=== PATIENT | male | born 1950 | race Caucasian/White ===

== ENCOUNTER → 2017-10-27 11:09 | Outpatient (CLI) | payer MEDICARE, OTHER, SELFPAY ==
[2017-10-27 14:49] LABS: Anion Gap 9 (5-15); BUN 22 mg/dL (7-18); BUN/Creat Ratio 17.3 RATIO (10-20); Calcium,Total 8.8 mg/dL (8.5-10.1); Chloride 101 mmol/L (98-107); Cholesterol 142 mg/dL (200); Creatinine, Serum 1.27 mg/dL (0.70-1.30); EST Glomerular Filtration Rate 60 mL/min (>60); Est Glom Filt Rate - Afr Amer 73 mL/min (>60); Glucose 104 mg/dL (74-106); High Density Lipoprotein 32 mg/dL; PSA,Total - Annual Screen 2.49 ng/mL (0.00-4.00); Potassium 3.9 mmol/L (3.5-5.1); Sodium Level 137 mmol/L (136-145); Triglycerides 204 mg/dL; Very Low Density Lipoprotein 41 mg/dL (5-40)
== END ==
PROVIDERS: Family Provider Family Medicine; PCP Family Medicine; Visit Provider Family Medicine
DX: I10 Essential (primary) hypertension (principal); N40.0 Benign prostatic hyperplasia without lower urinary tract symptoms; Z12.5 Encounter for screening for malignant neoplasm of prostate
CPT/HCPCS: 36415; 80048; 80061; 84153; G0103

== ENCOUNTER → 2017-11-12 09:45 | Outpatient (CLI) | payer MEDICARE, OTHER, SELFPAY ==
--- NOTE | 2017-11-14 19:53 | LEAS ---
Arterial Study - Arterial Study Arterial Study: This is a 67-year-old male with a history of hypertension. The patient presents with paresthesias and pain in the lower extremities with ambulation. Suspecting the presence of atherosclerotic peripheral arterial occlusive disease, the patient was brought to the noninvasive vascular laboratory at this time for the purpose of bilateral noninvasive lower extremity arterial assessment. Doppler signal assessment was used to evaluate the pulses at ankle level bilaterally. The posterior tibial and dorsalis pedis pulses were triphasic bilaterally. Segmental limb pressures were obtained at ankle level bilaterally. The right ankle pressure, as determined by posterior tibial pulse, was measured at 173 mmHg. The right ankle pressure, as determined by dorsalis pedis pulse, was measured at 157 mmHg. The left ankle pressure, as determined by posterior tibial pulse, was measured at 177 mmHg. The left ankle pressure, as determined by dorsalis pedis pulse, was measured at 164 mmHg. Pulse-volume recordings were obtained bilaterally and segmentally. Waveform amplitudes appeared to be satisfactory at all levels bilaterally, but for the right digital level, which was mildly diminished. Resting ankle-brachial indices were calculated bilaterally. The resting right ankle-brachial index was calculated to be 1.17. The resting left ankle-brachial index was calculated to be 1.20. The patient was exercised on a treadmill at 2 mph and a 5% grade for 5 minutes. The patient expressed no complaints. One minute following cessation of exercise, ankle pressures were obtained bilaterally, and found to be 209 mmHg on the right, and 201 mmHg on the left. Impression: Based upon the findings of this resting and exercise noninvasive lower extremity study, there is no evidence of peripheral arterial occlusive disease in the lower extremities bilaterally. Triphasic waveforms were noted at ankle level bilaterally. Resting ankle-brachial indices were bilaterally normal. Ankle pressures were noted to augment bilaterally following a period of exercise, which is a normal physiological response.
--- NOTE | 2017-11-14 19:57 | LEAS_ITS ---
Arterial Study - Arterial Study Arterial Study: This is a 67-year-old male with a history of hypertension. The patient presents with paresthesias and pain in the lower extremities with ambulation. Suspecting the presence of atherosclerotic peripheral arterial occlusive disease , the patient was brought to the noninvasive vascular laboratory at this time for the purpose of bilateral noninvasive lower extremity arterial assessment. Doppler signal assessment was used to evaluate the pulses at ankle level bilaterally. The posterior tibial and dorsalis pedis pulses were triphasic bilaterally. Segmental limb pressures were obtained at ankle level bilaterally. The right ankle pressure, as determined by posterior tibial pulse, was measured at 173 mmHg. The right ankle pressure, as determined by dorsalis pedis pulse, was measured at 157 mmHg. The left ankle pressure, as determined by posterior tibial pulse, was measured at 177 mmHg. The left ankle pressure, as determined by dorsalis pedis pulse, was measured at 164 mmHg. Pulse-volume recordings were obtained bilaterally and segmentally. Waveform amplitudes appeared to be satisfactory at all levels bilaterally, but for the right digital level, which was mildly diminished. Resting ankle-brachial indices were calculated bilaterally. The resting right ankle-brachial index was calculated to be 1.17. The resting left ankle- brachial index was calculated to be 1.20. The patient was exercised on a treadmill at 2 mph and a 5% grade for 5 minutes. The patient expressed no complaints. One minute following cessation of exercise, ankle pressures were obtained bilaterally, and found to be 209 mmHg on the right, and 201 mmHg on the left. Impression: Based upon the findings of this resting and exercise noninvasive lower extremity study, there is no evidence of peripheral arterial occlusive disease in the lower extremities bilaterally. Triphasic waveforms were noted at ankle level bilaterally. Resting ankle-brachial indices were bilaterally normal. Ankle pressures were noted to augment bilaterally following a period of exercise, which is a normal physiological response.
== END ==
PROVIDERS: Family Provider Family Medicine; PCP Family Medicine; Visit Provider Family Medicine
DX: R09.89 Other specified symptoms and signs involving the circulatory and respiratory systems (principal); R20.0 Anesthesia of skin
CPT/HCPCS: 93924

== ENCOUNTER → 2017-11-19 08:27 | Outpatient (CLI) | payer MEDICARE, OTHER, SELFPAY ==
--- NOTE | 2017-11-19 08:33 | BI_ITS ---
MAMMOGRAPHY - BILATERAL DIAGNOSTIC REASON FOR EXAM: Male, 67 years old. Bilateral breast tenderness and swelling. PERTINENT HISTORY: Non-contributory. TECHNIQUE: Digital bilateral breast mabel (3D mammographic acquisition) in the CC and MLO projections. 2-D mediolateral oblique (MLO) and craniocaudad (CC) views of both breasts were obtained. CAD: Full Field Digital Mammography with Computer Added Detection was performed. COMPARISON: None. Baseline examination. FINDINGS: Breast Composition: The breasts are heterogeneously dense, which may obscure small masses. There are no dominant masses or suspicious calcifications. No other significant abnormalities are identified. BI/DIAG MAMM W/CAD, BILAT IMPRESSION: Negative diagnostic mammogram. Correlation with ultrasound of both breasts is recommended to assess for possible gynecomastia. ASSESSMENT CATEGORY: BIRADS Category 0: Incomplete. Need additional imaging evaluation. A letter regarding these results will be sent to the patient by the facility within 30 days. Approximately 10% of breast cancers are not detected by mammography. A normal mammogram should not delay biopsy of a clinically suspicious abnormality. Electronically Signed: Ephraim Constantino MD at 10:41 EDT Tel [phone], Service support ,
--- NOTE | 2017-11-19 09:25 | US_ITS ---
STUDY: ULTRASOUND BREAST - RIGHT REASON FOR EXAM: Male, 67 years old. History of bilateral breast pain. TECHNIQUE: Axial and longitudinal images of the RIGHT breast were performed with a high resolution ultrasound transducer. COMPARISON: Comparison is made with prior mammogram done earlier today. FINDINGS: RIGHT Breast: The entire breast was examined by ultrasound. There is homogeneous fibroglandular tissue. No solid or cystic mass lesion is seen. Findings suggestive of gynecomastia. IMPRESSION: Fibroglandular tissues suggestive of gynecomastia. ASSESSMENT CATEGORY: BIRADS Category 2: Benign. A letter regarding these results will be sent to the patient by the facility within 30 days. Electronically Signed: Ephraim Constantino MD at 10:41 EDT Tel [phone], Service support , STUDY: ULTRASOUND BREAST - LEFT REASON FOR EXAM: Male, 67 years old. Breast tenderness. TECHNIQUE: Axial and longitudinal images of the LEFT breast were performed with a high resolution ultrasound transducer. COMPARISON: Comparison is made with prior mammogram done earlier in the day. FINDINGS: LEFT Breast: The entire breast was examined by ultrasound. There is evidence of homogeneous fibroglandular tissue. No solid or cystic mass lesion is seen. US/Breast Limited Unilateral IMPRESSION: Findings suggestive of gynecomastia. ASSESSMENT CATEGORY: BIRADS Category 2: Benign. A letter regarding these results will be sent to the patient by the facility within 30 days. Electronically Signed: Ephraim Constantino MD at 10:42 EDT Tel [phone], Service support ,
== END ==
PROVIDERS: Family Provider Family Medicine; PCP Family Medicine; Visit Provider Family Medicine
DX: N62 Hypertrophy of breast (principal)
CPT/HCPCS: 76642; 77062; 77066; G0279

== ENCOUNTER 2017-12-07 05:54 | Day surgery (SDC) | payer MEDICARE, OTHER, SELFPAY ==
[2017-12-07] VITALS (7 sets, daily range): BP systolic 100–144; BP diastolic 51–78; PULSE 57–64; RESP 16–18; TEMP 36.4–36.7; O2SAT 94–98; BMI 44.1
--- NOTE | 2017-12-07 07:15 | PCM.OPRPT ---
Problem List (1) Rectal bleeding Status: Acute Report of Operation Date of Procedure: 12/07/17 Pre-Operative Diagnosis: Rectal bleeding Post-Operative Diagnosis: Scattered sigmoid diverticulosis. Grade 3 internal hemorrhoids, friable Surgery/Procedure Performed:: Colonoscopy Description of Surgical Findings:: Out and informed consent was obtained. 67-year-old gentleman was taken to the endoscopy suite. He was placed in a left lateral decubitus position. Throughout the procedure he received a total of 80 mg of Demerol and 3 mg of Versed as intravenous sedation. Digital rectal exam performed. Slightly lax anal tone. 2+ smooth prostate. 3+ internal hemorrhoids. Flexible colonoscope inserted the rectum advanced through the sigmoid descending transverse and ascending colon this was done rather expeditiously. The cecum ileocecal valve area was nicely achieved. Bowel prep was good. The scope was carefully withdrawn from the ascending transverse descending and sigmoid colon. Scattered diverticulosis of the sigmoid noted. No mass lesions. No active bleeding. The scope was retroflexed and the internal hemorrhoidal disease noted with friability. Excess fluid and air was aspirated free the scope was carefully withdrawn demonstrating irritated internal hemorrhoids. The procedure was completed with the patient tolerating it well. Impression Scattered sigmoid diverticulosis. Grade 3 internal hemorrhoids likely source of rectal bleeding. Patient will consider surgical treatment options for internal hemorrhoids and based upon his body habitus and presentation I am recommending a surgical hemorrhoidectomy. Previous colonoscopy was April 29, 2008. Next colonoscopy recommended for screening in 10 years. Cc: Dr. Foreign Herrmann Medications were given at 0700. Scope inserted 0703. Cecum was reached at 0707. The procedure was completed at 0713. Iban Penaloza M.D., F.A.C.S. Type of Anesthesia:: IV Sedation
== END 2017-12-07 08:00 | disposition home or self-care (01) ==
LOC: EN 05:55 → AC 05:57
PROVIDERS: Family Provider Family Medicine; PCP Family Medicine; Visit Provider Surgery
PROC: 0DJD8ZZ Inspection of Lower Intestinal Tract, Via Natural or Artificial Opening Endoscopic (ICD-10-PCS; CPT 45378; principal; 2017-12-07 06:55)
DX: K57.30 Diverticulosis of large intestine without perforation or abscess without bleeding (principal); K64.2 Third degree hemorrhoids; I10 Essential (primary) hypertension; E66.01 Morbid (severe) obesity due to excess calories; N62 Hypertrophy of breast; I87.2 Venous insufficiency (chronic) (peripheral); K62.5 Hemorrhage of anus and rectum; R20.0 Anesthesia of skin; R20.2 Paresthesia of skin; Z68.41 Body mass index [BMI] 40.0-44.9, adult
CPT/HCPCS: 45378; 99152; 99153; J7120

== ENCOUNTER → 2017-12-17 08:55 | Outpatient (CLI) | payer MEDICARE, OTHER, SELFPAY ==
[2017-12-17 10:36] LABS: Anion Gap 7 (5-15); BUN 21 mg/dL (7-18); BUN/Creat Ratio 15.8 RATIO (10-20); Calcium,Total 8.7 mg/dL (8.5-10.1); Chloride 105 mmol/L (98-107); Creatinine, Serum 1.33 mg/dL (0.70-1.30); EST Glomerular Filtration Rate 57 mL/min (>60); Est Glom Filt Rate - Afr Amer 69 mL/min (>60); Glucose 104 mg/dL (74-106); Potassium 3.6 mmol/L (3.5-5.1); Sodium Level 140 mmol/L (136-145)
== END ==
PROVIDERS: Family Provider Family Medicine; PCP Family Medicine; Visit Provider Family Medicine
DX: R60.9 Edema, unspecified (principal)
CPT/HCPCS: 36415; 80048

== ENCOUNTER 2018-01-19 05:29 | Day surgery (SDC) | payer MEDICARE, OTHER, SELFPAY ==
--- NOTE | 2018-01-13 07:55 | EKG12_ITS ---
Test Reason : PRE OP Blood Pressure : / mmHG Vent. Rate : 060 BPM Atrial Rate : 060 BPM P-R Int : 158 ms QRS Dur : 098 ms QT Int : 452 ms P-R-T Axes : 058 -01 061 degrees QTc Int : 452 ms Normal sinus rhythm Normal ECG Confirmed by SULEMAN SAL, RYLIE ([id number]), editor index MAGEN CHAVEZ ([id number]) on 01/19/2018 6:25:52 PM Referred By: Iban Penaloza Confirmed By:RYLIE SHELL MD
[2018-01-16 11:23] LABS: Hematocrit 41.6 % (40-54); Mean Corp Hgb Conc 36.1 g/gl (32-36); Mean Corpuscular Hgb 31.5 pg (27.0-32.0); Mean Corpuscular Volume 87.4 fL (80-94); Mean Platelet Vol. 9.5 fl (6.2-12.0); Platelet Count 225 K/mm3 (150-450); RBC Distribution Width CV 12.9 % (11.6-14.6); RBC Distribution Width SD 41.6 fl (35.1-43.9); Red Blood Count 4.76 M/mm3 (4.6-6.2); Scan Indicated on CBC? Y/N NO; White Blood Count 7.1 K/mm3 (4.4-11.0)
[2018-01-18 01:07] LABS: BUN 22 mg/dL (7-18); BUN/Creat Ratio 15.7 RATIO (10-20); EST Glomerular Filtration Rate 54 mL/min (>60); Est Glom Filt Rate - Afr Amer 65 mL/min (>60); Glucose 111 mg/dL (74-106)
[2018-01-18 01:08] LABS: Anion Gap 7 (5-15); Calcium,Total 8.6 mg/dL (8.5-10.1); Chloride 102 mmol/L (98-107); Potassium 3.3 mmol/L (3.5-5.1); Sodium Level 139 mmol/L (136-145)
[2018-01-19] VITALS (7 sets, daily range): BP systolic 99–135; BP diastolic 56–79; PULSE 54–84; RESP 18–20; TEMP 36.1–36.6; O2SAT 96–99; BMI 43.2
--- NOTE | 2018-01-19 | HEM_PTH ---
PATIENT: SLIME SHAW LOC: [facility] [place] U#:[id number] AGE/SX: 67/M ROOM: RE01/19/[address]: Dr. Iban Penaloza MD : [id number] BED: DIS: 01/19/2018 SPEC #: [id number] RECD: 01/19/18 10:50 STATUS: ARTIE JARED #: [id number] MICHEAL: 01/19/18 00:[address]: Iban Penaloza DEPT: SURGICAL PATHOLOGY RECD BY: Geoffrey Ramsay ENTERED: 01/19/18 10:51 SP TYPE: HEMORRHOID OTHR DR: Dr. Foreign Herrmann MD Tissues: A - HEMORRHOIDS B - Skin appendage, NOS Procedures: Surgery Specimen Level III Surgery Specimen Level IV HEADER OPERATION: Hemorrhoidectomy PRE-OP DIAGNOSIS: Grade 3 internal hemorrhoids, rectal bleeding TISSUE SUBMITTED: A ? Hemorrhoids, B ? Skin tag sacral area MICROSCOPIC DIAGNOSIS A. Hemorrhoid: Pieces of squamous mucosa with dilated and congested blood vessels, consistent with hemorrhoid. B. Skin tag sacral area: Intradermal nevus. LYLA:mariana 01/20/18 MICROSCOPIC DESCRIPTION Slides are reviewed. GROSS DESCRIPTION A - Received in fixative is one container labeled with the patient's name and designated hemorrhoids. The specimen consists of two pieces of pink mucosal tissue measuring 4 x 2 x 2 cm and 3 x 2 x 1.2 cm. Sections reveal congested and hemorrhagic cut surfaces. Pipe Insulator sections are submitted in one cassette. B - Received in fixative is one container labeled with the patient's name and designated skin tag sacral area. The specimen consists of a piece of andersen-white skin measuring 1.1 x 0.5 cm and up to 1 cm in thickness. The specimen is inked, bisected and submitted entirely in one cassette. It will be sectioned at the time of embedding. / LYLA:mariana 01/19/18 TC:1 CPT: 58644, 17965
--- NOTE | 2018-01-19 07:18 | PCM.DC.REC ---
Discharge Diet: No Restrictions Discharge Activity: Return to Normal Activity, May Not Drive - while you are taking narcotic pain medications. Do not drive, work with heavy equipment or sign legal documents for 24 hours after your surgery. Additional Dressing/Incision Instructions:: You may remove the Vaseline gauze dressing tomorrow morning or with any bowel movement prior. Sitz baths in warm soapy water may be utilized for comfort 3 times a day and for post defecation hygiene. You may utilize the provided dibucaine ointment every 2 hours as needed for comfort. I recommend utilization of a daily psyllium seed fiber supplementation 1 tablespoon in water daily. In addition I recommend mineral oil 30 cc (1 ounce) daily in juice or food. You may apply a topical antibiotic ointment like Polysporin or Neosporin to the skin tag site twice daily Allergies/Adverse Reactions: Allergies YOSSI Inhibitors Adverse Reaction (Verified 11/22/17 14:11) Other hydrochlorothiazide [From Dyazide] Adverse Reaction (Verified 11/22/17 14:11) Other spironolactone [From Aldactone] Adverse Reaction (Verified 01/19/18 06:34) Other GYNACOMASTIA triamterene [From Dyazide] Adverse Reaction (Verified 11/22/17 14:11) Other Medications to take at Discharge Desoximetasone 0.25% [Topicort Crm 0.25%] 1 applic TOPICAL BID 06/13/13 Doxazosin Mesylate [Cardura] 4 mg PO DAILY 06/13/13 Hydrocortisone [Anusol Hc] 25 mg RECTAL BID PRN PRN 06/13/13 Latanoprost 0.005% [Xalatan Opthalmic] 1 drp EACH EYE QHS 06/13/13 Multivitamins,Therapeutic [Multivitamin] 1 tab PO DAILY 06/13/13 [place] 3/Dha/Epa/Vitamin D3 [[place]-3 + Vitamin D3 Softgel] 1 ea PO DAILY 06/13/13 Oxiconazole Nitrate [Oxistat] 30 ml TP PRN PRN 06/13/13 Verapamil [Calan Sr] 180 mg PO Q12 06/13/13 Vit A,C & E/Lutein/Minerals 1 tab PO DAILY 06/13/13 cephalexin 500 mg capsule 500 mg PO .prn cap 11/22/17 chlorthalidone 25 mg tablet 25 mg PO QDAY 11/22/17 fluticasone 50 mcg/actuation nasal spray,suspension 1 spray INTRANASAL QDAY 11/22/17 furosemide 40 mg tablet 40 mg PO ONCE 11/22/17 latanoprost 0.005 % eye drops 1 drp OPHTHALMIC QPM 11/22/17 levothyroxine 50 mcg capsule 50 mcg PO QDAY 11/22/17 polyethylene glycol 3350 17 gram/dose oral powder 1 pack PO DAILY 11/22/17 potassium chloride ER 20 mEq tablet,extended release(part/cryst) 20 meq PO BID tab 11/22/17 spironolactone 25 mg tablet 25 mg PO QDAY 11/22/17 Hydrocodone Bitart/Apap 5-325 [[place] 5MG-325MG] 1 tablet PO Q6H PRN PRN 4 Days #20 tablet 01/19/18 Metronidazole 250 mg PO TID #15 tab 01/19/18 The following prescriptions were given: Hydrocodone Bitart/Apap 5-325 [[place] 5MG-325MG] 1 tablet PO Q6H PRN PRN 4 Days #20 tablet PRN Reason: Pain Metronidazole 250 mg PO TID #15 tab Primary Care Physician: Foreign Herrmann MD [Primary Care Provider] - Please Follow Up With: Iban Penaloza MD - [phone] When: Plan to have a follow up approximately 3 weeks after surgery.
--- NOTE | 2018-01-19 07:23 | DCINST_ITS ---
Discharge Diet: No Restrictions Discharge Activity: Return to Normal Activity, May Not Drive - while you are taking narcotic pain medications. Do not drive, work with heavy equipment or sign legal documents for 24 hours after your surgery. Additional Dressing/Incision Instructions:: You may remove the Vaseline gauze dressing tomorrow morning or with any bowel movement prior. Sitz baths in warm soapy water may be utilized for comfort 3 times a day and for post defecation hygiene. You may utilize the provided dibucaine ointment every 2 hours as needed for comfort. I recommend utilization of a daily psyllium seed fiber supplementation 1 tablespoon in water daily. In addition I recommend mineral oil 30 cc (1 ounce) daily in juice or food. You may apply a topical antibiotic ointment like Polysporin or Neosporin to the skin tag site twice daily Allergies/Adverse Reactions: Allergies YOSSI Inhibitors Adverse Reaction (Verified 11/22/17 14:11) Other hydrochlorothiazide [From Dyazide] Adverse Reaction (Verified 11/22/17 14:11) Other spironolactone [From Aldactone] Adverse Reaction (Verified 01/19/18 06:34) Other GYNACOMASTIA triamterene [From Dyazide] Adverse Reaction (Verified 11/22/17 14:11) Other Medications to take at Discharge Desoximetasone 0.25% [Topicort Crm 0.25%] 1 applic TOPICAL BID 06/13/13 Doxazosin Mesylate [Cardura] 4 mg PO DAILY 06/13/13 Hydrocortisone [Anusol Hc] 25 mg RECTAL BID PRN PRN 06/13/13 Latanoprost 0.005% [Xalatan Opthalmic] 1 drp EACH EYE QHS 06/13/13 Multivitamins,Therapeutic [Multivitamin] 1 tab PO DAILY 06/13/13 [place] 3/Dha/Epa/Vitamin D3 [[place]-3 + Vitamin D3 Softgel] 1 ea PO DAILY Oxiconazole Nitrate [Oxistat] 30 ml TP PRN PRN 06/13/13 Verapamil [Calan Sr] 180 mg PO Q12 06/13/13 Vit A,C & E/Lutein/Minerals 1 tab PO DAILY 06/13/13 cephalexin 500 mg capsule 500 mg PO .prn cap 11/22/17 chlorthalidone 25 mg tablet 25 mg PO QDAY 11/22/17 fluticasone 50 mcg/actuation nasal spray,suspension 1 spray INTRANASAL QDAY furosemide 40 mg tablet 40 mg PO ONCE 11/22/17 latanoprost 0.005 % eye drops 1 drp OPHTHALMIC QPM 11/22/17 levothyroxine 50 mcg capsule 50 mcg PO QDAY 11/22/17 polyethylene glycol 3350 17 gram/dose oral powder 1 pack PO DAILY 11/22/17 potassium chloride ER 20 mEq tablet,extended release(part/cryst) 20 meq PO BID tab 11/22/17 spironolactone 25 mg tablet 25 mg PO QDAY 11/22/17 Hydrocodone Bitart/Apap 5-325 [Wallace 5MG-325MG] 1 tablet PO Q6H PRN PRN 4 Days # 20 tablet 01/19/18 Metronidazole 250 mg PO TID #15 tab 01/19/18 The following prescriptions were given: Hydrocodone Bitart/Apap 5-325 [[place]ace 5MG-325MG] 1 tablet PO Q6H PRN PRN 4 Days # 20 tablet PRN Reason: Pain Metronidazole 250 mg PO TID #15 tab Primary Care Physician: Foreign Herrmann MD [Primary Care Provider] - Please Follow Up With: Iban Penaloza MD - [phone] When: Plan to have a follow up approximately 3 weeks after surgery.
[2018-01-19] MEDS: Bupivacaine Mpf 0.5% 30 ML VIAL (08:24)
[2018-01-19] MEDS: BUPIVACAINE LIPOSOME/PF 20 ML VIAL OPERA.SITE (08:27)
[2018-01-19] MEDS: Dibucaine 30 GM Tube 1 APPLIC (08:28)
--- NOTE | 2018-01-19 08:31 | PCM.OPRPT ---
Problem List (1) Grade III internal hemorrhoids Status: Acute (2) Skin tag Status: Acute Report of Operation Date of Procedure: 01/19/18 Pre-Operative Diagnosis: Grade 3 bleeding internal hemorrhoids. Irritated sacral skin tag Post-Operative Diagnosis: Same Surgery/Procedure Performed:: Excision 4 mm sacral skin tag. Extensive surgical hemorrhoidectomy Description of Surgical Findings:: Timeout and informed consent was obtained. 37-year-old gent was taken to the operating room. He underwent general endotracheal intubation anesthesia. He was placed prone jackknife on the table with careful shoulder and pelvic roll. Cefotetan 2 g given intravenous preoperatively. The sacral and perianal area were sterilely prepped draped with Betadine. The sacral skin tag was cleaned lesions addressed first. 4 mm in diameter. A vertical 1.2 x 0.6 cm ellipse was used to completely excise the lesion. Subdermal tissues proximate interrupted 4 Monocryl. Skin edges approximated with simple sutures of 4-0 nylon. Telfa OpSite dressing applied. Attention was now drawn to the exuberant internal hemorrhoidal tissue. Anal speculum was placed. Right lateral and left lateral large amounts of internal hemorrhoidal bulk were secured with apical sutures of 2-0 chromic. Harmonic Scalpel was used to excise. The mucosa was approximated with a running 2-0 chromic. An additional apical [id number] suture was placed bilaterally of 0 chromic. There was some additional hemorrhoidal tissue left posteriorly and right anteriorly which was excised with harmonic scalpel. Hemostasis was nicely intact. The perianal area was anesthetized with 15 cc of 0.5% Marcaine and 30 cc of Exparel. Dibucaine ointment on Vaseline gauze was inserted into the anus. Sterile cover dressings. Sponge and instrument and needle counts were reported the surgeon be correct. Blood loss was minimal. He tolerated the procedure well was taken to the recovery area in satisfactory condition without apparent complication. Specimens include the skin tag and the hemorrhoids. Blood loss minimal. Drains none. Iban Penaloza M.D., F.A.C.S. Type of Anesthesia:: General Anesthesiologist: Melecio Wayne
[2018-01-19] MEDS: HYDROcodone Bitartrate/Apap 5/325 Tablet PO (10:29)
--- NOTE | 2018-01-19 14:44 | SUR.PHASEII ---
fc 18 inserted without difficulty- [address] elkins urine- given instructions to d/c tomorrow- early am- call office if pt unable to void
== END 2018-01-19 14:48 | disposition home or self-care (01) ==
LOC: SDC 05:30 → AC 05:30
PROVIDERS: Family Provider Family Medicine; PCP Family Medicine; Visit Provider Surgery
PROC: (CPT 46230; principal; 2018-01-19 07:00)
PROC: (CPT 46230; 2018-01-19 07:00)
DX: K64.8 Other hemorrhoids (principal); I10 Essential (primary) hypertension; N40.0 Benign prostatic hyperplasia without lower urinary tract symptoms; K62.5 Hemorrhage of anus and rectum; D22.5 Melanocytic nevi of trunk
CPT/HCPCS: 46230; 46255; 36415; 80048; 85027; 88304; 88305; 93005; J7120; A4216; J3490

== ENCOUNTER 2018-01-22 23:16 | Emergency (ER) | payer MEDICARE, OTHER, SELFPAY ==
--- NOTE | 2018-01-22 01:00 | RAD_ITS ---
STUDY: X-RAY CHEST REASON FOR EXAM: Male, 67 years old. Fever TECHNIQUE: Frontal and lateral views of the chest. COMPARISON: 10/10/2013 FINDINGS: The lungs are clear and expanded. There is no demonstrated pleural abnormality. Normal size heart. Normal mediastinum and lety. Normal visualized pulmonary arteries. Normal visualized aortic arch and descending thoracic aorta. There are diffuse degenerative changes of the visualized thoracic spine. Normal visualized ribs, clavicles, and shoulders. There is no demonstrated abnormality of the visualized soft tissue structures of the upper abdomen. RAD/Chest PA and Lateral IMPRESSION: No acute pulmonary findings. Electronically Signed: Gabe Lopez MD at 2:11 EDT Tel , Service support ,
[2018-01-22 23:17] VITALS: BP 148/73; PULSE 92; RESP 16; TEMP 38.2; O2SAT 94; BMI 42.5
[2018-01-22] MEDS: Acetaminophen 500 MG Tablet 1000 MG PO (23:43)
[2018-01-22 23:45] VITALS: TEMP 39.4
[2018-01-23 00:47] LABS: Absolute Lymphocyte Count 0.53 X10^3/ul (0.83-4.51); Absolute Neutrophil Count 9.3 X10^3/uL (2.0-7.7); Basophil# 0.02 X10^3/uL; Basophil% 0.2 % (0-1); Eosinophil# 0.09 X10^3/uL; Eosinophils% 0.9 % (0-5); Hematocrit 42.6 % (40-54); Hemoglobin 15.3 g/dl (13.0-16.5); Lymphocyte # 0.53 X10^3/ul (4.0); Lymphocyte % 5.1 % (19-41); Mean Corp Hgb Conc 35.9 g/gl (32-36); Mean Corpuscular Hgb 31.3 pg (27.0-32.0); Mean Corpuscular Volume 87.1 fL (80-94); Mean Platelet Vol. 9.5 fl (6.2-12.0); Monocyte# 0.52 X10^3/uL; Neutrophil % 88.6 % (47-70); Platelet Count 215 K/mm3 (150-450); RBC Distribution Width CV 12.8 % (11.6-14.6); RBC Distribution Width SD 39.7 fl (35.1-43.9); Red Blood Count 4.89 M/mm3 (4.6-6.2); White Blood Count 10.5 K/mm3 (4.4-11.0)
[2018-01-23 00:48] LABS: Differential Indicated SCAN CRITERIA MET; POSITIVE COUNT NO; POSITIVE DIFFERENTIAL YES; POSITIVE MORPHOLOGY NO
[2018-01-23 00:50] LABS: Mucous, Urine 0 SEEN /hpf (<or=2+)
[2018-01-23 01:01] LABS: Lactic Acid 1.6 mmol/L (0.4-2.0)
[2018-01-23 01:04] LABS: Color, Urine Yellow (Yellow); Glucose, Dipstick Normal (Normal); Ketone-Dipstick Negative (Negative); Leukocyte Esterase-Dipstick 100 /ul (Negative); Nitrite-Dipstick Negative (Negative); Occult Blood-Urine 25 /ul (Negative); Protein-Dipstick 15 mg/dl (Negative); Specific Gravity, Urine 1.005 (1.002-1.030); Urine Bilirubin Dipstick Negative (Negative); Urine Clarity Sl. Cloudy (Clear); Urine Urobilinogen Normal (Normal)
[2018-01-23 01:09] LABS: Anion Gap 5 (5-15); BUN 19 mg/dL (7-18); BUN/Creat Ratio 12.8 RATIO (10-20); Calcium,Total 8.9 mg/dL (8.5-10.1); Chloride 101 mmol/L (98-107); Creatinine, Serum 1.49 mg/dL (0.70-1.30); EST Glomerular Filtration Rate 50 mL/min (>60); Est Glom Filt Rate - Afr Amer 60 mL/min (>60); Estimated Creatinine Clearance 47.45 ml/min; Glucose 143 mg/dL (74-106); Potassium 3.6 mmol/L (3.5-5.1); Sodium Level 136 mmol/L (136-145)
[2018-01-23 01:19] VITALS: BP 147/66; PULSE 88; RESP 24; O2SAT 96
[2018-01-23 01:19] LABS: Bacteria 2+ /hpf (None Seen); Red Blood Cells-Urine 5-10 SEEN /hpf (0-5); Squamous Epithelial Cells - UA 0-5 SEEN /hpf (0-5); White Blood Cells 10-25 SEEN /hpf (0-5)
--- NOTE | 2018-01-23 02:07 | ED.VISSUMM ---
- ER Visit Summary Date of Service: 01/23/18 Chief Complaint: Fever and chills History of Present Illness: The patient is a 67 M is post recent hemorrhoidectomy by Dr. Iban Penaloza. Post surgery he had urinary retention where he needed a Ivllanueva catheter which is since been removed. Today he developed fever and chills the fever started around 1030 tonight and was 102 orally at home. 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 He denies any vomiting. He denies any diarrhea. He denies any shortness of breath, cough or abdominal pain. Physical Examination: Well-appearing older male. Vital signs are currently stable he does have a temperature of 100.8. He does not look septic or toxic. He is in no distress. Pulse ox 94% room air no hypoxia. H EENT exam unremarkable neck nontender no lymphadenopathy. Lungs clear to auscultation bilaterally. Heart rate and rhythm no murmur rate about 90. Abdomen soft and nontender. He is moving all 4 extremities. Calves are nontender without edema or cords. Back exam is nontender no CVA tenderness. He has had hemorrhoidectomy surgery the site looks good. There are no signs of wound infection. No pus. No cellulitis. I did not do a rectal exam due to his recent surgery. Neurologically is awake and alert with no focal motor deficits. Test Results: White count is 10. H&H of 15 and 42. No bands. Electrolytes unremarkable. Creatinine 1.49. Urinalysis shows infection with 10-25 white cells 2+ bacteria negative nitrates. A urine culture was sent. Lactic acid is normal 1.6. Blood cultures ?2 were sent. Chest x-ray 2 views shows no acute abnormality read by myself. Emergency Department Course and Treatment: Exam the patient is doing very well at 0207. A long discussion about all his test results of both he and his . Both are comfortable with him being discharged home. He will be started on Keflex 500 mg 4 times daily for 10 days. Again a urine culture was sent. I did speak to Dr. Iban Penaloza who had called in prior to the patient's arrival and we discussed his test both he and are comfortable with him being discharged home. The patient will move up his postop visit with Dr. Penaloza and see his primary care physician for the urinary tract infection. Treatment Plan: Keflex 500 mg 4 times daily for 10 days. Disposition: Discharge Impression: Acute urinary tract infection Acute fever That is post hemorrhoidectomy surgery This note was generated with [employer] dictation software. It may contain incorrect words, spelling, and punctuation that were not noted in review of the chart prior to signing ED Disposition - Plan for ED Patient: Chief Complaint: Fever Referrals: Foreign Herrmann MD [Primary Care Provider] -
[2018-01-23 02:11] VITALS: BP 145/70; PULSE 76; RESP 24; TEMP 39.4; O2SAT 93
[2018-01-23] MEDS: Cephalexin 250 MG Capsule 500 MG PO (02:11)
--- NOTE | 2018-01-23 02:11 | ED.DEP ---
ED Disposition - Plan for ED Patient: Disposition: Home or Assisted Living Chief Complaint: Fever Instructions: ED UTI Cystitis Male Prescriptions: Cephalexin [Keflex] 500 mg PO Q6 #40 cap Referrals: Foreign Herrmann MD [Primary Care Provider] - As soon as possible Additional Instructions: Fluids and rest. Tylenol for fever. Keflex 500 mg 4 times a day for 10 days. To treat the urinary tract infection. A urine culture was sent. Call and follow-up with his primary care physician as soon as possible. Return to ER feeling worse.
--- NOTE | 2018-01-23 02:12 | ED.DCSUM_ITS ---
- ER Visit Summary Date of Service: 01/23/18 Chief Complaint: Fever and chills History of Present Illness: The patient is a 67 M is post recent hemorrhoidectomy by Dr. Iban Penaloza. Post surgery he had urinary retention where he needed a Villanueva catheter which is since been removed. Today he developed fever and chills the fever started around 1030 tonight and was 102 orally at home. 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 He denies any vomiting. He denies any diarrhea. He denies any shortness of breath , cough or abdominal pain. Physical Examination: Well-appearing older male. Vital signs are currently stable he does have a temperature of 100.8. He does not look septic or toxic. He is in no distress. Pulse ox 94% room air no hypoxia. H EENT exam unremarkable neck nontender no lymphadenopathy. Lungs clear to auscultation bilaterally. Heart rate and rhythm no murmur rate about 90. Abdomen soft and nontender. He is moving all 4 extremities. Calves are nontender without edema or cords. Back exam is nontender no CVA tenderness. He has had hemorrhoidectomy surgery the site looks good. There are no signs of wound infection. No pus. No cellulitis. I did not do a rectal exam due to his recent surgery. Neurologically is awake and alert with no focal motor deficits. Test Results: White count is 10. H&H of 15 and 42. No bands. Electrolytes unremarkable. Creatinine 1.49. Urinalysis shows infection with 10-25 white cells 2+ bacteria negative nitrates. A urine culture was sent. Lactic acid is normal 1.6. Blood cultures ?2 were sent. Chest x-ray 2 views shows no acute abnormality read by myself. Emergency Department Course and Treatment: Exam the patient is doing very well at 0207. A long discussion about all his test results of both he and his . Both are comfortable with him being discharged home. He will be started on Keflex 500 mg 4 times daily for 10 days. Again a urine culture was sent. I did speak to Dr. Iban Penaloza who had called in prior to the patient's arrival and we discussed his test both he and are comfortable with him being discharged home. The patient will move up his postop visit with Dr. Penaloza and see his primary care physician for the urinary tract infection. Treatment Plan: Keflex 500 mg 4 times daily for 10 days. Disposition: Discharge Impression: Acute urinary tract infection Acute fever That is post hemorrhoidectomy surgery This note was generated with [employer] dictation software. It may contain incorrect words, spelling, and punctuation that were not noted in review of the chart prior to signing ED Disposition - Plan for ED Patient: Chief Complaint: Fever Referrals: Foreign Herrmann MD [Primary Care Provider] -
== END 2018-01-23 02:17 | disposition home or self-care (01) ==
PROVIDERS: Emergency Provider Emergency Medicine; Family Provider Family Medicine; PCP Family Medicine
DX: N39.0 Urinary tract infection, site not specified (principal); R50.9 Fever, unspecified; I10 Essential (primary) hypertension; Z98.890 Other specified postprocedural states; G47.30 Sleep apnea, unspecified
CPT/HCPCS: 36415; 71046; 80048; 81001; 83605; 85025; 87040; 87077; 87086; 87088; 87186; 99285; A4216

== ENCOUNTER → 2018-02-14 12:06 | Outpatient (CLI) | payer MEDICARE, OTHER, SELFPAY ==
--- NOTE | 2018-02-14 12:11 | RAD_ITS ---
STUDY: X-RAY - RIGHT KNEE REASON FOR EXAM: Male, 67 years old. Knee pain and swelling. TECHNIQUE: 3 view(s) of the knee. COMPARISON: None. FINDINGS: There is generalized osteopenia. Normal visualized distal femur. Normal visualized proximal tibia and fibula. Normal proximal tibiofibular articulation. There is moderate medial compartmental arthrosis. Normal lateral femorotibial compartment. There is moderate arthrosis of the patellofemoral compartment. There are superior patellar spurs. There is ossification of the distal quadriceps tendon with thickening of the quadriceps and patellar tendons. RAD/Knee 3 Views IMPRESSION: Osteopenia with osteoarthritic changes as described. Ossification of the distal quadriceps tendon with thickening of the quadriceps and patellar tendons. Electronically Signed: Everett Roland MD at 17:44 EDT , Service support ,
== END ==
PROVIDERS: Family Provider Family Medicine; PCP Family Medicine; Visit Provider Family Medicine
DX: M25.561 Pain in right knee (principal)
CPT/HCPCS: 73562

== ENCOUNTER → 2018-05-06 09:35 | Outpatient (CLI) | payer MEDICARE, OTHER, SELFPAY ==
[2018-05-06 12:35] LABS: Anion Gap 8 (5-15); BUN 18 mg/dL (7-18); BUN/Creat Ratio 13.7 RATIO (10-20); Calcium,Total 8.9 mg/dL (8.5-10.1); Chloride 104 mmol/L (98-107); Cholesterol 163 mg/dL (200); Creatinine, Serum 1.31 mg/dL (0.70-1.30); EST Glomerular Filtration Rate 58 mL/min (>60); Est Glom Filt Rate - Afr Amer 70 mL/min (>60); Glucose 100 mg/dL (74-106); High Density Lipoprotein 33 mg/dL; Potassium 3.6 mmol/L (3.5-5.1); Sodium Level 139 mmol/L (136-145); Thyroid Stim Hormone (TSH) 2.39 uIU/mL (0.358-3.74); Triglycerides 147 mg/dL; Very Low Density Lipoprotein 29 mg/dL (5-40)
== END ==
PROVIDERS: Family Provider Family Medicine; PCP Family Medicine; Visit Provider Family Medicine
DX: I10 Essential (primary) hypertension (principal); E03.9 Hypothyroidism, unspecified
CPT/HCPCS: 36415; 80048; 80061; 84443

== ENCOUNTER → 2018-05-13 16:00 | Outpatient (CLI) | payer MEDICARE, OTHER, SELFPAY ==
--- NOTE | 2018-05-13 16:00 | LES_PTH ---
PATIENT: SLIME SHAW [facility]: [facility] U#:[id number] AGE/SX: 74/M ROOM: RE05/13/[address]: Dr. Foreign Herrmann MD : 1950 BED: DIS: SPEC #: [id number] RECD: 05/13/18 21:14 STATUS: ARTIE JARED #: [id number] MICHEAL: 05/13/18 16:[address]: Foreign Herrmann DEPT: SURGICAL PATHOLOGY RECD BY: Tyrone Kenny Tissues: Skin of forearm, NOS Procedures: Surgery Specimen Level IV HEADER OPERATION: Elliptical excision of right forearm PRE-OP DIAGNOSIS: Neoplasm TISSUE SUBMITTED: Right forearm MICROSCOPIC DIAGNOSIS Lesion of right forearm, biopsy: Verrucoid keratosis with actinic change, mildly inflamed. Solar elastosis. AM:mariana 05/17/18 COMMENT Case has been reviewed in consultation with Dr. Loera who concurs with the above diagnosis. IDC:SJ MICROSCOPIC DESCRIPTION Slides are reviewed. GROSS DESCRIPTION Received is one container labeled with the patient's name and not further designated. The specimen consists of a piece of andersen-white skin measuring 1.1 x 0.6 cm and up to 0.2 cm in thickness. The specimen is inked and submitted entirely in one cassette. It will be sectioned at the time of embedding. / LYLA:mariana 05/16/18 TC:5 [facility]: [id number]
== END ==
PROVIDERS: Family Provider Family Medicine; PCP Family Medicine; Referring Provider Family Medicine; Visit Provider Family Medicine
DX: L57.0 Actinic keratosis (principal)
CPT/HCPCS: 88305

== ENCOUNTER → 2018-11-02 10:08 | Outpatient (CLI) | payer MEDICARE, OTHER, SELFPAY ==
[2018-11-02 13:17] LABS: Anion Gap 8 (5-15); BUN 18 mg/dL (7-18); BUN/Creat Ratio 14.2 RATIO (10-20); Calcium,Total 8.6 mg/dL (8.5-10.1); Chloride 101 mmol/L (98-107); Cholesterol 155 mg/dL (200); Creatinine, Serum 1.27 mg/dL (0.70-1.30); EST Glomerular Filtration Rate 60 mL/min (>60); Est Glom Filt Rate - Afr Amer 72 mL/min (>60); Free T3 2.7 pg/mL (2.18-3.98); Glucose 89 mg/dL (74-106); High Density Lipoprotein 35 mg/dL; Potassium 3.4 mmol/L (3.5-5.1); Sodium Level 139 mmol/L (136-145); T4 Total, Thyroxin 10.2 ug/dL (4.5-12.1); Thyroid Stim Hormone (TSH) 2.53 uIU/mL (0.358-3.74); Triglycerides 148 mg/dL; Very Low Density Lipoprotein 30 mg/dL (5-40)
== END ==
PROVIDERS: Family Provider Family Medicine; PCP Family Medicine; Referring Provider Family Medicine; Visit Provider Family Medicine
DX: I10 Essential (primary) hypertension (principal); E03.9 Hypothyroidism, unspecified; N40.0 Benign prostatic hyperplasia without lower urinary tract symptoms; Z12.5 Encounter for screening for malignant neoplasm of prostate
CPT/HCPCS: 36415; 80048; 80061; 84153; 84436; 84443; 84481; G0103

== ENCOUNTER → 2019-02-27 09:05 | Outpatient (CLI) | payer MEDICARE, OTHER, SELFPAY ==
[2019-02-27 09:44] LABS: Absolute Lymphocyte Count 2.64 X10^3/uL (0.83-4.51); Absolute Neutrophil Count 4.3 X10^3/uL (2.0-7.7); Basophil# 0.05 X10^3/uL; Basophil% 0.6 % (0-1); Eosinophil# 0.32 X10^3/uL; Hematocrit 40.1 % (40-54); Hemoglobin 14.5 g/dL (13.0-16.5); Lymphocyte # 2.64 X10^3/ul (4.0); Lymphocyte % 32.8 % (19-41); Mean Corp Hgb Conc 36.2 g/dL (32-36); Mean Corpuscular Hgb 31.7 pg (27.0-32.0); Mean Corpuscular Volume 87.6 fL (80-94); Mean Platelet Vol. 9.1 fl (6.2-12.0); Monocyte# 0.69 X10^3/uL; Monocyte% 8.6 % (0-10); NRBC Flagged by Analyzer 0 % (0-5); Neutrophil # 4.32 X10^3/uL (2.7-7.7); Neutrophil % 53.5 % (47-70); Platelet Count 241 K/mm3 (150-450); RBC Distribution Width CV 12.8 % (11.6-14.6); RBC Distribution Width SD 40.8 fl (35.1-43.9); Red Blood Count 4.58 M/mm3 (4.6-6.2); White Blood Count 8.1 K/mm3 (4.4-11.0)
[2019-02-27 10:10] LABS: ALB/GLOB Ratio 0.8 RATIO (0.9-2.4); AST(SGOT) 21 U/L (15-37); Alanine Aminotransfer ALT/SGPT 38 U/L (16-61); Albumin, Serum 3.5 g/dL (3.2-5.0); Alkaline Phosphatase 62 U/L (45-117); Anion Gap 7 (5-15); BUN 18 mg/dL (7-18); BUN/Creat Ratio 15.8 RATIO (10-20); Calcium,Total 8.6 mg/dL (8.5-10.1); Chloride 104 mmol/L (98-107); Creatinine, Serum 1.14 mg/dL (0.70-1.30); EST Glomerular Filtration Rate 68 mL/min (>60); Est Glom Filt Rate - Afr Amer 82 mL/min (>60); Globulin 4.3 g/dL (2.2-4.2); Glucose 111 mg/dL (74-106); Potassium 3.6 mmol/L (3.5-5.1); Protein, Total 7.8 g/dL (6.4-8.2); Sodium Level 141 mmol/L (136-145)
== END ==
PROVIDERS: Family Provider Family Medicine; PCP Family Medicine; Visit Provider Family Medicine
DX: R10.9 Unspecified abdominal pain (principal)
CPT/HCPCS: 36415; 80053; 85025

== ENCOUNTER → 2019-03-02 17:44 | Outpatient (CLI) | payer MEDICARE, OTHER, SELFPAY ==
--- NOTE | 2019-03-02 17:53 | CT_ITS ---
STUDY: CT ABDOMEN AND PELVIS WITH CONTRAST REASON FOR EXAM: Male, 68 years old. Abdominal pain in the right upper quadrant RADIATION DOSAGE (If Supplied By Facility): CTDIvol = ( 18.74 ) mGy, DLP = ( 1281.21 ) mGycm TECHNIQUE: Transaxial images were obtained from the dome of the diaphragm to the symphysis pubis with oral contrast. 100ml IV Isovue 250 was administered. Sagittal and coronal images were reconstructed. Individualized dose optimization techniques were used for this CT. COMPARISON: None. FINDINGS: The visualized lung bases are unremarkable. The visualized portions of the heart are within normal limits. There is decreased attenuation of the liver consistent with steatosis. There appears to be gallbladder wall thickening without evidence of pericholecystic fluid. 2 large gallstones are noted, one of them near the gallbladder neck measuring 1.7 cm and the second measuring 2.2 cm. Normal spleen. Normal pancreas. Normal bilateral adrenal glands. Normal right kidney. Normal left kidney. Normal visualized stomach. Normal small intestine. There are multiple colonic diverticula consistent with diverticulosis. The appendix is visualized and appears normal. Normal abdominal aorta. Normal inferior vena cava. Normal retroperitoneum. Normal urinary bladder. There is enlargement of the prostate gland. Normal abdominal wall. Normal osseous structures. CT/Abdomen/Pelvis WITH Contrast IMPRESSION: 1. Gallbladder wall thickening with 2 large gallstones. No definite pericholecystic fluid. Cholecystitis cannot be fully excluded 2. Fatty steatosis of the liver 3. Colonic diverticulosis without acute diverticulitis 4. Significant enlargement of the prostate Electronically Signed: Hal Garcia DO at 21:06 EDT Tel , Service support ,
== END ==
PROVIDERS: Family Provider Family Medicine; PCP Family Medicine; Referring Provider Family Medicine; Visit Provider Family Medicine
DX: R10.9 Unspecified abdominal pain (principal)
CPT/HCPCS: 74177; Q9967

== ENCOUNTER 2019-04-20 10:55 | Day surgery (SDC) | payer MEDICARE, OTHER, SELFPAY ==
[2019-03-09 06:36] VITALS: BMI 42.7
--- NOTE | 2019-03-26 05:25 | HP_ITS ---
Intake Vital Signs 03/09/19 Height 5 ft 9 in 03/09/19 Weight: 289 lb 6 oz 03/09/19 Body Mass Index (BMI) 42.7 03/09/19 Blood Pressure 127/83 H 03/09/19 Blood Pressure Location Rt brachial 03/09/19 Respiratory Rate 20 H 03/09/19 Pulse Rate 71 03/09/19 Pulse Ox 94 Intake Visit Reasons: Gallbladder problems Chief Complaint: gallstones Service Specialist Required: No Is patient in pain?: No Allergies YOSSI Inhibitors Adverse Reaction (Verified 03/09/19 10:13) Other hydrochlorothiazide [From Dyazide] Adverse Reaction (Verified 03/09/19 10:13) Other spironolactone [From Aldactone] Adverse Reaction (Verified 03/09/19 10:13) Other triamterene [From Dyazide] Adverse Reaction (Verified 03/09/19 10:13) Other Medications Desoximetasone 0.25% [Topicort Crm 0.25%] 1 applic TOPICAL BID 06/13/13 [History Confirmed 03/09/19] Doxazosin Mesylate [Cardura] 4 mg PO DAILY 06/13/13 [History Confirmed 03/09/19] Latanoprost 0.005% [Xalatan Opthalmic] 1 drp EACH EYE QHS 06/13/13 [History Confirmed 03/09/19] Multivitamins,Therapeutic [Multivitamin] 1 tab PO DAILY 06/13/13 [History Confirmed 03/09/19] [place] 3/Dha/Epa/Vitamin D3 [[place]-3 + Vitamin D3 Softgel] 1 ea PO DAILY 06/13/13 [History Confirmed 03/09/19] Verapamil [Calan Sr] 180 mg PO Q12 06/13/13 [History Confirmed 03/09/19] Vit A,C & E/Lutein/Minerals 1 tab PO DAILY 06/13/13 [History Confirmed 03/09/19] chlorthalidone 25 mg tablet 25 mg PO QDAY 11/22/17 [History Confirmed 03/09/19] fluticasone propionate 50 mcg/actuation nasal spray,suspension 1 spray INTRANASAL BID 11/22/17 [History Confirmed 03/09/19] furosemide 40 mg tablet 40 mg PO DAILY 11/22/17 [History Confirmed 03/09/19] levothyroxine 50 mcg capsule 50 mcg PO QDAY 11/22/17 [History Confirmed 03/09/19] potassium chloride ER 20 mEq tablet,extended release(part/cryst) 20 meq PO TID tab 11/22/17 [History Confirmed 03/09/19] Dibucaine 1 applic TOPICAL Q2H PRN 01/22/18 [History Confirmed 03/09/19] Metamucil Powder 01/22/18 [History Confirmed 03/09/19] Mineral Oil 30 ml ORAL DAILY 01/22/18 [History Confirmed 03/09/19] PFSH Medical History (Updated 03/09/19 @ 17:24 by Iban Penaloza MD) BPH (benign prostatic hyperplasia) (Acute) Cholelithiasis with chronic cholecystitis (Chronic) Rectal bleeding (Acute) Venous insufficiency (Acute) Morbid obesity due to excess calories (Acute) Gynecomastia, male (Acute) Heart disease (Acute) Numbness and tingling (Acute) Thyroid disease (Acute) Hemorrhoids (Acute) BPH (benign prostatic hyperplasia) (Chronic) Hypertension (Chronic) Gallstones (Acute) Sleep apnea (Acute) Surgical History (Updated 02/10/18 @ 13:26 by Michelle Hagan) H/O colonoscopy (Acute) h/o thoracentesis (Acute) S/P tonsillectomy (Acute) S/P hemorrhoidectomy (Acute ~01/2018) Family History (Updated 11/22/17 @ 14:09 by Elizabeth oBnds) Mother Diabetes Hypertension Father Heart disease Diabetes Thyroid disorder Social History (Updated 03/09/19 @ 17:25 by Iban Penaloza MD) Smoking Status: Never smoker alcohol intake: current alcohol intake frequency: holidays/special occasions only HPI HPI HPI: SLIME SHAW, is a 68 M who presents to the office today for HPI HPI Surgical H&P: Yes HPI: SLIME SHAW, is a 68 M who presents to the office today for surgical consultation regarding episodes of severe epigastric right upper quadrant pain. His most recent episode was a couple weeks ago after eating barbecue chicken hot peppers and beer. He had a gallbladder ultrasound demonstrated significant gallbladder wall thickening and 2 large gallstones. As of February 27 liver function tests were normal. White count normal. Hemoglobin hematocrit normal. I have assisted him previously with aggressive surgical hemorrhoidectomy. He did well with that procedure however developed postoperative urinary retention urinary tract infection. On his recent CT scan he is noted to have significant prostate enlargement. He is on Cardura. He has never seen a urologist. BMI is 42.7 Patient is referred by his primary care physician Dr. Foreign Herrmann and a written copy of my surgical consult and recommendations will be returned to him [facility] [address] [place] [address] Abdomen/Pelvis WITH Contrast MR#: [id number]:[id number] Name: SLIME SHAW #:[id number] : 1950M 68 From: Hal Garcia DO PCP:Foreign Herrmann MD Status:REG CLI Study:Abdomen/Pelvis WITH Contrast Date of Exam:03/02/19 Exam#[id number] Ordering Dr: Foreign Herrmann MD STUDY: CT ABDOMEN AND PELVIS WITH CONTRAST REASON FOR EXAM: Male, 68 years old. Abdominal pain in the right upper quadrant RADIATION DOSAGE (If Supplied By Facility): CTDIvol = ( 18.74 ) mGy, DLP = ( 1281.21 ) mGycm TECHNIQUE: Transaxial images were obtained from the dome of the diaphragm to the symphysis pubis with oral contrast. 100ml IV Isovue 250 was administered. Sagittal and coronal images were reconstructed. Individualized dose optimization techniques were used for this CT. COMPARISON: None. FINDINGS: The visualized lung bases are unremarkable. The visualized portions of the heart are within normal limits. There is decreased attenuation of the liver consistent with steatosis. There appears to be gallbladder wall thickening without evidence of pericholecystic fluid. 2 large gallstones are noted, one of them near the gallbladder neck measuring 1.7 cm and the second measuring 2.2 cm. Normal spleen. Normal pancreas. Normal bilateral adrenal glands. Normal right kidney. Normal left kidney. Normal visualized stomach. Normal small intestine. There are multiple colonic diverticula consistent with diverticulosis. The appendix is visualized and appears normal. Normal abdominal aorta. Normal inferior vena cava. Normal retroperitoneum. Normal urinary bladder. There is enlargement of the prostate gland. Normal abdominal wall. Normal osseous structures. CT/Abdomen/Pelvis WITH Contrast IMPRESSION: 1. Gallbladder wall thickening with 2 large gallstones. No definite pericholecystic fluid. Cholecystitis cannot be fully excluded 2. Fatty steatosis of the liver 3. Colonic diverticulosis without acute diverticulitis 4. Significant enlargement of the prostate Electronically Signed: Hal Garcia DO at 21:06 EDT Tel , Service support , Current symptoms: Denies constipation Associated symptoms: Denies constipation or diarrhea ROS General General: No weight change, appetite, fatigue, colon cancer, breast cancer or weakness HEENT HEENT: No difficulty swallowing, eye injury, eye surgery, swollen glands or hoarseness Endo Endocrine: Yes thyroid disease; no diabetes mellitus, thyroid cancer, Hair loss, heat intolerance or cold intolerance Cardio Cardiovascular: Yes high blood pressure; no murmur, pacemaker, heart disease, atrial fibrillation, heart attack, heart stent, palpitations, shortness of breat with exertion or chest pain Resp Respiratory: Yes shortness of breath, Yes sleep apnea, No cough, No COPD, No asthma, No emphysema, No wheezing Gastro Gastrointestinal: No abdominal pain, No nausea or vomiting, No diarrhea, No constipation, No blood in stool, No acid reflux, No hemorrhoids, No ulcers, Yes gallbladder problem, No black,tarry stools [place]asper Hematologic: No blood thinners, No blood disorders, No bleeding, No anemia, No blood clots Neuro Neurologic: No weakness Exam Const General: cooperative, healthy appearing, comfortable, no acute distress Nutritional Appearance: obese Orientation: alert, awake, oriented x3 HENMT Head: normal to inspection Chest Chest palpation & inspection: normal inspection of the chest Resp Effort & Inspection: normal respiratory effort Auscultation: clear to auscultation bilaterally Cardio Palpation: normal PMI Rate: regular rate Rhythm: regular rhythm Heart Sounds: no murmurs GI Inspection: obesity Palpation: soft, no hepatosplenomegaly Auscultation: normal bowel sounds Musc Cervical Spine: normal cervical lordosis Skin General: no rashes or lesions noted Neuro Cognition: normal cognition Extrem General: no calf tenderness bilaterally Psych Affect: normal affect Assessment & Plan Problems 1. Gallbladder Problem K82.9 2. Calculus of gallbladder with chronic cholecystitis without obstruction K80.10 3. Benign prostatic hyperplasia with urinary retention N40.1; R33.8 Plan I recommend to the patient a laparoscopic cholecystectomy with selective cholangiography and in detail I have discussed the technique, benefit, risks, alternatives. The patient's body habitus does place him at increased operative risk. I recommend preoperative urologist consultation because of the patient's previous history of post hemorrhoidectomy urinary retention complicated by urinary tract infection. He has had an opportunity to ask and have questions answered. We will schedule and proceed at his discretion as OR timing permits. He will abide by a lower fat diet. I very much appreciate the kind opportunity of assisting with his surgical care. CC: Dr. Foreign Penaloza M.D., F.A.C.S. Coding Level of Care Code 67984 Diagnoses Gallbladder Problem K82.9 Calculus of gallbladder with chronic cholecystitis without obstruction K80.10 ??Cholelithiasis location: gallbladder ??Biliary obstruction: without biliary obstruction Benign prostatic hyperplasia with urinary retention N40.1; R33.8 ??Lower urinary tract symptom presence: symptoms present ??Lower urinary tract symptom detail: urinary retention 03/09/19 1726 <Electronically signed by Iabn dejesus MD> Date _ Iban Penaloza MD I have re-examined the patient. There are no clinical changes since date of exam.
--- NOTE | 2019-04-17 14:35 | EKG12_ITS ---
Test Reason : PRE OP Blood Pressure : / mmHG Vent. Rate : 073 BPM Atrial Rate : 073 BPM P-R Int : 136 ms QRS Dur : 090 ms QT Int : 406 ms P-R-T Axes : 029 -12 054 degrees QTc Int : 447 ms Normal sinus rhythm Normal ECG Confirmed by SULEMAN SAL, RYLIE ([id number]), film or videotape editor BLUE ALVAREZ ([id number]) on 04/18/2019 9:26:25 AM Referred By: Iban Penaloza Confirmed By:RYLIE SHELL MD
[2019-04-17 14:55] LABS: Hemoglobin 15.2 g/dL (13.0-16.5); Mean Corp Hgb Conc 35.3 g/dL (32-36); Mean Corpuscular Volume 87.6 fL (80-94); Mean Platelet Vol. 9.4 fl (6.2-12.0); Platelet Count 208 K/mm3 (150-450); RBC Distribution Width CV 13.1 % (11.6-14.6); RBC Distribution Width SD 41.2 fl (35.1-43.9); Red Blood Count 4.91 M/mm3 (4.6-6.2); White Blood Count 7.7 K/mm3 (4.4-11.0)
[2019-04-17 15:28] LABS: Anion Gap 7 (5-15); BUN 21 mg/dL (7-18); Calcium,Total 9.4 mg/dL (8.5-10.1); Chloride 106 mmol/L (98-107); Creatinine, Serum 1.31 mg/dL (0.70-1.30); EST Glomerular Filtration Rate 58 mL/min (>60); Est Glom Filt Rate - Afr Amer 70 mL/min (>60); Glucose 93 mg/dL (74-106); Potassium 3.8 mmol/L (3.5-5.1); Sodium Level 143 mmol/L (136-145); Thyroid Stim Hormone (TSH) 2.87 uIU/mL (0.358-3.74)
[2019-04-18 10:45] VITALS: BMI 42.7
[2019-04-20 11:22] VITALS: BP 131/67; PULSE 59; RESP 16; TEMP 36.2; O2SAT 98; BMI 43.6
--- NOTE | 2019-04-20 11:41 | DCINST_ITS ---
Discharge Diet: Light diet - advance as tolerated - if you have questions about your diet instructions, please talk to you doctor. Discharge Activity: May Not Drive - for 3-5 days or while taking narcotic pain medicine. May shower in (days): 1 Lifting Restrictions: 10 pounds Call your doctor if your incision/area has: Continuous Slow Oozing, Sudden Increased Bleeding, Increased Pain/ Swelling, Increased Redness, Foul Smelling Discharge Call your doctor if you observe: Fever of 101 or Higher Suture Line Care: Avoid Pulling/Pushing, Avoid Pinching/Bending Additional Dressing/Incision Instructions:: Change or remove dressing in 4 days. Leave steri-strips in place for 1 week. Allergies/Adverse Reactions: Allergies YOSSI Inhibitors Adverse Reaction (Verified 04/17/19 13:53) Other hydrochlorothiazide [From Dyazide] Adverse Reaction (Verified 04/17/19 13:53) Other spironolactone [From Aldactone] Adverse Reaction (Verified 04/17/19 13:53) Other GYNACOMASTIA triamterene [From Dyazide] Adverse Reaction (Verified 04/17/19 13:53) Other Medications to take at Discharge RX: Desoximetasone 0.25% [Topicort Crm 0.25%] 1 applic TOPICAL BID PRN 06/13/13 RX: Doxazosin Mesylate [Cardura] 4 mg PO DAILY 06/13/13 RX: Latanoprost 0.005% [Xalatan Opthalmic] 1 drp EACH EYE QHS 06/13/13 RX: Multivitamins,Therapeutic [Multivitamin] 1 tab PO DAILY 06/13/13 RX: [place] 3/Dha/Epa/Vitamin D3 [[place]-3 + Vitamin D3 Softgel] 1 ea PO DAILY 06/13/13 RX: Verapamil [Calan Sr] 180 mg PO BID 06/13/13 Vit A,C & E/Lutein/Minerals 1 tab PO DAILY 06/13/13 chlorthalidone 25 mg tablet 25 mg PO QDAY PRN 11/22/17 fluticasone propionate 50 mcg/actuation nasal spray,suspension 1 spray INTRANASAL BID 11/22/17 furosemide 40 mg tablet 40 mg PO DAILY 11/22/17 levothyroxine 50 mcg capsule 50 mcg PO QDAY 11/22/17 potassium chloride ER 20 mEq tablet,extended release(part/cryst) 20 meq PO TID tab 11/22/17 Chlorpheniramine Maleate [Allergy Relief] 4 mg PO 04/13/19 Dutasteride [Avodart] 0.5 mg PO QHS 04/13/19 Guaifenesin [Mucinex] 600 mg PO BID PRN 04/13/19 Psyllium Husk [Metamucil] 0.52 gm PO DAILY 04/13/19 Primary Care Physician: Foreign Herrmann MD [Primary Care Provider] - Test Results: Test results from this visit will be discussed in further detail at your follow- up appointment, if applicable. Please Follow Up With: Iban Penaloza MD - [phone] When: Call to make an appointment to be seen in about 10 days.
--- NOTE | 2019-04-20 13:05 | HERN_PTH ---
PATIENT: SLIME SHAW LOC: [facility] U#:[id number] AGE/SX: 68/M ROOM: RE04/20/[address]: Dr. Iban Penaloza MD : 1950 BED: DIS: 04/20/2019 SPEC #: [id number] RECD: 04/20/19 16:13 STATUS: ARTIE JARED #: [id number] MICHEAL: 04/20/19 13:[address]: Iban Penaloza DEPT: SURGICAL PATHOLOGY RECD BY: Shreyas Love ENTERED: 04/21/19 08:23 SP TYPE: Hernia OTHR DR: Dr. Foreign Herrmann MD Tissues: A - HERNIA B - Gallbladder, NOS Procedures: Surgery Specimen Level II Surgery Specimen Level III HEADER OPERATION: Laparoscopic cholecystectomy with IOC PRE-OP DIAGNOSIS: Calculus of gallbladder, chronic cholecystitis, K82.9, K80.10 TISSUE SUBMITTED: A - Umbilical hernia, B - Gallbladder MICROSCOPIC DIAGNOSIS A. Umbilical hernia, herniorrhaphy: Fragments of fibrofatty tissue consistent with hernia sac. B. Gallbladder, cholecystectomy: Chronic cholecystitis with denudation of mucosa and cholelithiasis. AM:mariana 04/24/19 MICROSCOPIC DESCRIPTION Slides are reviewed. GROSS DESCRIPTION A - Received in fixative is one container labeled with the patient's name and designated umbilical hernia. The specimen consists of three irregular fragments of andersen-yellow fibrofatty tissue that in aggregate measure 3.3 x 2 x 1.2 cm. Spinner Frame sections are submitted in one cassette. B - Received is one container labeled with the patient's name and designated gallbladder. The specimen consists of a gallbladder measuring 9 x 3.5 x 3.5 cm. The external surface is smooth and glistening. Focally, it is granular, hemorrhagic and contains cautery artifact. The lumen of the gallbladder contains minimal yellow mucoid bile and two dark anderesn-black calculi ranging in size from 2.5 to 3 cm. The mucosa is bile-stained and without any mass lesions. The gallbladder wall averages 0.2 cm in thickness and is free of mass lesions. Spinner Frame sections of the gallbladder and the cystic duct are submitted in one cassette. / AM:mariana 04/21/19 TC:3 CPT: 09660, 34705
--- NOTE | 2019-04-20 13:05 | RAD_ITS ---
STUDY: INTRAOPERATIVE CHOLANGIOGRAM. REASON FOR EXAM: Male, 68 years old. Laparoscopic cholecystectomy. FLUOROSCOPY TIME (if supplied): (0:19) minutes/seconds TECHNIQUE: An intraoperative cholangiogram was performed by the surgeon. Imaging was submitted. COMPARISON: None. FINDINGS: The intrahepatic biliary ducts are unremarkable. The common bile duct is unremarkable as well. No intraluminal filling defect is seen. There is free flow of contrast into duodenum. RAD/Cholangiogram/ O R,Initial IMPRESSION: Unremarkable intraoperative cholangiogram. Electronically Signed: Ephraim Constantino, at 8:32 EDT , Service support ,
[2019-04-20] MEDS: Bupivacaine Mpf 0.5% 30 ML VIAL (13:16)
[2019-04-20] MEDS: Cefazolin 2 GM in 0.9% Normal Saline 100 ML IV (13:29)
--- NOTE | 2019-04-20 15:17 | OP.PCM_ITS ---
Problem List (1) Cholelithiasis with chronic cholecystitis Status: Chronic Qualifiers: Cholelithiasis location: gallbladder Biliary obstruction: without biliary obstruction Qualified Code(s): K80.10 - Calculus of gallbladder with chronic cholecystitis without obstruction (2) Umbilical hernia without obstruction or gangrene Status: Acute Report of Operation Date of Procedure: 04/20/19 Pre-Operative Diagnosis: Severe chronic cholecystitis cholelithiasis Post-Operative Diagnosis: Severe chronic cholecystitis cholelithiasis and umbilical hernia Surgery/Procedure Performed:: Laparoscopic cholecystectomy with cholangiography. Umbilical herniorrhaphy Description of Surgical Findings:: Timeout and informed consent was obtained. 68-year-old gentleman was taken the operating placement table underwent general endotracheal intubation anesthesia. The abdomen was sterilely prepped and draped. 0.5% Marcaine was used as local anesthetic. After procedure total 30 cc was used. Skin sites were pre- anesthetized. Sharp incision was made superior aspect of the umbilicus down to the fascia. Umbilical hernia was encountered sharp and blunt dissection electrocautery dissection was used to resect the preperitoneal fat within the hernia. Holding sutures of 0 Vicryl placed. Varies needle was inserted. Saline drop test performed. The abdomen was insufflated with CO2 to a pressure of 12 mmHg pressure. 12 mm trocar inserted. 10 lap scope inserted. No yusra dence of any trocar injuries. Under visualization 5-minute trochars in place in the epigastric mid abdomen right upper quadrant. The gallbladder had dense adhesions of omentum to it these had to be sharply and bluntly dissected free. Were required electrocautery dissection was performed. The gallbladder was then completely released from the sweep of the duodenum. Tedious blunt dissection was instituted due to to very large stones occupying the infundibular area of the gallbladder. Carefully and tediously blunt dissection hemo-lock clip placement aqua dissection was performed until finally the cystic duct and cystic artery were neatly identified. A hemo-lock clip was placed on the cystic duct stump prior to incising at that a cholangiogram catheter was inserted through a 14-gauge Angiocath. Fluoroscopically control cholangiograms were obtained demonstrating normal ductal anatomy. The cholangiogram catheter was removed and additional hemo-lock clip was placed on the cystic duct stump prior to transecting it. The cystic artery was secured with 2 hemo-lock clips approximately 12 prior to transecting it. The gallbladder was then tediously dissected free from the liver bed. It was densely adherent and very difficult dissection was performed. There is small amount of bile spillage occurred but [place]ley no stone spillage. The gallbladder was eventually completely released f rom the liver bed and was immediately placed in a retrieval bag. The liver bed was treated with electrocautery for hemostasis and the piece of fibular was placed. The right upper quadrant had been irrigated and aspirated free of excess fluid. The hepatic space and portal area inspected noted to be hemostatic with clips in good position. The gallbladder was exited at the umbilicus but noted you that the supraumbilical incision had to be lengthened and the fascial incision lengthened due to the size of the stones. The gallbladder was removed. Then the fascia was closed with multiple simple and gsoiqx-zk-jdoyg sutures of 0 Nurolon. Fascia was eventually closed. Skin edges were approximated with interrupted 4 Monocryl subdermal stitches. Steri-Strips Telfa and OpSite dressings applied. Sponge and instrument and needle counts were reported the surgeon to be correct. Blood loss was minimal. He tolerated the procedure well was taken to the recovery area in satisfactory condition w ithout apparent complication. Specimens gallbladder. Drains none. Blood loss minimal. Iban Penaloza M.D., F.A.C.S. Type of Anesthesia:: General Anesthesiologist: Isidra Gardiner
[2019-04-20 15:53] VITALS: BP 131/67; BP 140/80; PULSE 73; RESP 18; TEMP 36.1; O2SAT 96
[2019-04-20 16:00] VITALS: BP 120/69; BP 131/67; PULSE 72; RESP 18; O2SAT 93
[2019-04-20] MEDS: Lactated Ringers 1,000 ML 15 ML IV (16:07)
[2019-04-20 16:15] VITALS: BP 115/85; BP 131/67; PULSE 70; RESP 18; O2SAT 94
[2019-04-20] MEDS: Lactated Ringers 1,000 ML 100 ML IV (16:19)
[2019-04-20 16:25] VITALS: BP 131/67; BP 136/66; PULSE 70; RESP 18; TEMP 36.1; O2SAT 94
[2019-04-20] MEDS: HYDROcodone Bitartrate/Apap 5/325 Tablet PO (16:42)
[2019-04-20 19:19] VITALS: BP 131/67; BP 156/88; PULSE 75; RESP 16; TEMP 36.1; O2SAT 98
--- NOTE | 2019-04-20 19:28 | SUR.PHASEII ---
Bactrim DS po BID x5days 10 tabs - start tonight per Dr nAjum Penaloza phoned to [facility] per pt's preference. pt and aware.
--- NOTE | 2019-04-20 19:35 | SUR.PHASEII ---
spoke with Karli pharmacist at [facility] and verified that prescription for Bactrim was received.
== END 2019-04-20 19:30 | disposition home or self-care (01) ==
LOC: SDC 10:55 → AC 10:56
PROVIDERS: Family Provider Family Medicine; PCP Family Medicine; Referring Provider Surgery; Visit Provider Surgery
PROC: (CPT 47610; principal; 2019-04-20 12:45)
DX: K80.11 Calculus of gallbladder with chronic cholecystitis with obstruction (principal); K42.9 Umbilical hernia without obstruction or gangrene; N40.1 Benign prostatic hyperplasia with lower urinary tract symptoms; I10 Essential (primary) hypertension; K57.30 Diverticulosis of large intestine without perforation or abscess without bleeding; R33.8 Other retention of urine; Z87.440 Personal history of urinary (tract) infections
CPT/HCPCS: 47563; 49585; 36415; 74300; 76000; 80048; 84443; 85027; 88302; 88304; 93005; J7120; J2405

== ENCOUNTER → 2019-08-21 11:05 | Outpatient (CLI) | payer MEDICARE, OTHER, SELFPAY ==
--- NOTE | 2019-08-21 11:10 | RAD_ITS ---
STUDY: X-RAY - LEFT KNEE REASON FOR EXAM: Male, 68 years old. bilateral knee pain TECHNIQUE: 4 view(s) of the knee. COMPARISON: X-ray right knee. FINDINGS: Normal visualized distal femur. Normal visualized proximal tibia and fibula. Normal proximal tibiofibular articulation. There is nnugzffu-cm-didwlt degenerative arthrosis of the medial femorotibial compartment with moderate joint space narrowing. There is mild degenerative arthrosis of the lateral femorotibial compartment. There is moderate degenerative arthrosis of the patellofemoral articulation. There is a soft tissue prominence in the suprapatellar region suggesting a small volume joint effusion. The soft tissue structures are unremarkable. RAD/Knee 4 or More Views IMPRESSION: Degenerative arthrosis. Small joint effusion. No demonstrated fracture, dislocation, or destructive osseous lesion. Electronically Signed: Macario Strong MD at 3:40 EST , Service support ,
--- NOTE | 2019-08-21 11:10 | RAD_ITS ---
STUDY: X-RAY - RIGHT KNEE REASON FOR EXAM: Male, 68 years old. bilateral knee pain TECHNIQUE: 4 view(s) of the knee. COMPARISON: Left knee done today. X-ray right knee 02/14/2018. FINDINGS: Normal visualized distal femur. Normal visualized proximal tibia and fibula. Normal proximal tibiofibular articulation. There is moderate degenerative arthrosis of the medial femorotibial compartment with moderate joint space narrowing. There is mild degenerative arthrosis of the lateral femorotibial compartment. There is upkivmzm-bd-ayfvvr degenerative arthrosis of the patellofemoral articulation. There is a soft tissue prominence in the suprapatellar region suggesting a small volume joint effusion. The soft tissue structures are unremarkable. RAD/Knee 4 or More Views IMPRESSION: Degenerative arthrosis, with worsening from the previous exam. Small joint effusion. No demonstrated fracture, dislocation, or destructive osseous lesion. Electronically Signed: Macario Strong MD at 3:38 EST , Service support ,
[2019-08-21 13:45] LABS: Anion Gap 8 (5-15); BUN 21 mg/dL (7-18); BUN/Creat Ratio 15.9 RATIO (10-20); Calcium,Total 8.9 mg/dL (8.5-10.1); Chloride 104 mmol/L (98-107); Creatinine, Serum 1.32 mg/dL (0.70-1.30); EST Glomerular Filtration Rate 57 mL/min (>60); Est Glom Filt Rate - Afr Amer 69 mL/min (>60); Glucose 107 mg/dL (74-106); Potassium 3.3 mmol/L (3.5-5.1); Sodium Level 141 mmol/L (136-145); Uric Acid 9.9 mg/dL (3.5-7.2)
== END ==
PROVIDERS: Family Provider Family Medicine; PCP Family Medicine; Referring Provider Family Medicine; Visit Provider Family Medicine
DX: M25.50 Pain in unspecified joint (principal); M25.561 Pain in right knee
CPT/HCPCS: 36415; 73564; 80048; 84550

== ENCOUNTER → 2019-10-27 11:36 | Outpatient (CLI) | payer MEDICARE, OTHER, SELFPAY ==
[2019-10-27 16:06] LABS: Anion Gap 7 (5-15); BUN 19 mg/dL (7-18); BUN/Creat Ratio 16.1 RATIO (10-20); Calcium,Total 8.7 mg/dL (8.5-10.1); Chloride 101 mmol/L (98-107); Cholesterol 147 mg/dL (200); Creatinine, Serum 1.18 mg/dL (0.70-1.30); EST Glomerular Filtration Rate 65 mL/min (>60); Est Glom Filt Rate - Afr Amer 79 mL/min (>60); Glucose 96 mg/dL (74-106); High Density Lipoprotein 34 mg/dL; Potassium 3.3 mmol/L (3.5-5.1); Sodium Level 137 mmol/L (136-145); Triglycerides 181 mg/dL; Very Low Density Lipoprotein 36 mg/dL (5-40)
== END ==
PROVIDERS: PCP Family Medicine; Referring Provider Family Medicine; Visit Provider Family Medicine
DX: I10 Essential (primary) hypertension (principal); R60.9 Edema, unspecified
CPT/HCPCS: 36415; 80048; 80061

== ENCOUNTER → 2019-11-27 09:01 | Outpatient (CLI) | payer MEDICARE, OTHER, SELFPAY ==
[2019-11-27 10:10] LABS: Anion Gap 4 (5-15); BUN 22 mg/dL (7-18); BUN/Creat Ratio 17.7 RATIO (10-20); Calcium,Total 8.8 mg/dL (8.5-10.1); Chloride 102 mmol/L (98-107); Creatinine, Serum 1.24 mg/dL (0.70-1.30); EST Glomerular Filtration Rate 61 mL/min (>60); Est Glom Filt Rate - Afr Amer 74 mL/min (>60); Glucose 122 mg/dL (74-106); PSA,Total- Diagnostic 1.32 ng/mL (0.0-4.0); Potassium 3.3 mmol/L (3.5-5.1); Sodium Level 137 mmol/L (136-145)
== END ==
PROVIDERS: PCP Family Medicine; Referring Provider Family Medicine; Visit Provider Family Medicine
DX: E87.6 Hypokalemia (principal); R97.20 Elevated prostate specific antigen [PSA]
CPT/HCPCS: 36415; 80048; 84153

== ENCOUNTER → 2020-01-18 09:22 | Outpatient (CLI) | payer MEDICARE, OTHER, SELFPAY ==
[2020-01-18 10:33] LABS: Anion Gap 8 (5-15); BUN 20 mg/dL (7-18); BUN/Creat Ratio 17.2 RATIO (10-20); Calcium,Total 8.7 mg/dL (8.5-10.1); Chloride 105 mmol/L (98-107); Creatinine, Serum 1.16 mg/dL (0.70-1.30); EST Glomerular Filtration Rate 66 mL/min (>60); Est Glom Filt Rate - Afr Amer 80 mL/min (>60); Glucose 116 mg/dL (74-106); Potassium 3.4 mmol/L (3.5-5.1); Sodium Level 140 mmol/L (136-145)
== END ==
PROVIDERS: PCP Family Medicine; Referring Provider Family Medicine; Visit Provider Family Medicine
DX: E87.6 Hypokalemia (principal)
CPT/HCPCS: 36415; 80048

== ENCOUNTER → 2020-02-07 11:13 | Outpatient (CLI) | payer MEDICARE, OTHER, SELFPAY ==
--- NOTE | 2020-02-07 11:35 | RAD_ITS ---
STUDY: X-RAY - RIGHT WRIST REASON FOR EXAM: Right wrist/thumb pain, no specific injury. TECHNIQUE: 3 view(s) of the wrist were obtained. COMPARISON: None. FINDINGS: Normal visualized distal radius and ulna. Normal radiocarpal articulation. Normal distal radioulnar articulation. Normal carpal bones. There is widening of the scapholunate interval measuring 0.4 cm. There are marginal osteophytes and severe joint space narrowing of the carpometacarpal articulation of the thumb. Normal second through fifth carpometacarpal articulations. Normal visualized metacarpal bones. There is a small ossicle adjacent to the ulnar styloid process. RAD/Wrist min 3 Views IMPRESSION: Arthrosis of the first carpometacarpal articulation. Widening of the scapholunate interval suggestive of scapholunate ligament injury. Electronically Signed: Rodrick Streeter MD at 14:07 EDT Tel , Service support ,
== END ==
PROVIDERS: PCP Family Medicine; Referring Provider Family Medicine; Visit Provider Family Medicine
DX: M25.531 Pain in right wrist (principal)
CPT/HCPCS: 73110

== ENCOUNTER → 2020-05-01 11:19 | Outpatient (CLI) | payer MEDICARE, OTHER, SELFPAY ==
[2020-05-01 16:38] LABS: Anion Gap 4 (5-15); BUN 19 mg/dL (7-18); BUN/Creat Ratio 15.6 RATIO (10-20); Calcium,Total 8.9 mg/dL (8.5-10.1); Chloride 104 mmol/L (98-107); Cholesterol 155 mg/dL (200); Creatinine, Serum 1.22 mg/dL (0.70-1.30); EST Glomerular Filtration Rate 62 mL/min (>60); Est Glom Filt Rate - Afr Amer 75 mL/min (>60); Free T3 2.7 pg/mL (2.18-3.98); Glucose 73 mg/dL (74-106); High Density Lipoprotein 34 mg/dL; Potassium 3.3 mmol/L (3.5-5.1); Sodium Level 140 mmol/L (136-145); T4 Free Direct 1.03 ng/dL (0.76-1.46); Triglycerides 173 mg/dL; Very Low Density Lipoprotein 35 mg/dL (5-40)
== END ==
PROVIDERS: PCP Family Medicine; Referring Provider Family Medicine; Visit Provider Family Medicine
DX: I10 Essential (primary) hypertension (principal); E03.9 Hypothyroidism, unspecified
CPT/HCPCS: 36415; 80048; 80061; 84439; 84443; 84481

== ENCOUNTER → 2020-05-20 11:53 | Outpatient (CLI) | payer MEDICARE, OTHER, SELFPAY ==
[2020-05-20 14:21] LABS: PSA,Total- Diagnostic 1.19 ng/mL (0.0-4.0)
== END ==
PROVIDERS: PCP Family Medicine; Referring Provider Urology; Visit Provider Urology
DX: R97.20 Elevated prostate specific antigen [PSA] (principal)
CPT/HCPCS: 36415; 84153

== ENCOUNTER → 2020-07-19 09:08 | Outpatient (CLI) | payer MEDICARE, OTHER, SELFPAY ==
--- NOTE | 2020-07-19 09:19 | EKG12_ITS ---
Test Reason : PRE OP Blood Pressure : / mmHG Vent. Rate : 064 BPM Atrial Rate : 064 BPM P-R Int : 132 ms QRS Dur : 094 ms QT Int : 412 ms P-R-T Axes : 063 -01 061 degrees QTc Int : 425 ms Normal sinus rhythm Otherwise normal ECG When compared with ECG of 17-APR-2019 14:43, Current undetermined rhythm precludes rhythm comparison, needs review Confirmed by GAY SAL, KATHY ([id number]), associate editor MAGEN CHAVEZ ([id number]) on 07/22/2020 11:20:54 AM Referred By: Luis Benito Confirmed By:JERMAINE RASHID MD
[2020-07-19 10:12] LABS: Hematocrit 42.3 % (40-54); Mean Corp Hgb Conc 35.5 g/dL (32-36); Mean Corpuscular Hgb 31.3 pg (27.0-32.0); Mean Corpuscular Volume 88.3 fL (80-94); Mean Platelet Vol. 9.6 fl (6.2-12.0); Platelet Count 207 K/mm3 (150-450); RBC Distribution Width CV 13.6 % (11.6-14.6); RBC Distribution Width SD 43.8 fl (35.1-43.9); Red Blood Count 4.79 M/mm3 (4.6-6.2); White Blood Count 6.7 K/mm3 (4.4-11.0)
[2020-07-19 11:06] LABS: Anion Gap 4 (5-15); BUN 23 mg/dL (7-18); BUN/Creat Ratio 18.4 RATIO (10-20); Calcium,Total 8.8 mg/dL (8.5-10.1); Chloride 106 mmol/L (98-107); Creatinine, Serum 1.25 mg/dL (0.70-1.30); EST Glomerular Filtration Rate 61 mL/min (>60); Est Glom Filt Rate - Afr Amer 73 mL/min (>60); Glucose 107 mg/dL (74-106); Potassium 3.4 mmol/L (3.5-5.1); Sodium Level 140 mmol/L (136-145)
[2020-07-25 13:55] LABS: Magnesium 2.1 mg/dL (1.6-2.6); Thyroid Stim Hormone (TSH) 2.71 uIU/mL (0.358-3.74)
== END ==
PROVIDERS: Anesthesiology; PCP Family Medicine; Referring Provider Urology; Visit Provider Urology
DX: Z01.812 Encounter for preprocedural laboratory examination (principal); I10 Essential (primary) hypertension
CPT/HCPCS: 36415; 80048; 83735; 84443; 85027; 87635; 93005; C9803; U0003

== ENCOUNTER → 2020-07-23 15:48 | Outpatient (CLI) | payer MEDICARE, OTHER, SELFPAY ==
--- NOTE | 2020-07-23 15:49 | CT_ITS ---
CT of the right lower extremity without contrast INDICATION: Right knee arthritis, december protocol. COMPARISON: X-ray 08/21/2019 TECHNIQUE: Multiple thin section axial CT images the right lower extremity were obtained through the right hip joint, right knee joint, and right ankle joint without the administration of intravenous contrast and filmed in bone windows. Furthermore, multiple sagittal and coronal reconstructions were performed. Dose limiting techniques were utilized. FINDINGS: No abnormal soft tissue mass, lymphadenopathy, fluid collection. Normal appearance to the surrounding musculature. No acute fracture or dislocation. No lytic or blastic lesions. Examination the right hip joint demonstrates mild joint space narrowing with subchondral cyst formation of the roof of acetabulum consistent with mild arthrosis. Examination of the right knee joint demonstrates moderate joint space narrowing of the medial compartment with subchondral sclerosis and subchondral cyst formation. There is mild joint space narrowing of the lateral compartment. There is severe joint space narrowing of the patellofemoral compartment. A calcified body seen posteriorly. Examination the ankle joint demonstrates no significant arthrosis. IMPRESSION: Severe right knee arthrosis. Mild right hip arthrosis Electronically Signed: Jerry Beckwith MD at 17:08 EST Tel , Service support , CT/Extremity Lower without Contra
== END ==
PROVIDERS: PCP Family Medicine; Referring Provider Orthopaedic Surgery; Visit Provider Orthopaedic Surgery
DX: M17.11 Unilateral primary osteoarthritis, right knee (principal)
CPT/HCPCS: 73700

== ENCOUNTER 2020-08-05 14:00 | Observation (INO) | payer MEDICARE, OTHER, SELFPAY ==
--- NOTE | 2020-07-26 16:26 | HP.PCM_ITS ---
History and Physical History and Physical Patient Name: Steve Pina : 1950 From: MAGGIE HOSKINS NP DATE OF SURGERY: 08/05/2020 SCHEDULED PROCEDURE: Right total knee arthroplasty HISTORY OF PRESENT ILLNESS: Preoperative history and physical exam was performed on July 23, 2020. This is a 69-year-old male who has been having ongoing right knee pain for years. The patient describes his pain is dull and sharp. The pain is 4 on a scale of 10 on average. The pain is made worse with stairs, walking and sitting for prolonged periods of time. The patient reports inability to perform activities of daily living including carrying objects up stairs. He has fallen secondary to the right knee pain. Previous conservative measures attempted consist of rest, ice, elevation, compression and home exercises with minimal relief. Additional treatment options attempted consist of cortisone injections with no relief. The patient has a medical history pertinent for hypertension, psoriasis, sleep apnea, hypothyroidism, peripheral vascular disease with history of phlebitis, glaucoma and history of gout. Surgical clearance will be obtained from his primary care provider Dr. Herrmann. He denies chest pain, fevers, chills, shortness of breath, difficulty breathing or recent infections. After failing conservative measures and discussing treatment options with Dr. Jefferson Alarcon the patient does wish to proceed with a right total knee arthroplasty. REVIEW OF SYSTEMS: ROS: Const: Denies change in appetite, fever and weight change. CV: Denies chest pain, heart murmur and irregular heartbeat. Resp: Reports pneumonia, but denies cough, shortness of breath, tuberculosis and wheezing. GI: Reports heartburn, but denies constipation, diarrhea, nausea, rectal itching, bloody stools and vomiting. : Reports incontinence. Musculo: Reports leg swelling, but denies pain, trouble walking and weakness. Skin: Denies Raynaud's, history of shingles and tattoo. Neuro: Denies ambulatory dysfunction, dizziness, numbness/tingling and tremor. Psych: Denies anxiety, insomnia and stress. Jasper/Lymph: Denies anemia, bleeding/bruising tendency and past transfusion. Reviewed, no changes. PAST MEDICAL HISTORY: Advance Care Plan: Other Directive, LIVING WILL Effective Date: 07/17/2020 Other Directive, POA Effective Date: 07/17/2020 PMH: Medical Problems: Arthritis, Gout, High Blood Pressure, History Of Phlebitis, Psoriasis, Sleep Apnea, Thyroid Disease, Vascular Disease/ Peripheral, Glaucoma Accidents: None Surgical Hx: Gallbladder - (04/2019) @[facility] Tonsillectomy - (1958) Hernia Repair - (04/2019) @[facility] Thoracentesis - (06/2013) [facility] Hemorrhoidectomy - (2018) DR. [email or web address] Anesthesia Complications: None Assistive Devices: Glasses - READING, Bipap Reviewed and updated. 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 Personal Habits: Cigarette Use: Never Smoked Cigarettes.Smokeless Tobacco: Never Used Smokeless Tobacco.E-Cigarette Use: Never used.Alcohol: Occasionally.Drug Use: Denies Use.Enjoy Exercising: Exercises 1-3 X/Week. Reviewed, no changes. VITALS: Ht: 68 Wt: 301lb Wt k.534 BMI: 45.8 BP: 122/80 Pulse: 78 Resp: 24 T: 95.5 T: 35.3C Pain Level: 0 ALLERGIES: Lisinopril Hydrochlorothiazide Spironolactone MEDICATIONS: Chlorpheniramine Maleate 4 mg 2 by mouth every day prn allergies, Chlorthalidone 25 mg 1 by mouth every day, Cardura 4 mg 1po daily, Avodart 0.5 mg 1 by mouth every day, Flonase Allergy Relief 50 mcg/Act 1 spray each nostril as needed, Lasix 40 mg 1 by mouth every day, Mucinex prn chest congestion, Xalatan 0.005 % 1drop each eye prn, Levothyroxine Sodium 50 mcg 1 by mouth every day, [place] 3-6-9 1200mg 1po daily, Potassium Chloride 40 Meq/100ML 2 daily, Metamucil Fiber 1 tablespoon daily, Trandolapril-Verapamil HCL ER 2-180 mg 2po daily, Allopurinol 100 mg 1 by mouth every day, Glucosamine Chondroitin 500 Complex 1po daily, Indocin 50 mg prn gout, Keflex 500 mg prn phlebitis, Tart Jensen Advanced 1po daily, Turmeric 1po daily, Ibuprofen 200 mg 2 tablets by mouth for pain as needed PRE-OP EXAM: General appearance:NORMAL Other: Eyes: Conjunctivae and lids: NORMAL Pupils: ERR Ears, Nose, Mouth, and Throat: NORMAL Other: Inspection of lips, teeth and gums: NORMAL Other: Respiratory: Assessment of respiratory effort: NORMAL Other: Auscultation of lungs: clear to auscultation no wheezes, rhonchi or rales. Cardiovascular: Auscultation of heart: regular rate and rhythm, no murmurs, gallops or rubs. Gastrointestinal: Exam of abdomen: soft, nontender, nondistended bowel sounds present. Neurological: see below Psychiatric: Orientation to time, place and person: NORMAL Other: Mood and affect: NORMAL Other: PHYSICAL EXAMINATION: Right knee skin is warm, dry and intact. 1+ effusion. Varus deformity. Medial joint line pain with palpation. Range of motion 0 extension to 120 flexion. Strength 5/5. Neurovascular intact. Right pedal pulse normal. IMAGING STUDIES: 3 views of right knee obtained on July 17, 2020 including AP, lateral and skyline views reviewed reveals severe osteoarthritis of the medial and patellofemoral compartments. Moderate patella baja. No acute fractures or dislocations. IMPRESSION: 1. Right knee osteoarthritis 2. Hypertension 3. Psoriasis 4. Sleep apnea 5. Hypothyroidism 6. Peripheral vascular disease with history of phlebitis 7. Glaucoma 8. History of gout PLAN: Dr. Jefferson Alarcon did discuss and review with the patient all treatment options including surgical versus nonsurgical. The patient does wish to proceed with the above-stated procedure. Potential risk, benefits and complications of the procedure were discussed in detail including but not limited to , infection, nerve and blood vessel damage, persistent pain, numbness, tingling, paresthesia, blood clot, pulmonary embolism and requirement for possible further surgery. The patient expressed full understanding and has no further questions for the doctor. The patient does agree to proceed with the above-stated procedure and has signed the surgery consent form. The patient was instructed to bring a walker to the hospital the day of his surgery. Discussed with the patient the risks associated with the COVID-19 virus including the risk of exposure while at the hospital. The patient was reassured local hospitals have low infection rates and taken all necessary precautions to limit patient exposure to COVID-19. Limiting the patient's time in the hospital may decrease their exposure to COVID-19. The patient was notified that we will need to comply with any screening or testing the hospital wishes to perform and that surgery may be delayed for any positive test results. This dictation was created using voice recognition software. Phonetic and/or grammatical errors may exist. ___ I have re-examined the patient. There are no clinical changes since date of exam. ___ See progress notes for changes. ___ Dictated on admission Date: Time: Signature:
[2020-08-05] VITALS (13 sets, daily range): BP systolic 117–179; BP diastolic 66–92; PULSE 65–86; RESP 16–18; TEMP 35.9–37; O2SAT 90–99; BMI 45.1
[2020-08-05] MEDS: Lactated Ringers 1,000 ML 999 ML IV (10:00)
[2020-08-05] MEDS: Gabapentin 600 MG Tablet PO (10:16)
[2020-08-05] MEDS: Acetaminophen 500 MG Tablet 1000 MG PO ×2 (10:16→21:14)
[2020-08-05] MEDS: dexAMETHasone 10 MG/ML Vial IV (10:26)
[2020-08-05 10:51] LABS: Bedside Glucose 130 mg/dL (70-110)
[2020-08-05] MEDS: Lactated Ringers 1,000 ML 75 ML IV (11:00)
--- NOTE | 2020-08-05 11:30 | KNEE_PTH ---
PATIENT: SLIME SHAW LOC: MS3 U#:[id number] AGE/SX: 69/M ROOM: MS319 RE08/05/[address]: Dr. Jefferson Alarcon DO : 1950 BED: 1 DIS: 08/06/2020 SPEC #: [id number] RECD: 08/05/20 14:51 STATUS: ARTIE REQ #: [id number] MICHEAL: 08/05/20 11:[address]: Jefferson Alarcon DEPT: SURGICAL PATHOLOGY RECD BY: Tyrone Kenny ENTERED: 08/06/20 07:16 SP TYPE: TOTAL KNEE OTHR DR: Dr. Foreign Herrmann MD Tissues: Knee, NOS Procedures: Decalcification bone/plaque Surgery Specimen Level IV HEADER OPERATION: ERAS, total knee replacement robotic arm assist PRE-OP DIAGNOSIS: Right knee osteoarthritis TISSUE SUBMITTED: Bone and tissue, right knee MICROSCOPIC DIAGNOSIS Bone and soft tissue of right knee, total knee resection: Consistent with severe degenerative joint disease. Mild synovial hyperplasia. AM:mariana 08/08/20 MICROSCOPIC DESCRIPTION Slides are reviewed. GROSS DESCRIPTION Received is one container designated bone and soft tissue right knee. The specimen consists of multiple fragments of andersen-yellow bone measuring in aggregate 13 x 10 x 2 cm. Also in the specimen container are multiple fragments of yellow-white soft tissue measuring in aggregate 10.5 x 8 x 2 cm. A number of bony fragments contain articular surfaces consistent with tibial plateau and femoral condyle and displaying prominent osteophyte formation, eburnation, and bone erosion. Packager Hand sections are submitted in two cassettes as follows: 1 - soft tissue, 2 - bone after decalcification. / AM:mariana 08/06/20 TC:3 [facility]: [id number], [id number]
--- NOTE | 2020-08-05 13:41 | PCM.OPRPT ---
Report of Operation Date of Procedure: 08/05/20 Pre-Operative Diagnosis: OA right knee Post-Operative Diagnosis: same Surgery/Procedure Performed:: Right TKR Type of Anesthesia:: General Anesthesiologist: Wei Mccrary Specimen's removed: bone Estimated Blood Loss (mL): 50 cc Fluids Replaced: 1000 ml crystalloid - Admit VTE Documentation VTE Present on Admission: No VTE Mechan Device Prophylaxis: SCD's, Thigh High ELENO Hose VTE Pharm Prophylaxis ordered?: Yes
--- NOTE | 2020-08-05 14:30 | RAD_ITS ---
STUDY: X-RAY - RIGHT KNEE REASON FOR EXAM: Male, 69 years old. post op right knee TECHNIQUE: 2 view(s) of the knee. COMPARISON: None. FINDINGS: Normal visualized distal femur. Normal visualized proximal tibia and fibula. Normal proximal tibiofibular articulation. There is a knee arthroplasty in good alignment. Air bubbles are seen in the soft tissues. Surgical pedro are noted at the anterior aspect in the knee from recent surgery. RAD/Knee 1 or 2 Views IMPRESSION: Right knee arthroplasty in good alignment. Electronically Signed: Raul Terry, at 15:10 EST Tel , Service support ,
[2020-08-05 14:46] LABS: Hematocrit 41.9 % (40-54); Hemoglobin 14.7 g/dL (13.0-16.5); Mean Corp Hgb Conc 35.1 g/dL (32-36); Mean Corpuscular Hgb 31.1 pg (27.0-32.0); Mean Corpuscular Volume 88.8 fL (80-94); Mean Platelet Vol. 9.3 fl (6.2-12.0); Platelet Count 218 K/mm3 (150-450); RBC Distribution Width CV 13.2 % (11.6-14.6); RBC Distribution Width SD 42.5 fl (35.1-43.9); Red Blood Count 4.72 M/mm3 (4.6-6.2); White Blood Count 11.1 K/mm3 (4.4-11.0)
[2020-08-05] MEDS: Lactated Ringers 1,000 ML 100 ML IV (14:57)
[2020-08-05 14:58] LABS: Anion Gap 5 (5-15); BUN 22 mg/dL (7-18); BUN/Creat Ratio 15.7 RATIO (10-20); Chloride 103 mmol/L (98-107); EST Glomerular Filtration Rate 53 mL/min (>60); Est Glom Filt Rate - Afr Amer 64 mL/min (>60); Glucose 208 mg/dL (74-106); Potassium 3.5 mmol/L (3.5-5.1); Sodium Level 138 mmol/L (136-145)
[2020-08-05] MEDS: Aspirin 81 MG TAB.CHEW PO (18:37)
[2020-08-05] MEDS: Fluticasone 0.05% 1 SPRAY NASAL.SRY NASAL (21:12)
[2020-08-05] MEDS: Latanoprost 0.005% 1 Bottle 1 DRP EACH EYE (21:12)
[2020-08-05] MEDS: Finasteride 5 MG Tablet PO (21:14)
[2020-08-05] MEDS: Cefazolin 1 GM/50 ML BAG IV (21:14)
[2020-08-05] MEDS: Verapamil SR 180 MG CAPSULE PO (21:15)
[2020-08-05] MEDS: Senna/Docusate Sodium 1 Tablet 2 TABLET PO (21:15)
[2020-08-06 02:30] VITALS: BP 133/83; PULSE 74; RESP 16; TEMP 35.9; O2SAT 94
[2020-08-06] MEDS: Cefazolin 1 GM/50 ML BAG IV (03:42)
[2020-08-06] MEDS: Levothyroxine 50 MCG Tablet PO (05:29)
[2020-08-06] MEDS: 0.9% Saline Lock 10 ML Syringe IV (05:29)
[2020-08-06] MEDS: Acetaminophen 500 MG Tablet 1000 MG PO ×2 (05:29→13:46)
--- NOTE | 2020-08-06 07:55 | PCM.PN.ORT ---
Subjective: Patient sitting up in bed eating breakfast. Patient states pain is been very well managed. Patient has no complaints. Denies chest pain, shortness of breath, calf pain, nausea vomiting. Patient states she is ready for discharge home Objective: Dressing is clean dry intact. Negative signs of symptom DVT. Vital signs labs reviewed noted in medical record. Patient is no respiratory distress, speaking in full sentences. Patient is afebrile. Operative leg is otherwise neurovascular intact. - Physical Exam Vitals/I&O's: Vital Signs Temp Pulse Resp BP Pulse Ox 96.7 F L 74 16 133/83 H 94 08/06/20 02:30 08/06/20 02:30 08/06/20 02:30 08/06/20 02:30 08/06/20 02:30 Oxygen Flow Rate (L/min) 6 Oxygen Delivery Method Bi-pap Weight: 138.8 kg Body Mass Index (BMI) 45.1 Intake and Output for Last 24 Hours 08/04/20 08/05/20 08/06/20 23:59 23:59 23:59 Intake Total 2835 / 2835 1050 / 1050 Output Total 425 / 425 550 / 550 Balance 2410 / 2410 500 / 500 General: Alert, Oriented x3, Cooperative HEENT: PERRLA Oral: Moist Mucosa Cardiovascular: Regular rate Neurological: Cranial nerves II-XII grossly intact Psych/Mental Status: Normal Affect, Alert and oriented to time, place, person, mood and affect Laboratory Results 08/05/20 10:22: POC Glucose 130 H 08/05/20 14:40: WBC 11.1 H, RBC 4.72, Hgb 14.7, Hct 41.9, MCV 88.8, MCH 31.1, MCHC 35.1, RDW Std Deviation 42.5, RDW Coeff of Karolyn 13.2, Plt Count 218, MPV 9.3 08/05/20 14:40: Sodium 138, Potassium 3.5, Chloride 103, Carbon Dioxide 30.0, Anion Gap 5, BUN 22 H, Creatinine 1.40 H, Estim Creat Clear Calc 49.10, Est GFR (MDRD) Af Amer 64, Est GFR (MDRD) Non-Af 53 L, BUN/Creatinine Ratio 15.7, Glucose 208 H, Calcium 8.0 L Current Medications Acetaminophen (Acetaminophen 500 Mg Tablet) 1,000 mg PO Q8 [facility] Last Admin: 08/06/20 05:29 Dose: 1,000 mg Documented by: Aspirin (Aspirin 81 Mg Tab.Chew) 81 mg PO BIDCM [facility] Last Admin: 08/05/20 18:37 Dose: 81 mg Documented by: Chlorthalidone (Chlorthalidone 50 Mg Tablet) 25 mg PO DAILY [facility] Clobetasol Propionate (Clobetasol Propionate 0.05% Cream) 1 applic TOPICAL BID PRN PRN PRN Reason: PSORIASIS Diphenhydramine HCl (Diphenhydramine 25 Mg Capsule) 25 mg PO DAILY [facility] Doxazosin Mesylate (Doxazosin 4 Mg Tablet) 4 mg PO DAILY [facility] Finasteride (Finasteride 5 Mg Tablet) 5 mg PO HS [facility] Last Admin: 08/05/20 21:14 Dose: 5 mg Documented by: Fluticasone Propionate (Fluticasone 0.05% 1 [place] Nasal.Sry) 1 spray NASAL BID [facility] Last Admin: 08/05/20 21:12 Dose: 1 spray Documented by: Furosemide (Furosemide 40 Mg Tablet) 40 mg PO DAILY [facility] Guaifenesin (Guaifenesin 600 Mg Tablet) 600 mg PO BID PRN PRN Reason: CHEST CONGESTION/SECRETIONS Insulin Human Lispro (Insulin Lispro 100 Unit/Ml Insuln.Pen) 1 - 6 unit SC Q4H PRN PRN; Protocol PRN Reason: BG>/= 180, SEE PROTOCOL Latanoprost (Latanoprost 0.005% 1 Bottle) 1 drop EACH EYE QHS [facility] Last Admin: 08/05/20 21:12 Dose: 1 drop Documented by: Levothyroxine Sodium (Levothyroxine 50 Mcg Tablet) 50 mcg PO DAILY@0600 [facility] Last Admin: 08/06/20 05:29 Dose: 50 mcg Documented by: Multivitamins ([facility]it[facility],Therapeutic Tablet) [facility] Multivitamins/Minerals (Multivitamin (Healthy Eyes) Capsule) [facility] Ondansetron HCl (Ondansetron 4 Mg/2 Ml Vial) 4 mg IV Q8H PRN PRN PRN Reason: NAUSEA Oxycodone HCl (Oxycodone 5 Mg Tablet) 5 - 10 mg PO Q4H PRN PRN PRN Reason: Pain Score 4-10 Potassium Chloride (Potassium Chloride 20 Meq Tablet) 40 meq PO BID [facility] Last Admin: 08/05/20 21:14 Dose: 40 meq Documented by: Promethazine HCl (Promethazine 25 Mg/Ml Syringe) 12.5 mg IM Q6H PRN PRN; Protocol PRN Reason: NAUSEA/VOMITING Psyllium Hydrophilic Mucilloid (Psyllium 1 Packet) 1 packet PO DAILY [facility] Senna/Docusate Sodium (Senna/Docusate Sodium 1 Tablet) 2 tablet PO BID [facility] Last Admin: 08/05/20 21:15 Dose: 2 tablet Documented by: Sodium Chloride (0.9% Saline Lock 10 Ml Syringe) 10 - 40 ml IV UD PRN PRN Reason: SALINE FLUSH Last Admin: 08/06/20 05:29 Dose: 10 ml Documented by: Verapamil HCl (Verapamil Sr 180 Mg Capsule) 180 mg PO BID [facility] Last Admin: 08/05/20 21:15 Dose: 180 mg Documented by: Medical Necessity - Tobacco Use Smoking Status: Never smoker Tobacco Use: Non-smoker Assessment/Plan All Active Problems (Last Reviewed 05/01/19 @ 13:54 by Elizabeth Bonds) Umbilical hernia without obstruction or gangrene (Acute) BPH (benign prostatic hyperplasia) (Acute) Grade III internal hemorrhoids (Acute) Skin tag (Acute) Rectal bleeding (Acute) Venous insufficiency (Acute) Morbid obesity due to excess calories (Acute) Gynecomastia, male (Acute) H/O colonoscopy (Acute) h/o thoracentesis (Acute) S/P tonsillectomy (Acute) Heart disease (Acute) Numbness and tingling (Acute) Thyroid disease (Acute) Hemorrhoids (Acute) Status post right total knee arthroplasty Plan 1. Continue all pain medications as prescribed 2. Continue physical therapy, weight-bear as tolerated with walker 3. 81 mg 1 p.o. every 12 hours x30 days for postop DVT prophylaxis 4. Encourage incentive spirometry 5. Discharge home today after p.m. therapy 6. Follow-up as scheduled with Dr. Alarcon, see pink sheet 7. Continue physical therapy outpatient at [facility]
--- NOTE | 2020-08-06 08:05 | DCINST_ITS ---
Discharge Diet: No Restrictions Discharge Activity: May Not Drive, May Shower, Use Walker May shower in (days): 3 Ice area for (Minutes): 20 - each hour while awake. Weight Bearing Status: Weight bearing as tolerated Elevate: Operative Extremity Additional Activity Instructions:: Wear elastic stockings for 2 weeks after your surgery. Call your doctor if your incision/area has: Continuous Slow Oozing, Sudden Increased Bleeding, Increased Pain/ Swelling, Increased Redness, Foul Smelling Discharge Call your doctor if you observe: Fever of 101 or Higher, Coldness, Increased Pain - in extremity, Numbness or Tingling, Change in Color, Calf discomfort, Uncontrolled pain Change Dressing in (Days):: 0 - and daily as needed. Remove Dressing in (days):: 8 Cleanse incision/area with: Soap & Water Allergies/Adverse Reactions: Allergies YOSSI Inhibitors Adverse Reaction (Verified 07/25/20 12:10) Other hydrochlorothiazide [From Dyazide] Adverse Reaction (Verified 07/25/20 12:10) Other spironolactone [From Aldactone] Adverse Reaction (Verified 07/25/20 12:10) Other GYNACOMASTIA triamterene [From Dyazide] Adverse Reaction (Verified 07/25/20 12:10) Other Medications to take at Discharge Desoximetasone 0.25% [Topicort Crm 0.25%] 1 applic TOPICAL BID PRN 06/13/13 Doxazosin Mesylate [Cardura] 4 mg PO DAILY 06/13/13 Latanoprost 0.005% [Xalatan Opthalmic] 1 drp EACH EYE QHS 06/13/13 Multivitamins,Therapeutic [Multivitamin] 1 tab PO DAILY 06/13/13 Van 3/Dha/Epa/Vitamin D3 [Van-3 + Vitamin D3 Softgel] 1 ea PO DAILY 06/13/13 Verapamil [Calan Sr] 180 mg PO BID 06/13/13 Vit A,C & E/Lutein/Minerals 1 tab PO DAILY 06/13/13 chlorthalidone 25 mg tablet 25 mg PO DAILY 11/22/17 fluticasone propionate 50 mcg/actuation nasal spray,suspension 1 spray INTRANASAL BID 11/22/17 furosemide 40 mg tablet 40 mg PO DAILY 11/22/17 levothyroxine 50 mcg capsule 50 mcg PO QDAY 04/16/18 potassium chloride 20 mEq tablet,extended release(part/cryst) 40 meq PO BID tab 11/22/17 Chlorpheniramine Maleate [Allergy Relief] 4 mg PO DAILY PRN 04/13/19 Dutasteride [Avodart] 0.5 mg PO QHS 04/13/19 Guaifenesin [Mucinex] 600 mg PO BID PRN 04/13/19 Psyllium Husk [Metamucil] 0.52 gm PO DAILY 04/13/19 Acetaminophen [Tylenol] 1,000 mg PO Q8 #90 tab 08/06/20 Aspirin [Aspirin, Baby] 81 mg PO BIDCM #60 tab.chew 08/06/20 Oxycodone [Oxyir] 5 - 10 mg PO Q4H PRN PRN 7 Days #84 tab 08/06/20 Senna/Docusate Sodium [Senokot-S] 2 tab PO BID tab 08/06/20 The following prescriptions were given: Aspirin [Aspirin, Baby] 81 mg PO BIDCM #60 tab.chew Transmission Status: Pending to [id number] Oxycodone [Oxyir] 5 - 10 mg PO Q4H PRN PRN 7 Days #84 tab PRN Reason: Pain Score 4-10 Transmission Status: Received by [id number] Acetaminophen [Tylenol] 1,000 mg PO Q8 #90 tab Transmission Status: Pending to [id number] Primary Care Physician: Foreign Herrmann MD [Primary Care Provider] - Test Results: Test results from this visit will be discussed in further detail at your follow- up appointment, if applicable. Please Follow Up With: Jefferson Alarcon DO
[2020-08-06] MEDS: Verapamil SR 180 MG CAPSULE PO (08:09)
[2020-08-06] MEDS: Multivitamin (Healthy Eyes) Capsule 1 CAP PO (08:09)
[2020-08-06] MEDS: DiphenhydrAMINE 25 MG Capsule PO (08:09)
[2020-08-06 08:10] VITALS: BP 129/62; PULSE 80; RESP 18; TEMP 36.8; O2SAT 96
[2020-08-06] MEDS: Doxazosin 4 MG Tablet PO (08:10)
[2020-08-06] MEDS: Aspirin 81 MG TAB.CHEW PO (08:10)
[2020-08-06] MEDS: Furosemide 40 MG Tablet PO (08:10)
[2020-08-06] MEDS: Multivitamins,Therapeutic Tablet 1 TABLET PO (08:10)
[2020-08-06] MEDS: Chlorthalidone 50 MG Tablet 25 MG PO (08:11)
--- NOTE | 2020-08-06 10:40 | CASEMGMT ---
RN CM STOCK CHECKERER CM to room to meet with patient for initial transition planning/care coordination assessment. EDER RYAN introduced self and role at [facility]. Pt voices understanding and consents to assessment at this time. Pt sitting up in recliner chair in room in no distress at this time. Pt is A/O at this time and answers all questions appropriately. Care providers, pharmacy, and demographics verified/updated at this time. PCP: Dr Foreign Herrmann Specialists: Dr Alarcon--ortho, Dr Benito--urology Preferred Pharmacy: [facility] Retail Insurance: [id number], [employer]. Prescription Benefit: Yes Living Will/HPOA: Has both LW and Healthcare POA: /Kelly LNOK: : Kelly. Daughter, Carlotta Living Arrangements: Lives with in one-story home w/2 steps to enter. Was independent prior to surgery. and daughter, who lives close by, supportive and able to help as needed Transportation: Pt, DME: States has the following DME: shower chair, raised toilet seat w/rails, hand held shower, walker, BIPAP, long shoe horn, boathouse keeper. Therapy recommended grab bar in shower and provided pt w/info sheet Pt states no need for further DME at this time. HHC/SNF: No history of either. Pt wishes to return home w/OP therapy and states has no concerns with going home at time of discharge. Has appt set up for OP therapy @ [facility] 08/08 @ 0900. Pt aware. CM to follow for any further discharge planning/needs. Pt voices no further concerns/needs at this time. Advised pt to ask for CM if any further questions/concerns/needs arise. Voices understanding. PLAN: Home w/OP therapy Ericka POOL RN, CM
[2020-08-06] MEDS: oxyCODONE 5 MG Tablet PO (11:23)
[2020-08-06 13:45] VITALS: BP 111/50; PULSE 67; RESP 18; TEMP 36.7; O2SAT 97
== END 2020-08-06 14:05 | disposition home or self-care (01) ==
LOC: SDC 14:11 → MS3 14:11
PROVIDERS: Admitting Provider Orthopaedic Surgery; PCP Family Medicine; Referring Provider Orthopaedic Surgery; Visit Provider Orthopaedic Surgery
PROC: 0SRC0JZ Replacement of Right Knee Joint with Synthetic Substitute, Open Approach (ICD-10-PCS; CPT 27447; principal; 2020-08-05 11:00)
DX: M17.11 Unilateral primary osteoarthritis, right knee (principal); Z20.828 Contact with and (suspected) exposure to other viral communicable diseases; I73.9 Peripheral vascular disease, unspecified; H40.9 Unspecified glaucoma; G47.30 Sleep apnea, unspecified; E03.9 Hypothyroidism, unspecified; L40.9 Psoriasis, unspecified; I10 Essential (primary) hypertension; Z79.899 Other long term (current) drug therapy; N40.0 Benign prostatic hyperplasia without lower urinary tract symptoms; E66.01 Morbid (severe) obesity due to excess calories; Z68.42 Body mass index [BMI] 45.0-49.9, adult; I87.2 Venous insufficiency (chronic) (peripheral)
CPT/HCPCS: 01400; 27447; 64447; S2900; 36415; 73560; 80048; 82962; 85027; 87081; 87426; 88305; 88311; 96361; 96365; 96366; 97110; 97116; 97162; 97166; 97535; 99218; 99251; C1776; C9803; J7120; A4216; G0378; G0379; G0463

== ENCOUNTER → 2020-10-30 11:07 | Outpatient (CLI) | payer MEDICARE, OTHER, SELFPAY ==
[2020-08-05 16:34] VITALS: BMI 45.1
[2020-10-30 12:59] LABS: Anion Gap 9 (5-15); BUN 21 mg/dL (7-18); BUN/Creat Ratio 18.8 RATIO (10-20); Calcium,Total 8.7 mg/dL (8.5-10.1); Chloride 103 mmol/L (98-107); Cholesterol 167 mg/dL (200); Creatinine, Serum 1.12 mg/dL (0.70-1.30); EST Glomerular Filtration Rate 69 mL/min (>60); Est Glom Filt Rate - Afr Amer 83 mL/min (>60); Free T3 2.7 pg/mL (2.18-3.98); Glucose 111 mg/dL (74-106); High Density Lipoprotein 38 mg/dL; Potassium 3.1 mmol/L (3.5-5.1); Sodium Level 141 mmol/L (136-145); T4 Free Direct 1.06 ng/dL (0.76-1.46); Thyroid Stim Hormone (TSH) 2.94 uIU/mL (0.358-3.74); Triglycerides 183 mg/dL; Very Low Density Lipoprotein 37 mg/dL (5-40)
== END ==
PROVIDERS: PCP Family Medicine; Referring Provider Family Medicine; Visit Provider Family Medicine
DX: E03.9 Hypothyroidism, unspecified (principal); I10 Essential (primary) hypertension
CPT/HCPCS: 36415; 80048; 80061; 84439; 84443; 84481

== ENCOUNTER → 2021-04-02 17:49 | Outpatient (CLI) | payer MEDICARE, OTHER, SELFPAY | PROVIDERS: PCP Family Medicine; Referring Provider Family Medicine; Visit Provider Family Medicine | DX: U07.1 COVID-19 (principal) | CPT/HCPCS: 87635; U0005; U0003 ==

== ENCOUNTER 2021-04-08 10:03 | Inpatient (IN) | payer MEDICARE, OTHER, SELFPAY ==
[2021-04-08] VITALS (12 sets, daily range): BP systolic 111–135; BP diastolic 48–77; PULSE 72–89; RESP 16–22; TEMP 36.2–37.8; O2SAT 88–96; BMI 42.3; BMI 40.8
--- NOTE | 2021-04-08 10:26 | RAD_ITS ---
STUDY: X-RAY CHEST REASON FOR EXAM: Male, 70 years old. Cough. TECHNIQUE: Single AP portable view of the chest. COMPARISON: 01/23/2018. FINDINGS: Cardiomegaly with mild congestion. Aorta unremarkable. Multifocal bilateral patchy airspace opacities. No pleural effusions. Upper abdomen unremarkable. Osseous structures intact. No pneumothorax. RAD/Chest 1 View (Portable) IMPRESSION: Multifocal bilateral patchy airspace opacities (typical/atypical infection) Electronically Signed: Willam Correia DO at 11:32 EDT Tel , Service support ,
--- NOTE | 2021-04-08 10:26 | EKG12_ITS ---
Test Reason : COUGH Blood Pressure : / mmHG Vent. Rate : 082 BPM Atrial Rate : 082 BPM P-R Int : 142 ms QRS Dur : 094 ms QT Int : 380 ms P-R-T Axes : 041 -19 061 degrees QTc Int : 443 ms Normal sinus rhythm with sinus arrhythmia Normal ECG Confirmed by JAVED SAL, BREEZY ([id number]), supervising editor news reel BLUE ALVAREZ ([id number]) on 04/09/2021 9:57:48 AM Referred By: Confirmed By:BREEZY BURT MD
--- NOTE | 2021-04-08 10:27 | ED.VIS.DYS ---
HPI History of Present Illness Chief Complaint: Cough Detail of Chief Complaint: Cough and shortness of breath Informant: patient and spouse/S.O. Narrative Narrative: Patient presents to the emergency department with cough and shortness of breath. Patient states he started with symptoms of cough on March 31. Patient diagnosed with Covid on April 02. Patient is fully vaccinated. states that his O2 saturations have been as low as 85% at home. Patient complains of exertional dyspnea. He denies any chest pain. Cough is nonproductive. Patient also has been having fevers. He has had intermittent vomiting and diarrhea as well. [facility] Medical History (Updated 04/08/21 @ 12:[address] Arabella Castillo, DO) BPH (benign prostatic hyperplasia) BPH (benign prostatic hyperplasia) Cholelithiasis with chronic cholecystitis Gallstones Gynecomastia, male Heart disease Hemorrhoids Hypertension Morbid obesity due to excess calories Numbness and tingling Rectal bleeding Sleep apnea Thyroid disease Venous insufficiency Home Medications desoximetasone 1 applic TOPICAL BID PRN 06/13/13 [History Last Taken Unknown] doxazosin 4 mg PO QHS 06/13/13 [History Last Taken 04/20/19 07:00 4 mg] latanoprost 1 drp EACH EYE QHS 06/13/13 [History Last Taken 06/22/13 22:00 1 drop each eye] multivitamin with folic acid 1 tab PO DAILY 06/13/13 [History Last Taken 06/23/13 08:00 1] az-0-pnt-epa-fish oil-vit D3 1 ea PO DAILY 06/13/13 [History Last Taken 06/23/13 08:00 1] verapamil 180 mg PO BID 06/13/13 [History Last Taken 08/05/20 08:00] chlorthalidone 25 mg tablet 25 mg PO DAILY 11/22/17 [History Last Taken Unknown] fluticasone propionate 50 mcg/actuation nasal spray,suspension 1 spray INTRANASAL BID 11/22/17 [History Last Taken Unknown] furosemide 40 mg tablet 40 mg PO DAILY 11/22/17 [History Last Taken Unknown] levothyroxine 50 mcg capsule 50 mcg PO QDAY 11/22/17 [History Last Taken 08/05/20 08:00] potassium chloride 20 mEq tablet,extended release(part/cryst) 40 meq PO BID tab 11/22/17 [History Last Taken Unknown] chlorpheniramine maleate 4 mg PO DAILY PRN 04/13/19 [History Last Taken Unknown] dutasteride 0.5 mg PO QHS 04/13/19 [History Last Taken Unknown] guaifenesin 600 mg PO BID PRN 04/13/19 [History Last Taken Unknown] psyllium husk 0.52 gm PO DAILY 04/13/19 [History Last Taken Unknown] acetaminophen 1,000 mg PO Q8 #90 tab 08/06/20 [Rx Last Taken Unknown] allopurinol 100 mg PO DAILY 04/08/21 [History Last Taken Unknown] indomethacin 50 mg PO DAILY PRN PRN 04/08/21 [History Last Taken Unknown] Allergy/AdvReac Type Severity Reaction Status Date / Time YOSSI Inhibitors AdvReac Other Verified 04/08/21 10:09 hydrochlorothiazide AdvReac Other Verified 04/08/21 10:09 [From Dyazide] spironolactone AdvReac Other Verified 04/08/21 10:09 [From Aldactone] triamterene [From Dyazide] AdvReac Other Verified 04/08/21 10:09 Family History Mother Diabetes Hypertension Father Heart disease Diabetes Thyroid disorder Surgical History H/O colonoscopy h/o thoracentesis History of umbilical hernia repair S/P hemorrhoidectomy (~01/2018) S/P laparoscopic cholecystectomy S/P tonsillectomy Social History (Updated 05/02/19 @ 10:28 by Cralotta VARELA, PA-C) Smoking Status: Never smoker alcohol intake: current alcohol intake frequency: holidays/special occasions only ROS ROS ED Constitutional Constitutional ED: Reports systems reviewed and no addt'l complaints, except as documented and fever(s); Denies body ache(s), change in weight or chills Eyes Eyes: Denies acute decrease in peripheral vision, change in vision, double vision or loss of vision ENT ENT ED: Reports none; Denies ear pain, lip swelling, loss taste/smell, neck pain, otalgia or sore throat Cardiovascular Cardiovascular: Reports none; Denies abdominal pain, chest pain with activity, leg edema, lightheadedness, palpitations, rapid heart rate or syncope Respiratory/Chest Respiratory/Chest: Reports none, cough and dyspnea; Denies change in mental status, dry cough, hemoptysis, shortness of breath at rest or shortness of breath with exertion Gastrointestinal Gastrointestinal: Reports none, diarrhea, nausea and vomiting; Denies abdominal pain, change in stool character, hematemesis, hematochezia, melena or rectal bleeding Genitourinary Genitourinary ED: Reports none; Denies abdominal discomfort, anuria, dysuria, genital pain or polyuria Musculoskeletal Musculoskeletal: Reports none; Denies arthralgias, back pain, difficulty walking, extremity pain, muscle weakness or myalgias Integumentary Reports none; Denies abscess or rash Neurologic Neurologic: Reports none; Denies abnormal gait, confusion, focal weakness, frequent falls, headache(s), loss of vision, numbness, paresthesias, radicular pain, vertigo or weakness Psychiatric Psychiatric: Reports systems reviewed and no addt'l complaints, except as documented and none; Denies behavioral changes, confusion, difficulty concentrating, hallucinations, suicidal ideation, tactile hallucinations or visual hallucinations Endocrine Endocrinology: Denies none, cold intolerance, excessive sweating, fatigue or heat intolerance Hematologic/Lymphatic Hematologic/Lymphatic: Reports none; Denies anemia, easy bleeding or easy bruising Allergic/Immunologic Allergic/Immunologic ED: Denies as per HPI, none, lip swelling, mouth swelling, throat swelling, tongue swelling or hives EXAM Physical Exam Const Vital Signs: 04/08/21 10:05 04/08/21 10:34 04/08/21 11:24 Temperature 98.8 F 98.8 F 98.2 F Temperature Source Temporal Temporal Oral Pulse Rate 89 89 77 Respiratory Rate 18 18 22 H Respiratory Effort Short of Breath Respiratory Depth Deep Respiratory Pattern Hyperpnea Blood Pressure 116/48 L 116/48 L 131/73 H Blood Pressure Mean 70 70 92 Pulse Ox 88 88 91 Oxygen Delivery Method Room Air Room Air Nasal Cannula Oxygen Flow Rate (L/min) 2 Fraction of Inspired Oxygen (FIO2) 2 04/08/21 12:07 04/08/21 12:13 Temperature Temperature Source Pulse Rate 78 Respiratory Rate 22 H 16 Respiratory Effort Respiratory Depth Respiratory Pattern Blood Pressure 135/77 H Blood Pressure Mean 96 Pulse Ox 88 93 Oxygen Delivery Method Nasal Cannula Nasal Cannula Oxygen Flow Rate (L/min) 2 6 Fraction of Inspired Oxygen (FIO2) Positive well nourished and well developed General Appearance ED: well developed and NAD HEENT Reports TM's clear and moist mucous membranes normocephalic and atraumatic; Negative for trauma or tenderness Tympanic Membrane ED: Yes TM's clear Eyes PERRL and EOMs intact bilaterally General Eye ED: Negative for pale conjunctiva or scleral icterus Neck no lymphadenopathy, supple and no JVD General: Negative for tenderness Chest Wall inspection of chest normal and palpation of chest normal Chest: Negative for tenderness Resp normal respiratory effort and clear to auscultation bilaterally Effort and Inspection: Negative for respiratory distress or pain with movement Auscultation: Negative for rhonchi, wheezes or diminished lung sounds Cardio regular rate, regular rhythm, S1 normal heart sound, S2 normal heart sound and no murmurs Peripheral Pulses: pulses 2+ throughout GI normal to inspection, nondistended, normoactive bowel sounds, soft to palpation, non-tender, non-distended and no masses Back/Spine no CVA tenderness and no thoracic nor lumbar tenderness Extremity normal to inspection General Extremety ED: Negative for edema General Extremity: Negative for edema Neuro oriented x3, CN's II-XII intact bilaterally, no sensory deficits noted and gait normal Sensorium / Orientation: awake, alert, oriented to person, oriented to place and oriented to time Motor Exam: strength 5/5 throughout and strength abnormal Psych mental status grossly normal Skin no rashes or lesions noted and no wounds MDM MDM MDM Narrative Medical decision making narrative: Patient hypoxic at rest with O2 sats from 85% to 88% on room air. On 2 L patient saturating into the low to mid 90s. Case discussed with hospitalist will evaluate patient for admission Lab Data Attestation: I reviewed the patient's lab results. Labs: Laboratory Results - last 24 hr 04/08/21 04/08/21 04/08/21 10:28 10:28 10:28 WBC 10.1 RBC 4.50 L Hgb 13.9 Hct 39.1 L MCV 86.9 MCH 30.9 MCHC 35.5 RDW Std Deviation 39.8 RDW Coeff of Karolyn 12.5 Plt Count 180 MPV 9.1 Immature Gran % (Auto) 0.600 Neut % (Auto) 83.7 H Lymph % (Auto) 11.7 L Grand % (Auto) 3.9 Eos % (Auto) 0.0 Baso % (Auto) 0.1 Absolute Neuts (auto) 8.5 H Absolute Lymphs (auto) 1.18 Nucleated RBC % 0 D-Dimer Quant (PE/DVT) Sodium 133 L Potassium 3.0 L Chloride 97 L Carbon Dioxide 31.0 Anion Gap 5 BUN 22 H Creatinine 1.24 Estim Creat Clear Calc 54.64 Est GFR (MDRD) Af Amer 74 Est GFR (MDRD) Non-Af 61 BUN/Creatinine Ratio 17.7 Glucose 122 H Lactic Acid 1.8 Calcium 8.2 L Troponin I High Sens 47 04/08/21 11:01 WBC RBC Hgb Hct MCV MCH MCHC RDW Std Deviation RDW Coeff of Karolyn Plt Count MPV Immature Gran % (Auto) Neut % (Auto) Lymph % (Auto) Grand % (Auto) Eos % (Auto) Baso % (Auto) Absolute Neuts (auto) Absolute Lymphs (auto) Nucleated RBC % D-Dimer Quant (PE/DVT) 0.87 H* Sodium Potassium Chloride Carbon Dioxide Anion Gap BUN Creatinine Estim Creat Clear Calc Est GFR (MDRD) Af Amer Est GFR (MDRD) Non-Af BUN/Creatinine Ratio Glucose Lactic Acid Calcium Troponin I High Sens Radiography Chest X-Ray - ED: 1 View Diagnostic Testing: Radiology Impression Chest X-Ray 04/08/21 10:26 IMPRESSION: Multifocal bilateral patchy airspace opacities (typical/atypical infection) Electronically Signed: Willam Correia DO at 11:32 EDT Tel , Service support , Chest CTA 04/08/21 11:28 IMPRESSION: 1. No central or segmental pulmonary embolism. 2. Multilobar groundglass and interstitial opacities compatible with history provided of COVID pneumonia. 3. Trace right pleural fluid. 4. Probable reactive hilar or mediastinal adenopathy. No dominant norm mass. Electronically Signed: Manuel Mcfarlane MD ([place]) at 12:16 EDT , Service support , 1 view chest x-ray obtained interpreted by myself as bilateral infiltrates. Radiology in agreement. EKG Initial EKG: Attestation: I personally reviewed and interpreted this EKG as follows: Comments: Sinus rhythm with a ventricular rate of 82 bpm with no acute ST segment changes and occasional PACs. Discharge Plan Triage Chief Complaint: Cough ED Provider: Arabella Castillo Dx/Rx/DC Orders Clinical Impression: 2019 novel coronavirus-infected pneumonia (NCIP), Acute respiratory failure with hypoxemia Prescriptions: No Action furosemide [Lasix] 40 mg tablet 40 mg PO DAILY RF: 0 fluticasone propionate 50 mcg/actuation spray,suspension 1 spray INTRANASAL BID RF: 0 levothyroxine 50 mcg capsule 50 mcg capsule 50 mcg PO QDAY RF: 0 potassium chloride 20 mEq tablet,ER particles/crystals 40 meq PO BID RF: 0 chlorthalidone 25 mg tablet 25 mg PO DAILY RF: 0 latanoprost 1 DROP bottle 1 drp EACH EYE QHS RF: 0 desoximetasone 1 APPLIC cream 1 applic TOPICAL BID PRN (Reason: PSORIASIS) RF: 0 verapamil 180 MG capsule 180 mg PO BID RF: 0 doxazosin 4 MG tablet 4 mg PO QHS RF: 0 multivitamin with folic acid 1 TABLET tablet 1 tab PO DAILY RF: 0 qy-7-ybd-epa-fish oil-vit D3 1 EACH capsule 1 ea PO DAILY RF: 0 dutasteride 0.5 MG capsule 0.5 mg PO QHS RF: 0 psyllium husk 0.52 GM capsule 0.52 gm PO DAILY RF: 0 guaifenesin 600 MG tablet 600 mg PO BID PRN (Reason: Chest Congestion/Secretions) RF: 0 chlorpheniramine maleate 4 MG tablet 4 mg PO DAILY PRN (Reason: Allergies) RF: 0 acetaminophen 500 MG tablet 1,000 mg PO Q8 Qty: 90 RF: 0 allopurinol 100 mg tablet 100 mg PO DAILY RF: 0 indomethacin 50 mg capsule 50 mg PO DAILY PRN PRN (Reason: Pain) RF: 0 Primary Care Provider: Foreign Herrmann Referrals: Foreign Herrmann MD [Primary Care Provider] - Disposition Disposition: Acute Care [facility]
[2021-04-08 10:40] LABS: Absolute Lymphocyte Count 1.18 X10^3/uL (0.83-4.51); Absolute Neutrophil Count 8.5 X10^3/uL (2.0-7.7); Basophil# 0.01 X10^3/uL; Basophil% 0.1 % (0-1); Hematocrit 39.1 % (40-54); Hemoglobin 13.9 g/dL (13.0-16.5); Lymphocyte # 1.18 X10^3/ul (0.83-4.51); Lymphocyte % 11.7 % (19-41); Mean Corp Hgb Conc 35.5 g/dL (32-36); Mean Corpuscular Hgb 30.9 pg (27.0-32.0); Mean Corpuscular Volume 86.9 fL (80-94); Mean Platelet Vol. 9.1 fl (6.2-12.0); Monocyte# 0.39 X10^3/uL; Monocyte% 3.9 % (0-10); NRBC Flagged by Analyzer 0 % (0-5); Neutrophil # 8.46 X10^3/uL (2.7-7.7); Neutrophil % 83.7 % (47-70); Platelet Count 180 K/mm3 (150-450); RBC Distribution Width CV 12.5 % (11.6-14.6); RBC Distribution Width SD 39.8 fl (35.1-43.9); White Blood Count 10.1 K/mm3 (4.4-11.0)
[2021-04-08 10:56] LABS: Anion Gap 5 (5-15); BUN 22 mg/dL (7-18); BUN/Creat Ratio 17.7 RATIO (10-20); Calcium,Total 8.2 mg/dL (8.5-10.1); Chloride 97 mmol/L (98-107); Creatinine, Serum 1.24 mg/dL (0.70-1.30); EST Glomerular Filtration Rate 61 mL/min (>60); Est Glom Filt Rate - Afr Amer 74 mL/min (>60); Estimated Creatinine Clearance 54.64 ml/min; Glucose 122 mg/dL (74-106); Sodium Level 133 mmol/L (136-145); Troponin-I HS 47 pg/mL (3.0-78.0)
[2021-04-08 11:03] LABS: Lactic Acid 1.8 mmol/L (0.4-1.9)
[2021-04-08 11:22] LABS: D-Dimer Quantitative (DVT/PE) 0.87 FEU/ug/m (0.27-0.49)
[2021-04-08] MEDS: dexAMETHasone 4 MG Tablet 6 MG PO (11:23)
--- NOTE | 2021-04-08 11:28 | CT_ITS ---
STUDY: CTA CHEST REASON FOR EXAM: Male, 70 years old. dyspnea, elevated d-dimer RADIATION DOSAGE (If Supplied By Facility): CTDIvol = ( 17.41 ) mGy, DLP = ( 571.91 ) mGycm TECHNIQUE: The examination was performed with the intravenous administration of IV 100mL Isovue-370. Post-processing of the angiographic images was performed, with multiplanar reformation and 3D reconstruction. Individualized dose optimization techniques were used for this CT. COMPARISON: None. FINDINGS: Normal enhancement of the main pulmonary artery and right and left pulmonary arteries. Normal enhancement of the bilateral peripheral pulmonary arteries. There is no demonstrated pulmonary embolism. Normal thoracic aorta and visualized great vessels. There is no demonstrated aortic dissection. Normal heart and pericardium. Mitral valve calcifications. No dominant norm mass. Mild bilateral hilar and mediastinal adenopathy. Normal visualized trachea and bronchi. The lungs are well expanded. Patchy groundglass opacities and multiple pulmonary lobes with mild degree of interstitial thickening. The opacities extend to the pleural surfaces. No sizable effusion or pneumothorax. Normal chest wall structures. Normal osseous structures. Normal visualized upper abdomen. CT/CTA Chest W/WO Contrast IMPRESSION: 1. No central or segmental pulmonary embolism. 2. Multilobar groundglass and interstitial opacities compatible with history provided of COVID pneumonia. 3. Trace right pleural fluid. 4. Probable reactive hilar or mediastinal adenopathy. No dominant norm mass. Electronically Signed: Manuel Mcfarlane MD ([facility]) at 12:16 EDT , Service support ,
--- NOTE | 2021-04-08 13:20 | PCM.HP.STD ---
HPI - General General Date of Admission: 04/08/21 HPI Narrative SLIME SHAW, is a 70 M who presents progressive shortness of breath that started on the . Patient got diagnosed with Covid the same day. Results called back on the . Patient stated that he had been vaccinated. His came down with Covid first; she is better. He has been having progressive fevers and chills. He denied any worsening shortness of breath. His brought him to the ED because the fevers were persistent. At time of being seen, he felt improved. [facility] Medical History BPH (benign prostatic hyperplasia) BPH (benign prostatic hyperplasia) Cholelithiasis with chronic cholecystitis DVT (deep venous thrombosis) Gallstones Gynecomastia, male Heart disease Hemorrhoids Hypertension Morbid obesity due to excess calories Numbness and tingling Rectal bleeding Sleep apnea Thyroid disease Venous insufficiency Home Medications desoximetasone 1 applic TOPICAL PRN PRN 06/13/13 [History Last Taken Unknown] doxazosin 4 mg PO QHS 06/13/13 [History Last Taken 04/07/21] latanoprost 1 drp EACH EYE QHS 06/13/13 [History Last Taken 04/07/21] multivitamin with folic acid 1 tab PO DAILY 06/13/13 [History Last Taken 04/07/21] po-1-ldy-epa-fish oil-vit D3 1 ea PO DAILY 06/13/13 [History Last Taken 04/07/21] verapamil 180 mg PO BID 06/13/13 [History Last Taken 04/07/21] chlorthalidone 25 mg tablet 25 mg PO DAILY 11/22/17 [History Last Taken 04/07/21] fluticasone propionate 50 mcg/actuation nasal spray,suspension 1 spray INTRANASAL BID 11/22/17 [History Last Taken Unknown] furosemide 40 mg tablet 40 mg PO DAILY 11/22/17 [History Last Taken 04/07/21] levothyroxine 50 mcg capsule 50 mcg PO QDAY 11/22/17 [History Last Taken 04/07/21] potassium chloride 20 mEq tablet,extended release(part/cryst) 40 meq PO BID tab 11/22/17 [History Last Taken 04/07/21] chlorpheniramine maleate 4 mg PO DAILY PRN 04/13/19 [History Last Taken Unknown] dutasteride 0.5 mg PO QHS 04/13/19 [History Last Taken 04/07/21] guaifenesin 400 mg PO BID PRN 04/13/19 [History Last Taken 04/07/21] psyllium husk 0.52 gm PO QHS 04/13/19 [History Last Taken 04/07/21] allopurinol 100 mg PO DAILY 04/08/21 [History Last Taken 04/07/21] diphenhydramine HCl [Benadryl] 25 mg PO QHS PRN 04/08/21 [History Last Taken Unknown] indomethacin 50 mg PO TID PRN PRN 04/08/21 [History Last Taken Unknown] Allergy/AdvReac Type Severity Reaction Status Date / Time YOSSI Inhibitors AdvReac Other Verified 04/08/21 10:09 hydrochlorothiazide AdvReac Other Verified 04/08/21 10:09 [From Dyazide] spironolactone AdvReac Other Verified 04/08/21 10:09 [From Aldactone] triamterene [From Dyazide] AdvReac Other Verified 04/08/21 10:09 Family History Mother Diabetes Hypertension Father Heart disease Diabetes Thyroid disorder Surgical History H/O colonoscopy h/o thoracentesis History of umbilical hernia repair S/P hemorrhoidectomy (~01/2018) S/P laparoscopic cholecystectomy S/P tonsillectomy Social History Smoking Status: Never smoker alcohol intake: current alcohol intake frequency: holidays/special occasions only ROS ROS Narrative Constitutional: Reports: Malaise, Weakness, Fatigue, Anorexia, Chills, Fever, . Denies: Night Sweats, Weight Change Eyes: Denies: Blurred vision, Cataracts, Conjunctivae Inflammation, Pain, Redness, Vision Change HEENT: Denies: Difficulty Hearing, Difficulty Swallowing, Head Aches, Hearing Changes, Sinus Congestion, Sinus Drainage Cardiovascular: Denies: Chest Pain, Orthopnea, Palpitations Respiratory: See HPI Gastrointestinal: Denies: Abdominal Pain, Nausea, Vomiting Genitourinary: Denies: Dysuria Musculoskeletal: Denies: Joint Pain, Joint stiffness, Joint swelling, Joint Tenderness Skin: Denies: Rash, Wounds Neurological: Denies: Numbness, Tingling, Focal weakness Vital Signs Vital Signs Vital Signs: 04/08/21 10:05 04/08/21 10:34 04/08/21 11:24 Temperature 98.8 F 98.8 F 98.2 F Temperature Source Temporal Temporal Oral Pulse Rate 89 89 77 Respiratory Rate 18 18 22 H Respiratory Effort Short of Breath Respiratory Depth Deep Respiratory Pattern Hyperpnea Blood Pressure 116/48 L 116/48 L 131/73 H Blood Pressure Mean 70 70 92 Pulse Ox 88 88 91 Oxygen Delivery Method Room Air Room Air Nasal Cannula Oxygen Flow Rate (L/min) 2 Fraction of Inspired Oxygen (FIO2) 2 04/08/21 12:07 04/08/21 12:13 Temperature Temperature Source Pulse Rate 78 Respiratory Rate 22 H 16 Respiratory Effort Respiratory Depth Respiratory Pattern Blood Pressure 135/77 H Blood Pressure Mean 96 Pulse Ox 88 93 Oxygen Delivery Method Nasal Cannula Nasal Cannula Oxygen Flow Rate (L/min) 2 6 Fraction of Inspired Oxygen (FIO2) Weight Weight: 130.181 kg Body Mass Index (BMI) 42.3 Physical Exam Narrative Physical exam: General: Alert, Oriented x3, Cooperative, No apparent distress, Well developed, on 6 L of oxygen HEENT: Atraumatic Oral: Moist Mucosa Neck: Supple Lungs: Clear to auscultation Cardiovascular: HS I+II, regular, no murmurs Abdomen: Bowel Sounds Present, Soft, Non Tender Extremities: No edema Results Lab / Micro Data Result Diagrams: 04/08/21 10:28 04/08/21 10:28 Labs: Laboratory Results - last 24 hr 04/08/21 10:28: WBC 10.1, RBC 4.50 L, Hgb 13.9, Hct 39.1 L, MCV 86.9, MCH 30.9, MCHC 35.5, RDW Std Deviation 39.8, RDW Coeff of Karolyn 12.5, Plt Count 180, MPV 9.1, Immature Gran % (Auto) 0.600, Neut % (Auto) 83.7 H, Lymph % (Auto) 11.7 L, Mckinley % (Auto) 3.9, Eos % (Auto) 0.0, Baso % (Auto) 0.1, Absolute Neuts (auto) 8.5 H, Absolute Lymphs (auto) 1.18, Nucleated RBC % 0 04/08/21 10:28: Sodium 133 L, Potassium 3.0 L, Chloride 97 L, Carbon Dioxide 31.0, Anion Gap 5, BUN 22 H, Creatinine 1.24, Estim Creat Clear Calc 54.64, Est GFR (MDRD) Af Amer 74, Est GFR (MDRD) Non-Af 61, BUN/Creatinine Ratio 17.7, Glucose 122 H, Calcium 8.2 L, Troponin I High Sens 47 04/08/21 10:28: Lactic Acid 1.8 04/08/21 11:01: D-Dimer Quant (PE/DVT) 0.87 H* Radiology Impression Chest X-Ray 04/08/21 10:26 IMPRESSION: Multifocal bilateral patchy airspace opacities (typical/atypical infection) Electronically Signed: Willam Correia DO at 11:32 EDT Tel , Service support , Chest CTA 04/08/21 11:28 IMPRESSION: 1. No central or segmental pulmonary embolism. 2. Multilobar groundglass and interstitial opacities compatible with history provided of COVID pneumonia. 3. Trace right pleural fluid. 4. Probable reactive hilar or mediastinal adenopathy. No dominant norm mass. Electronically Signed: Manuel Mcfarlane MD ([facility]) at 12:16 EDT , Service support , Assessment & Plan Assessment/Plan (1) Acute respiratory failure with hypoxemia: (2) 2019 novel coronavirus-infected pneumonia (NCIP): (3) Hypertension: QUALIFIERS: Hypertension type: primary hypertension Qualified Code(s): I10 - Essential (primary) hypertension (4) Morbid obesity due to excess calories: PLAN: 1. 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 Hypokalemia, replaced, recheck in a.m. 3. Rest of his chronic medical conditions including morbid obesity/hypertension/hypothyroidism/psoriasis/venous insufficiency all remained stable Home meds reviewed I discussed and explained in details the various types of CODE STATUS-full code, DNR CCA, DNR CC. Patient chose DNR CCA Time spent discussing CODE STATUS 17 minutes Charges/Coding Visit Charges Inpatient E&M: 34456 Init Hosp L3
--- NOTE | 2021-04-08 13:59 | PCS.PANDOC ---
PANDEMIC DOCUMENTATION INITIATED: Date: 03/24/2021 Time: 190
[2021-04-08] MEDS: Acetaminophen 325 MG Tablet 650 MG PO (14:32)
[2021-04-08] MEDS: Potassium Chloride Oral Tablet 20 MEQ 60 MEQ PO (16:49)
[2021-04-08] MEDS: 0.9% Saline Lock 10 ML Syringe IV (16:49)
[2021-04-08] MEDS: Furosemide 40 MG/4 ML Vial IV (16:49)
[2021-04-08 19:12] LABS: BNP,B-Type NATRIURETIC PEPTIDE 76.3 pg/mL (0-100)
[2021-04-08 19:54] LABS: AST(SGOT) 103 U/L (15-37); Alanine Aminotransfer ALT/SGPT 80 U/L (16-61); Albumin, Serum 3.1 g/dL (3.2-5.0); Alkaline Phosphatase 44 U/L (45-117); Bilirubin, Direct 0.39 mg/dL (0.00-0.30); Globulin 4.8 g/dL (2.2-4.2); Protein, Total 7.9 g/dL (6.4-8.2)
[2021-04-08] MEDS: Latanoprost 0.005% 1 Bottle 1 DRP EACH EYE (21:19)
[2021-04-08] MEDS: Enoxaparin 40 MG/0.4 ML Syringe SC (21:22)
[2021-04-08] MEDS: Verapamil SR 180 MG CAPSULE PO (21:25)
[2021-04-08] MEDS: Fluticasone 0.05% 1 SPRAY NASAL.SRY NASAL (21:48)
[2021-04-08] MEDS: Doxazosin 4 MG Tablet PO (21:50)
[2021-04-08] MEDS: Potassium Chloride Oral Tablet 20 MEQ 40 MEQ PO (21:50)
[2021-04-08] MEDS: Finasteride 5 MG Tablet PO (21:51)
[2021-04-09] VITALS (10 sets, daily range): BP systolic 123–151; BP diastolic 72–88; PULSE 59–92; RESP 12–18; TEMP 36.1–36.7; O2SAT 86–97
[2021-04-09 06:21] LABS: Hematocrit 40.8 % (40-54); Hemoglobin 14.2 g/dL (13.0-16.5); Mean Corp Hgb Conc 34.8 g/dL (32-36); Mean Corpuscular Hgb 30.9 pg (27.0-32.0); Mean Corpuscular Volume 88.9 fL (80-94); Mean Platelet Vol. 9.3 fl (6.2-12.0); Platelet Count 227 K/mm3 (150-450); RBC Distribution Width CV 12.7 % (11.6-14.6); RBC Distribution Width SD 41.2 fl (35.1-43.9); Red Blood Count 4.59 M/mm3 (4.6-6.2); White Blood Count 8.6 K/mm3 (4.4-11.0)
[2021-04-09 06:44] LABS: ALB/GLOB Ratio 0.7 RATIO (0.9-2.4); AST(SGOT) 118 U/L (15-37); Alanine Aminotransfer ALT/SGPT 104 U/L (16-61); Albumin, Serum 3.1 g/dL (3.2-5.0); Alkaline Phosphatase 47 U/L (45-117); Anion Gap 5 (5-15); BUN 30 mg/dL (7-18); BUN/Creat Ratio 24.4 RATIO (10-20); Calcium,Total 8.4 mg/dL (8.5-10.1); Chloride 102 mmol/L (98-107); Creatinine, Serum 1.23 mg/dL (0.70-1.30); EST Glomerular Filtration Rate 62 mL/min (>60); Est Glom Filt Rate - Afr Amer 75 mL/min (>60); Estimated Creatinine Clearance 56.88 ml/min; Globulin 4.7 g/dL (2.2-4.2); Glucose 139 mg/dL (74-106); Potassium 3.6 mmol/L (3.5-5.1); Protein, Total 7.8 g/dL (6.4-8.2); Sodium Level 138 mmol/L (136-145)
--- NOTE | 2021-04-09 10:09 | CASEMGMT ---
RN SHELBY assessment: Initial transition planning/care coordination assessment. RN CM introduced self and role at [facility], pt voices understanding and consents to assessment. Pt is on 2Lnc in no distress and able to speak in full sentences. Pt is A/Ox4 and answers all questions appropriately. Pt states no concerns with getting groceries/supplies once home. Pt asks this RN CM to call regarding DME determination if qualifies for home oxygen and call to for same. Care providers, pharmacy, and demographics verified. Presentation: SOB, cough, fever, COVID + on 04/02 Admitting dx: Hypoxia, COVID PCP: [facility] Specialists: duncan Merritt Preferred Pharmacy: [facility] , they were getting meds at [facility] but they are no longer in-network for pt, so they would like to stay with [facility]. Insurance: [facility] A/B, AeR Prescription Benefit: MCR A/B, AeMCR Living Will/HPOA: Pt has LW/HPOA on file at [facility] and is aware. Pt states his , Kelly Pina, is HPOA. LNOK: Kelly Pina, Living Arrangements: Pt states lives with in 1 story home and states no concerns at home. Pt states is independent with ADL's. Transportation: Pt states drives self and states no transportation concerns. DME/HHC: Pt states has the following DME: cane, walker, shower chair, grab bars, and bipap thru [facility] and is aware that they do not provide oxygen if needed at discharge. states would like [facility] if pt qualifies for home oxygen at discharge. Pt states no hx of HHC or SNF. Pt states no concerns with going home at time of discharge. Pt is retired. Pt states does not smoke cigarettes or drink ETOH. Pt states no further concerns/needs. CM to follow for home oxygen testing and any further discharge planning/needs. Advised pt to ask for CM if any further questions/concerns/needs arise, voices understanding. Pt Goal: Home Plan: Home, pending home oxygen testing. SStaten EDER RYAN
[2021-04-09] MEDS: Allopurinol 100 MG Tablet PO (10:35)
[2021-04-09] MEDS: Multivitamins,Therapeutic Tablet 1 TABLET PO (10:35)
[2021-04-09] MEDS: Potassium Chloride Oral Tablet 20 MEQ 40 MEQ PO ×2 (10:35→22:23)
[2021-04-09] MEDS: Psyllium 1 PACKET PO (10:35)
[2021-04-09] MEDS: Omega-3 Acid Ethyl Esters 1 GM Capsule PO (10:35)
[2021-04-09] MEDS: Enoxaparin 40 MG/0.4 ML Syringe SC ×2 (10:35→22:25)
[2021-04-09] MEDS: Verapamil SR 180 MG CAPSULE PO ×2 (10:35→22:24)
[2021-04-09] MEDS: Fluticasone 0.05% 1 SPRAY NASAL.SRY NASAL ×2 (10:36→22:24)
--- NOTE | 2021-04-09 12:34 | EX.PCM.CONCC ---
Assessment & Plan Assessment/Plan (1) Hypoxia: (2) 2019 novel coronavirus-infected pneumonia (NCIP): (3) Morbid obesity due to excess calories: PLAN: RECOMMENDATIONS: 1. Agree with remdesivir and Decadron therapy 2. Monitor blood sugars closely 3. Lasix as labs indicate 4. Wean oxygen as tolerated. 5. Encourage incentive spirometer and walking as tolerated IMPRESSIONS: 1. Acute hypoxic respiratory insufficiency secondary to COVID-19 pneumonia Patient is within the therapeutic window for Decadron and Remdesivir. Patient is still on low flow nasal cannula oxygen and was vaccinated. Agree with intermittent diuretics as tolerated. Will need to follow for possible hypoglycemia given morbid obesity. Encourage incentive spirometer and activity as tolerated. If stable for 48 hours, potential discharge on supplemental oxygen. 2. Hypokalemia Repleted. May be secondary to GI losses. Continue with symptomatic therapy. 3. Morbid obesity/hypertension/hypothyroidism/psoriasis/venous insufficiency/advanced age/BPH Complicates care, management, recovery and prognosis. Okay to continue with baseline medications for now. Would not recommend any IV fluids as this could exacerbate hypoxia. HPI Consult Data Date of Consult: 04/09/21 HPI Narrative HPI Narrative: SLIME SHAW is a 70 M, with past medical history listed below, who presents to [facility] on 04/08/2021 secondary to cough and shortness of breath. Patient stated he believes the symptoms started on approximately March 31 and was diagnosed with COVID-19 on April 02. Patient is fully vaccinated, but was noted to have saturations of 85% at home. Patient has had exertional dyspnea, but denied any chest pain. Patient had had a dry cough and reported subjective fevers. Patient does report intermittent nausea, vomiting and diarrhea as well. No hematemesis, hematochezia or melena has been reported. On arrival to the ER, patient was afebrile and normotensive. Patient was noted to be 88% on room air and required 6 L nasal cannula to maintain appropriate saturations. Laboratory work-up was relatively unremarkable with a white blood cell count of 10.1 with 11.7% lymphocytes. Chemistries showed low potassium at 3 and sodium of 133. Lactate was within normal limits and D-dimer was only slightly elevated. A chest x-ray had shown bilateral patchy infiltrates and this was followed with a CTA showing no PE with multilobular groundglass and interstitial opacities. There was some mild mediastinal lymphadenopathy. EKG showed sinus rhythm with no acute ST changes. Patient reports he has been fully vaccinated against COVID-19. Patient does not report any history of respiratory issues, but has never had a pulmonary function test. Patient has never been a smoker and denies any excessive alcohol or drug use. 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 Patient does have a cardiac history and does take Lasix at baseline. 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 Review of systems otherwise negative from a constitutional, HEENT, respiratory, cardiovascular, GI, genitourinary, musculoskeletal, skin, neurologic, psychiatric and hematologic system unless stated above. [facility] Medical History BPH (benign prostatic hyperplasia) BPH (benign prostatic hyperplasia) Cholelithiasis with chronic cholecystitis DVT (deep venous thrombosis) Gallstones Gynecomastia, male Heart disease Hemorrhoids Hypertension Morbid obesity due to excess calories Numbness and tingling Rectal bleeding Sleep apnea Thyroid disease Venous insufficiency Home Medications desoximetasone 1 applic TOPICAL PRN PRN 06/13/13 [History Last Taken Unknown] doxazosin 4 mg PO QHS 06/13/13 [History Last Taken 04/07/21] latanoprost 1 drp EACH EYE QHS 06/13/13 [History Last Taken 04/07/21] multivitamin with folic acid 1 tab PO DAILY 06/13/13 [History Last Taken 04/07/21] sc-2-qyw-epa-fish oil-vit D3 1 ea PO DAILY 06/13/13 [History Last Taken 04/07/21] verapamil 180 mg PO BID 06/13/13 [History Last Taken 04/07/21] chlorthalidone 25 mg tablet 25 mg PO DAILY 11/22/17 [History Last Taken 04/07/21] fluticasone propionate 50 mcg/actuation nasal spray,suspension 1 spray INTRANASAL BID 11/22/17 [History Last Taken Unknown] furosemide 40 mg tablet 40 mg PO DAILY 11/22/17 [History Last Taken 04/07/21] levothyroxine 50 mcg capsule 50 mcg PO QDAY 11/22/17 [History Last Taken 04/07/21] potassium chloride 20 mEq tablet,extended release(part/cryst) 40 meq PO BID tab 11/22/17 [History Last Taken 04/07/21] chlorpheniramine maleate 4 mg PO DAILY PRN 04/13/19 [History Last Taken Unknown] dutasteride 0.5 mg PO QHS 04/13/19 [History Last Taken 04/07/21] guaifenesin 400 mg PO BID PRN 04/13/19 [History Last Taken 04/07/21] psyllium husk 0.52 gm PO QHS 04/13/19 [History Last Taken 04/07/21] allopurinol 100 mg PO DAILY 04/08/21 [History Last Taken 04/07/21] diphenhydramine HCl [Benadryl] 25 mg PO QHS PRN 04/08/21 [History Last Taken Unknown] indomethacin 50 mg PO TID PRN PRN 04/08/21 [History Last Taken Unknown] Allergy/AdvReac Type Severity Reaction Status Date / Time YOSSI Inhibitors AdvReac Other Verified 04/08/21 10:09 hydrochlorothiazide AdvReac Other Verified 04/08/21 10:09 [From Dyazide] spironolactone AdvReac Other Verified 04/08/21 10:09 [From Aldactone] triamterene [From Dyazide] AdvReac Other Verified 04/08/21 10:09 Family History Mother Diabetes Hypertension Father Heart disease Diabetes Thyroid disorder Surgical History H/O colonoscopy h/o thoracentesis History of umbilical hernia repair S/P hemorrhoidectomy (~01/2018) S/P laparoscopic cholecystectomy S/P tonsillectomy Social History Smoking Status: Never smoker alcohol intake: current alcohol intake frequency: holidays/special occasions only ROS ROS Narrative See HPI Physical Exam Const alert and oriented x3 Constitutional Narrative: Mild conversational dyspnea General Appearance: cooperative and well developed Nutritional Appearance: morbidly obese HEENT normocephalic, head/scalp atraumatic and moist oral mucous membranes Eyes PERRL and EOMs intact bilaterally Neck full ROM and no lymphadenopathy Chest inspection of chest normal Chest: symmetrical chest wall rise; Negative for crepitus Resp normal respiratory effort and no use of accessory muscles Effort and Inspection: symmetric chest movement Auscultation: diminished lung sounds; Negative for rales, rhonchi or wheezes Percussion: Negative for dullness Cardio regular rate, regular rhythm, S1 normal heart sound, S2 normal heart sound, no murmurs, no rub and no gallops GI normal to inspection, nondistended, normoactive bowel sounds no CVA tenderness Extremity General Extremity: edema bilateral (1+) lower extremity; Negative for clubbing or cyanosis Skin Skin Narrative: Some venous stasis changes of lower extremities noted Neuro oriented x3, CN's II-XII intact bilaterally, moves all extremities and no focal motor deficits Psych cooperative and affect normal Lab / Micro Data Result Diagrams: 04/09/21 06:06 04/09/21 06:06 Labs: Laboratory Results - last 24 hr 04/08/21 10:28: Total Bilirubin 1.20 H, Direct Bilirubin 0.39 H, AST 103 H, ALT 80 H, Alkaline Phosphatase 44 L, Total Protein 7.9, Albumin 3.1 L, Globulin 4.8 H 04/08/21 10:28: B-Natriuretic Peptide 76.3 04/09/21 06:06: Sodium 138, Potassium 3.6, Chloride 102, Carbon Dioxide 31.0, Anion Gap 5, BUN 30 H, Creatinine 1.23, Estim Creat Clear Calc 56.88, Est GFR (MDRD) Af Amer 75, Est GFR (MDRD) Non-Af 62, BUN/Creatinine Ratio 24.4 H, Glucose 139 H, Calcium 8.4 L, Total Bilirubin 0.80, AST 118 H, ALT 104 H, Alkaline Phosphatase 47, Total Protein 7.8, Albumin 3.1 L, Globulin 4.7 H, Albumin/Globulin Ratio 0.7 L 04/09/21 06:06: WBC 8.6, RBC 4.59 L, Hgb 14.2, Hct 40.8, MCV 88.9, MCH 30.9, MCHC 34.8, RDW Std Deviation 41.2, RDW Coeff of Karolyn 12.7, Plt Count 227, MPV 9.3 Micro: Microbiology 04/08/21 17:58 Mucosa - Nose Respiratory Panel (PCR) - Final 04/08/21 18:15 Urine, Clean Catch Legionella Antigen - Final 04/08/21 18:15 Urine, Clean Catch Streptococcus pneumoniae Antigen (M - Final Charges/Coding Visit Charges Inpatient E&M: 88532 Init Hosp L3
--- NOTE | 2021-04-09 14:40 | PN.HOSP_ITS ---
Subjective Subjective Patient was seen and examined. He is on 3 L of oxygen. He denied any new complaints. No acute event. Objective Data Objective Data Vital Signs: Vital Signs Temp Pulse Resp BP Pulse Ox 97.9 F 65 12 134/78 H 86 04/09/21 10:32 04/09/21 10:32 04/09/21 10:32 04/09/21 10:32 04/09/21 12:11 Oxygen Flow Rate (L/min) 3 Oxygen Delivery Method Nasal Cannula Weight: 130.3 kg Body Mass Index (BMI) 40.8 Intake & Output: Intake and Output for Last 24 Hours 04/07/21 04/08/21 04/09/21 23:59 23:59 23:59 Intake Total 240 / 480 1450 / 1450 Balance 240 / 480 1450 / 1450 Lab / Micro Data Result Diagrams: 04/09/21 06:06 04/09/21 06:06 Labs: Laboratory Results - last 24 hr 04/08/21 10:28: Total Bilirubin 1.20 H, Direct Bilirubin 0.39 H, AST 103 H, ALT 80 H, Alkaline Phosphatase 44 L, Total Protein 7.9, Albumin 3.1 L, Globulin 4.8 H 04/08/21 10:28: B-Natriuretic Peptide 76.3 04/09/21 06:06: Sodium 138, Potassium 3.6, Chloride 102, Carbon Dioxide 31.0, Anion Gap 5, BUN 30 H, Creatinine 1.23, Estim Creat Clear Calc 56.88, Est GFR (MDRD) Af Amer 75, Est GFR (MDRD) Non-Af 62, BUN/Creatinine Ratio 24.4 H, Glucose 139 H, Calcium 8.4 L, Total Bilirubin 0.80, AST 118 H, ALT 104 H, Alkaline Phosphatase 47, Total Protein 7.8, Albumin 3.1 L, Globulin 4.7 H, Albumin/Globulin Ratio 0.7 L 04/09/21 06:06: WBC 8.6, RBC 4.59 L, Hgb 14.2, Hct 40.8, MCV 88.9, MCH 30.9, MCHC 34.8, RDW Std Deviation 41.2, RDW Coeff of Karolyn 12.7, Plt Count 227, MPV 9.3 Micro: Microbiology 04/08/21 17:58 Mucosa - Nose Respiratory Panel (PCR) - Final 04/08/21 18:15 Urine, Clean Catch Legionella Antigen - Final 04/08/21 18:15 Urine, Clean Catch Streptococcus pneumoniae Antigen (M - Final Physical Exam Narrative Physical exam: General: Alert, Oriented x3, Cooperative, No apparent distress, Well developed, on 3 L of oxygen HEENT: Atraumatic Oral: Moist Mucosa Neck: Supple Lungs: Clear to auscultation Cardiovascular: HS I+II, regular, no murmurs Abdomen: Bowel Sounds Present, Soft, Non Tender Extremities: No edema Assessment & Plan Assessment/Plan (1) Acute respiratory failure with hypoxemia: (2) 2019 novel coronavirus-infected pneumonia (NCIP): (3) Morbid obesity due to excess calories: (4) Hypertension: QUALIFIERS: Hypertension type: primary hypertension Qualified Code(s): I10 - Essential (primary) hypertension PLAN: 1. 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 Hypokalemia, replaced, recheck in a.m. 3. Rest of his chronic medical conditions including morbid obesity/hypertension/hypothyroidism/psoriasis/venous insufficiency all remained stable Home meds reviewed Charges/Coding Visit Charges Inpatient E&M: 05573 Subs Hosp L2
[2021-04-09] MEDS: 0.9% Saline Lock 10 ML Syringe IV (22:20)
[2021-04-09] MEDS: Doxazosin 4 MG Tablet PO (22:22)
[2021-04-09] MEDS: Finasteride 5 MG Tablet PO (22:25)
[2021-04-09] MEDS: Latanoprost 0.005% 1 Bottle 1 DRP EACH EYE (22:26)
[2021-04-09] MEDS: Levothyroxine 50 MCG Tablet PO (22:26)
[2021-04-10] VITALS (9 sets, daily range): BP systolic 117–129; BP diastolic 71–98; PULSE 63–75; RESP 16; TEMP 36.2–36.9; O2SAT 85–95
[2021-04-10 10:13] LABS: Absolute Lymphocyte Count 1.53 X10^3/uL (0.83-4.51); Absolute Neutrophil Count 6.4 X10^3/uL (2.0-7.7); Basophil# 0.02 X10^3/uL; Basophil% 0.2 % (0-1); Eosinophil# 0.03 X10^3/uL; Eosinophils% 0.4 % (0-5); Hematocrit 42.4 % (40-54); Hemoglobin 14.6 g/dL (13.0-16.5); Lymphocyte # 1.53 X10^3/ul (0.83-4.51); Lymphocyte % 17.9 % (19-41); Mean Corp Hgb Conc 34.4 g/dL (32-36); Mean Corpuscular Hgb 30.8 pg (27.0-32.0); Mean Corpuscular Volume 89.5 fL (80-94); Mean Platelet Vol. 8.9 fl (6.2-12.0); Monocyte# 0.58 X10^3/uL; Monocyte% 6.8 % (0-10); NRBC Flagged by Analyzer 0 % (0-5); Neutrophil # 6.36 X10^3/uL (2.7-7.7); Neutrophil % 74.1 % (47-70); Platelet Count 278 K/mm3 (150-450); RBC Distribution Width CV 12.8 % (11.6-14.6); RBC Distribution Width SD 42.5 fl (35.1-43.9); Red Blood Count 4.74 M/mm3 (4.6-6.2); White Blood Count 8.6 K/mm3 (4.4-11.0)
[2021-04-10] MEDS: Potassium Chloride Oral Tablet 20 MEQ 40 MEQ PO (10:16)
[2021-04-10] MEDS: Omega-3 Acid Ethyl Esters 1 GM Capsule PO (10:16)
[2021-04-10] MEDS: Allopurinol 100 MG Tablet PO (10:16)
[2021-04-10] MEDS: dexAMETHasone 4 MG Tablet 6 MG PO (10:16)
[2021-04-10] MEDS: Furosemide 40 MG/4 ML Vial IV (10:16)
[2021-04-10] MEDS: Multivitamins,Therapeutic Tablet 1 TABLET PO (10:16)
[2021-04-10] MEDS: Fluticasone 0.05% 1 SPRAY NASAL.SRY NASAL (10:17)
[2021-04-10] MEDS: Enoxaparin 40 MG/0.4 ML Syringe SC (10:17)
[2021-04-10] MEDS: Psyllium 1 PACKET PO (10:17)
[2021-04-10] MEDS: Verapamil SR 180 MG CAPSULE PO (10:17)
[2021-04-10 10:40] LABS: ALB/GLOB Ratio 0.7 RATIO (0.9-2.4); AST(SGOT) 97 U/L (15-37); Alanine Aminotransfer ALT/SGPT 122 U/L (16-61); Albumin, Serum 3.1 g/dL (3.2-5.0); Alkaline Phosphatase 51 U/L (45-117); Anion Gap 4 (5-15); BUN 33 mg/dL (7-18); BUN/Creat Ratio 28.2 RATIO (10-20); Calcium,Total 8.4 mg/dL (8.5-10.1); Chloride 103 mmol/L (98-107); Creatinine, Serum 1.17 mg/dL (0.70-1.30); EST Glomerular Filtration Rate 65 mL/min (>60); Est Glom Filt Rate - Afr Amer 79 mL/min (>60); Estimated Creatinine Clearance 59.79 ml/min; Globulin 4.7 g/dL (2.2-4.2); Glucose 110 mg/dL (74-106); Potassium 3.8 mmol/L (3.5-5.1); Protein, Total 7.8 g/dL (6.4-8.2); Sodium Level 139 mmol/L (136-145)
--- NOTE | 2021-04-10 11:04 | CASEMGMT ---
Per Marissa RN, pt does qualify for 3L at rest and 4L w/ exertion and per , [facility] is preferred provider. Referral faxed to [facility] and call to Courtney to update on referral, voices understanding. Pt voices no further questions/concerns/needs. Isidra GAINES CM
--- NOTE | 2021-04-10 11:20 | PCM.DC ---
Discharge Instructions Diet Discharge Diet: Low fat / Low cholesterol and 2000 mg Sodium Diet Activity Discharge Activity: Return to Normal Activity Follow Up Care Test Results: Test results from this visit will be discussed in further detail at your follow-up appointment, if applicable. 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 Continue to use your oxygen all the time. Continue to use your incentive spirometer. Continue to remain active and eat healthy. Let your doctor know if you develop fever >101.3F or have progressive worsening shortness of breath. Follow-up with your primary care doctor and also with pulmonology to have your continued oxygen use reevaluated. Be careful of going near open flames whilst on oxygen. Complete your Decadron as prescribed. Continue to use your inhaler as needed for shortness of breath. Continue to quarantine for 20 days total from the start of your symptoms. Discharge Orders/Prescriptions Prescriptions: New dexamethasone 4 mg Tablet 6 mg PO DAILY 8 Days Qty: 12 RF: 0 Continued furosemide [Lasix] 40 mg tablet 40 mg PO DAILY RF: 0 fluticasone propionate 50 mcg/actuation spray,suspension 1 spray INTRANASAL BID RF: 0 levothyroxine 50 mcg capsule 50 mcg capsule 50 mcg PO QDAY RF: 0 potassium chloride 20 mEq tablet,ER particles/crystals 40 meq PO BID RF: 0 chlorthalidone 25 mg tablet 25 mg PO DAILY RF: 0 latanoprost 1 DROP bottle 1 drp EACH EYE QHS RF: 0 desoximetasone 1 APPLIC cream 1 applic TOPICAL PRN PRN (Reason: PSORIASIS) RF: 0 verapamil 180 MG capsule 180 mg PO BID RF: 0 doxazosin 4 MG tablet 4 mg PO QHS RF: 0 multivitamin with folic acid 1 TABLET tablet 1 tab PO DAILY RF: 0 [id number]-[id number]-epa-fish oil-vit D3 1 EACH capsule 1 ea PO DAILY RF: 0 dutasteride 0.5 MG capsule 0.5 mg PO QHS RF: 0 psyllium husk 0.52 GM capsule 0.52 gm PO QHS RF: 0 guaifenesin 600 MG tablet 400 mg PO BID PRN (Reason: Chest Congestion/Secretions) RF: 0 chlorpheniramine maleate 4 MG tablet 4 mg PO DAILY PRN (Reason: Allergies) RF: 0 allopurinol 100 mg tablet 100 mg PO DAILY RF: 0 indomethacin 50 mg capsule 50 mg PO TID PRN PRN (Reason: gout) RF: 0 diphenhydramine HCl [Benadryl] 25 mg Capsule 25 mg PO QHS PRN (Reason: allergies) RF: 0 Referrals / Follow Up: Foreign Herrmann MD [Primary Care Provider] - Within 2 Weeks Disposition Disposition (needs filled in before D/C Order can be placed): Home, Self Care
--- NOTE | 2021-04-10 11:25 | PCM.DC.SUM ---
Providers Date of Admission: 04/08/21 Date of Discharge: 04/10/21 Primary Care Physician: Dr. 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 Consulting Provider: [facility] Reason for Consult: Covid-19 EMERGENT Consult: No MD Notified: Yes Date Notified: 04/08/21 Time Notified: 17:20 Method of Notification: Text Reason For Visit: HYPOXIA/ACUTE COVID 19 Diagnosis Discharge Diagnosis (1) Acute respiratory failure with hypoxemia: Status: Acute Code(s): J96.01 - Acute respiratory failure with hypoxia (2) 2019 novel coronavirus-infected pneumonia (NCIP): Status: Acute Code(s): U07.1 - COVID-19; J12.82 - Pneumonia due to coronavirus disease 2019 (3) Morbid obesity due to excess calories: Status: Chronic Code(s): E66.01 - Morbid (severe) obesity due to excess calories (4) Hypertension: Status: Chronic Code(s): I10 - Essential (primary) hypertension Qualifiers: Hypertension type: primary hypertension Qualified Code(s): I10 - Essential (primary) hypertension Medications at Discharge Home Medications desoximetasone 1 applic TOPICAL PRN PRN 06/13/13 doxazosin 4 mg PO QHS 06/13/13 latanoprost 1 drp EACH EYE QHS 06/13/13 multivitamin with folic acid 1 tab PO DAILY 06/13/13 bx-6-[id number]-epa-fish oil-vit D3 1 ea PO DAILY 06/13/13 verapamil 180 mg PO BID 06/13/13 chlorthalidone 25 mg tablet 25 mg PO DAILY 11/22/17 fluticasone propionate 50 mcg/actuation nasal spray,suspension 1 spray INTRANASAL BID 11/22/17 furosemide 40 mg tablet 40 mg PO DAILY 11/22/17 levothyroxine 50 mcg capsule 50 mcg PO DAILY 11/22/17 potassium chloride 20 mEq tablet,extended release(part/cryst) 40 meq PO BID tab 11/22/17 chlorpheniramine maleate 4 mg PO DAILY PRN 04/13/19 dutasteride 0.5 mg PO QHS 04/13/19 psyllium husk 0.52 gm PO QHS 04/13/19 allopurinol 100 mg PO DAILY 04/08/21 diphenhydramine HCl [Benadryl] 25 mg PO QHS PRN 04/08/21 indomethacin 50 mg PO TID PRN PRN 04/08/21 albuterol sulfate 2 puff INHALATION Q4H PRN #8.5 g 04/10/21 dexamethasone 6 mg PO DAILY 8 Days #12 tab 04/10/21 guaifenesin 400 mg PO BID PRN 20 Days #10 tab 04/10/21 guaifenesin [Mucus Relief ER] 600 mg PO BID PRN PRN 10 Days #0 tab 04/10/21 Hospital Course Operations None Procedures None Summary of Care Provided Minutes Spent on Discharge: 50 Physical Exam Narrative Physical exam: General: Alert, Oriented x3, Cooperative, No apparent distress, Well developed, on 3 L of oxygen HEENT: Atraumatic Oral: Moist Mucosa Neck: Supple Lungs: Clear to auscultation Cardiovascular: HS I+II, regular, no murmurs Abdomen: Bowel Sounds Present, Soft, Non Tender Extremities: No edema Weight / BMI Weight Weight: 132.3 kg Body Mass Index (BMI) 40.8 ABG / Lab / Microbiology Data Result Diagrams: 04/10/21 10:05 04/10/21 10:05 Laboratory: Laboratory Results - last 24 hr 04/10/21 10:05: WBC 8.6, RBC 4.74, Hgb 14.6, Hct 42.4, MCV 89.5, MCH 30.8, MCHC 34.4, RDW Std Deviation 42.5, RDW Coeff of Karolyn 12.8, Plt Count 278, MPV 8.9, Immature Gran % (Auto) 0.600, Neut % (Auto) 74.1 H, Lymph % (Auto) 17.9 L, [place] % (Auto) 6.8, Eos % (Auto) 0.4, Baso % (Auto) 0.2, Absolute Neuts (auto) 6.4, Absolute Lymphs (auto) 1.53, Nucleated RBC % 0 04/10/21 10:05: Sodium 139, Potassium 3.8, Chloride 103, Carbon Dioxide 32.0, Anion Gap 4 L, BUN 33 H, Creatinine 1.17, Estim Creat Clear Calc 59.79, Est GFR (MDRD) Af Amer 79, Est GFR (MDRD) Non-Af 65, BUN/Creatinine Ratio 28.2 H, Glucose 110 H, Calcium 8.4 L, Total Bilirubin 0.80, AST 97 H, ALT 122 H, Alkaline Phosphatase 51, Total Protein 7.8, Albumin 3.1 L, Globulin 4.7 H, Albumin/Globulin Ratio 0.7 L Microbiology: Microbiology 04/08/21 10:28 Blood Culture (Wb) - Anticubital Left Blood Culture - Preliminary No growth in 48 hours. 04/08/21 17:58 Mucosa - Nose Respiratory Panel (PCR) - Final 04/08/21 18:15 Urine, Clean Catch Legionella Antigen - Final 04/08/21 18:15 Urine, Clean Catch Streptococcus pneumoniae Antigen (M - Final D/C Instructions Discharge Diet: Low fat / Low cholesterol and 2000 mg Sodium Diet Meaningful Use Info Meaningful Use Diagnoses (Choose all that apply): None applicable Discharge Plan Admission Admit Date/Time: 04/08/21 13:19 Primary Reason for Your Visit: Acute hypoxic respiratory failure secondary to COVID-19 pneumonia Attending Provider: Amanda Casanova Primary Care Provider: Foreign Herrmann Consulting Providers: Aly Jimenez ; Reinaldo Turk ; Ivania Flores 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 Continue to use your oxygen all the time. Continue to use your incentive spirometer. Continue to remain active and eat healthy. Let your doctor know if you develop fever >101.3F or have progressive worsening shortness of breath. Follow-up with your primary care doctor and also with pulmonology to have your continued oxygen use reevaluated. Be careful of going near open flames whilst on oxygen. Complete your Decadron as prescribed. Continue to use your inhaler as needed for shortness of breath. Continue to quarantine for 20 days total from the start of your symptoms. Discharge Orders/Prescriptions Prescriptions: New dexamethasone 4 mg Tablet 6 mg PO DAILY 8 Days Qty: 12 RF: 0 albuterol sulfate 90 mcg/actuation HFA aerosol inhaler 2 puff inhalation Q4H PRN (Reason: shortness of breath or wheezing) Qty: 8.5 RF: 1 guaifenesin [Mucus Relief ER] 600 mg Tablet Extended Release 12hr 600 mg PO BID PRN PRN (Reason: Chest Congestion/Secretions) 10 Days Qty: 0 RF: 0 Continued furosemide [Lasix] 40 mg tablet 40 mg PO DAILY RF: 0 fluticasone propionate 50 mcg/actuation spray,suspension 1 spray INTRANASAL BID RF: 0 levothyroxine 50 mcg capsule 50 mcg capsule 50 mcg PO DAILY RF: 0 potassium chloride 20 mEq tablet,ER particles/crystals 40 meq PO BID RF: 0 chlorthalidone 25 mg tablet 25 mg PO DAILY RF: 0 latanoprost 1 DROP bottle 1 drp EACH EYE QHS RF: 0 desoximetasone 1 APPLIC cream 1 applic TOPICAL PRN PRN (Reason: PSORIASIS) RF: 0 verapamil 180 MG capsule 180 mg PO BID RF: 0 doxazosin 4 MG tablet 4 mg PO QHS RF: 0 multivitamin with folic acid 1 TABLET tablet 1 tab PO DAILY RF: 0 ya-7-xjx-epa-fish oil-vit D3 1 EACH capsule 1 ea PO DAILY RF: 0 dutasteride 0.5 MG capsule 0.5 mg PO QHS RF: 0 psyllium husk 0.52 GM capsule 0.52 gm PO QHS RF: 0 chlorpheniramine maleate 4 MG tablet 4 mg PO DAILY PRN (Reason: Allergies) RF: 0 allopurinol 100 mg tablet 100 mg PO DAILY RF: 0 indomethacin 50 mg capsule 50 mg PO TID PRN PRN (Reason: gout) RF: 0 diphenhydramine HCl [Benadryl] 25 mg Capsule 25 mg PO QHS PRN (Reason: allergies) RF: 0 guaifenesin 600 MG tablet 400 mg PO BID PRN (Reason: Chest Congestion/Secretions) 20 Days Qty: 10 RF: 0 Referrals / Follow Up: Foreign Herrmann MD [Primary Care Provider] - Within 2 Weeks Disposition Disposition (needs filled in before D/C Order can be placed): Home, Self Care Charges/Coding Visit Charges Inpatient E&M: 83511 Disch Hosp
--- NOTE | 2021-04-10 12:05 | PHA.DC.MR ---
Pharmacy Service has performed discharge medication reconciliation for this patient. Home Medications desoximetasone 1 applic TOPICAL PRN PRN 06/13/13 doxazosin 4 mg PO QHS 06/13/13 latanoprost 1 drp EACH EYE QHS 06/13/13 multivitamin with folic acid 1 tab PO DAILY 06/13/13 vk-3-pxr-epa-fish oil-vit D3 1 ea PO DAILY 06/13/13 verapamil 180 mg PO BID 06/13/13 chlorthalidone 25 mg tablet 25 mg PO DAILY 11/22/17 fluticasone propionate 50 mcg/actuation nasal spray,suspension 1 spray INTRANASAL BID 11/22/17 furosemide 40 mg tablet 40 mg PO DAILY 11/22/17 levothyroxine 50 mcg capsule 50 mcg PO DAILY 11/22/17 potassium chloride 20 mEq tablet,extended release(part/cryst) 40 meq PO BID tab 11/22/17 chlorpheniramine maleate 4 mg PO DAILY PRN 04/13/19 dutasteride 0.5 mg PO QHS 04/13/19 guaifenesin 400 mg PO BID PRN 04/13/19 psyllium husk 0.52 gm PO QHS 04/13/19 allopurinol 100 mg PO DAILY 04/08/21 diphenhydramine HCl [Benadryl] 25 mg PO QHS PRN 04/08/21 indomethacin 50 mg PO TID PRN PRN 04/08/21 dexamethasone 6 mg PO DAILY 8 Days #12 tab 04/10/21 The patient's discharge medication list was reviewed for discrepancies and discrepancies were resolved.
--- NOTE | 2021-04-10 14:06 | PN.CC_ITS ---
Assessment & Plan Assessment/Plan (1) Hypoxia: (2) 2019 novel coronavirus-infected pneumonia (NCIP): (3) Morbid obesity due to excess calories: PLAN: RECOMMENDATIONS: 1. Agree with remdesivir and Decadron therapy 2. Monitor blood sugars closely 3. Lasix as labs indicate 4. Wean oxygen as tolerated. Walking oximetry prior to discharge 5. Encourage incentive spirometer and walking as tolerated IMPRESSIONS: 1. Acute hypoxic respiratory insufficiency secondary to COVID-19 pneumonia Patient is within the therapeutic window for Decadron and Remdesivir. Patient is still on low flow nasal cannula oxygen and was vaccinated. Agree with intermittent diuretics as tolerated. Will need to follow for possible hypoglycemia given morbid obesity. Encourage incentive spirometer and activity as tolerated. If stable for 48 hours, potential discharge on supplemental oxygen. Patient will need a walking oximetry prior to discharge. Patient will need to maintain saturations above 90% on 6 L or less. Did stressed to the pat ient that he should be using CPAP with any sleep as he runs the risk of the recruitment in addition to apnea 2. Hypokalemia Repleted. May be secondary to GI losses. Continue with symptomatic therapy. 3. Morbid obesity/hypertension/hypothyroidism/psoriasis/venous insufficiency/advanced age/BPH Complicates care, management, recovery and prognosis. Okay to continue with baseline medications for now. Would not recommend any IV fluids as this could exacerbate hypoxia. Subjective Subjective Patient did okay overnight. No acute issues were reported. Patient was able to be weaned to 4 L while at rest. Patient does report dyspnea on exertion. Patient was found taking a nap without his CPAP on. Objective Data Objective Data Vital Signs: Vital Signs Temp Pulse Resp BP Pulse Ox 36.9 C 75 16 117/71 87 04/10/21 10:12 04/10/21 10:12 04/10/21 10:12 04/10/21 10:12 04/10/21 10:43 Oxygen Flow Rate (L/min) [ 4 AMBULATING with Oxygen #3] Oxygen Flow Rate (L/min) [ 3 AMBULATING with Oxygen #2] Oxygen Flow Rate (L/min) [ 2 AMBULATING with Oxygen #1] Oxygen Flow Rate (L/min) [At 0 REST on Room Air] Oxygen Flow Rate (L/min) 4 Oxygen Delivery Method Nasal Cannula Weight: 132.3 kg Body Mass Index (BMI) 40.8 Intake & Output: Intake and Output for Last 24 Hours 04/08/21 04/09/21 04/10/21 23:59 23:59 23:59 Intake Total 240 / 480 1950 / 2190 1390 / 1390 Balance 240 / 480 1950 / 2190 1390 / 1390 Lab / Micro Data Result Diagrams: 04/10/21 10:05 04/10/21 10:05 Labs: Laboratory Results - last 24 hr 04/10/21 10:05: WBC 8.6, RBC 4.74, Hgb 14.6, Hct 42.4, MCV 89.5, MCH 30.8, MCHC 34.4, RDW Std Deviation 42.5, RDW Coeff of Karolyn 12.8, Plt Count 278, MPV 8.9, Immature Gran % (Auto) 0.600, Neut % (Auto) 74.1 H, Lymph % (Auto) 17.9 L, [place] % (Auto) 6.8, Eos % (Auto) 0.4, Baso % (Auto) 0.2, Absolute Neuts (auto) 6.4, Absolute Lymphs (auto) 1.53, Nucleated RBC % 0 04/10/21 10:05: Sodium 139, Potassium 3.8, Chloride 103, Carbon Dioxide 32.0, Anion Gap 4 L, BUN 33 H, Creatinine 1.17, Estim Creat Clear Calc 59.79, Est GFR (MDRD) Af Amer 79, Est GFR (MDRD) Non-Af 65, BUN/Creatinine Ratio 28.2 H, Glucose 110 H, Calcium 8.4 L, Total Bilirubin 0.80, AST 97 H, ALT 122 H, Alkaline Phosphatase 51, Total Protein 7.8, Albumin 3.1 L, Globulin 4.7 H, Albumin/Globulin Ratio 0.7 L Micro: Microbiology 04/08/21 10:28 Blood Culture (Wb) - Anticubital Left Blood Culture - Preliminary No growth in 48 hours. 04/08/21 17:58 Mucosa - Nose Respiratory Panel (PCR) - Final 04/08/21 18:15 Urine, Clean Catch Legionella Antigen - Final 04/08/21 18:15 Urine, Clean Catch Streptococcus pneumoniae Antigen (M - Final Physical Exam Const alert and oriented x3 Constitutional Narrative: Mild conversational dyspnea General Appearance: cooperative and well developed Nutritional Appearance: morbidly obese HEENT normocephalic, head/scalp atraumatic and moist oral mucous membranes Eyes PERRL and EOMs intact bilaterally Neck full ROM and no lymphadenopathy Chest inspection of chest normal Chest: symmetrical chest wall rise; Negative for crepitus Resp normal respiratory effort and no use of accessory muscles Effort and Inspection: symmetric chest movement Auscultation: diminished lung sounds; Negative for rales, rhonchi or wheezes Percussion: Negative for dullness Cardio regular rate, regular rhythm, S1 normal heart sound, S2 normal heart sound, no murmurs, no rub and no gallops GI normal to inspection, nondistended, normoactive bowel sounds no CVA tenderness Extremity General Extremity: edema bilateral (1+) lower extremity; Negative for clubbing or cyanosis Skin Skin Narrative: Some venous stasis changes of lower extremities noted Neuro oriented x3, CN's II-XII intact bilaterally, moves all extremities and no focal motor deficits Psych cooperative and affect normal Charges/Coding Visit Charges Inpatient E&M: 93718 Subs Hosp L2
--- NOTE | 2021-04-11 15:06 | CASEMGMT ---
EDER RYAN Discharge Follow-up Phone Call: MAICOL: 6 Strata: 2 Call Date: 04/11/21 Discharge Date: 04/10/21 Time of Call: 1505 Duration: 1 min Admitting Diagnosis: Covid EDER RYAN attmepted to complete follow-up phone call after recent hospitalization. No answer, unable to leave message as voicemail is full. Will attempt again at later time.
== END 2021-04-10 14:47 | disposition home or self-care (01) | DRG 177 ==
LOC: ED 13:30 → PCU 13:41
PROVIDERS: Internal Medicine Critical Care Medicine; Admitting Provider Internal Medicine; Emergency Provider Emergency Medicine; PCP Family Medicine; Visit Provider Internal Medicine
DX: U07.1 COVID-19 (principal); J96.01 Acute respiratory failure with hypoxia; J12.82 Pneumonia due to coronavirus disease 2019; Z68.41 Body mass index [BMI] 40.0-44.9, adult; E66.01 Morbid (severe) obesity due to excess calories; E87.6 Hypokalemia; E03.9 Hypothyroidism, unspecified; I10 Essential (primary) hypertension; I87.2 Venous insufficiency (chronic) (peripheral); L40.9 Psoriasis, unspecified; Z66 Do not resuscitate; N40.0 Benign prostatic hyperplasia without lower urinary tract symptoms; Z82.49 Family history of ischemic heart disease and other diseases of the circulatory system; Z83.3 Family history of diabetes mellitus; Z90.49 Acquired absence of other specified parts of digestive tract
CPT/HCPCS: 36415; 71045; 71275; 80048; 80053; 80076; 83605; 83880; 84484; 85025; 85027; 85379; 87040; 87449; 87633; 93005; 99251; 99283; J7050; Q9967; A4216; G0463; J1940

== ENCOUNTER 2021-04-14 13:32 | Inpatient (IN) | payer MEDICARE, OTHER, SELFPAY ==
[2021-04-14] VITALS (10 sets, daily range): BP systolic 124–142; BP diastolic 68–86; PULSE 63–82; RESP 15–28; TEMP 36.4–37.3; O2SAT 85–93; BMI 42.3; BMI 41.4
--- NOTE | 2021-04-14 14:30 | RAD_ITS ---
HISTORY: HYPOXIA EXAMINATION/TECHNIQUE: XR Chest 1 View: Portable upright AP chest x-ray COMPARISON: 04/08/21 FINDINGS: LINES/DEVICES: None. LUNGS: Progression of bilateral airspace opacities with increasing upper lobe consolidation. MEDIASTINUM AND CARDIOVASCULAR STRUCTURES: Cardiac silhouette not enlarged. Central airways and mediastinal contour are unremarkable. BONES AND SOFT TISSUES: No acute bony abnormalities. RAD/Chest 1 View (Portable) IMPRESSION: Progression of bilateral airspace disease consistent with atypical or viral pneumonia. at 1606 Reported and signed by: Jayme Monzon MD Electronically Signed: Jayme Monzon MD at 16:05 EDT Tel , Service support ,
--- NOTE | 2021-04-14 14:30 | EKG12_ITS ---
Test Reason : SOB Blood Pressure : / mmHG Vent. Rate : 071 BPM Atrial Rate : 071 BPM P-R Int : 128 ms QRS Dur : 096 ms QT Int : 402 ms P-R-T Axes : 015 -07 083 degrees QTc Int : 436 ms Normal sinus rhythm Normal ECG Confirmed by JAVED SAL, BREEZY ([id number]), storage specialist BLUE ALVAREZ ([id number]) on 04/16/2021 9:12:18 AM Referred By: Confirmed By:BREEZY BURT MD
--- NOTE | 2021-04-14 14:45 | EDS_ITS ---
HPI History of Present Illness Chief Complaint: Shortness of Breath Informant: patient and spouse/S.O. Narrative Narrative: Here with spouse for worsening dyspnea and hypoxia at home on oxygen. Patient diagnosed with Covid April 03 as an outpatient. Symptoms started . Fever headache cough diarrhea and chills. History of sleep apnea no home oxygen. Patient came in April 08 to the hospital was admitted for 3 days due to hypoxia. He was given 3-day course of remdesivir currently on dexamethasone with dosing taken today. Reported today increasing dyspnea with hypoxia worse with exertion. States with ambulation pulse ox down in the 70s. Spouse turned off the oxygen. Reported he did have a CTA chest on his admission that was negative. Prior similar symptoms: Yes [facility] Medical History BPH (benign prostatic hyperplasia) BPH (benign prostatic hyperplasia) Cholelithiasis with chronic cholecystitis DVT (deep venous thrombosis) Gallstones Gynecomastia, male Heart disease Hemorrhoids Hypertension Morbid obesity due to excess calories Numbness and tingling Rectal bleeding Sleep apnea Thyroid disease Venous insufficiency Home Medications desoximetasone 1 applic TOPICAL PRN PRN 06/13/13 [History Last Taken Unknown] doxazosin 4 mg PO QHS 06/13/13 [History Last Taken 04/07/21] latanoprost 1 drp EACH EYE QHS 06/13/13 [History Last Taken 04/07/21] multivitamin with folic acid 1 tab PO DAILY 06/13/13 [History Last Taken 04/07/21] [id number]-epa-fish oil-vit D3 1 ea PO DAILY 06/13/13 [History Last Taken 04/07/21] verapamil 180 mg PO BID 06/13/13 [History Last Taken 04/07/21] chlorthalidone 25 mg tablet 25 mg PO DAILY 11/22/17 [History Last Taken 04/07/21] fluticasone propionate 50 mcg/actuation nasal spray,suspension 1 spray INTRANASAL BID 11/22/17 [History Last Taken Unknown] furosemide 40 mg tablet 40 mg PO DAILY 11/22/17 [History Last Taken 04/07/21] levothyroxine 50 mcg capsule 50 mcg PO DAILY 11/22/17 [History Last Taken 04/07/21] potassium chloride 20 mEq tablet,extended release(part/cryst) 40 meq PO BID tab 11/22/17 [History Last Taken 04/07/21] chlorpheniramine maleate 4 mg PO DAILY PRN 04/13/19 [History Last Taken Unknown] dutasteride 0.5 mg PO QHS 04/13/19 [History Last Taken 04/07/21] psyllium husk 0.52 gm PO QHS 04/13/19 [History Last Taken 04/07/21] allopurinol 100 mg PO DAILY 04/08/21 [History Last Taken 04/07/21] diphenhydramine HCl [Benadryl] 25 mg PO QHS PRN 04/08/21 [History Last Taken Unknown] indomethacin 50 mg PO TID PRN PRN 04/08/21 [History Last Taken Unknown] albuterol sulfate 2 puff INHALATION Q4H PRN #8.5 g 04/10/21 [Rx Last Taken Unknown] dexamethasone 6 mg PO DAILY 8 Days #12 tab 04/10/21 [Rx Last Taken Unknown] guaifenesin 400 mg PO BID PRN 20 Days #10 tab 04/10/21 [Rx Last Taken Unknown] guaifenesin [Mucus Relief ER] 600 mg PO BID PRN PRN 10 Days #0 tab 04/10/21 [Rx Last Taken Unknown] Allergy/AdvReac Type Severity Reaction Status Date / Time YOSSI Inhibitors AdvReac Other Verified 04/08/21 10:09 hydrochlorothiazide AdvReac Other Verified 04/08/21 10:09 [From Dyazide] spironolactone AdvReac Other Verified 04/08/21 10:09 [From Aldactone] triamterene [From Dyazide] AdvReac Other Verified 04/08/21 10:09 Family History Mother Diabetes Hypertension Father Heart disease Diabetes Thyroid disorder Surgical History H/O colonoscopy h/o thoracentesis History of umbilical hernia repair S/P hemorrhoidectomy (~01/2018) S/P laparoscopic cholecystectomy S/P tonsillectomy Social History Smoking Status: Never smoker alcohol intake: current alcohol intake frequency: holidays/special occasions only ROS ROS ED Constitutional Constitutional ED: Denies chills, fever(s) or sweats Eyes Eyes: Denies change in vision ENT ENT ED: Denies dysphagia or sore throat Cardiovascular Cardiovascular: Denies chest pain, leg edema, palpitations or racing heartbeat Respiratory/Chest Respiratory/Chest: Reports cough and dyspnea; Denies dyspnea on exertion Gastrointestinal Gastrointestinal: Denies abdominal pain, diarrhea, nausea or vomiting Genitourinary Genitourinary ED: Denies dysuria, hematuria or urinary frequency Musculoskeletal Musculoskeletal: Denies back pain, extremity pain or neck pain Integumentary Denies rash or wounds Neurologic Neurologic: Denies headache(s), paresthesias or weakness EXAM Physical Exam Const Vital Signs: 04/14/21 13:34 04/14/21 13:58 04/14/21 15:00 Temperature 98.2 F 97.6 F L 97.8 F Temperature Source Temporal Temporal Oral Pulse Rate 78 69 69 Respiratory Rate 26 H 20 H 18 Respiratory Effort Short of Breath Labored Accessory Muscle Use Respiratory Depth Normal Respiratory Pattern Tachypnea Blood Pressure 140/86 H 140/86 H 128/77 H Blood Pressure Mean 104 104 94 Pulse Ox 85 92 93 Oxygen Delivery Method Nasal Cannula Nasal Cannula Nasal Cannula Oxygen Flow Rate (L/min) 4 6 6 Positive well nourished and well developed Constitutional Narrative: Currently on 6 L nasal cannula no respiratory distress pulse ox 89 to 92%. General Appearance ED: well developed and NAD HEENT Reports moist mucous membranes normocephalic and atraumatic Eyes PERRL, EOMs intact bilaterally and conjunctivae normal General Eye ED: Yes normal appearance of both eyes Neck no lymphadenopathy and supple General: Negative for tenderness Chest Wall Chest: Negative for tenderness Resp normal respiratory effort and normal air movement Effort and Inspection: symmetric chest movement; Negative for respiratory distress Cardio regular rate, regular rhythm and no murmurs Peripheral Pulses: pulses 2+ throughout GI normal to inspection, nondistended, normoactive bowel sounds and non-tender Palpation: Negative for guarding or rebound tenderness present Back/Spine no CVA tenderness and no thoracic nor lumbar tenderness Extremity normal to inspection General Extremety ED: Negative for edema or tenderness General Extremity: Negative for edema Neuro oriented x3 and no sensory deficits noted Sensorium / Orientation: awake and alert Skin no rashes or lesions noted and no wounds MDM MDM MDM Narrative Medical decision making narrative: Patient currently on 6 L of oxygen nasal cannula no respiratory distress. Chest x-ray progression of airspace disease. Labs white count 14.8 however he is on Decadron. Electrolytes stable. Creatinine 1.12. ABG was obtained noted PaO2 of 60 on 6 L. Reevaluation remaining stable on oxygen. I discussed with hospitalist Dr. Castellanos, will admit to PCU. With a negative CTA chest a week ago we will hold on repeating at this time. She will plan on diuresing with close monitoring on the floor and image if needed. Lab Data Attestation: I reviewed the patient's lab results. Labs: Laboratory Results - last 24 hr 04/14/21 04/14/21 13:55 13:55 WBC 14.8 H RBC 5.02 Hgb 15.6 Hct 45.3 MCV 90.2 MCH 31.1 MCHC 34.4 RDW Std Deviation 42.4 RDW Coeff of Karolyn 12.9 Plt Count 368 MPV 8.9 Neut % (Auto) Not Reportable Absolute Neuts (auto) 12.4 H Absolute Lymphs (auto) 1.63 Total Counted 100 Neutrophils % (Manual) 83 H Band Neutrophils % 1 Lymphocytes % (Manual) 11 L Monocytes % (Manual) 5 Diff Path Review May foll RBC Morphology N CHROM Anisocytosis 1+ Sodium 140 Potassium 3.8 Chloride 105 Carbon Dioxide 29.0 Anion Gap 6 BUN 25 H Creatinine 1.12 Estim Creat Clear Calc 60.49 Est GFR (MDRD) Af Amer 83 Est GFR (MDRD) Non-Af 69 BUN/Creatinine Ratio 22.3 H Glucose 140 H Calcium 9.2 ABG Data ABG results: ABG 04/14/21 15:23 Specimen Type ART Sample Site R Radial pH 7.52 H Bicarbonate Actual 29.5 H Total CO2 31 Base Excess 7 H O2 Saturation 94 L ABG pCO2 36.2 ABG pO2 61 L Dean Test Positive O2 Delivery Device Cannula Liter Flow 6.0 Radiography Chest X-Ray - ED: 1 View, Read by ED Physician and Read by Radiologist Diagnostic Testing: Radiology Impression Chest X-Ray 04/14/21 14:30 IMPRESSION: Progression of bilateral airspace disease consistent with atypical or viral pneumonia. at 1606 Reported and signed by: Jayme Monzon MD Electronically Signed: Jayme Monzon MD at 16:05 EDT Tel , Service support , Covid pneumonia EKG Initial EKG: Attestation: I personally reviewed and interpreted this EKG as follows: Comments: Sinus rate of 71, no ST or T wave changes. Discharge Plan Dx/Rx/DC Orders Clinical Impression: 2019 novel coronavirus-infected pneumonia (NCIP), Hypoxia Disposition Disposition: Acute Care Hospital [facility]
[2021-04-14 15:03] LABS: Hematocrit 45.3 % (40-54); Hemoglobin 15.6 g/dL (13.0-16.5); Mean Corp Hgb Conc 34.4 g/dL (32-36); Mean Corpuscular Hgb 31.1 pg (27.0-32.0); Mean Corpuscular Volume 90.2 fL (80-94); Mean Platelet Vol. 8.9 fl (6.2-12.0); POSITIVE COUNT YES; POSITIVE MORPHOLOGY YES; Platelet Count 368 K/mm3 (150-450); RBC Distribution Width CV 12.9 % (11.6-14.6); RBC Distribution Width SD 42.4 fl (35.1-43.9); Red Blood Count 5.02 M/mm3 (4.6-6.2); White Blood Count 14.8 K/mm3 (4.4-11.0)
[2021-04-14 15:05] LABS: Differential Indicated MANUAL DIFF
[2021-04-14 15:12] LABS: Anion Gap 6 (5-15); BUN 25 mg/dL (7-18); BUN/Creat Ratio 22.3 RATIO (10-20); Calcium,Total 9.2 mg/dL (8.5-10.1); Chloride 105 mmol/L (98-107); Creatinine, Serum 1.12 mg/dL (0.70-1.30); EST Glomerular Filtration Rate 69 mL/min (>60); Est Glom Filt Rate - Afr Amer 83 mL/min (>60); Estimated Creatinine Clearance 60.49 ml/min; Glucose 140 mg/dL (74-106); Potassium 3.8 mmol/L (3.5-5.1); Sodium Level 140 mmol/L (136-145)
[2021-04-14 15:31] LABS: Allen Test Positive; Base Excess 7 mmol/L (-2 to +2); Bicarbonate 29.5 mmol/L (22-26); Blood Gas Specimen Type ART; O2 Delivery Device Cannula; PO2 61 mmHG (75-100); SITE R Radial; SO2 94 % (95-99); Total Carbon Dioxide 31 mmol/L; pCO2 36.2 mmHg (35-45); pH 7.52 (7.35-7.45)
[2021-04-14 15:31] LABS: Lymphocyte 11 % (19-41); Monocyte 5 % (0-10); Neutrophil-Band 1 % (0-5); Neutrophil-Segmented 83 % (47-70); Total Cells Counted 100 (MANUAL DIFF)
[2021-04-14 15:32] LABS: Anisocytosis 1+; Red Cell Morphology N CHROM NORMAL (NORM C&C)
[2021-04-14 15:33] LABS: Absolute Neutrophil Count 12.4 X10^3/uL (2.0-7.7)
[2021-04-14 15:34] LABS: Absolute Lymphocyte Count 1.63 X10^3/uL (0.83-4.51)
--- NOTE | 2021-04-14 16:22 | HP.PCM.HOS_ITS ---
HPI - General General Date of Admission: 04/14/21 Date of Service: 04/14/21 Chief Complaint: Dyspnea, recent COVID admission, discharged 04/10/21 HPI Narrative The patient is a 70 y/o M w/ PMHx: Morbid Obesity, BPH, MARIA DOLORES, Hypothyroidism, PVD, HTN, HLD, Hx DVT, recently discharged on 04/10/21 following admission for COVID-19 with acute hypoxic respiratory failure at that time with positive results 03/31, treated with IV Decadron and 3-day course of remdesivir with intermittent pulse dose Lasix given severity during his presentation who now represents to the [facility] ED on 04/14/21 with progressively worsening dyspnea especially with any exertion with pulse ox level down to 70% at home despite recent transient clinical improvement prompting re-evaluation. He does report that when he went home he felt better the first several days however over the last 24 hours he is worsened with reported also sore throat. Patient was vaccinated with the Moderna series x2. Work-up in the ED included T 98.2, heart 78, BP 140/86, respiratory rate 26, initially 85% on 4 L nasal cannula with improvement to 93% on 6 L, CBC with WC 14.8, hemoglobin 15.6, platelet 368 with left shift and lymphopenia, ABG with pH 7.52, bicarb 29.5, O2 saturation 94%, PCO2 36.2, PO2 61 on 6 L nasal cannula, BMP with BUN/Cr 25/1.12, glucose 140, chest x-ray progressive bilateral airspace disease consistent with viral pneumonia. [facility] Medical History BPH (benign prostatic hyperplasia) BPH (benign prostatic hyperplasia) Cholelithiasis with chronic cholecystitis DVT (deep venous thrombosis) Gallstones Gynecomastia, male Heart disease Hemorrhoids Hypertension Morbid obesity due to excess calories Numbness and tingling Rectal bleeding Sleep apnea Thyroid disease Venous insufficiency Home Medications desoximetasone 1 applic TOPICAL PRN PRN 06/13/13 [History Last Taken Unknown] doxazosin 4 mg PO QHS 06/13/13 [History Last Taken 04/07/21] latanoprost 1 drp EACH EYE QHS 06/13/13 [History Last Taken 04/07/21] multivitamin with folic acid 1 tab PO DAILY 06/13/13 [History Last Taken 04/07/21] [id number]-fish oil-vit D3 1 ea PO DAILY 06/13/13 [History Last Taken 04/07/21] verapamil 180 mg PO BID 06/13/13 [History Last Taken 04/07/21] chlorthalidone 25 mg tablet 25 mg PO DAILY 11/22/17 [History Last Taken 04/07/21 ] fluticasone propionate 50 mcg/actuation nasal spray,suspension 1 spray INTRANASAL BID 11/22/17 [History Last Taken Unknown] furosemide 40 mg tablet 40 mg PO DAILY 11/22/17 [History Last Taken 04/07/21] levothyroxine 50 mcg capsule 50 mcg PO DAILY 11/22/17 [History Last Taken 04/07/21] potassium chloride 20 mEq tablet,extended release(part/cryst) 40 meq PO BID tab 11/22/17 [History Last Taken 04/07/21] chlorpheniramine maleate 4 mg PO DAILY PRN 04/13/19 [History Last Taken Unknown] dutasteride 0.5 mg PO QHS 04/13/19 [History Last Taken 04/07/21] psyllium husk 0.52 gm PO QHS 04/13/19 [History Last Taken 04/07/21] allopurinol 100 mg PO DAILY 04/08/21 [History Last Taken 04/07/21] diphenhydramine HCl [Benadryl] 25 mg PO QHS PRN 04/08/21 [History Last Taken Unknown] indomethacin 50 mg PO TID PRN PRN 04/08/21 [History Last Taken Unknown] albuterol sulfate 2 puff INHALATION Q4H PRN #8.5 g 04/10/21 [Rx Last Taken Unknown] dexamethasone 6 mg PO DAILY 8 Days #12 tab 04/10/21 [Rx Last Taken Unknown] guaifenesin 400 mg PO BID PRN 20 Days #10 tab 04/10/21 [Rx Last Taken Unknown] guaifenesin [Mucus Relief ER] 600 mg PO BID PRN PRN 10 Days #0 tab 04/10/21 [Rx Last Taken Unknown] Allergy/AdvReac Type Severity Reaction Status Date / Time YOSSI Inhibitors AdvReac Other Verified 04/08/21 10:09 hydrochlorothiazide AdvReac Other Verified 04/08/21 10:09 [From Dyazide] spironolactone AdvReac Other Verified 04/08/21 10:09 [From Aldactone] triamterene [From Dyazide] AdvReac Other Verified 04/08/21 10:09 Family History Mother Diabetes Hypertension Father Heart disease Diabetes Thyroid disorder Surgical History H/O colonoscopy h/o thoracentesis History of umbilical hernia repair S/P hemorrhoidectomy (~01/2018) S/P laparoscopic cholecystectomy S/P tonsillectomy Social History (Updated 04/14/21 @ 17:[address] Nisha Castellanos MD) household members: spouse Smoking Status: Never smoker alcohol intake: current alcohol intake frequency: holidays/special occasions only substance use type: does not use ROS ROS Narrative Admission Review of Systems: CONSTITUTIONAL: No weight loss, fever, chills, + weakness or fatigue. HEENT: + Sore throat. Eyes: No visual loss, blurred vision, double vision or yellow sclerae. Ears, Nose, Throat: No hearing loss, sneezing, congestion, runny nose or sore throat. SKIN: No rash or itching, lesions, wounds. CARDIOVASCULAR: No chest pain, chest pressure or chest discomfort, palpitations, edema, orthopnea, syncopal events. RESPIRATORY: + shortness of breath with cough, No marked sputum, wheezing, hemoptysis. GASTROINTESTINAL: + anorexia, No nausea, vomiting or diarrhea, abdominal pain, melena, BRBPR. GENITOURINARY: No dysuria, frequency, urgency or retention. NEUROLOGICAL: No headache, dizziness, syncope, paralysis, ataxia, numbness or tingling in the extremities, focal weakness, change in bowel or bladder control, seizure. MUSCULOSKELETAL: + muscle, back pain, joint pain or stiffness. HEMATOLOGIC: No anemia, bleeding or bruising. LYMPHATICS: No enlarged nodes. No history of splenectomy. PSYCHIATRIC: No history of depression or anxiety. ENDOCRINOLOGIC: No reports of sweating, cold or heat intolerance. No polyuria or polydipsia. ALLERGIES: No history of asthma, hives, eczema or rhinitis. Vital Signs Vital Signs Vital Signs: 04/14/21 13:34 04/14/21 13:58 04/14/21 15:00 Temperature 98.2 F 97.6 F L 97.8 F Temperature Source Temporal Temporal Oral Pulse Rate 78 69 69 Respiratory Rate 26 H 20 H 18 Respiratory Effort Short of Breath Labored Accessory Muscle Use Respiratory Depth Normal Respiratory Pattern Tachypnea Blood Pressure 140/86 H 140/86 H 128/77 H Blood Pressure Mean 104 104 94 Pulse Ox 85 92 93 Oxygen Delivery Method Nasal Cannula Nasal Cannula Nasal Cannula Oxygen Flow Rate (L/min) 4 6 6 Weight Weight: 287 lb Body Mass Index (BMI) 42.3 Physical Exam Narrative Physical Examination: General: Awake, alert, oriented x 3 and cooperative, seated upright in the ED bed, fatigued and ill-appearing, increased work of breathing and accessory muscle usage present, evidence of respiratory distress, although improved since initial ED presentation. Skin: Normal color, normal turgor, no icterus, no cyanosis except noted mild bilateral lower extremity venous stasis skin changes. HEENT: AT/NC, EOMI, PERRLA, moderately dry MM, no carotid bruits or JVD noted; however, thickened neck makes examination difficult. Lungs: Diminished diffusely, greater bases, increased respiratory rate and accessory muscle usage noted, improved since initial presentation but still ev idence of respiratory distress, no rales, ronchi or wheezing. Heart: Tachycardic with regular rhythm; no gallop, rub audible. Abdomen: Soft, morbidly obese, NTTP, ND, distant mildly hyperactive BS, no HSM. Extremities: No cyanosis, clubbing, or edema. See skin. Neurological: Patient awake, alert, oriented as noted, cognitive function intact; pupils equally reactive to light and accommodation, cranial nerves II- XII grossly normal, moving all 4 extremities, no focal deficits, strength severely global decrease secondary to acute presentation. Psychiatric: Affect appears fatigued, ill-appearing, evidence of respiratory distress is noted, no acute evidence of depressive or anxiety feelings. Results Lab / Micro Data Result Diagrams: 04/14/21 13:55 04/14/21 13:55 Labs: Laboratory Results - last 24 hr 04/14/21 13:55: WBC 14.8 H, RBC 5.02, Hgb 15.6, Hct 45.3, MCV 90.2, MCH 31.1, MCHC 34.4, RDW Std Deviation 42.4, RDW Coeff of Karolyn 12.9, Plt Count 368, MPV 8.9, Neut % (Auto) Not Reportable, Absolute Neuts (auto) 12.4 H, Absolute Lymphs (auto) 1.63, Total Counted 100, Neutrophils % (Manual) 83 H, Band Neutrophils % 1, Lymphocytes % (Manual) 11 L, Monocytes % (Manual) 5, Diff Path Review December, RBC Morphology N CHROM, Anisocytosis 1+ 04/14/21 13:55: Sodium 140, Potassium 3.8, Chloride 105, Carbon Dioxide 29.0, Anion Gap 6, BUN 25 H, Creatinine 1.12, Estim Creat Clear Calc 60.49, Est GFR (MDRD) Af Amer 83, Est GFR (MDRD) Non-Af 69, BUN/Creatinine Ratio 22.3 H, Glucose 140 H, Calcium 9.2 ABG Data ABG results: ABG 04/14/21 15:23 Specimen Type ART Sample Site R Radial pH 7.52 H Bicarbonate Actual 29.5 H Total CO2 31 Base Excess 7 H O2 Saturation 94 L ABG pCO2 36.2 ABG pO2 61 L Dean Test Positive O2 Delivery Device Cannula Liter Flow 6.0 Radiology Impression Chest X-Ray 04/14/21 14:30 IMPRESSION: Progression of bilateral airspace disease consistent with atypical or viral pneumonia. at 1606 Reported and signed by: Jayme Monzon MD Electronically Signed: Jayme Monzon MD at 16:05 EDT Tel , Service support , Assessment & Plan Assessment/Plan (1) Acute respiratory failure with hypoxemia: (2) Pneumonia due to COVID-19 virus: PLAN: The patient is a 70 y/o M w/ PMHx: Morbid Obesity, BPH, MARIA DLOORES, Hypothyroidism, PVD, HTN, HLD, Hx DVT, recently discharged on 04/10/21 following admission for COVID-19 with acute hypoxic respiratory failure at that time with positive results 03/31, treated with IV Decadron and 3-day course of remdesivir who now represents to the [facility] ED on 04/14/21 with progressively worsening dyspnea especially with any exertion with pulse ox level down to 70% at home. 1. Acutely Worsening Hypoxic Respiratory Failure secondary to Bilateral Pneumonia secondary to Acute Viral Syndrome, COVID-19: Patient with recent discharge, worsening clinical status, given presentation and severity will admit to the PCU, request Pulmonary/pump installation and servicer re-consult, at this point transition to air Vo if necessary with BiPAP nightly or BiPAP continuously pending response, PRN albuterol, HOB, IS parameters w/ pending sputum cultures, respiratory viral panel and urine antigens, will obtain D-dimer, procalcitonin, CRP, CPK, Ferritin, LDH, trop and BNP, continue supportive care including q 2 hour turning including prone given no prone bed availability and judicious hydration, closely monitor for worsening status for ARDS and multiorgan failure, will re-initiate and continue IV decadron x 10 doses. Will dose with IV Lasix x1 upon admission. 2. Hypertension: Continue home regimen including verapamil, chlorthalidone, Lasix with pulse IV dose Lasix as noted above, PRN hydralazine. 3. Morbid Obesity: Encouraged lifestyle and diet changes. 4. Hypothyroidism: Continue home synthroid regimen. 5. BPH: We will continue patient home dutasteride regimen 6. MARIA DOLORES: Will place BIPAP q HS. 7. DVT prophylaxis: SCDs, Lovenox. 8. CODE status: Patient MERNA is his who is present and living will is currently in place. Discussed CODE status at length including difference between FULL code, DNR-CCA and DNR-CC status. Following discussions about the differences in these status, requested Full Code status. Amenable to air Vo and BiPAP usage prior to intubation needs. This was confirmed as during prior presentation he had elected to be DNR CCA, no intubation. Advanced Care Planning Face to Face Time: 16 minutes. Charges/Coding Visit Charges Inpatient E&M: 93301 Init Hosp L3 Procedures Hospitalists Procedures: 67509 Advncd Care Plan 30 Min
[2021-04-14 17:36] LABS: Ferritin 652 ng/mL (26-388); LDH 432 U/L (87-241); Magnesium 2.1 mg/dL (1.6-2.6)
[2021-04-14 17:38] LABS: BNP,B-Type NATRIURETIC PEPTIDE 23.6 pg/mL (0-100)
[2021-04-14 17:49] LABS: D-Dimer Quantitative (DVT/PE) > 20.00 FEU/ug/m (0.27-0.49)
--- NOTE | 2021-04-14 17:52 | PCS.PANDOC ---
PANDEMIC DOCUMENTATION INITIATED: Date: 03/24/2021 Time: 190
[2021-04-14 17:55] LABS: Procalcitonin 0.08 ng/mL (0.00-0.09)
[2021-04-14] MEDS: dexAMETHasone 4 MG/ML Vial 6 MG IV (18:47)
[2021-04-14] MEDS: Furosemide 40 MG/4 ML Vial IV (18:47)
--- NOTE | 2021-04-14 19:04 | CT_ITS ---
We are attempting to reach an attending provider to discuss findings. An addendum with communication details will be sent when the communication is complete. STUDY: CTA CHEST REASON FOR EXAM: Male, 70 years old. suspected PE RADIATION DOSAGE (If Supplied By Facility): CTDIvol = ( 31.58 ) mGy, DLP = ( 553.11 ) mGycm TECHNIQUE: The examination was performed with the intravenous administration of IV 100mL [id number]-370. Post-processing of the angiographic images was performed, with multiplanar reformation and 3D reconstruction. Individualized dose optimization techniques were used for this CT. COMPARISON: CT pulmonary angiogram dated 04/08/2021 FINDINGS: Pulmonary emboli are seen in proximal segmental branches of the bilateral upper and lower lobes; moderate embolic load with increased right to left ventricular ratio, greater than 1 suggesting right heart strain. Normal thoracic aorta and visualized great vessels. There is no demonstrated aortic dissection. Normal heart and pericardium. Normal mediastinum. Scattered right and left mild hilar lymphadenopathy is not appreciably changed compared to prior exam. Normal visualized trachea and bronchi. Scattered patchy alveolar opacities with some confluence and areas of rachid consolidation shows slight improved aeration, especially in the upper lobes. No pleural effusion. Normal pleura. There is bilateral gynecomastia Normal osseous structures. Normal visualized upper abdomen. CT/CTA Chest W/WO Contrast IMPRESSION: Pulmonary emboli seen in segmental branches to bilateral upper and lower lobes with evidence of right heart strain due to high embolic load. Stable to slightly improved pulmonary opacities suggesting Covid pneumonia. Unchanged mild bilateral hilar lymphadenopathy. Gynecomastia. Electronically Signed: Jefferson Peralta DO at 21:45 EDT Tel , Service support ,
[2021-04-14] MEDS: Famotidine 20 MG Tablet PO (20:41)
[2021-04-14] MEDS: Verapamil SR 180 MG CAPSULE PO (20:41)
[2021-04-14] MEDS: Potassium Chloride Oral Tablet 20 MEQ 40 MEQ PO (20:42)
[2021-04-14] MEDS: Enoxaparin 40 MG/0.4 ML Syringe SC (20:42)
[2021-04-14] MEDS: Latanoprost 0.005% 1 Bottle 1 DRP EACH EYE (20:43)
[2021-04-14] MEDS: Fluticasone 0.05% 1 SPRAY NASAL.SRY NASAL (20:43)
[2021-04-14] MEDS: Psyllium 1 PACKET PO (20:43)
[2021-04-14] MEDS: Doxazosin 4 MG Tablet PO (20:43)
[2021-04-14] MEDS: BENZOCAINE/MENTHOL 1 LOZENGE MUCOUS MEM (20:59)
[2021-04-14] MEDS: Heparin Injection (Vial) 5,000 UNIT/ML VIAL 4000 UNIT IV (22:47)
[2021-04-14] MEDS: HEPARIN/D5w 25,000 UNITS 25,000 UNITS/250 ML IV.SOLN. 10 UNITS IV (22:47)
[2021-04-15] VITALS (13 sets, daily range): BP systolic 122–151; BP diastolic 73–91; PULSE 53–75; RESP 18–24; TEMP 36.3–37.5; O2SAT 90–95
[2021-04-15 00:32] LABS: International Normalized Ratio 1.3; Prothrombin Time (Protime)PT. 15.5 SECONDS (11.7-14.9)
[2021-04-15 02:45] LABS: Platelet Estimate ADEQUATE (ADEQ)
[2021-04-15 07:25] LABS: Hematocrit 48.3 % (40-54); Hemoglobin 16.5 g/dL (13.0-16.5); Mean Corp Hgb Conc 34.2 g/dL (32-36); Mean Corpuscular Hgb 30.8 pg (27.0-32.0); Mean Corpuscular Volume 90.1 fL (80-94); Mean Platelet Vol. 8.8 fl (6.2-12.0); POSITIVE COUNT YES; POSITIVE MORPHOLOGY YES; Platelet Count 387 K/mm3 (150-450); RBC Distribution Width CV 13.2 % (11.6-14.6); RBC Distribution Width SD 42.9 fl (35.1-43.9); Red Blood Count 5.36 M/mm3 (4.6-6.2); White Blood Count 14.7 K/mm3 (4.4-11.0)
[2021-04-15 07:29] LABS: Differential Indicated MANUAL DIFF
--- NOTE | 2021-04-15 07:30 | PN.HOSP_ITS ---
Subjective Subjective Patient admitted with worsening dyspnea, hypoxia on O2 at home including pulse ox dropping to 70% on oxygen on ambulation, therefore admitted. Patient has Covid symptoms started on March 31 and tested positive on diagnosed Covid on April 03. Patient was admitted between April 08-04/10: Acute hypoxic respirator y failure due to COVID-19 pneumonia Currently on 10 L of oxygen alternating with BiPAP. Patient has cough with productive sputum Objective Data Objective Data Vital Signs: Vital Signs Temp Pulse Resp BP Pulse Ox 98.0 F 60 24 H 148/82 H 93 04/15/21 06:00 04/15/21 07:00 04/15/21 06:00 04/15/21 06:00 04/15/21 06:00 Oxygen Flow Rate (L/min) 14 Oxygen Delivery Method Bi-pap Weight: 280 lb 10.375 oz Body Mass Index (BMI) 41.4 Intake & Output: Intake and Output for Last 24 Hours 04/13/21 04/14/21 04/15/21 23:59 23:59 23:59 Intake Total 819.83 / 819.83 Balance 819.83 / 819.83 Lab / Micro Data Result Diagrams: 04/15/21 06:44 04/15/21 06:44 Labs: Laboratory Results - last 24 hr 04/14/21 13:55: WBC 14.8 H, RBC 5.02, Hgb 15.6, Hct 45.3, MCV 90.2, MCH 31.1, MCHC 34.4, RDW Std Deviation 42.4, RDW Coeff of Karolyn 12.9, Plt Count 368, MPV 8.9, Neut % (Auto) Not Reportable, Absolute Neuts (auto) 12.4 H, Absolute Lymphs (auto) 1.63, Total Counted 100, Neutrophils % (Manual) 83 H, Band Neutrophils % 1, Lymphocytes % (Manual) 11 L, Monocytes % (Manual) 5, Diff Path Review December, Platelet Estimate ADEQUATE, RBC Morphology N CHROM, Anisocytosis 1+ 04/14/21 13:55: Sodium 140, Potassium 3.8, Chloride 105, Carbon Dioxide 29.0, Anion Gap 6, BUN 25 H, Creatinine 1.12, Estim Creat Clear Calc 60.49, Est GFR (MDRD) Af Amer 83, Est GFR (MDRD) Non-Af 69, BUN/Creatinine Ratio 22.3 H, Glucose 140 H, Calcium 9.2 04/14/21 13:55: D-Dimer Quant (PE/DVT) > 20.00 H* 04/14/21 13:55: Magnesium 2.1, Ferritin 652 H, Lactate Dehydrogenase 432 H, C- React Prot Ext Range 34.90 H 04/14/21 13:55: B-Natriuretic Peptide 23.6 04/14/21 13:55: Procalcitonin 0.08 04/14/21 16:25: Blood Type B POSITIVE, Antibody Screen NEGATIVE 04/15/21 00:15: PT 15.5 H, INR 1.3, APTT 70.0 H 04/15/21 06:44: WBC 14.7 H, RBC 5.36, Hgb 16.5, Hct 48.3, MCV 90.1, MCH 30.8, MCHC 34.2, RDW Std Deviation 42.9, RDW Coeff of Karolyn 13.2, Plt Count 387, MPV 8.8, Neut % (Auto) Not Reportable Micro: Microbiology 04/14/21 19:10 Mucosa - Nose Respiratory Panel (PCR) - Final 04/14/21 21:00 Urine, Clean Catch Legionella Antigen - Final 04/14/21 21:00 Urine, Clean Catch Streptococcus pneumoniae Antigen (M - Final ABG Data ABG results: ABG 04/14/21 15:23 Specimen Type ART Sample Site R Radial pH 7.52 H Bicarbonate Actual 29.5 H Total CO2 31 Base Excess 7 H O2 Saturation 94 L ABG pCO2 36.2 ABG pO2 61 L Dean Test Positive O2 Delivery Device Cannula Liter Flow 6.0 Radiography Diagnostic Testing: Radiology Impression Chest X-Ray 04/14/21 14:30 IMPRESSION: Progression of bilateral airspace disease consistent with atypical or viral pneumonia. at 1606 Reported and signed by: Jayme Monzon MD Electronically Signed: Jayme Monzon MD at 16:05 EDT Tel , Service support , Chest CTA 04/14/21 19:04 IMPRESSION: Pulmonary emboli seen in segmental branches to bilateral upper and lower lobes with evidence of right heart strain due to high embolic load. Stable to slightly improved pulmonary opacities suggesting Covid pneumonia. Unchanged mild bilateral hilar lymphadenopathy. Gynecomastia. Electronically Signed: Jefferson Peralta DO at 21:45 EDT Tel , Service support , ADDENDUM: 04/14/21 2218 IMPRESSION: Pulmonary emboli seen in segmental branches to bilateral upper and lower lobes with evidence of right heart strain due to high embolic load. Stable to slightly improved pulmonary opacities suggesting Covid pneumonia. Unchanged mild bilateral hilar lymphadenopathy. Gynecomastia. N.B. : The above Results were Read Back by Jefferson Peralta DO to Lynette Kyle RN, and understanding confirmed on 04/14/2021 22:11:33 (ET). Electronically Signed: Jefferson Peralta DO at 21:45 EDT Tel , Service support , Physical Exam Narrative General: Alert, Oriented x3, Cooperative HEENT: Atraumatic, PERRLA, EOMI, Normocephalic Oral: No Gingival or Mucosal Lesions/ Ulcerations Neck: Supple, No JVD, Negative Carotid Bruits Lungs: Air entry diminished in bilateral lung bases. Bilateral coarse crepitations Cardiovascular: Regular rate, Regular Rhythm, Normal S1, Normal S2, No murmurs Abdomen: Bowel Sounds Present, Soft, Non Tender, Non-Distended : No renal angle tenderness. No suprapubic tenderness. Extremities: No edema, Capillary Refill Less than 3 Seconds Skin: No rashes, No breakdown Musculoskeletal: No Tenderness to Palpation of Joints or Extremities Neurological: Cranial nerves II-XII grossly intact, DTR 2+/4 and Symmetrical, Neuro grossly intact Psych/Mental Status: Normal Affect, Appropriate. Assessment & Plan Assessment/Plan (1) Pneumonia due to COVID-19 virus: PLAN: The patient is a 70 y/o, recently discharged on 04/10/21 following admission for COVID-19 with acute hypoxic respiratory failure at that time with positive results 03/31, treated with IV Decadron and 3-day course of remdesivir who now represents to the [facility] ED on 04/14/21 with progressively worsening dyspnea especially with any exertion with pulse ox level down to 70% at home. 1. Acutely Hypoxic Respiratory Failure secondary to bilateral PE and bilateral COVID-19 pneumonia: Patient is admitted in PCU on BiPAP and high flow oxygen. 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 2D echo ordered. CTA reviewed and shows bilateral PE with massive clot burden and right heart strain and bilateral airspace consolidation. Inflammatory markers of Covid are elevated including D-dimer. Elevated transaminases. Procalcitonin normal. On Decadron. Consult ID. Leukocytosis with left shift 2. Hypertension: Continue verapamil, chlorthalidone, Lasix with pulse IV dose Lasix as noted above, PRN hydralazine. 3. Morbid Obesity: Encouraged lifestyle and diet changes. 4. Hypothyroidism: Continue home synthroid regimen. 5. BPH: continue patient home dutasteride regimen 6. MARIA DOLORES: On BiPAP. 7. DVT prophylaxis. On Lovenox. Charges/Coding Visit Charges Inpatient E&M: 82121 Subs Hosp L2
[2021-04-15 07:45] LABS: ALB/GLOB Ratio 0.6 RATIO (0.9-2.4); AST(SGOT) 44 U/L (15-37); Alanine Aminotransfer ALT/SGPT 155 U/L (16-61); Albumin, Serum 3.1 g/dL (3.2-5.0); Alkaline Phosphatase 59 U/L (45-117); Anion Gap 9 (5-15); BUN 36 mg/dL (7-18); BUN/Creat Ratio 29.3 RATIO (10-20); Calcium,Total 9.4 mg/dL (8.5-10.1); Chloride 101 mmol/L (98-107); Creatinine, Serum 1.23 mg/dL (0.70-1.30); EST Glomerular Filtration Rate 62 mL/min (>60); Est Glom Filt Rate - Afr Amer 75 mL/min (>60); Estimated Creatinine Clearance 55.08 ml/min; Globulin 5.5 g/dL (2.2-4.2); Glucose 136 mg/dL (74-106); Potassium 4.2 mmol/L (3.5-5.1); Protein, Total 8.6 g/dL (6.4-8.2); Sodium Level 138 mmol/L (136-145)
[2021-04-15 08:08] LABS: Lymphocyte 22 % (19-41); Metamyelocyte 4 % (0-1); Monocyte 1 % (0-10); Neutrophil-Band 1 % (0-5); Neutrophil-Segmented 72 % (47-70); Platelet Estimate ADEQUATE (ADEQ); Red Cell Morphology NORM C+C NORMAL (NORM C&C); Total Cells Counted 100 (MANUAL DIFF)
[2021-04-15 08:10] LABS: Lymphocyte # 3.24 X10^3/ul (0.83-4.51); Neutrophil # 10.75 X10^3/uL (2.7-7.7)
[2021-04-15] MEDS: Heparin Injection (Vial) 5,000 UNIT/ML VIAL IV (09:06)
[2021-04-15] MEDS: dexAMETHasone 4 MG/ML Vial 6 MG IV (09:08)
[2021-04-15] MEDS: Verapamil SR 180 MG CAPSULE PO ×2 (09:09→21:06)
[2021-04-15] MEDS: Allopurinol 100 MG Tablet PO (09:09)
[2021-04-15] MEDS: Chlorthalidone 50 MG Tablet 25 MG PO (09:09)
[2021-04-15] MEDS: Furosemide 40 MG Tablet PO (09:09)
[2021-04-15] MEDS: Levothyroxine 50 MCG Tablet PO (09:10)
[2021-04-15] MEDS: Potassium Chloride Oral Tablet 20 MEQ 40 MEQ PO ×2 (09:10→21:05)
[2021-04-15] MEDS: Famotidine 20 MG Tablet PO ×2 (09:10→21:04)
[2021-04-15] MEDS: Multivitamins,Therapeutic Tablet 1 TABLET PO (09:10)
[2021-04-15] MEDS: Enoxaparin 40 MG/0.4 ML Syringe SC (09:30)
[2021-04-15] MEDS: Enoxaparin 80 MG/0.8 ML Syringe SC (11:56)
--- NOTE | 2021-04-15 14:15 | CON.PCM.CC_ITS ---
Assessment & Plan Assessment/Plan (1) Acute respiratory failure with hypoxemia: PLAN: RECOMMENDATIONS: 1. Continue therapeutic anticoagulation. 2. Obtain echocardiogram. 3. Wean supplemental oxygen to maintain saturations at or above 90%. 4. Encourage incentive spirometer use and mobilize patient as tolerated. IMPRESSIONS: 1. Acute hypoxemic respiratory failure The patient was recently admitted to the hospital several days with COVID-19 pneumonia and was treated with remdesivir and Decadron. At the time of his discharge, he was requiring 3 L/min of supplemental oxygen. Initial CTA chest at the time of his last hospitalization revealed no evidence for PE. However, following his discharge, the patient has developed worsening dyspnea and hypoxemia. Follow-up CTA chest revealed evidence of bilateral PE with radiographic signs of RV strain. The patient was subsequently placed on therapeutic anticoagulation, which I would recommend be continued. At this time, would plan to wean supplemental oxygen to maintain saturations at or above 90%. It is reasonable to continue gentle diuresis as tolerated by hemodynamics and renal function. Will obtain echocardiogram as well. This note was generated with [employer] dictation software. It may contain incorrect words, spelling, and punctuation that were not noted in checking the note before signing. HPI Consult Data Date of Consult: 04/16/21 HPI Narrative Reason for Consultation: Hypoxemic respiratory failure HPI Narrative: The patient is a 70-year-old male, with a history as outlined below, who presented to the emergency department on April 14 with complaints of worsening dyspnea and hypoxemia. The patient was just admitted to the hospital April 08 through April 10, during which time, he was treated for COVID-19 pneumonia with Decadron and remdesivir. The patient required 3 L/min of supplemental oxygen at the time of his discharge from the hospital. CTA chest at the time of his prior hospitalization revealed no evidence for PE. On presentation to the emergency department, the patient was noted to be afebrile and hemodynamically stable. He was initially documented to be requi ring 6 L/min of supplemental oxygen to maintain appropriate saturations. Laboratory evaluation revealed an elevated white blood cell count to 15,000. Coagulation profile revealed an elevated D-dimer to greater than 20. Chemistry profile was largely unrevealing. CTA chest was obtained which revealed lateral pulmonary emboli with evidence of RV strain. Scattered bilateral airspace opacities were again noted. The patient was started on a continuous heparin infusion and admitted to the progressive care unit for further management. [facility] Medical History BPH (benign prostatic hyperplasia) BPH (benign prostatic hyperplasia) Cholelithiasis with chronic cholecystitis DVT (deep venous thrombosis) Gallstones Gynecomastia, male Heart disease Hemorrhoids Hypertension Morbid obesity due to excess calories Numbness and tingling Rectal bleeding Sleep apnea Thyroid disease Venous insufficiency Home Medications desoximetasone 1 applic TOPICAL PRN PRN 06/13/13 [History Last Taken Unknown] doxazosin 4 mg PO QHS 06/13/13 [History Last Taken 04/13/21] latanoprost 1 drp EACH EYE QHS 06/13/13 [History Last Taken 04/13/21] multivitamin with folic acid 1 tab PO DAILY 06/13/13 [History Last Taken 04/14/21] kp-4-pbp-epa-fish oil-vit D3 1 ea PO DAILY 06/13/13 [History Last Taken 04/14/21] verapamil 180 mg PO BID 06/13/13 [History Last Taken 04/14/21] chlorthalidone 25 mg tablet 25 mg PO DAILY 11/22/17 [History Last Taken 04/14/21] fluticasone propionate 50 mcg/actuation nasal spray,suspension 1 spray INTRANASAL BID 11/22/17 [History Last Taken 04/14/21] furosemide 40 mg tablet 40 mg PO DAILY 11/22/17 [History Last Taken 04/14/21] levothyroxine 50 mcg capsule 50 mcg PO DAILY 11/22/17 [History Last Taken 04/14/21] potassium chloride 20 mEq tablet,extended release(part/cryst) 40 meq PO BID tab 11/22/17 [History Last Taken 04/14/21] chlorpheniramine maleate 4 mg PO DAILY PRN 04/13/19 [History Last Taken Unknown] dutasteride 0.5 mg PO QHS 04/13/19 [History Last Taken 04/13/21] psyllium husk 0.52 gm PO QHS 04/13/19 [History Last Taken 04/13/21] allopurinol 100 mg PO DAILY 04/08/21 [History Last Taken 04/14/21] diphenhydramine HCl [Benadryl] 25 mg PO QHS PRN 04/08/21 [History Last Taken Unknown] indomethacin 50 mg PO TID PRN PRN 04/08/21 [History Last Taken Unknown] albuterol sulfate 2 puff INHALATION Q4H PRN #8.5 g 04/10/21 [Rx Last Taken 04/14/21] dexamethasone 6 mg PO DAILY 8 Days #12 tab 04/10/21 [Rx Last Taken 04/14/21] guaifenesin [Mucus Relief ER] 600 mg PO BID PRN PRN 10 Days #0 tab 04/10/21 [Rx Last Taken 04/14/21] Allergy/AdvReac Type Severity Reaction Status Date / Time YOSSI Inhibitors AdvReac Other Verified 04/08/21 10:09 hydrochlorothiazide AdvReac Other Verified 04/08/21 10:09 [From Dyazide] spironolactone AdvReac Other Verified 04/08/21 10:09 [From Aldactone] triamterene [From Dyazide] AdvReac Other Verified 04/08/21 10:09 Family History Mother Diabetes Hypertension Father Heart disease Diabetes Thyroid disorder Surgical History H/O colonoscopy h/o thoracentesis History of umbilical hernia repair S/P hemorrhoidectomy (~01/2018) S/P laparoscopic cholecystectomy S/P tonsillectomy Social History household members: spouse Smoking Status: Never smoker alcohol intake: current alcohol intake frequency: holidays/special occasions only substance use type: does not use ROS Constitutional Constitutional: Denies chills, fatigue or fever(s) Eyes Eyes: Denies blurry vision or change in vision ENT HEENT: Denies dizziness, dysphagia or epistaxis Cardiovascular Cardiovascular: Reports dyspnea; Denies chest pain Respiratory/Chest Respiratory/Chest: Reports dyspnea Gastrointestinal Gastrointestinal: Denies abdominal pain, diarrhea, nausea or vomiting Genitourinary Genitourinary: Denies difficulty urinating Musculoskeletal Musculoskeletal: Denies arthralgias, back pain or joint pain Integumentary Integumentary: Denies lesions, rash or skin ulcer Neurologic Neurologic: Denies abnormal gait or abnormal speech Psychiatric Psychiatric: Denies anxiety Endocrine Endocrinology: Denies fatigue Hematologic/Lymphatic Hematologic/Lymphatic: Denies easy bleeding or easy bruising Physical Exam Const alert and no apparent distress General Appearance: cooperative Nutritional Appearance: morbidly obese HEENT normocephalic and head/scalp atraumatic Eyes conjunctivae normal and no scleral icterus Neck supple General: trachea midline Chest inspection of chest normal Resp Auscultation: diminished lung sounds Cardio regular rate and regular rhythm GI normal to inspection, nondistended, normoactive bowel sounds Extremity no clubbing, cyanosis or edema Skin no rashes or lesions noted Neuro moves all extremities and no focal motor deficits Psych cooperative and affect normal Lab / Micro Data Result Diagrams: 04/16/21 06:32 04/16/21 06:32 Labs: Laboratory Results - last 24 hr 04/14/21 13:55: WBC 14.8 H, RBC 5.02, Hgb 15.6, Hct 45.3, MCV 90.2, MCH 31.1, MCHC 34.4, RDW Std Deviation 42.4, RDW Coeff of Karolyn 12.9, Plt Count 368, MPV 8.9, Neut % (Auto) Not Reportable, Absolute Neuts (auto) 12.4 H, Absolute Lymphs (auto) 1.63, Total Counted 100, Neutrophils % (Manual) 83 H, Band Neutrophils % 1, Lymphocytes % (Manual) 11 L, Monocytes % (Manual) 5, Diff Path Review December, Platelet Estimate ADEQUATE, RBC Morphology N CHROM, Anisocytosis 1+ 04/14/21 13:55: Sodium 140, Potassium 3.8, Chloride 105, Carbon Dioxide 29.0, Anion Gap 6, BUN 25 H, Creatinine 1.12, Estim Creat Clear Calc 60.49, Est GFR (MDRD) Af Amer 83, Est GFR (MDRD) Non-Af 69, BUN/Creatinine Ratio 22.3 H, Glucose 140 H, Calcium 9.2 04/14/21 13:55: D-Dimer Quant (PE/DVT) > 20.00 H* 04/14/21 13:55: Magnesium 2.1, Ferritin 652 H, Lactate Dehydrogenase 432 H, C- React Prot Ext Range 34.90 H 04/14/21 13:55: B-Natriuretic Peptide 23.6 04/14/21 13:55: Procalcitonin 0.08 04/14/21 16:25: Blood Type B POSITIVE, Antibody Screen NEGATIVE 04/15/21 00:15: PT 15.5 H, INR 1.3, APTT 70.0 H 04/15/21 06:44: WBC 14.7 H, RBC 5.36, Hgb 16.5, Hct 48.3, MCV 90.1, MCH 30.8, MCHC 34.2, RDW Std Deviation 42.9, RDW Coeff of Karolyn 13.2, Plt Count 387, MPV 8.8, Neut % (Auto) Not Reportable, Absolute Neuts (auto) 3.2, Total Counted 100, Neutrophils % (Manual) 72 H, Band Neutrophils % 1, Lymphocytes % (Manual) 22, Monocytes % (Manual) 1, Metamyelocytes % 4 H, Diff Path Review December, Platelet Estimate ADEQUATE, RBC Morphology NORM C+C 04/15/21 06:44: Sodium 138, Potassium 4.2, Chloride 101, Carbon Dioxide 28.0, Anion Gap 9, BUN 36 H, Creatinine 1.23, Estim Creat Clear Calc 55.08, Est GFR (MDRD) Af Amer 75, Est GFR (MDRD) Non-Af 62, BUN/Creatinine Ratio 29.3 H, Glucose 136 H, Calcium 9.4, Total Bilirubin 1.00, AST 44 H, ALT 155 H, Alkaline Phosphatase 59, Total Protein 8.6 H, Albumin 3.1 L, Globulin 5.5 H, Albumin/Globulin Ratio 0.6 L 04/15/21 06:44: APTT 34.0 Micro: Microbiology 04/15/21 07:53 Sputum, Expectorated/Coughed Gram Stain - Final 04/14/21 19:10 Mucosa - Nose Respiratory Panel (PCR) - Final 04/14/21 21:00 Urine, Clean Catch Legionella Antigen - Final 04/14/21 21:00 Urine, Clean Catch Streptococcus pneumoniae Antigen (M - Final ABG Data ABG results: ABG 04/14/21 15:23 Specimen Type ART Sample Site R Radial pH 7.52 H Bicarbonate Actual 29.5 H Total CO2 31 Base Excess 7 H O2 Saturation 94 L ABG pCO2 36.2 ABG pO2 61 L Dean Test Positive O2 Delivery Device Cannula Liter Flow 6.0 Radiology Impression Chest X-Ray 04/14/21 14:30 IMPRESSION: Progression of bilateral airspace disease consistent with atypical or viral pneumonia. at 1606 Reported and signed by: Jayme Monzon MD Electronically Signed: Jayme Monzon MD at 16:05 EDT Tel , Service support , Chest CTA 04/14/21 19:04 IMPRESSION: Pulmonary emboli seen in segmental branches to bilateral upper and lower lobes with evidence of right heart strain due to high embolic load. Stable to slightly improved pulmonary opacities suggesting Covid pneumonia. Unchanged mild bilateral hilar lymphadenopathy. Gynecomastia. Electronically Signed: Jefferson Peralta DO at 21:45 EDT Tel , Service support , ADDENDUM: 04/14/21 2218 IMPRESSION: Pulmonary emboli seen in segmental branches to bilateral upper and lower lobes with evidence of right heart strain due to high embolic load. Stable to slightly improved pulmonary opacities suggesting Covid pneumonia. Unchanged mild bilateral hilar lymphadenopathy. Gynecomastia. N.B. : The above Results were Read Back by Jefferson Peralta DO to Lynette Kyle RN, and understanding confirmed on 04/14/2021 22:11:33 (ET). Electronically Signed: Jefferson Peralta DO at 21:45 EDT Tel , Service support , Charges/Coding Visit Charges Inpatient E&M: 01820 Init Hosp L3
[2021-04-15 14:18] LABS: Absolute Lymphocyte Count 3.24 X10^3/uL (0.83-4.51); Absolute Neutrophil Count 10.8 X10^3/uL (2.0-7.7)
--- NOTE | 2021-04-15 14:39 | ECHOD_ITS ---
Reason For Study: Submassive PE, Eval for RV Dysfunction Procedure This was a 2D Doppler, Color Flow transthoracic echocardiogram. The study was technically difficult. Exam performed portable in patient room. The exam was abbreviated due to the COVID 19 protocol. Left Ventricle Moderate to severe concentric left ventricular hypertrophy. Based upon the 2D echocardiographic images obtained there appears to be grossly normal left ventricular size, wall motion, and systolic function. The estimated ejection fraction is 55 %. Unable to assess diastolic dysfunction. Right Ventricle Normal RV size. Normal systolic function. Atria Normal left atrium. Normal right atrium. No doppler evidence for ASD. Mitral Valve There is moderate to severe mitral annular calcification. Extension of the mitral annular calcification on the base of the posterior mitral valve leaflet. Mild focal mitral valve calcification of the anterior leaflet. Trivial mitral valve insufficiency. Tricuspid Valve Normal tricuspid valve. Mild tricuspid valve insufficiency. Right ventricular systolic pressure estimated to be 31 mmHg. Aortic Valve Trisinus/trileaflet aortic valve. Mild focal aortic valve calcification. Pulmonic Valve The pulmonic valve is not well visualized. Trivial pulmonic valve insufficiency. Great Vessels The aortic root is not well visualized. Pericardium/Pleural No pericardial effusion. MMode/2D Measurements & Calculations LVIDd: 4.3 cm IVSd: 1.7 cm LA dimension: 5.0 cm LVIDs: 2.7 cm LVPWd: 1.7 cm RVDd: 4.1 cm FS: 37.8 % LAV(MOD-sp4): 44.0 ml LA A4 area: 17.0 cm2 RA A4 area: 15.2 cm2 Doppler Measurements & Calculations Lat Peak E' Trav: 4.7 cm/sec Med Peak E' Trav: 4.2 cm/sec PA V2 max: 93.4 cm/sec TR max trav: 264.8 cm/sec TR max P.2 mmHg ECHO/Echo Complete Interpretation Summary The study was technically difficult. Based upon the 2D echocardiographic images obtained there appears to be grossly normal left ventricular size, wall motion, and systolic function. The estimated ejection fraction is 55 %. Moderate to severe concentric left ventricular hypertrophy. There is moderate to severe mitral annular calcification. Extension of the mitral annular calcification on the base of the posterior mitr al valve leaflet. Mild focal mitral valve calcification of the anterior leaflet. Trivial mitral valve insufficiency. Mild tricuspid valve insufficiency. Mild focal aortic valve calcification. Trivial pulmonic valve insufficiency. Right ventricular systolic pressure estimated to be 31 mmHg. Unable to assess diastolic dysfunction. Ordering Physician: Reinaldo Turk Referring Physician: Foreign Herrmann Performed By: Anton Tyler RCS
--- NOTE | 2021-04-15 15:46 | CASEMGMT ---
Readmission chart review: 04/08-04/10/21 Hypoxia/Acute COVID 19 04/14/21-current Acute resp failure, COVID pna Pt initially admitted for COVID and was independent in room and anxious to get home. Pt did qualify for 3L at rest and 4L w/ exertion home oxygen. Pt's was also at home with COVID. Pt returned to [facility] ED for hypoxia even though on home oxygen and was readmitted for Acute resp failure, COVID pna. Pt is still independent in room and declines therapy. Pt does have PE's on chest CT at this time and is currently on 10L nc. CM to follow for increased home oxygen need, anti-coag coverage/co-pay, and any further discharge planning/needs. Isidra GAINES CM
[2021-04-15 16:05] LABS: BNP,B-Type NATRIURETIC PEPTIDE 14.7 pg/mL (0-100)
[2021-04-15 16:13] LABS: Troponin-I HS 11 pg/mL (3.0-78.0)
[2021-04-15] MEDS: Enoxaparin 120 MG/0.8 ML Syringe SC (21:03)
[2021-04-15] MEDS: Doxazosin 4 MG Tablet PO (21:06)
[2021-04-15] MEDS: Latanoprost 0.005% 1 Bottle 1 DRP EACH EYE (21:08)
[2021-04-15] MEDS: Fluticasone 0.05% 1 SPRAY NASAL.SRY NASAL (21:09)
[2021-04-16] VITALS (11 sets, daily range): BP systolic 114–146; BP diastolic 75–84; PULSE 53–77; RESP 18–20; TEMP 36.1–37.4; O2SAT 92–94
[2021-04-16 06:57] LABS: Hematocrit 47.8 % (40-54); Mean Corp Hgb Conc 33.5 g/dL (32-36); Mean Corpuscular Hgb 30.4 pg (27.0-32.0); Mean Corpuscular Volume 90.9 fL (80-94); Mean Platelet Vol. 8.9 fl (6.2-12.0); POSITIVE COUNT YES; POSITIVE MORPHOLOGY YES; Platelet Count 352 K/mm3 (150-450); RBC Distribution Width CV 12.9 % (11.6-14.6); RBC Distribution Width SD 42.6 fl (35.1-43.9); Red Blood Count 5.26 M/mm3 (4.6-6.2)
[2021-04-16 07:14] LABS: Differential Indicated MANUAL DIFF
[2021-04-16 07:29] LABS: ALB/GLOB Ratio 0.5 RATIO (0.9-2.4); AST(SGOT) 30 U/L (15-37); Alanine Aminotransfer ALT/SGPT 121 U/L (16-61); Albumin, Serum 2.7 g/dL (3.2-5.0); Alkaline Phosphatase 55 U/L (45-117); Anion Gap 7 (5-15); BUN 48 mg/dL (7-18); BUN/Creat Ratio 37.5 RATIO (10-20); Chloride 102 mmol/L (98-107); Creatinine, Serum 1.28 mg/dL (0.70-1.30); EST Glomerular Filtration Rate 59 mL/min (>60); Est Glom Filt Rate - Afr Amer 71 mL/min (>60); Estimated Creatinine Clearance 52.93 ml/min; Globulin 5.4 g/dL (2.2-4.2); Glucose 122 mg/dL (74-106); Lymphocyte 19 % (19-41); Metamyelocyte 3 % (0-1); Monocyte 4 % (0-10); Myelocyte 1 % (0-0); Neutrophil-Band 2 % (0-5); Neutrophil-Segmented 71 % (47-70); Potassium 4.1 mmol/L (3.5-5.1); Protein, Total 8.1 g/dL (6.4-8.2); Sodium Level 138 mmol/L (136-145); Total Cells Counted 100 (MANUAL DIFF)
[2021-04-16 07:30] LABS: Absolute Lymphocyte Count 2.65 X10^3/uL (0.83-4.51); Absolute Neutrophil Count 10.7 X10^3/uL (2.0-7.7); Lymphocyte # 2.65 X10^3/ul (0.83-4.51)
[2021-04-16 07:31] LABS: Differential Comment MANUAL DIFF; Platelet Estimate ADEQUATE (ADEQ); Red Cell Morphology NORM C+C NORMAL (NORM C&C)
[2021-04-16] MEDS: 0.9% Saline Lock 10 ML Syringe IV ×2 (09:13→23:12)
[2021-04-16] MEDS: dexAMETHasone 4 MG/ML Vial 6 MG IV (09:13)
[2021-04-16] MEDS: Chlorthalidone 50 MG Tablet 25 MG PO (09:13)
[2021-04-16] MEDS: Verapamil SR 180 MG CAPSULE PO ×2 (09:13→23:11)
[2021-04-16] MEDS: Furosemide 40 MG Tablet PO (09:14)
[2021-04-16] MEDS: Enoxaparin 120 MG/0.8 ML Syringe SC ×2 (09:14→23:11)
[2021-04-16] MEDS: Allopurinol 100 MG Tablet PO (09:14)
[2021-04-16] MEDS: Levothyroxine 50 MCG Tablet PO (09:14)
[2021-04-16] MEDS: Multivitamins,Therapeutic Tablet 1 TABLET PO (09:14)
[2021-04-16] MEDS: Famotidine 20 MG Tablet PO ×2 (09:14→23:11)
[2021-04-16] MEDS: Potassium Chloride Oral Tablet 20 MEQ 40 MEQ PO ×2 (09:14→23:11)
[2021-04-16] MEDS: Fluticasone 0.05% 1 SPRAY NASAL.SRY NASAL ×2 (09:15→23:12)
[2021-04-16 09:35] LABS: Pathologist Review Reviewed
[2021-04-16 09:38] LABS: Pathologist Review Reviewed
--- NOTE | 2021-04-16 14:18 | PN.CC_ITS ---
Assessment & Plan Assessment/Plan (1) Acute respiratory failure with hypoxemia: PLAN: RECOMMENDATIONS: 1. Continue therapeutic anticoagulation. 2. Wean supplemental oxygen to maintain saturations at or above 90%. 3. Encourage incentive spirometer use and mobilize patient as tolerated. 4. Perform walking oximetry study prior to consideration for discharge home. 5. Outpatient pulmonary follow-up within 2 weeks of discharge is recommended. IMPRESSIONS: 1. Acute hypoxemic respiratory failure The patient was recently admitted to the hospital several days with COVID-19 pneumonia and was treated with remdesivir and Decadron. At the time of his discharge, he was requiring 3 L/min of supplemental oxygen. Initial CTA chest at the time of his last hospitalization revealed no evidence for PE. However, following his discharge, the patient developed worsening dyspnea and hypoxemia. Follow-up CTA chest revealed evidence of bilateral PE with radiographic signs of RV strain. The patient was subsequently placed on therapeutic anticoagulation, which I would recommend be continued. At this time, would plan to wean supplemental oxygen to maintain saturations at or above 90%. It is reasonable to continue gentle diuresis as tolerated by hemodynamics and renal function. Echocardiogram revealed no evidence of RV strain. Recommend performing a walking oximetry study prior to consideration for discharge home. The patient should ideally follow-up in the pulmonary medicine clinic within 2 weeks of discharge. This note was generated with [employer] dictation software. It may contain incorrect words, spelling, and punctuation that were not noted in checking the note before signing. Subjective Subjective The patient was seen and examined at the bedside this morning. Events from the last 24 hours have been reviewed. The patient is currently afebrile, hemodynamically stable and maintaining appropriate oxygen saturations on 5 L/min via nasal cannula. The patient remains systemically anticoagulated on Lovenox. He denies any bleeding related complications. Dyspnea is slowly improving. Objective Data Objective Data The patient's most recent lab work, culture data and imaging studies have all been personally reviewed. Surface echocardiogram revealed normal LV function with an ejection fraction of 55%. Right ventricular systolic pressure was estimated to be 31 mmHg. Vital Signs: Vital Signs Temp Pulse Resp BP Pulse Ox 99.3 F H 67 19 H 146/76 H 93 04/16/21 09:07 04/16/21 10:50 04/16/21 09:07 04/16/21 09:07 09/08/21 11:28 Oxygen Flow Rate (L/min) 5 Oxygen Delivery Method Nasal Cannula Weight: 126.1 kg Body Mass Index (BMI) 41.4 Intake & Output: Intake and Output for Last 24 Hours 04/14/21 04/15/21 04/16/21 23:59 23:59 23:59 Intake Total 1405.71 / 1705.71 940 / 940 Output Total 2 / 2 Balance 1403.71 / 1703.71 940 / 940 Lab / Micro Data Attestation: I reviewed the patient's lab results. Result Diagrams: 04/16/21 06:32 04/16/21 06:32 Labs: Laboratory Results - last 24 hr 04/14/21 13:55: Diff Path Review Reviewed 04/15/21 06:44: Absolute Neuts (auto) 10.8 H, Absolute Lymphs (auto) 3.24, Diff Path Review Reviewed 04/15/21 15:27: Troponin I High Sens 11 04/15/21 15:27: B-Natriuretic Peptide 14.7 04/16/21 06:32: WBC 14.0 H, RBC 5.26, Hgb 16.0, Hct 47.8, MCV 90.9, MCH 30.4, MCHC 33.5, RDW Std Deviation 42.6, RDW Coeff of Karolyn 12.9, Plt Count 352, MPV 8.9, Neut % (Auto) Not Reportable, Absolute Neuts (auto) 10.7 H, Absolute Lymphs (auto) 2.65, Total Counted 100, Neutrophils % (Manual) 71 H, Band Neutrophils % 2, Lymphocytes % (Manual) 19, Monocytes % (Manual) 4, Metamyelocytes % 3 H, Myelocytes % 1 H, Differential Comment MANUAL DIFF, Diff Path Review May foll, Platelet Estimate ADEQUATE, RBC Morphology NORM C+C 04/16/21 06:32: Sodium 138, Potassium 4.1, Chloride 102, Carbon Dioxide 29.0, Anion Gap 7, BUN 48 H, Creatinine 1.28, Estim Creat Clear Calc 52.93, Est GFR (MDRD) Af Amer 71, Est GFR (MDRD) Non-Af 59 L, BUN/Creatinine Ratio 37.5 H, Glucose 122 H, Calcium 9.0, Total Bilirubin 0.80, AST 30, ALT 121 H, Alkaline Phosphatase 55, Total Protein 8.1, Albumin 2.7 L, Globulin 5.4 H, Albumin/Globulin Ratio 0.5 L Micro: Microbiology 04/15/21 07:53 Sputum, Expectorated/Coughed Gram Stain - Final 04/15/21 07:53 Sputum, Expectorated/Coughed Respiratory Culture - Preliminary Appears to be normal respiratory mariya. Further studies to follow. 04/14/21 19:10 Mucosa - Nose Respiratory Panel (PCR) - Final 04/14/21 21:00 Urine, Clean Catch Legionella Antigen - Final 04/14/21 21:00 Urine, Clean Catch Streptococcus pneumoniae Antigen (M - Final Radiography Diagnostic Testing: Radiology Impression Echocardiogram 04/15/21 14:39 Interpretation Summary The study was technically difficult. Based upon the 2D echocardiographic images obtained there appears to be grossly normal left ventricular size, wall motion, and systolic function. The estimated ejection fraction is 55 %. Moderate to severe concentric left ventricular hypertrophy. There is moderate to severe mitral annular calcification. Extension of the mitral annular calcification on the base of the posterior mi tral valve leaflet. Mild focal mitral valve calcification of the anterior leaflet. Trivial mitral valve insufficiency. Mild tricuspid valve insufficiency. Mild focal aortic valve calcification. Trivial pulmonic valve insufficiency. Right ventricular systolic pressure estimated to be 31 mmHg. Unable to assess diastolic dysfunction. Ordering Physician: Reinaldo Turk Referring Physician: Foreign Herrmann Performed By: Anton Tyler RCS Physical Exam Const alert and no apparent distress General Appearance: cooperative Nutritional Appearance: morbidly obese HEENT normocephalic and head/scalp atraumatic Eyes conjunctivae normal and no scleral icterus Neck supple General: trachea midline Chest inspection of chest normal Resp Auscultation: diminished lung sounds Cardio regular rate and regular rhythm GI normal to inspection, nondistended, normoactive bowel sounds Extremity no clubbing, cyanosis or edema Skin no rashes or lesions noted Neuro moves all extremities and no focal motor deficits Psych cooperative and affect normal Charges/Coding Visit Charges Inpatient E&M: 89835 Subs Hosp L2
--- NOTE | 2021-04-16 15:31 | PCM.CONS.GEN ---
Assessment & Plan Assessment/Plan (1) Pneumonia due to COVID-19 virus: PLAN: Covid sx started 03/31, given remdesivir/dex, discharged on dex, now back with PE and worsened hypoxia. On dex and therapeutic lovenox. Tomorrow will be last dose of dex. Quarantine until 04/19/21. Will follow as needed, thank you (2) Pulmonary emboli: HPI Consult Data Date of Consult: 04/16/21 HPI Narrative HPI Narrative: SLIME SHAW, is a 70 M who presented with worsening hypoxia at home. Sx started 03/31, covid (+) 04/02, c/o fever, chills, diarrhea, progressive dyspnea. Has been vaccinated. Admitted 04/08, given dex and remdesivir. with covid, has recovered. Discharged with dex and home O2. Came back to ED, CT showed multiple PE. Admitted on lovenox, feeling about the same. Full ROS performed and neg except as noted above. [facility] Medical History BPH (benign prostatic hyperplasia) BPH (benign prostatic hyperplasia) Cholelithiasis with chronic cholecystitis DVT (deep venous thrombosis) Gallstones Gynecomastia, male Heart disease Hemorrhoids Hypertension Morbid obesity due to excess calories Numbness and tingling Rectal bleeding Sleep apnea Thyroid disease Venous insufficiency Home Medications desoximetasone 1 applic TOPICAL PRN PRN 06/13/13 [History Last Taken Unknown] doxazosin 4 mg PO QHS 06/13/13 [History Last Taken 04/13/21] latanoprost 1 drp EACH EYE QHS 06/13/13 [History Last Taken 04/13/21] multivitamin with folic acid 1 tab PO DAILY 06/13/13 [History Last Taken 04/14/21] [id number]-[id number]-fish oil-vit D3 1 ea PO DAILY 06/13/13 [History Last Taken 04/14/21] verapamil 180 mg PO BID 06/13/13 [History Last Taken 04/14/21] chlorthalidone 25 mg tablet 25 mg PO DAILY 11/22/17 [History Last Taken 04/14/21] fluticasone propionate 50 mcg/actuation nasal spray,suspension 1 spray INTRANASAL BID 11/22/17 [History Last Taken 04/14/21] furosemide 40 mg tablet 40 mg PO DAILY 11/22/17 [History Last Taken 04/14/21] levothyroxine 50 mcg capsule 50 mcg PO DAILY 11/22/17 [History Last Taken 04/14/21] potassium chloride 20 mEq tablet,extended release(part/cryst) 40 meq PO BID tab 11/22/17 [History Last Taken 04/14/21] chlorpheniramine maleate 4 mg PO DAILY PRN 04/13/19 [History Last Taken Unknown] dutasteride 0.5 mg PO QHS 04/13/19 [History Last Taken 04/13/21] psyllium husk 0.52 gm PO QHS 04/13/19 [History Last Taken 04/13/21] allopurinol 100 mg PO DAILY 04/08/21 [History Last Taken 04/14/21] diphenhydramine HCl [Benadryl] 25 mg PO QHS PRN 04/08/21 [History Last Taken Unknown] indomethacin 50 mg PO TID PRN PRN 04/08/21 [History Last Taken Unknown] albuterol sulfate 2 puff INHALATION Q4H PRN #8.5 g 04/10/21 [Rx Last Taken 04/14/21] dexamethasone 6 mg PO DAILY 8 Days #12 tab 04/10/21 [Rx Last Taken 04/14/21] guaifenesin [Mucus Relief ER] 600 mg PO BID PRN PRN 10 Days #0 tab 04/10/21 [Rx Last Taken 04/14/21] Allergy/AdvReac Type Severity Reaction Status Date / Time YOSSI Inhibitors AdvReac Other Verified 04/08/21 10:09 hydrochlorothiazide AdvReac Other Verified 04/08/21 10:09 [From Dyazide] spironolactone AdvReac Other Verified 04/08/21 10:09 [From Aldactone] triamterene [From Dyazide] AdvReac Other Verified 04/08/21 10:09 Family History Mother Diabetes Hypertension Father Heart disease Diabetes Thyroid disorder Surgical History H/O colonoscopy h/o thoracentesis History of umbilical hernia repair S/P hemorrhoidectomy (~01/2018) S/P laparoscopic cholecystectomy S/P tonsillectomy Social History household members: spouse Smoking Status: Never smoker alcohol intake: current alcohol intake frequency: holidays/special occasions only substance use type: does not use Physical Exam Const alert, oriented x3 and no apparent distress General Appearance: cooperative HEENT head/scalp atraumatic Eyes PERRL and EOMs intact bilaterally Neck supple and No nodes Resp clear to auscultation bilaterally Auscultation: diminished lung sounds Cardio regular rate and regular rhythm GI normal to inspection, nondistended, normoactive bowel sounds Extremity no clubbing, cyanosis or edema Skin no rashes or lesions noted Neuro CN's II-XII intact bilaterally Lab / Micro Data Result Diagrams: 04/16/21 06:32 04/16/21 06:32 Labs: Laboratory Results - last 24 hr 04/14/21 13:55: Diff Path Review Reviewed 04/15/21 06:44: Diff Path Review Reviewed 04/15/21 15:27: Troponin I High Sens 11 04/15/21 15:27: B-Natriuretic Peptide 14.7 04/16/21 06:32: WBC 14.0 H, RBC 5.26, Hgb 16.0, Hct 47.8, MCV 90.9, MCH 30.4, MCHC 33.5, RDW Std Deviation 42.6, RDW Coeff of Karolyn 12.9, Plt Count 352, MPV 8.9, Neut % (Auto) Not Reportable, Absolute Neuts (auto) 10.7 H, Absolute Lymphs (auto) 2.65, Total Counted 100, Neutrophils % (Manual) 71 H, Band Neutrophils % 2, Lymphocytes % (Manual) 19, Monocytes % (Manual) 4, Metamyelocytes % 3 H, Myelocytes % 1 H, Differential Comment MANUAL DIFF, Diff Path Review May foll, Platelet Estimate ADEQUATE, RBC Morphology NORM C+C 04/16/21 06:32: Sodium 138, Potassium 4.1, Chloride 102, Carbon Dioxide 29.0, Anion Gap 7, BUN 48 H, Creatinine 1.28, Estim Creat Clear Calc 52.93, Est GFR (MDRD) Af Amer 71, Est GFR (MDRD) Non-Af 59 L, BUN/Creatinine Ratio 37.5 H, Glucose 122 H, Calcium 9.0, Total Bilirubin 0.80, AST 30, ALT 121 H, Alkaline Phosphatase 55, Total Protein 8.1, Albumin 2.7 L, Globulin 5.4 H, Albumin/Globulin Ratio 0.5 L Micro: Microbiology 04/15/21 07:53 Sputum, Expectorated/Coughed Gram Stain - Final 04/15/21 07:53 Sputum, Expectorated/Coughed Respiratory Culture - Preliminary Appears to be normal respiratory mariya. Further studies to follow. Radiology Impression Echocardiogram 04/15/21 14:39 Interpretation Summary The study was technically difficult. Based upon the 2D echocardiographic images obtained there appears to be grossly normal left ventricular size, wall motion, and systolic function. The estimated ejection fraction is 55 %. Moderate to severe concentric left ventricular hypertrophy. There is moderate to severe mitral annular calcification. Extension of the mitral annular calcification on the base of the posterior mitral valve leaflet. Mild focal mitral valve calcification of the anterior leaflet. Trivial mitral valve insufficiency. Mild tricuspid valve insufficiency. Mild focal aortic valve calcification. Trivial pulmonic valve insufficiency. Right ventricular systolic pressure estimated to be 31 mmHg. Unable to assess diastolic dysfunction. Ordering Physician: Reinaldo Turk Referring Physician: Foreign Herrmann Performed By: Anton Tyler RCS
--- NOTE | 2021-04-16 16:03 | PCM.PN.HOSP ---
Subjective Subjective Shortness of breath gradually improving. WBC count stable at 14,000 probably elevated from steroid. Heart rate in 50s. Objective Data Objective Data Vital Signs: Vital Signs Temp Pulse Resp BP Pulse Ox 97.7 F L 56 L 18 125/80 H 94 04/16/21 14:18 04/16/21 14:53 04/16/21 14:18 04/16/21 14:18 04/16/21 14:18 Oxygen Flow Rate (L/min) 4 Oxygen Delivery Method Nasal Cannula Weight: 278 lb 0.046 oz Body Mass Index (BMI) 41.4 Intake & Output: Intake and Output for Last 24 Hours 04/14/21 04/15/21 04/16/21 23:59 23:59 23:59 Intake Total 1405.71 / 1705.71 940 / 940 Output Total 2 / 2 Balance 1403.71 / 1703.71 940 / 940 Lab / Micro Data Result Diagrams: 04/16/21 06:32 04/16/21 06:32 Labs: Laboratory Results - last 24 hr 04/14/21 13:55: Diff Path Review Reviewed 04/15/21 06:44: Diff Path Review Reviewed 04/15/21 15:27: Troponin I High Sens 11 04/15/21 15:27: B-Natriuretic Peptide 14.7 04/16/21 06:32: WBC 14.0 H, RBC 5.26, Hgb 16.0, Hct 47.8, MCV 90.9, MCH 30.4, MCHC 33.5, RDW Std Deviation 42.6, RDW Coeff of Karolyn 12.9, Plt Count 352, MPV 8.9, Neut % (Auto) Not Reportable, Absolute Neuts (auto) 10.7 H, Absolute Lymphs (auto) 2.65, Total Counted 100, Neutrophils % (Manual) 71 H, Band Neutrophils % 2, Lymphocytes % (Manual) 19, Monocytes % (Manual) 4, Metamyelocytes % 3 H, Myelocytes % 1 H, Differential Comment MANUAL DIFF, Diff Path Review May foll, Platelet Estimate ADEQUATE, RBC Morphology NORM C+C 04/16/21 06:32: Sodium 138, Potassium 4.1, Chloride 102, Carbon Dioxide 29.0, Anion Gap 7, BUN 48 H, Creatinine 1.28, Estim Creat Clear Calc 52.93, Est GFR (MDRD) Af Amer 71, Est GFR (MDRD) Non-Af 59 L, BUN/Creatinine Ratio 37.5 H, Glucose 122 H, Calcium 9.0, Total Bilirubin 0.80, AST 30, ALT 121 H, Alkaline Phosphatase 55, Total Protein 8.1, Albumin 2.7 L, Globulin 5.4 H, Albumin/Globulin Ratio 0.5 L Micro: Microbiology 04/15/21 07:53 Sputum, Expectorated/Coughed Gram Stain - Final 04/15/21 07:53 Sputum, Expectorated/Coughed Respiratory Culture - Preliminary Appears to be normal respiratory maryia. Further studies to follow. 04/14/21 19:10 Mucosa - Nose Respiratory Panel (PCR) - Final 04/14/21 21:00 Urine, Clean Catch Legionella Antigen - Final 04/14/21 21:00 Urine, Clean Catch Streptococcus pneumoniae Antigen (M - Final Radiography Diagnostic Testing: Radiology Impression Echocardiogram 04/15/21 14:39 Interpretation Summary The study was technically difficult. Based upon the 2D echocardiographic images obtained there appears to be grossly normal left ventricular size, wall motion, and systolic function. The estimated ejection fraction is 55 %. Moderate to severe concentric left ventricular hypertrophy. There is moderate to severe mitral annular calcification. Extension of the mitral annular calcification on the base of the posterior mitral valve leaflet. Mild focal mitral valve calcification of the anterior leaflet. Trivial mitral valve insufficiency. Mild tricuspid valve insufficiency. Mild focal aortic valve calcification. Trivial pulmonic valve insufficiency. Right ventricular systolic pressure estimated to be 31 mmHg. Unable to assess diastolic dysfunction. Ordering Physician: Reinaldo Turk Referring Physician: Foreign Herrmann Performed By: Anton Tyler RCS Physical Exam Narrative General: Alert, Oriented x3, Cooperative HEENT: Atraumatic, PERRLA, EOMI, Normocephalic Oral: No Gingival or Mucosal Lesions/ Ulcerations Neck: Supple, No JVD, Negative Carotid Bruits Lungs: Air entry diminished in bilateral lung bases. Bilateral lungs fine rhonchi. Cardiovascular: Regular rate, Regular Rhythm, Normal S1, Normal S2, No murmurs Abdomen: Bowel Sounds Present, Soft, Non Tender, Non-Distended : No renal angle tenderness. No suprapubic tenderness. Extremities: No edema, Capillary Refill Less than 3 Seconds Skin: No rashes, No breakdown Musculoskeletal: No Tenderness to Palpation of Joints or Extremities Neurological: Cranial nerves II-XII grossly intact, DTR 2+/4 and Symmetrical, Neuro grossly intact Psych/Mental Status: Normal Affect, Appropriate. Assessment & Plan Assessment/Plan (1) Pneumonia due to COVID-19 virus: PLAN: The patient is a 70 y/o, recently discharged on 04/10/21 following admission for COVID-19 with acute hypoxic respiratory failure at that time with positive results 03/31, treated with IV Decadron and 3-day course of remdesivir who now represents to the [facility] ED on 04/14/21 with progressively worsening dyspnea especially with any exertion with pulse ox level down to 70% at home. 1. Acutely Hypoxic Respiratory Failure secondary to bilateral PE and bilateral COVID-19 pneumonia: Patient is admitted in PCU on BiPAP and high flow oxygen. Seen by individual pension consultant. CTA reviewed and shows bilateral PE with massive clot burden and right heart strain and bilateral airspace consolidation. Inflammatory markers of Covid are elevated including D-dimer. Elevated transaminases. Procalcitonin normal. On Decadron. Consult ID. Leukocytosis with left shift 04/16: 2D echo done and shows normal RV systolic function. EF 55% with moderate to severe concentric LVH. Mild TR, RVSP 31 mmHg. Continue Lovenox. H&H stable. 2. Hypertension: Continue verapamil, chlorthalidone, Lasix with pulse IV dose Lasix as noted above, PRN hydralazine. 3. Morbid Obesity: Encouraged lifestyle and diet changes. 4. Hypothyroidism: Continue home synthroid regimen. 5. BPH: continue patient home dutasteride regimen 6. MARIA DOLORES: On BiPAP. 7. DVT prophylaxis. On Lovenox. Charges/Coding Visit Charges Inpatient E&M: 36415 Subs Hosp L2
--- NOTE | 2021-04-16 22:56 | NURSING ---
spoke with and gave brief update, thankful for care
[2021-04-16] MEDS: Doxazosin 4 MG Tablet PO (23:11)
[2021-04-16] MEDS: Psyllium 1 PACKET PO (23:11)
[2021-04-16] MEDS: Finasteride 5 MG Tablet PO (23:11)
[2021-04-16] MEDS: Latanoprost 0.005% 1 Bottle 1 DRP EACH EYE (23:12)
[2021-04-17] VITALS (13 sets, daily range): BP systolic 105–130; BP diastolic 68–84; PULSE 52–72; RESP 15–20; TEMP 36.7–37.2; O2SAT 86–97
[2021-04-17 07:45] LABS: Hematocrit 46.8 % (40-54); Hemoglobin 15.8 g/dL (13.0-16.5); Mean Corp Hgb Conc 33.8 g/dL (32-36); Mean Corpuscular Hgb 30.9 pg (27.0-32.0); Mean Corpuscular Volume 91.6 fL (80-94); Mean Platelet Vol. 8.7 fl (6.2-12.0); POSITIVE COUNT YES; POSITIVE MORPHOLOGY YES; Platelet Count 321 K/mm3 (150-450); RBC Distribution Width CV 12.9 % (11.6-14.6); RBC Distribution Width SD 42.8 fl (35.1-43.9); Red Blood Count 5.11 M/mm3 (4.6-6.2); White Blood Count 12.1 K/mm3 (4.4-11.0)
[2021-04-17 07:58] LABS: ALB/GLOB Ratio 0.5 RATIO (0.9-2.4); AST(SGOT) 27 U/L (15-37); Alanine Aminotransfer ALT/SGPT 94 U/L (16-61); Albumin, Serum 2.8 g/dL (3.2-5.0); Alkaline Phosphatase 53 U/L (45-117); Anion Gap 3 (5-15); BUN 49 mg/dL (7-18); BUN/Creat Ratio 41.5 RATIO (10-20); Calcium,Total 9.1 mg/dL (8.5-10.1); Chloride 104 mmol/L (98-107); Creatinine, Serum 1.18 mg/dL (0.70-1.30); Differential Indicated MANUAL DIFF; EST Glomerular Filtration Rate 65 mL/min (>60); Est Glom Filt Rate - Afr Amer 78 mL/min (>60); Estimated Creatinine Clearance 57.42 ml/min; Globulin 5.4 g/dL (2.2-4.2); Glucose 105 mg/dL (74-106); Potassium 3.8 mmol/L (3.5-5.1); Protein, Total 8.2 g/dL (6.4-8.2); Sodium Level 138 mmol/L (136-145)
[2021-04-17 08:51] LABS: Basophil 1 % (0-1); Eosinophil 1 % (0-5); Lymphocyte 17 % (19-41); Metamyelocyte 2 % (0-1); Monocyte 8 % (0-10); Neutrophil-Segmented 70 % (47-70); Platelet Estimate ADEQUATE (ADEQ); Promyelocyte 1 % (0-0); Red Cell Morphology NORM C+C NORMAL (NORM C&C); Total Cells Counted 100 (MANUAL DIFF)
[2021-04-17 08:52] LABS: Absolute Neutrophil Count 8.5 X10^3/uL (2.0-7.7)
[2021-04-17] MEDS: Fluticasone 0.05% 1 SPRAY NASAL.SRY NASAL ×2 (08:53→21:41)
[2021-04-17] MEDS: Enoxaparin 120 MG/0.8 ML Syringe SC ×2 (08:54→21:40)
[2021-04-17] MEDS: dexAMETHasone 4 MG/ML Vial 6 MG IV (08:54)
[2021-04-17] MEDS: Famotidine 20 MG Tablet PO ×2 (08:55→21:40)
[2021-04-17] MEDS: Furosemide 40 MG Tablet PO (08:55)
[2021-04-17] MEDS: Verapamil SR 180 MG CAPSULE PO ×2 (08:55→21:40)
[2021-04-17] MEDS: Levothyroxine 50 MCG Tablet PO (08:55)
[2021-04-17] MEDS: Potassium Chloride Oral Tablet 20 MEQ 40 MEQ PO ×2 (08:55→21:40)
[2021-04-17] MEDS: Chlorthalidone 50 MG Tablet 25 MG PO (08:55)
[2021-04-17] MEDS: Allopurinol 100 MG Tablet PO (08:55)
[2021-04-17] MEDS: Multivitamins,Therapeutic Tablet 1 TABLET PO (08:55)
[2021-04-17] MEDS: 0.9% Saline Lock 10 ML Syringe IV (08:56)
--- NOTE | 2021-04-17 11:33 | PN.CC_ITS ---
Assessment & Plan Assessment/Plan (1) Acute respiratory failure with hypoxemia: PLAN: RECOMMENDATIONS: 1. Continue therapeutic anticoagulation. 2. Wean supplemental oxygen to maintain saturations at or above 90%. 3. Encourage incentive spirometer use and mobilize patient as tolerated. 4. Perform walking oximetry study prior to consideration for discharge home. 5. Outpatient pulmonary follow-up within 2 weeks of discharge is recommended. 6. Will sign off. Please call with any additional questions. IMPRESSIONS: 1. Acute hypoxemic respiratory failure The patient was recently admitted to the hospital several days with COVID-19 pneumonia and was treated with remdesivir and Decadron. At the time of his discharge, he was requiring 3 L/min of supplemental oxygen. Initial CTA chest at the time of his last hospitalization revealed no evidence for PE. However, following his discharge, the patient developed worsening dyspnea and hypoxemia. Follow-up CTA chest revealed evidence of bilateral PE with radiographic signs of RV strain. The patient was subsequently placed on therapeutic anticoagulation, which I would recommend be continued. At this time, would plan to wean supplemental oxygen to maintain saturations at or above 90%. It is reasonable to continue gentle diuresis as tolerated by hemodynamics and renal function. Echocardiogram revealed no evidence of RV strain. Recommend performing a walking oximetry study prior to consideration for discharge home. The patient should ideally follow-up in the pulmonary medicine clinic within 2 weeks of discharge. Anticipate home-going oxygen requirement. This note was generated with [employer] dictation software. It may contain incorrect words, spelling, and punctuation that were not noted in checking the note before signing. Subjective Subjective The patient was seen and examined at the bedside this morning. Events from the last 24 hours have been reviewed. The patient is currently afebrile, hemodynamically stable and maintaining appropriate oxygen saturations on 3 L/min via nasal cannula. The patient continues to tolerate Lovenox without issue. Objective Data Objective Data The patient's most recent lab work, culture data and imaging studies have all been personally reviewed. Surface echocardiogram revealed normal LV function with an ejection fraction of 55%. Right ventricular systolic pressure was estimated to be 31 mmHg. Vital Signs: Vital Signs Temp Pulse Resp BP Pulse Ox 98.9 F 71 15 130/76 H 86 04/17/21 08:53 04/17/21 10:41 04/17/21 08:53 04/17/21 08:53 04/17/21 10:41 Oxygen Flow Rate (L/min) [ 4 AMBULATING with Oxygen #2] Oxygen Flow Rate (L/min) [ 3 AMBULATING with Oxygen #1] Oxygen Flow Rate (L/min) [At 3 REST with Oxygen] Oxygen Flow Rate (L/min) 3 Oxygen Delivery Method Room Air Weight: 122.8 kg Body Mass Index (BMI) 41.4 Intake & Output: Intake and Output for Last 24 Hours 04/15/21 04/16/21 04/17/21 23:59 23:59 23:59 Intake Total 1405.71 / 1705.71 1340 / 1580 360 / 360 Output Total 2 / 2 Balance 1403.71 / 1703.71 1340 / 1580 360 / 360 Lab / Micro Data Attestation: I reviewed the patient's lab results. Result Diagrams: 04/17/21 07:14 04/17/21 07:14 Labs: Laboratory Results - last 24 hr 04/17/21 07:14: WBC 12.1 H, RBC 5.11, Hgb 15.8, Hct 46.8, MCV 91.6, MCH 30.9, MCHC 33.8, RDW Std Deviation 42.8, RDW Coeff of Karolyn 12.9, Plt Count 321, MPV 8.7, Neut % (Auto) Not Reportable, Absolute Neuts (auto) 8.5 H, Absolute Lymphs (auto) 2.10, Total Counted 100, Neutrophils % (Manual) 70, Lymphocytes % (Manual) 17 L, Monocytes % (Manual) 8, Eosinophils % (Manual) 1, Basophils % (Manual) 1, Metamyelocytes % 2 H, Promyelocytes % 1 H, Diff Path Review May , Platelet Estimate ADEQUATE, RBC Morphology NORM C+C 04/17/21 07:14: Sodium 138, Potassium 3.8, Chloride 104, Carbon Dioxide 31.0, Anion Gap 3 L, BUN 49 H, Creatinine 1.18, Estim Creat Clear Calc 57.42, Est GFR (MDRD) Af Amer 78, Est GFR (MDRD) Non-Af 65, BUN/Creatinine Ratio 41.5 H, Glucose 105, Calcium 9.1, Total Bilirubin 0.80, AST 27, ALT 94 H, Alkaline Phosphatase 53, Total Protein 8.2, Albumin 2.8 L, Globulin 5.4 H, Albumin/Globulin Ratio 0.5 L Micro: Microbiology 04/15/21 07:53 Sputum, Expectorated/Coughed Gram Stain - Final 04/15/21 07:53 Sputum, Expectorated/Coughed Respiratory Culture - Final 04/14/21 19:10 Mucosa - Nose Respiratory Panel (PCR) - Final 04/14/21 21:00 Urine, Clean Catch Legionella Antigen - Final 04/14/21 21:00 Urine, Clean Catch Streptococcus pneumoniae Antigen (M - Final Physical Exam Const alert and no apparent distress General Appearance: cooperative Nutritional Appearance: morbidly obese HEENT normocephalic and head/scalp atraumatic Eyes conjunctivae normal and no scleral icterus Neck supple General: trachea midline Chest inspection of chest normal Resp Auscultation: diminished lung sounds Cardio regular rate and regular rhythm GI normal to inspection, nondistended, normoactive bowel sounds Extremity no clubbing, cyanosis or edema Skin no rashes or lesions noted Neuro moves all extremities and no focal motor deficits Psych cooperative and affect normal Charges/Coding Visit Charges Inpatient E&M: 21492 Subs Hosp L2
--- NOTE | 2021-04-17 12:22 | PCM.DC.SUM ---
Providers Date of Admission: 04/14/21 Primary Care Physician: Dr. Foreign Herrmann MD Consultations 04/14/21 17:47 Consult: Time Buyer / Pulmonary Medicine Routine Consulting Provider: Reinaldo Turk Reason for Consult: Resp failure, worsening, recent COVID admit d/c 04/10/21 EMERGENT Consult: No Notified: Yes Date Notified: 04/14/21 Time Notified: 16:30 Method of Notification: snow 04/15/21 15:07 Consult: Infectious Disease Routine Consulting Provider: Iban Rosenberg Reason for Consult: covid 19 infection, readmitted with severe pneumonia EMERGENT Consult: No Notified: Yes Date Notified: 04/15/21 Time Notified: 15:22 Method of Notification: Answering Service Reason For Visit: ACUTE RESP FAILURE, COVID PNA Diagnosis Discharge Diagnosis (1) Acute respiratory failure with hypoxemia: Status: Acute Code(s): J96.01 - Acute respiratory failure with hypoxia Medications at Discharge Home Medications desoximetasone 1 applic TOPICAL PRN PRN 06/13/13 doxazosin 4 mg PO QHS 06/13/13 latanoprost 1 drp EACH EYE QHS 06/13/13 multivitamin with folic acid 1 tab PO DAILY 06/13/13 oi-7-fzg-epa-fish oil-vit D3 1 ea PO DAILY 06/13/13 verapamil 180 mg PO BID 06/13/13 chlorthalidone 25 mg tablet 25 mg PO DAILY 11/22/17 fluticasone propionate 50 mcg/actuation nasal spray,suspension 1 spray INTRANASAL BID 11/22/17 furosemide 40 mg tablet 40 mg PO DAILY 11/22/17 levothyroxine 50 mcg capsule 50 mcg PO DAILY 11/22/17 potassium chloride 20 mEq tablet,extended release(part/cryst) 40 meq PO BID tab 11/22/17 chlorpheniramine maleate 4 mg PO DAILY PRN 04/13/19 dutasteride 0.5 mg PO QHS 04/13/19 psyllium husk 0.52 gm PO QHS 04/13/19 allopurinol 100 mg PO DAILY 04/08/21 diphenhydramine HCl [Benadryl] 25 mg PO QHS PRN 04/08/21 indomethacin 50 mg PO TID PRN PRN 04/08/21 albuterol sulfate 2 puff INHALATION Q4H PRN #8.5 g 04/10/21 dexamethasone 6 mg PO DAILY 8 Days #12 tab 04/10/21 guaifenesin [Mucus Relief ER] 600 mg PO BID PRN PRN 10 Days #0 tab 04/10/21 Weight / BMI Weight Weight: 270 lb 11.642 oz Body Mass Index (BMI) 41.4 ABG / Lab / Microbiology Data Result Diagrams: 04/17/21 07:14 04/17/21 07:14 Laboratory: Laboratory Results - last 24 hr 04/17/21 07:14: WBC 12.1 H, RBC 5.11, Hgb 15.8, Hct 46.8, MCV 91.6, MCH 30.9, MCHC 33.8, RDW Std Deviation 42.8, RDW Coeff of Karolyn 12.9, Plt Count 321, MPV 8.7, Neut % (Auto) Not Reportable, Absolute Neuts (auto) 8.5 H, Absolute Lymphs (auto) 2.10, Total Counted 100, Neutrophils % (Manual) 70, Lymphocytes % (Manual) 17 L, Monocytes % (Manual) 8, Eosinophils % (Manual) 1, Basophils % (Manual) 1, Metamyelocytes % 2 H, Promyelocytes % 1 H, Diff Path Review December, Platelet Estimate ADEQUATE, RBC Morphology NORM C+C 04/17/21 07:14: Sodium 138, Potassium 3.8, Chloride 104, Carbon Dioxide 31.0, Anion Gap 3 L, BUN 49 H, Creatinine 1.18, Estim Creat Clear Calc 57.42, Est GFR (MDRD) Af Amer 78, Est GFR (MDRD) Non-Af 65, BUN/Creatinine Ratio 41.5 H, Glucose 105, Calcium 9.1, Total Bilirubin 0.80, AST 27, ALT 94 H, Alkaline Phosphatase 53, Total Protein 8.2, Albumin 2.8 L, Globulin 5.4 H, Albumin/Globulin Ratio 0.5 L Microbiology: Microbiology 04/15/21 07:53 Sputum, Expectorated/Coughed Gram Stain - Final 04/15/21 07:53 Sputum, Expectorated/Coughed Respiratory Culture - Final 04/14/21 19:10 Mucosa - Nose Respiratory Panel (PCR) - Final 04/14/21 21:00 Urine, Clean Catch Legionella Antigen - Final 04/14/21 21:00 Urine, Clean Catch Streptococcus pneumoniae Antigen (M - Final Discharge Plan Admission Admit Date/Time: 04/14/21 16:30 Attending Provider: Jameel Andrea Primary Care Provider: Foreign Herrmann Consulting Providers: Reinaldo Turk ; Iban Rosenberg Discharge Orders/Prescriptions Prescriptions: No Action furosemide [Lasix] 40 mg tablet 40 mg PO DAILY RF: 0 fluticasone propionate 50 mcg/actuation spray,suspension 1 spray INTRANASAL BID RF: 0 levothyroxine 50 mcg capsule 50 mcg capsule 50 mcg PO DAILY RF: 0 potassium chloride 20 mEq tablet,ER particles/crystals 40 meq PO BID RF: 0 chlorthalidone 25 mg tablet 25 mg PO DAILY RF: 0 latanoprost 1 DROP bottle 1 drp EACH EYE QHS RF: 0 desoximetasone 1 APPLIC cream 1 applic TOPICAL PRN PRN (Reason: PSORIASIS) RF: 0 verapamil 180 MG capsule 180 mg PO BID RF: 0 doxazosin 4 MG tablet 4 mg PO QHS RF: 0 multivitamin with folic acid 1 TABLET tablet 1 tab PO DAILY RF: 0 fn-5-zmi-epa-fish oil-vit D3 1 EACH capsule 1 ea PO DAILY RF: 0 dutasteride 0.5 MG capsule 0.5 mg PO QHS RF: 0 psyllium husk 0.52 GM capsule 0.52 gm PO QHS RF: 0 chlorpheniramine maleate 4 MG tablet 4 mg PO DAILY PRN (Reason: Allergies) RF: 0 allopurinol 100 mg tablet 100 mg PO DAILY RF: 0 indomethacin 50 mg capsule 50 mg PO TID PRN PRN (Reason: gout) RF: 0 diphenhydramine HCl [Benadryl] 25 mg Capsule 25 mg PO QHS PRN (Reason: allergies) RF: 0 dexamethasone 4 mg Tablet 6 mg PO DAILY 8 Days Qty: 12 RF: 0 albuterol sulfate 90 mcg/actuation HFA aerosol inhaler 2 puff inhalation Q4H PRN (Reason: shortness of breath or wheezing) Qty: 8.5 RF: 1 guaifenesin [Mucus Relief ER] 600 mg Tablet Extended Release 12hr 600 mg PO BID PRN PRN (Reason: Chest Congestion/Secretions) 10 Days Qty: 0 RF: 0 Referrals / Follow Up: Foreign Herrmann MD [Primary Care Provider] -
--- NOTE | 2021-04-17 12:24 | PCM.PN.HOSP ---
Subjective Subjective No fever or chills. Patient on 3 L of oxygen. Patient is tolerating Lovenox well with hemoglobin stable and no bleeding or bruise. Objective Data Objective Data Vital Signs: Vital Signs Temp Pulse Resp BP Pulse Ox 98.9 F 60 18 120/76 91 04/17/21 12:03 04/17/21 12:03 04/17/21 12:03 04/17/21 12:03 04/17/21 12:03 Oxygen Flow Rate (L/min) [ 4 AMBULATING with Oxygen #2] Oxygen Flow Rate (L/min) [ 3 AMBULATING with Oxygen #1] Oxygen Flow Rate (L/min) [At 3 REST with Oxygen] Oxygen Flow Rate (L/min) 3 Oxygen Delivery Method Nasal Cannula Weight: 270 lb 11.642 oz Body Mass Index (BMI) 41.4 Intake & Output: Intake and Output for Last 24 Hours 04/15/21 04/16/21 04/17/21 23:59 23:59 23:59 Intake Total 1405.71 / 1705.71 1340 / 1580 360 / 360 Output Total 2 / 2 Balance 1403.71 / 1703.71 1340 / 1580 360 / 360 Lab / Micro Data Result Diagrams: 04/17/21 07:14 04/17/21 07:14 Labs: Laboratory Results - last 24 hr 04/17/21 07:14: WBC 12.1 H, RBC 5.11, Hgb 15.8, Hct 46.8, MCV 91.6, MCH 30.9, MCHC 33.8, RDW Std Deviation 42.8, RDW Coeff of Karolyn 12.9, Plt Count 321, MPV 8.7, Neut % (Auto) Not Reportable, Absolute Neuts (auto) 8.5 H, Absolute Lymphs (auto) 2.10, Total Counted 100, Neutrophils % (Manual) 70, Lymphocytes % (Manual) 17 L, Monocytes % (Manual) 8, Eosinophils % (Manual) 1, Basophils % (Manual) 1, Metamyelocytes % 2 H, Promyelocytes % 1 H, Diff Path Review December, Platelet Estimate ADEQUATE, RBC Morphology NORM C+C 04/17/21 07:14: Sodium 138, Potassium 3.8, Chloride 104, Carbon Dioxide 31.0, Anion Gap 3 L, BUN 49 H, Creatinine 1.18, Estim Creat Clear Calc 57.42, Est GFR (MDRD) Af Amer 78, Est GFR (MDRD) Non-Af 65, BUN/Creatinine Ratio 41.5 H, Glucose 105, Calcium 9.1, Total Bilirubin 0.80, AST 27, ALT 94 H, Alkaline Phosphatase 53, Total Protein 8.2, Albumin 2.8 L, Globulin 5.4 H, Albumin/Globulin Ratio 0.5 L Micro: Microbiology 04/15/21 07:53 Sputum, Expectorated/Coughed Gram Stain - Final 04/15/21 07:53 Sputum, Expectorated/Coughed Respiratory Culture - Final 04/14/21 19:10 Mucosa - Nose Respiratory Panel (PCR) - Final 04/14/21 21:00 Urine, Clean Catch Legionella Antigen - Final 04/14/21 21:00 Urine, Clean Catch Streptococcus pneumoniae Antigen (M - Final Physical Exam Narrative Physical exam: General: Alert, Oriented x3, Cooperative HEENT: Atraumatic, PERRLA, EOMI, Normocephalic Oral: No Gingival or Mucosal Lesions/ Ulcerations Neck: Supple, No JVD, Negative Carotid Bruits Lungs: Air entry diminished in bilateral lung bases. Bilateral lungs clear Cardiovascular: Regular rate, Regular Rhythm, Normal S1, Normal S2, No murmurs Abdomen: Bowel Sounds Present, Soft, Non Tender, Non-Distended : No renal angle tenderness. No suprapubic tenderness. Extremities: No edema, Capillary Refill Less than 3 Seconds Skin: No rashes, No breakdown Musculoskeletal: No Tenderness to Palpation of Joints or Extremities Neurological: Cranial nerves II-XII grossly intact, DTR 2+/4 and Symmetrical, Neuro grossly intact Psych/Mental Status: Normal Affect, Appropriate. Assessment & Plan Assessment/Plan (1) Acute respiratory failure with hypoxemia: PLAN: The patient is a 70 y/o, recently discharged on 04/10/21 following admission for COVID-19 with acute hypoxic respiratory failure at that time with positive results 03/31, treated with IV Decadron and 3-day course of remdesivir who now represents to the [facility] ED on 04/14/21 with progressively worsening dyspnea especially with any exertion with pulse ox level down to 70% at home. 1. Acutely Hypoxic Respiratory Failure secondary to bilateral PE and bilateral COVID-19 pneumonia: Patient is admitted in PCU on BiPAP and high flow oxygen. Seen by supervisor dental laboratory. CTA reviewed and shows bilateral PE with massive clot burden and right heart strain and bilateral airspace consolidation. Inflammatory markers of Covid are elevated including D-dimer. Elevated transaminases. Procalcitonin normal. On Decadron. Consult ID. Leukocytosis with left shift 04/16: 2D echo done and shows normal RV systolic function. EF 55% with moderate to severe concentric LVH. Mild TR, RVSP 31 mmHg. Continue Lovenox. H&H stable. 04/17: Encouraged aggressive incentive spirometry and Pep. Discussed with the patient's and she is unable to take him home today with herself right hip pain going on. When I talked to her she was on orthopedic office. I gave clinical update. She is okay with discharging on Lovenox, Eliquis or Xarelto. 2. Hypertension: Continue verapamil, chlorthalidone, Lasix with pulse IV dose Lasix as noted above, PRN hydralazine. 3. Morbid Obesity: Encouraged lifestyle and diet changes. 4. Hypothyroidism: Continue home synthroid regimen. 5. BPH: continue patient home dutasteride regimen 6. MARIA DOLORES: On BiPAP. 7. DVT prophylaxis. On Lovenox. Charges/Coding Visit Charges Inpatient E&M: 51359 Subs Hosp L2
[2021-04-17 16:47] LABS: Pathologist Review Reviewed
[2021-04-17] MEDS: Doxazosin 4 MG Tablet PO (21:40)
[2021-04-17] MEDS: Finasteride 5 MG Tablet PO (21:40)
[2021-04-17] MEDS: Latanoprost 0.005% 1 Bottle 1 DRP EACH EYE (21:41)
[2021-04-17] MEDS: Psyllium 1 PACKET PO (21:41)
[2021-04-18 03:00] VITALS: PULSE 46
[2021-04-18 04:44] VITALS: BP 160/86; PULSE 70; RESP 18; TEMP 36.9; O2SAT 98
[2021-04-18 07:00] VITALS: PULSE 56
[2021-04-18 07:21] VITALS: O2SAT 97
[2021-04-18 09:15] VITALS: BP 132/97; PULSE 63; RESP 19; TEMP 36.6; O2SAT 93
[2021-04-18] MEDS: Multivitamins,Therapeutic Tablet 1 TABLET PO (09:17)
[2021-04-18] MEDS: Levothyroxine 50 MCG Tablet PO (09:17)
[2021-04-18] MEDS: Furosemide 40 MG Tablet PO (09:17)
[2021-04-18] MEDS: Chlorthalidone 50 MG Tablet 25 MG PO (09:17)
[2021-04-18] MEDS: Enoxaparin 120 MG/0.8 ML Syringe SC (09:17)
[2021-04-18] MEDS: Famotidine 20 MG Tablet PO (09:17)
[2021-04-18] MEDS: Potassium Chloride Oral Tablet 20 MEQ 40 MEQ PO (09:17)
[2021-04-18] MEDS: Verapamil SR 180 MG CAPSULE PO (09:17)
[2021-04-18] MEDS: Allopurinol 100 MG Tablet PO (09:17)
[2021-04-18] MEDS: dexAMETHasone 4 MG/ML Vial 6 MG IV (09:18)
[2021-04-18] MEDS: 0.9% Saline Lock 10 ML Syringe IV (09:21)
[2021-04-18] MEDS: Fluticasone 0.05% 1 SPRAY NASAL.SRY NASAL (09:24)
--- NOTE | 2021-04-18 09:56 | PCM.DC ---
Discharge Instructions Diet Discharge Diet: Low fat / Low cholesterol and 2000 mg Sodium Diet Activity Discharge Activity: - (Self quarantine for 3 weeks from the start of the symptoms) Weight Bearing Status: Weight bearing as tolerated Dressing / Incision Call your doctor if you observe: Fever of 101 or Higher, Coldness, Increased Pain, Numbness or Tingling, Change in Color, Inability to urinate, Inability to have a bowel movement, Shortness of breath, Dizziness, Fainting spells, Swelling in the ankles, Chest pain, Prolonged hiccupping, Increased palpitations (irregular heartbeat), Calf discomfort and Uncontrolled pain Follow Up Care Test Results: Test results from this visit will be discussed in further detail at your follow-up appointment, if applicable. Discharge Plan Admission Admit Date/Time: 04/14/21 16:30 Primary Reason for Your Visit: Current COVID-19 pneumonia and pulmonary embolism Attending Provider: Jameel Andrea Primary Care Provider: Foreign Herrmann Consulting Providers: Reinaldo Turk ; Iban Rosenberg Discharge Orders/Prescriptions Prescriptions: New famotidine 20 mg Tablet 20 mg PO BID Qty: 60 RF: 0 Eliquis 5 mg tablet 5 mg PO BID Qty: 74 RF: 0 Continued furosemide [Lasix] 40 mg tablet 40 mg PO DAILY RF: 0 fluticasone propionate 50 mcg/actuation spray,suspension 1 spray INTRANASAL BID RF: 0 levothyroxine 50 mcg capsule 50 mcg capsule 50 mcg PO DAILY RF: 0 potassium chloride 20 mEq tablet,ER particles/crystals 40 meq PO BID RF: 0 chlorthalidone 25 mg tablet 25 mg PO DAILY RF: 0 latanoprost 1 DROP bottle 1 drp EACH EYE QHS RF: 0 desoximetasone 1 APPLIC cream 1 applic TOPICAL PRN PRN (Reason: PSORIASIS) RF: 0 verapamil 180 MG capsule 180 mg PO BID RF: 0 doxazosin 4 MG tablet 4 mg PO QHS RF: 0 multivitamin with folic acid 1 TABLET tablet 1 tab PO DAILY RF: 0 nr-1-[id number]-epa-fish oil-vit D3 1 EACH capsule 1 ea PO DAILY RF: 0 dutasteride 0.5 MG capsule 0.5 mg PO QHS RF: 0 psyllium husk 0.52 GM capsule 0.52 gm PO QHS RF: 0 allopurinol 100 mg tablet 100 mg PO DAILY RF: 0 indomethacin 50 mg capsule 50 mg PO TID PRN PRN (Reason: gout) RF: 0 diphenhydramine HCl [Benadryl] 25 mg Capsule 25 mg PO QHS PRN (Reason: allergies) RF: 0 albuterol sulfate 90 mcg/actuation HFA aerosol inhaler 2 puff inhalation Q4H PRN (Reason: shortness of breath or wheezing) Qty: 8.5 RF: 1 guaifenesin [Mucus Relief ER] 600 mg Tablet Extended Release 12hr 600 mg PO BID PRN PRN (Reason: Chest Congestion/Secretions) 10 Days Qty: 0 RF: 0 dexamethasone 4 mg Tablet 6 mg PO DAILY 5 Days Qty: 8 RF: 0 Discontinued chlorpheniramine maleate 4 MG tablet 4 mg PO DAILY PRN (Reason: Allergies) RF: 0 Referrals / Follow Up: Reinaldo Turk DO [STAFF PHYSICIAN] - Within 1 Month (Follow-up for COVID-19 pneumonia and pulmonary embolism) Foreign Herrmann MD [Primary Care Provider] - Within 2 Weeks Iban Rosenberg MD [STAFF PHYSICIAN] - See Referral Note (As needed for Covid symptoms.)
--- NOTE | 2021-04-18 10:07 | PCM.DC.SUM ---
Providers Date of Admission: 04/14/21 Date of Discharge: 04/18/21 Primary Care Physician: Dr. Foreign Herrmann MD Consultations 04/14/21 17:47 Consult: Dairy Manager / Pulmonary Medicine Routine Consulting Provider: Reinaldo Turk Reason for Consult: Resp failure, worsening, recent COVID admit d/c 04/10/21 EMERGENT Consult: No Notified: Yes Date Notified: 04/14/21 Time Notified: 16:30 Method of Notification: snow 04/15/21 15:07 Consult: Infectious Disease Routine Consulting Provider: Iban Rosenberg Reason for Consult: covid 19 infection, readmitted with severe pneumonia EMERGENT Consult: No Notified: Yes Date Notified: 04/15/21 Time Notified: 15:22 Method of Notification: Answering Service Reason For Visit: ACUTE RESP FAILURE, COVID PNA Diagnosis Discharge Diagnosis (1) Acute respiratory failure with hypoxemia: Status: Acute Code(s): J96.01 - Acute respiratory failure with hypoxia Medications at Discharge Home Medications desoximetasone 1 applic TOPICAL PRN PRN 06/13/13 doxazosin 4 mg PO QHS 06/13/13 latanoprost 1 drp EACH EYE QHS 06/13/13 multivitamin with folic acid 1 tab PO DAILY 06/13/13 me-7-xio-epa-fish oil-vit D3 1 ea PO DAILY 06/13/13 verapamil 180 mg PO BID 06/13/13 chlorthalidone 25 mg tablet 25 mg PO DAILY 11/22/17 fluticasone propionate 50 mcg/actuation nasal spray,suspension 1 spray INTRANASAL BID 11/22/17 furosemide 40 mg tablet 40 mg PO DAILY 11/22/17 levothyroxine 50 mcg capsule 50 mcg PO DAILY 11/22/17 potassium chloride 20 mEq tablet,extended release(part/cryst) 40 meq PO BID tab 11/22/17 dutasteride 0.5 mg PO QHS 04/13/19 psyllium husk 0.52 gm PO QHS 04/13/19 allopurinol 100 mg PO DAILY 04/08/21 diphenhydramine HCl [Benadryl] 25 mg PO QHS PRN 04/08/21 indomethacin 50 mg PO TID PRN PRN 04/08/21 albuterol sulfate 2 puff INHALATION Q4H PRN #8.5 g 04/10/21 guaifenesin [Mucus Relief ER] 600 mg PO BID PRN PRN 10 Days #0 tab 04/10/21 apixaban [Eliquis] 5 mg PO BID #74 tab 04/18/21 dexamethasone 6 mg PO DAILY 5 Days #8 tab 04/18/21 famotidine 20 mg PO BID #60 tab 04/18/21 Hospital Course Summary of Care Provided Hospital Course: The patient is a 70 y/o, recently discharged on 04/10/21 following admission for COVID-19 with acute hypoxic respiratory failure at that time with positive results 03/31, treated with IV Decadron and 3-day course of remdesivir who now represents to the [facility] ED on 04/14/21 with progressively worsening dyspnea especially with any exertion with pulse ox level down to 70% at home. 1. Acutely Hypoxic Respiratory Failure secondary to bilateral PE and bilateral COVID-19 pneumonia: Patient is admitted in PCU on BiPAP and high flow oxygen. Seen by agricultural research engineer. CTA reviewed and shows bilateral PE with massive clot burden and right heart strain and bilateral airspace consolidation. Inflammatory markers of Covid are elevated including D-dimer. Elevated transaminases. Procalcitonin normal. On Decadron. Consult ID. Leukocytosis with left shift 2D echo done and shows normal RV systolic function. EF 55% with moderate to severe concentric LVH. Mild TR, RVSP 31 mmHg. Continue Lovenox. H&H stable. Encouraged aggressive incentive spirometry and Pep. Discussed with the patient's clinical update was given. I discharged the patient on Eliquis 10 mg twice daily for 7 days and then 5 mg twice daily to continue. 2. Hypertension: Continue verapamil, chlorthalidone, Lasix with pulse IV dose Lasix as noted above, PRN hydralazine. Patient is discharged on lisinopril at home patient's 3. Morbid Obesity: Encouraged lifestyle and diet changes. 4. Hypothyroidism: Continue home synthroid regimen. 5. BPH: continue patient home dutasteride regimen 6. MARIA DOLORES: On BiPAP. 7. DVT prophylaxis. On Lovenox. Discharge medication reconciliation done. Discharge follow-up instructions completed. Discharge process discussed with the patient and all questions were answered to patient's satisfaction. Home qualification oxygen testing done. Patient is ambulatory in home and in the community and requires home oxygen with portability. Total time spent, exact 35 minutes on discharge meds reconciliation, examination, coordination of care with nurses and ancillary staff, review of imaging and blood test and discussion with the patient on follow-up instructions Physical Exam Narrative Physical exam: Patient not getting short of breath on mild exertion. Cough much improved. Advised to continue anticoagulation for at least 3 months but better will be 6 months. General: Alert, Oriented x3, Cooperative HEENT: Atraumatic, PERRLA, EOMI, Normocephalic Oral: No Gingival or Mucosal Lesions/ Ulcerations Neck: Supple, No JVD, Negative Carotid Bruits Lungs: Air entry diminished in bilateral lung bases. Bilateral lungs clear Cardiovascular: Regular rate, Regular Rhythm, Normal S1, Normal S2, No murmurs Abdomen: Bowel Sounds Present, Soft, Non Tender, Non-Distended : No renal angle tenderness. No suprapubic tenderness. Extremities: No edema, Capillary Refill Less than 3 Seconds Skin: No rashes, No breakdown Musculoskeletal: No Tenderness to Palpation of Joints or Extremities Neurological: Cranial nerves II-XII grossly intact, DTR 2+/4 and Symmetrical, Neuro grossly intact Psych/Mental Status: Normal Affect, Appropriate. Weight / BMI Weight Weight: 272 lb 14.916 oz Body Mass Index (BMI) 41.4 ABG / Lab / Microbiology Data Result Diagrams: 04/17/21 07:14 04/17/21 07:14 Laboratory: Laboratory Results - last 24 hr 04/16/21 06:32: Diff Path Review Reviewed Microbiology: Microbiology 04/15/21 07:53 Sputum, Expectorated/Coughed Gram Stain - Final 04/15/21 07:53 Sputum, Expectorated/Coughed Respiratory Culture - Final 04/14/21 19:10 Mucosa - Nose Respiratory Panel (PCR) - Final 04/14/21 21:00 Urine, Clean Catch Legionella Antigen - Final 04/14/21 21:00 Urine, Clean Catch Streptococcus pneumoniae Antigen (M - Final D/C Instructions Discharge Diet: Low fat / Low cholesterol and 2000 mg Sodium Diet Weight Bearing Status: Weight bearing as tolerated Call your doctor if you observe: Fever of 101 or Higher, Coldness, Increased Pain, Numbness or Tingling, Change in Color, Inability to urinate, Inability to have a bowel movement, Shortness of breath, Dizziness, Fainting spells, Swelling in the ankles, Chest pain, Prolonged hiccupping, Increased palpitations (irregular heartbeat), Calf discomfort and Uncontrolled pain Meaningful Use Info Meaningful Use Diagnoses (Choose all that apply): VTE VTE Anticoag overlap given w/in hospital stay or rx'd at nh?: Yes Pt receive overlap for 5 days?: No Reason overlap not ordered, prescribed, or given for 5 days: Procedure Not Indicated Discharge Plan Admission Admit Date/Time: 04/14/21 16:30 Primary Reason for Your Visit: Current COVID-19 pneumonia and pulmonary embolism Attending Provider: Jameel Andrea Primary Care Provider: Foreign Herrmann Consulting Providers: Reinaldo Turk ; Iban Rosenberg Discharge Orders/Prescriptions Prescriptions: New famotidine 20 mg Tablet 20 mg PO BID Qty: 60 RF: 0 Eliquis 5 mg tablet 5 mg PO BID Qty: 74 RF: 0 Continued furosemide [Lasix] 40 mg tablet 40 mg PO DAILY RF: 0 fluticasone propionate 50 mcg/actuation spray,suspension 1 spray INTRANASAL BID RF: 0 levothyroxine 50 mcg capsule 50 mcg capsule 50 mcg PO DAILY RF: 0 potassium chloride 20 mEq tablet,ER particles/crystals 40 meq PO BID RF: 0 chlorthalidone 25 mg tablet 25 mg PO DAILY RF: 0 latanoprost 1 DROP bottle 1 drp EACH EYE QHS RF: 0 desoximetasone 1 APPLIC cream 1 applic TOPICAL PRN PRN (Reason: PSORIASIS) RF: 0 verapamil 180 MG capsule 180 mg PO BID RF: 0 doxazosin 4 MG tablet 4 mg PO QHS RF: 0 multivitamin with folic acid 1 TABLET tablet 1 tab PO DAILY RF: 0 bg-5-bqk-epa-fish oil-vit D3 1 EACH capsule 1 ea PO DAILY RF: 0 dutasteride 0.5 MG capsule 0.5 mg PO QHS RF: 0 psyllium husk 0.52 GM capsule 0.52 gm PO QHS RF: 0 allopurinol 100 mg tablet 100 mg PO DAILY RF: 0 indomethacin 50 mg capsule 50 mg PO TID PRN PRN (Reason: gout) RF: 0 diphenhydramine HCl [Benadryl] 25 mg Capsule 25 mg PO QHS PRN (Reason: allergies) RF: 0 albuterol sulfate 90 mcg/actuation HFA aerosol inhaler 2 puff inhalation Q4H PRN (Reason: shortness of breath or wheezing) Qty: 8.5 RF: 1 guaifenesin [Mucus Relief ER] 600 mg Tablet Extended Release 12hr 600 mg PO BID PRN PRN (Reason: Chest Congestion/Secretions) 10 Days Qty: 0 RF: 0 dexamethasone 4 mg Tablet 6 mg PO DAILY 5 Days Qty: 8 RF: 0 Discontinued chlorpheniramine maleate 4 MG tablet 4 mg PO DAILY PRN (Reason: Allergies) RF: 0 Referrals / Follow Up: Reinaldo Turk DO [STAFF PHYSICIAN] - Within 1 Month (Follow-up for COVID-19 pneumonia and pulmonary embolism) Foreign Herrmann MD [Primary Care Provider] - Within 2 Weeks Iban Rosenberg MD [STAFF PHYSICIAN] - See Referral Note (As needed for Covid symptoms.) Disposition Disposition (needs filled in before D/C Order can be placed): Home, Self Care Charges/Coding Visit Charges Inpatient E&M: 10133 Disch Hosp
--- NOTE | 2021-04-18 11:05 | CASEMGMT ---
Pt qualifies for same oxygen he was sent home on last week, 3L at rest and 4L w/ exertion. Per therapy, pt has been independent in room and states no need for any further therapy. Pt to be sent home on Eliquis and med e-scribed to [facility] pharmacy [facility] and [facility]'s [facility]pay is $129.36 and pt provided Eliquis card with instructions. Davina GAINES updated, voices understanding. Isidra GAINES CM
[2021-04-18 12:06] LABS: Pathologist Review Reviewed
--- NOTE | 2021-04-22 10:03 | CASEMGMT ---
EDER RYAN Discharge Follow-up Phone Call: MAICOL: Aleisha Strata: 2 Call Date: 04/22/21 Discharge Date: 04/18/21 Time of Call: [id number] Admitting Diagnosis: COVID-19, Acute hypoxic respiratory failure. This RN CM phoned pt in follow-up to his discharge. Pt states he has been doing well since discharge. Pt denies any c/o SOB and states he remains on the O2 but has decreased it to 2l/min. Pt reports his PO to be 93-96% on the 2l/min. Pt states his is going to decrease his O2 to 1l/min today. Pt states he he has been eating and drinking well and has not any issues with his diet. Pt referred to his regarding further questions regarding his discharge instructions. Reviewed discrepancies with the Eliquis dosing and pt's states she obtained clarification from pt's PCP yesterday for 10mg twice daily for 7 days. This issue was communicated to nursing and Dr. Andrea. No further questions or concerns were expressed. Amie Priest RN CM
== END 2021-04-18 12:37 | disposition home or self-care (01) | DRG 177 ==
LOC: ED 16:37 → PCU 17:02
PROVIDERS: Internal Medicine Critical Care Medicine; Admitting Provider Family Medicine; Emergency Provider Emergency Medicine; PCP Family Medicine; Visit Provider Internal Medicine
DX: U07.1 COVID-19 (principal); I26.99 Other pulmonary embolism without acute cor pulmonale; J96.01 Acute respiratory failure with hypoxia; J12.82 Pneumonia due to coronavirus disease 2019; Z68.41 Body mass index [BMI] 40.0-44.9, adult; I10 Essential (primary) hypertension; E66.01 Morbid (severe) obesity due to excess calories; E03.9 Hypothyroidism, unspecified; G47.33 Obstructive sleep apnea (adult) (pediatric); N40.0 Benign prostatic hyperplasia without lower urinary tract symptoms; Z86.718 Personal history of other venous thrombosis and embolism; R74.02 Elevation of levels of lactic acid dehydrogenase [LDH]; E11.51 Type 2 diabetes mellitus with diabetic peripheral angiopathy without gangrene; E78.5 Hyperlipidemia, unspecified; I87.2 Venous insufficiency (chronic) (peripheral); Z66 Do not resuscitate; Z79.01 Long term (current) use of anticoagulants; Z79.890 Hormone replacement therapy; Z82.49 Family history of ischemic heart disease and other diseases of the circulatory system; Z83.3 Family history of diabetes mellitus; Z90.49 Acquired absence of other specified parts of digestive tract
CPT/HCPCS: 36415; 36600; 71045; 71275; 80048; 80053; 82728; 82803; 83615; 83735; 83880; 84145; 84484; 85025; 85379; 85610; 85730; 86140; 86850; 86900; 86901; 87070; 87205; 87449; 87633; 93005; 93306; 94760; 99251; 99285; Q9967; A4216; G0463; J1940

== ENCOUNTER 2021-08-14 09:38 | Outpatient (CLI) | payer MEDICARE, OTHER, SELFPAY ==
[2021-08-14 12:15] LABS: Anion Gap 8 (5-15); BUN 18 mg/dL (7-18); BUN/Creat Ratio 16.4 RATIO (10-20); Calcium,Total 8.7 mg/dL (8.5-10.1); Chloride 106 mmol/L (98-107); Cholesterol 158 mg/dL (200); EST Glomerular Filtration Rate 70 mL/min (>60); Est Glom Filt Rate - Afr Amer 85 mL/min (>60); Free T3 2.6 pg/mL (2.18-3.98); Glucose 108 mg/dL (74-106); High Density Lipoprotein 35 mg/dL; Potassium 3.5 mmol/L (3.5-5.1); Sodium Level 142 mmol/L (136-145); T4 Free Direct 1.05 ng/dL (0.76-1.46); Thyroid Stim Hormone (TSH) 3.17 uIU/mL (0.358-3.74); Triglycerides 180 mg/dL; Very Low Density Lipoprotein 36 mg/dL (5-40)
== END 2021-08-14 23:59 | disposition short-term general hospital (02) ==
LOC: MFPLAB 09:41
PROVIDERS: PCP Family Medicine; Referring Provider Family Medicine; Visit Provider Family Medicine
DX: E03.9 Hypothyroidism, unspecified (principal); I10 Essential (primary) hypertension
CPT/HCPCS: 36415; 80048; 80061; 84439; 84443; 84481

== ENCOUNTER 2021-09-04 14:23 | Outpatient (CLI) | payer MEDICARE, OTHER, SELFPAY ==
[2021-09-04 15:41] LABS: PSA,Total- Diagnostic 1.11 ng/mL (0.0-4.0)
== END 2021-09-04 23:59 | disposition short-term general hospital (02) ==
LOC: LAB 14:27
PROVIDERS: PCP Family Medicine; Referring Provider Urology; Visit Provider Urology
DX: R97.20 Elevated prostate specific antigen [PSA] (principal)
CPT/HCPCS: 36415; 84153

== ENCOUNTER → 2021-12-31 | Outpatient (CLI) | payer MEDICARE, OTHER, SELFPAY ==
--- NOTE | 2021-12-31 14:47 | RAD_ITS ---
STUDY: XR Shoulder Min 2 Views REASON FOR EXAM: Male, 71 years old. right shoulder injury TECHNIQUE: XR Shoulder Min 2 Views RIGHT COMPARISON: None. FINDINGS: Normal glenohumeral articulation. Normal acromioclavicular joint. Normal acromion. Normal humeral head and visualized proximal humerus. The soft tissue structures are unremarkable. Normal visualized pulmonary apex. RAD/Shoulder min 2 Views IMPRESSION: There are no acute findings of the shoulder. Electronically Signed: Carlos Lee MD at 16:57 EDT ,
== END | disposition home or self-care (01) ==
PROVIDERS: PCP Family Medicine; Referring Provider Family Medicine; Visit Provider Family Medicine
DX: S49.91XA Unspecified injury of right shoulder and upper arm, initial encounter (principal)
CPT/HCPCS: 73030

== ENCOUNTER 2022-02-18 07:30 | Outpatient (RCR) | payer MEDICARE, OTHER, SELFPAY ==
--- NOTE | 2022-02-13 08:14 | HP.PTEVAL ---
Patient's Visit Information SLIME SHAW is a 71 year old M referred to Physical Therapy by Dr. Foreign Herrmann MD with a diagnosis of R shoulder pain. Date of Evaluation: 02/13/22 Physical Therapist: Carlos Mondragon PT, ATC - Visit Plan Frequency: 1x/Week Duration: 2 Weeks Plan: Issue and instruct pt on HEP of R shoulder rotator cuff strengthening and scap stab ex's - Subjective Pt reports R shoulder has been sore for 6 weeks. Pt notes the pain had an insidious onset in nature. Pt reports he was working outside at the time and notes that may have caused the pain. Pt is R hand dominant. Pt reports reaching out and reaching over his head causes increased pain. pt denies tingling and numbness at this time. 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 Pt notes he had x-rays which revealed no significant findings. Pt denies any PMHx of R shoulder pain. Pt reports he has intermittent sleep difficulty secondary to R shoulder pain. Pt reports most of his pain is located on the posterior aspect of his R shoulder. 2/10 pain in R shoulder while at rest, 7/10 pain when at worst (trying to exercise) - Pain R shoulder Pain Intensity (Out of 10): 2 Pain Intensity Range: 7 - Objective Neuro: B UE sensation is WNL to light touch. B bicipital reflex= 2/3. Palpation: Pt is sore along the distribution of the supraspinatus distribution. ROM: L shoulder flex= 180, abd= 170, ER= 30, IR WNL; R shoulder flex= 130, abd= 90, ER= 10, IR moderately limited. MMT: R shoulder is grossly 4-5 throughout. L shoulder is 5/5 throughout. Special tests: Pos empty can and HK tests - Balance/Special Test Scores Quick DASH Score: 47.7250 - Goals Goal 1:: Decrease R shoulder pain x 50% aid with sleep Goal Time Frame: 4-6 Weeks Goal 2:: I with HEP after 2 visits - Rehabilitation Potential Physical Therapy Diagnosis: Pt has R shoulder pain, weakness, and limited ROM secondary to rotator cuff impingement Rehabilitation Potential: Good - Anticipated Interventions Patient/Client Instruction: Educate patient on: Condition, Plan of Care For the Purpose of:: To improve self management Therapeutic Exercise to Include: Strength training, Endurance training, Scapular Strength/Stabilization For the Purpose of:: To decrease pain, To increase ROM, To improve muscle performance and motor function Thank you for the opportunity to evaluate your patient. For Medicare and Medicare HMO plans, please review the plan of care and approve it. It will need to be FAXED BACK to us at [phone] for Medicare purposes. For Medicare only, by signing this I certify the plan of care. Please let me know if there are questions or concerns regarding this plan of care. Physician Signature: Date:
--- NOTE | 2022-04-22 12:26 | HP.PT.NRP ---
SLIME SHAW was seen in my office for initial evaluation on 02/13/22. The following Plan of Care was established for this patient: Initial Frequency: 1x/Week Initial Duration: 2 Weeks Patient/Client Instruction: Educate patient on: Condition, Plan of Care For the Purpose of:: To improve self management Therapeutic Exercise to Include: Strength training, Endurance training, Scapular Strength/Stabilization For the Purpose of:: To decrease pain, To increase ROM, To improve muscle performance and motor function This patient was last seen in our office . Pertinent comments regarding their Physical therapy will appear below: Pt was treated for R shoulder pain for 2 PT visits through the date of 02/18/22. Pt has not returned through todays date and is discontinued at this time. At this point I will be discontinuing this patient from physical therapy. I would be happy to see this patient again in the future if found appropriate by the physician. Thank you! Carlos Mondragon, PT, ATC Balance/Gait/Functional tests - Balance/Special Test Scores Quick DASH Score: [phone]
== END 2022-02-18 19:00 | disposition home or self-care (01) ==
LOC: PT 07:30
PROVIDERS: PCP Family Medicine; Referring Provider Family Medicine; Visit Provider Family Medicine
DX: S49.91XD Unspecified injury of right shoulder and upper arm, subsequent encounter (principal)
CPT/HCPCS: 97110; 97161

== ENCOUNTER 2022-03-24 08:26 | Outpatient (CLI) | payer MEDICARE, OTHER, SELFPAY ==
--- NOTE | 2022-03-24 08:30 | EKG12_ITS ---
Test Reason : PREOP Blood Pressure : / mmHG Vent. Rate : 059 BPM Atrial Rate : 059 BPM P-R Int : 080 ms QRS Dur : 096 ms QT Int : 448 ms P-R-T Axes : 047 -18 057 degrees QTc Int : 443 ms Sinus bradycardia with short SD Poor R wave progression Confirmed by JAVED SAL, BREEZY ([id number]), senior technical editor BLUE ALVAREZ ([id number]) on 03/25/2022 9:46:13 AM Referred By: DALJIT Confirmed By:BREEZY BURT MD
--- NOTE | 2022-03-24 08:30 | CT_ITS ---
CT Lower Extremity W/O Contrast Injection INDICATION:71 years old Male presenting with LEFT KNEE OSTEOARTHRITIS. TECHNIQUE: Sequential axial 2.5 mm collimated images are obtained through the left hip and ankle. 0.625 mm images were obtained through the left knee. No intravenous contrast was administered. Images were reformatted in sagittal and coronal planes and forwarded for preoperative planning. COMPARISON: 07/23/2020.. FINDINGS: Contiguous axial images of the left lower extremity was obtained in different collimations for preoperative planning, images demonstrate degenerative changes, no evidence of cortical irregularities or lucencies to suggest fractures, no evidence of lytic or sclerotic bone lesions are seen. No evidence of hip dislocation, mild narrowing of the hip joint space is seen. Small left inguinal hernia visualized Moderate to severe narrowing of the medial knee joint space, moderate narrowing of the lateral and patellofemoral joint spaces is visualized. Prominent osteophyte formation is seen. Subchondral lucencies seen. No significant suprapatellar effusion is seen.. The ankle mortise is well-maintained, the talar dome is unremarkable, degenerative changes visualized with no evidence of cortical irregularity and lucency to suggest a fracture. No evidence of dislocation is seen. Stranding in the intramuscular fat planes is seen. Stranding of the subcutaneous soft tissues is visualized, no evidence of CT/Extremity Lower without Contra IMPRESSION: Degenerative bone changes, no acute osseous abnormality. Electronically Signed: Ethan Higgins MD at 9:25 EDT Reading Location ID and State: [facility] / [place] Tel , Service support ,
== END 2022-03-24 23:59 | disposition home or self-care (01) ==
LOC: CT 08:26
PROVIDERS: PCP Family Medicine; Visit Provider Orthopaedic Surgery
DX: M17.12 Unilateral primary osteoarthritis, left knee (principal); I73.9 Peripheral vascular disease, unspecified; E66.01 Morbid (severe) obesity due to excess calories; Z68.41 Body mass index [BMI] 40.0-44.9, adult; Z86.711 Personal history of pulmonary embolism; Z79.899 Other long term (current) drug therapy; I10 Essential (primary) hypertension; M10.9 Gout, unspecified; G47.30 Sleep apnea, unspecified; E07.9 Disorder of thyroid, unspecified; Z86.16 Personal history of COVID-19; Z79.890 Hormone replacement therapy; N40.0 Benign prostatic hyperplasia without lower urinary tract symptoms; I51.9 Heart disease, unspecified; R20.2 Paresthesia of skin
CPT/HCPCS: 36415; 73700; 80048; 82040; 83036; 83735; 84443; 85025; 87081; 93005

== ENCOUNTER 2022-04-06 14:15 | Observation (INO) | payer MEDICARE, OTHER, SELFPAY ==
[2022-03-24 09:30] LABS: Absolute Lymphocyte Count 2.32 X10^3/uL (0.83-4.51); Absolute Neutrophil Count 4.2 X10^3/uL (2.0-7.7); Basophil# 0.05 X10^3/uL; Basophil% 0.7 % (0-1); Eosinophil# 0.34 X10^3/uL; Eosinophils% 4.4 % (0-5); Hematocrit 42.5 % (40-54); Hemoglobin 15.1 g/dL (13.0-16.5); Lymphocyte # 2.32 X10^3/ul (0.83-4.51); Lymphocyte % 30.2 % (19-41); Mean Corp Hgb Conc 35.5 g/dL (32-36); Mean Corpuscular Hgb 31.3 pg (27.0-32.0); Mean Platelet Vol. 9.5 fl (6.2-12.0); Monocyte# 0.77 X10^3/uL; NRBC Flagged by Analyzer 0 % (0-5); Neutrophil # 4.16 X10^3/uL (2.7-7.7); Neutrophil % 54.3 % (47-70); Platelet Count 210 K/mm3 (150-450); RBC Distribution Width CV 13.4 % (11.6-14.6); RBC Distribution Width SD 42.6 fl (35.1-43.9); Red Blood Count 4.83 M/mm3 (4.6-6.2); White Blood Count 7.7 K/mm3 (4.4-11.0)
[2022-03-24 10:11] LABS: Albumin, Serum 3.8 g/dL (3.2-5.0); Anion Gap 6 (5-15); BUN 25 mg/dL (7-18); BUN/Creat Ratio 18.1 RATIO (10-20); Calcium,Total 8.6 mg/dL (8.5-10.1); Chloride 106 mmol/L (98-107); Creatinine, Serum 1.38 mg/dL (0.70-1.30); EST Glomerular Filtration Rate 54 mL/min (>60); Est Glom Filt Rate - Afr Amer 65 mL/min (>60); Glucose 113 mg/dL (74-106); Potassium 3.2 mmol/L (3.5-5.1); Sodium Level 141 mmol/L (136-145)
[2022-03-24 10:35] LABS: Thyroid Stim Hormone (TSH) 4.38 uIU/mL (0.358-3.74)
[2022-04-06] VITALS (13 sets, daily range): BP systolic 123–150; BP diastolic 59–74; PULSE 57–86; RESP 16–20; TEMP 36.5–36.9; O2SAT 90–99; BMI 43.2
[2022-04-06] MEDS: Gabapentin 600 MG Tablet PO (09:00)
[2022-04-06] MEDS: Acetaminophen 500 MG Tablet 1000 MG PO ×2 (09:00→17:39)
[2022-04-06] MEDS: Lactated Ringers 1,000 ML 15 ML IV (09:00)
[2022-04-06 09:25] LABS: Bedside Glucose 124 mg/dL (74-106)
--- NOTE | 2022-04-06 09:34 | RAD_ITS ---
STUDY: X-RAY - LEFT KNEE REASON FOR EXAM: Male, 71 years old. Post op -- AP and Lateral xray of operative knee in PACU TECHNIQUE: 2 view(s) of the knee. COMPARISON: Comparison is made with prior examination dated 08/21/2019. FINDINGS: Normal visualized distal femur. Normal visualized proximal tibia and fibula. Normal proximal tibiofibular articulation. The patient is status post total knee replacement. There is good alignment. Postoperative soft tissue changes. RAD/Knee 1 or 2 Views IMPRESSION: Status post total knee replacement. There is good alignment. Postoperative soft tissue changes. Electronically Signed: Ephraim Constantino MD at 13:36 EDT ,
--- NOTE | 2022-04-06 10:15 | KNEE_PTH ---
PATIENT: SLIME SHAW LOC: [facility]3 U#:[id number] AGE/SX: 71/M ROOM: [facility] [place] RE04/06/[address]: Dr. Jefferson Alarcon DO : 1950 BED: 1 DIS: 04/07/2022 SPEC #: [id number] RECD: 04/06/22 13:17 STATUS: ARTIE REHiwot #: [id number] MICHEAL: 04/06/22 10:[address]: Jefferson Alarcon DEPT: SURGICAL PATHOLOGY RECD BY: Padmini Norton ENTERED: 04/06/22 13:35 SP TYPE: TOTAL KNEE OTHR DR: Dr. Foreign Herrmann MD Tissues: Knee, NOS Procedures: Decalcification bone/plaque Surgery Specimen Level IV HEADER OPERATION: ERAS, total knee replacement robotic arm assist PRE-OP DIAGNOSIS: Left knee osteoarthritis TISSUE SUBMITTED: Bone and tissue left knee MICROSCOPIC DIAGNOSIS Bone and tissue of left knee, total knee resection: Severe degenerative joint disease. AM:mariana 04/09/2022 MICROSCOPIC DESCRIPTION Slides are reviewed. GROSS DESCRIPTION Received is one container designated bone and tissue left knee. The specimen consists of multiple fragments of andersen-yellow bone measuring in aggregate 11 x 10 x 4 cm. No soft tissue is identified. A number of bony fragments contain articular surfaces consistent with tibial plateau and femoral condyle and displaying prominent osteophyte formation, eburnation, and bone erosion. Archivist Military History sections are submitted in one cassette after decalcification. / SJ:mariana 04/06/2022 TC:5 CPT: 79704, 37279
[2022-04-06] MEDS: Lactated Ringers 1,000 ML 999 ML IV (12:30)
--- NOTE | 2022-04-06 13:28 | PCM.OPRPT ---
Report of Operation Date of Procedure: 04/06/22 Pre-Operative Diagnosis: OA left knee Post-Operative Diagnosis: same Surgery/Procedure Performed:: Left TKR Description of Surgical Findings:: Report of Operation Date of Procedure: Preoperative Diagnosis: [left ] knee primary osteoarthritis Postoperative Diagnosis: [ left ] knee primary osteoarthritis Operation: Robotic Assisted Knee Total Arthroplasty, [left ] knee Surgeon: Dr Jefferson Alarcon DO Roofing Plant Supervisor: Everett Luna PA-C Anesthesia: general Anesthesiologist: Jacoby Zelaya M.D. Findings: Stable knee with good patella tracking Specimen(s): Bony cuts Complications: No intraoperative complications Estimated Blood Loss: 30 cc IV Fluids: 1000 cc crystalloid Implants Used: 1. Greta Triathlon press-fit CR size 6 femur 2. Mcdonald Triathlon size 6 tibia 3. 35 mm patella 4. 9 mm CS polyethylene Brief History Operative Indications: [ (71 y/o male) ] with history of [left ] knee osteoarthrosis with radiographic findings with loss of joint space, osteophyte formation and subchondral sclerosis. Failed conservative measures as mentioned in the H&P. Discussion of total knee arthroplasty as well as risk and benefits were discussed with the patient including but not limited to blood loss, DVTs, PEs, neurovascular damage, general risk of anesthesia including loss of life, and stiffness or instability were also discussed with the patient. Patient demonstrated understanding and was able to sign informed consent. Procedure: On the date of procedure, patient's [left ] lower extremity was marked in the preoperative area. The patient was then taken back to the operating room where that patient was placed on the table in the supine position. All bony prominences were identified and well-padded. Anesthesia assumed control of the C-spine and airway throughout the remainder of the procedure. A tourniquet was placed on the [left ] upper thigh and the leg was prepped in a sterile fashion. The surgeon then scrubbed at this time. Upon reentering the room, the [left ] lower extremity was draped in a standard orthopedic fashion. A timeout was then called and everyone agreed upon the side, the site, the procedure to be performed, patient's identity and antibiotics given. Esmarch bandage was used to exsanguinate the extremity and the tourniquet was placed up to 300 mmHg with the knee in flexion. A midline skin incision was made and a sharp dissection was taken down through skin, subcutaneous tissue and fat. The standard medial parapatellar incision was made and the patella was subluxed laterally. An appropriate deep MCL release was done and the fat pad was resected. Our attention was then directed to the patella. The patella was everted and a flat resection was made. The knee was then flexed up and 2 femoral pins were placed inside the incision and 2 tibial pins were placed outside the incision in the medial tibia bicortically. Once this was completed, the 2 checkpoints in the femur and tibia were placed. Knee was then flexed up and the bony landmarks were registered. Once the was completed, the knee taken through range of motion and manually stressed allowing us to plan for an appropriate tibial cut. The robotic arm was brought into the field sterilely and checkpoint and saw were registered. Based on the patient's deformity, the tibial cut was made in [2 degrees varus ]. At this time, the tensioner was then placed in the joint and ligament tension was checked at 90 degrees and full extension. Based on the patient's ligamentous tension, appropriate adjustments were made to the operative plan and ligament releases were done. Once we were happy with our operative plan with balanced flexion and extension gaps, our attention was directed to the femur. The robot was brought into the field sterilely and registered. Posterior condylar cuts, anterior chamfer cuts and anterior cuts were appropriately made for a [size 6 ] femur. When these were completed, the saws were switched out in the distal femoral and posterior chamfer cuts were made. Protecting the soft tissue throughout this time. A [size 6 ] base plate was selected. The knee was flexed to 90 degrees and soft tissues and posterior osteophytes were removed from the joint. 40 cc of the periarticular injection was injected into the posterior medial corner of the joint. The appropriate trials were then placed on the femur and tibia. A trial polyethylene was trialed to ensure proper balancing and stability of the knee. The appropriate tibial internal rotation was then marked with a bovie. Our attention was then directed to the patella. The lug holes were drilled and the patella trial was placed. Patellar tracking was checked and deemed appropriate. Once we were happy, lug holes were drilled for the femur and trial components were removed. The tibia was subluxed and pinned into place and the keel was punched and drilled appropriately. Final components were verified and opened. The wound was copiously irrigated with normal saline. The components were impacted into place with the tibia, femur and finally the patella. The trial poly component was placed and the knee was placed in full extension. The tracking, alignment and balance were verified and a [ 9 mm CS ] polyethylene component was placed. Once the final components were placed an Irrisept lavage was performed and the wound was copiously irrigated with normal saline solution and the periarticular injection was given. the wound was closed in a layer-lazaro fashion using #1 vicryl interrupted sutures for the arthrotomy, 2-0 interrupted vicryl suture for the subcuticular layer and pedro for final skin closure. A sterile compressive dressing was then placed. The patient was then awakened from anesthesia, transferred to the rcochise and transferred to the PACU for recovery. My physician dental ceramist assistant was a vital part of this case. He was important in appropriate retraction during the case, and protection of soft tissues during bony cuts. His intimate knowledge of the case and my steps aided in safe and expedient completion of the procedure as well as appropriate position of the leg during the case. He was also vital in assisting with closure under my direct supervision. Due to the complexity of this case, robotic arm was used to assist in the surgery to improve accuracy and clinical outcomes. Post-op Plan: DVT ppx; ASA 81 mg BID, thigh high compression stockings Follow up: in office in 2 weeks for wound check PT: to start POD #0 at hospital, outpatient PT should be arranged. Preoperative antibiotic: Ancef 3 grams IV Jefferson Alarcon DO Surgeon: Jefferson Alarcon pharmacy scheduler: Everett Luna Type of Anesthesia: General Anesthesiologist: Jacoby Zelaya Specimen's removed: bone Estimated Blood Loss (mL): 30 cc Fluids Replaced: 1000 cc crystalline Admit VTE Documentation VTE Present on Admission: No VTE Mechan Device Prophylaxis: Thigh High ELENO Hose VTE Pharm Prophylaxis ordered?: Yes
[2022-04-06] MEDS: Lactated Ringers 1,000 ML 125 ML IV ×2 (15:50→22:04)
[2022-04-06] MEDS: Furosemide 40 MG Tablet PO (17:39)
[2022-04-06] MEDS: Potassium Chloride Oral Tablet 20 MEQ 40 MEQ PO (17:39)
[2022-04-06] MEDS: Cefazolin 1 GM/50 ML BAG IV (18:05)
[2022-04-06] MEDS: Budesonide Respules 0.5 MG/2 ML AMPUL.NEB. INHALATION (19:34)
[2022-04-06] MEDS: Senna/Docusate Sodium 1 Tablet 2 TABLET PO (21:50)
[2022-04-06] MEDS: Multivitamin (Healthy Eyes) Capsule 1 CAP PO (21:51)
[2022-04-06] MEDS: Finasteride 5 MG Tablet PO (21:52)
[2022-04-06] MEDS: Doxazosin 4 MG Tablet PO (21:52)
[2022-04-06] MEDS: Psyllium 1 PACKET PO (21:53)
[2022-04-06] MEDS: Verapamil SR 180 MG CAPSULE PO (21:53)
[2022-04-06] MEDS: Famotidine 20 MG Tablet PO (21:53)
[2022-04-06] MEDS: Latanoprost 0.005% 1 Bottle 1 DRP EACH EYE (21:54)
[2022-04-07] MEDS: Cefazolin 1 GM/50 ML BAG IV (01:00)
[2022-04-07] MEDS: Acetaminophen 500 MG Tablet 1000 MG PO ×2 (01:00→07:58)
[2022-04-07 02:16] VITALS: BP 120/53; PULSE 72; RESP 18; TEMP 36.6; O2SAT 95
[2022-04-07 06:04] LABS: Hematocrit 35.6 % (40-54); Mean Corp Hgb Conc 36.5 g/dL (32-36); Mean Corpuscular Hgb 32.4 pg (27.0-32.0); Mean Corpuscular Volume 88.8 fL (80-94); Mean Platelet Vol. 9.7 fl (6.2-12.0); Platelet Count 190 K/mm3 (150-450); RBC Distribution Width CV 13.3 % (11.6-14.6); RBC Distribution Width SD 43.3 fl (35.1-43.9); Red Blood Count 4.01 M/mm3 (4.6-6.2); White Blood Count 9.6 K/mm3 (4.4-11.0)
[2022-04-07] MEDS: Levothyroxine 50 MCG Tablet PO (06:16)
[2022-04-07 06:30] LABS: Anion Gap 6 (5-15); BUN 14 mg/dL (7-18); BUN/Creat Ratio 12.6 RATIO (10-20); Calcium,Total 8.2 mg/dL (8.5-10.1); Chloride 101 mmol/L (98-107); Creatinine, Serum 1.11 mg/dL (0.70-1.30); EST Glomerular Filtration Rate 69 mL/min (>60); Est Glom Filt Rate - Afr Amer 84 mL/min (>60); Estimated Creatinine Clearance 60.16 ml/min; Glucose 99 mg/dL (74-106); Potassium 3.2 mmol/L (3.5-5.1); Sodium Level 138 mmol/L (136-145)
[2022-04-07 07:06] VITALS: PULSE 71; RESP 18; O2SAT 100
[2022-04-07] MEDS: Budesonide Respules 0.5 MG/2 ML AMPUL.NEB. INHALATION (07:06)
--- NOTE | 2022-04-07 07:41 | PN.ORTHO_ITS ---
Subjective Subjective Patient sitting at bedside in a chair. Patient reports his pain has been very well managed. Patient does admit his knee is more painful this morning. Patient denies chest pain, shortness of breath, calf pain, nausea vomiting. Patient has no other complaints at this time. Patient is ready for discharge home. Objective Data Objective Data Vital Signs: Vital Signs Temp Pulse Resp BP Pulse Ox O2 Del Method O2 Flow Rate 97.9 F 71 18 120/53 L 100 Room Air 2 04/07/22 02:16 04/07/22 07:06 04/07/22 07:06 04/07/22 02:16 04/07/22 07:06 04/07/22 07:06 04/06/22 16:50 FiO2 21 04/06/22 20:10 Oxygen Flow Rate (L/min) 2 Oxygen Delivery Method Room Air Weight: 133 kg Body Mass Index (BMI) 43.2 Intake & Output: Intake and Output for Last 24 Hours 04/05/22 04/06/22 04/07/22 23:59 23:59 23:59 Intake Total 3596.17 / 3596.17 1050 / 1050 Output Total 200 / 200 600 / 600 Balance 3396.17 / 3396.17 450 / 450 Lab / Micro Data Result Diagrams: 04/07/22 05:16 04/07/22 05:16 Labs: Laboratory Results - last 24 hr 04/06/22 08:41: POC Glucose 124 H 04/07/22 05:16: WBC 9.6, RBC 4.01 L, Hgb 13.0, Hct 35.6 L, MCV 88.8, MCH 32.4 H, MCHC 36.5 H, RDW Std Deviation 43.3, RDW Coeff of Karolyn 13.3, Plt Count 190, MPV 9.7 04/07/22 05:16: Sodium 138, Potassium 3.2 L, Chloride 101, Carbon Dioxide 31.0, Anion Gap 6, BUN 14, Creatinine 1.11, Estim Creat Clear Calc 60.16, Est GFR (MDRD) Af Amer 84, Est GFR (MDRD) Non-Af 69, BUN/Creatinine Ratio 12.6, Glucose 99, Calcium 8.2 L Micro: Microbiology 03/24/22 08:54 Swab (Method) Nasal Screen MRSA/MSSA - Final Radiography Diagnostic Testing: Radiology Impression Knee X-Ray 04/06/22 09:34 IMPRESSION: Status post total knee replacement. There is good alignment. Postoperative soft tissue changes. Electronically Signed: Ephraim Constantino MD at 13:36 EDT , Physical Exam Narrative Upon exam I found patient sitting at bedside. He was alert oriented. He was in no respiratory distress speaking in full sentences. Patient has excellent range of motion of the upper extremities with good muscle tone and strength. I examin ed her left knee it was cool to touch nonerythematous. Patient did have some postoperative oozing. There is some blood soaked in the dressing. There is no active bleeding at this time. Patient's thigh is tender from the tourniquet placement. No ecchymosis. The calf is nontender. He has good strong posterior tibial and dorsalis pedis pulses. Patient's potassium is 3.2 today he is scheduled to receive his normal dosing of potassium supplement. Const alert and oriented x3 General Appearance: cooperative HEENT normocephalic Eyes PERRL Resp normal respiratory effort Effort and Inspection: able to speak in complete sentences Cardio regular rate Extremity normal capillary refill Neuro CN's II-XII intact bilaterally Psych mental status grossly normal and affect normal Assessment & Plan Assessment/Plan (1) Loose left total knee arthroplasty: PLAN: 1. Continue all pain medications as prescribed 2. Encourage incentive spirometry 3. Begin Eliquis 2.5 mg every 12 hours for 30 days for postop DVT prophylaxis as prescribed by his primary care physician 4. Continue physical therapy, weight-bear as tolerated with walker 5. Patient will continue his physical therapy at [facility]. 6. We will change dressing prior to discharge today. 7. Patient will follow-up as scheduled, see pink sheet
--- NOTE | 2022-04-07 07:49 | DCINST_ITS ---
Discharge Instructions Diet Discharge Diet: No restrictions Activity Discharge Activity: Return to Normal Activity, May Not Drive, May Shower and Use Walker May shower in (days): 3 May resume sexual activity in: No Restrictions Ice area for (Minutes): 30 Weight Bearing Status: Weight bearing as tolerated Keep extremity elevated above heart level: Operative Extremity Dressing / Incision Call your doctor if your incision/area has: Continuous Slow Oozing, Sudden Increased Bleeding, Increased Pain/ Swelling and Increased Redness Call your doctor if you observe: Fever of 101 or Higher Change Dressing in: do not change dressing Remove Dressing in: 1 week Follow Up Care Please Follow Up With: Jefferson Alarcon DO When: As scheduled Test Results: Test results from this visit will be discussed in further detail at your follow- up appointment, if applicable. Discharge Plan Admission Admit Date/Time: 04/06/22 14:15 Primary Reason for Your Visit: Left total knee arthroplasty Attending Provider: Jefferson Alarcon Primary Care Provider: Foreign Herrmann Discharge Orders/Prescriptions Prescriptions: New acetaminophen 500 mg Tablet 1,000 mg PO Q8H 30 Days Qty: 180 0RF Eliquis 2.5 mg Tablet 2.5 mg PO BID 30 Days Qty: 60 0RF oxycodone 5 mg Tablet 5 - 10 mg PO Q4H PRN PRN (Reason: Pain Score 4-10) 7 Days Qty: 84 0RF Continued furosemide [Lasix] 40 mg tablet 40 mg PO DAILY fluticasone propionate 50 mcg/actuation spray,suspension 1 spray INTRANASAL BID levothyroxine 50 mcg capsule 50 mcg capsule 50 mcg PO DAILY potassium chloride 20 mEq tablet,ER particles/crystals 40 meq PO BID chlorthalidone 25 mg tablet 25 mg PO DAILY latanoprost 1 DROP bottle 1 drp EACH EYE QHS Label Comments: EYE DROPS desoximetasone 1 APPLIC cream 1 applic TOPICAL PRN PRN (Reason: PSORIASIS) Label Comments: STEROID CREAM verapamil 180 MG capsule 180 mg PO BID Label Comments: HEART/BLOOD PRESSURE doxazosin 4 MG tablet 4 mg PO QHS Label Comments: BLOOD PRESSURE/PROSTATE multivitamin with folic acid 1 TABLET tablet 1 tab PO DAILY Label Comments: VITAMIN dutasteride 0.5 MG capsule 0.5 mg PO QHS psyllium husk 0.52 GM capsule 0.52 gm PO QHS allopurinol 100 mg tablet 100 mg PO DAILY Label Comments: TAKE 1 TABLET BY MOUTH ONCE DAILY diphenhydramine HCl [Benadryl] 25 mg Capsule 25 mg PO QHS PRN (Reason: allergies) albuterol sulfate 90 mcg/actuation HFA aerosol inhaler 2 puff inhalation Q4H PRN (Reason: shortness of breath or wheezing) Qty: 8.5 1RF famotidine 20 mg Tablet 20 mg PO BID Qty: 60 0RF meloxicam 15 mg tablet 15 mg PO DAILY coenzyme Q10 [CoQ-10] 100 mg Capsule 100 mg PO DAILY apple cider vinegar 500 mg Tablet 480 mg PO BID procyanidolic oligomers 50 mg Capsule 60 mg PO DAILY cinnamon bark [Cinnamon] 500 mg Capsule 500 mg PO BID Glucosamine Chondroitin PLUS 172-985-40-54 mg Capsule 2 cap PO DAILY PreserVision AREDS-2 250-90-40-1 mg Capsule 1 tab PO BID Arnuity Ellipta 200 mcg/actuation blister with device 1 inh INHALATION DAILY Label Comments: INHALE 1 PUFF BY MOUTH ONCE DAILY WITH GOOD ORAL CARE FOLLOWING USE. guaifenesin [Mucus Relief ER] 600 mg tablet extended release 12hr 200 mg PO BID PRN PRN (Reason: Chest Congestion/Secretions) Discontinued indomethacin 50 mg capsule 50 mg PO TID PRN PRN (Reason: gout) Rx Instructions: FOR TX OF GOUT tramadol 50 mg Tablet 50 mg PO Q6H PRN (Reason: Pain) Referrals / Follow Up: Foreign Herrmann MD [Primary Care Provider] - Disposition Disposition (needs filled in before D/C Order can be placed): Home, Self Care
[2022-04-07] MEDS: Famotidine 20 MG Tablet PO (07:57)
[2022-04-07] MEDS: Furosemide 40 MG Tablet PO (07:57)
[2022-04-07] MEDS: Allopurinol 100 MG Tablet PO (07:57)
[2022-04-07] MEDS: Multivitamin (Healthy Eyes) Capsule 1 CAP PO (07:57)
[2022-04-07] MEDS: Potassium Chloride Oral Tablet 20 MEQ 40 MEQ PO (07:57)
[2022-04-07] MEDS: Meloxicam 15 MG Tablet PO (07:58)
[2022-04-07] MEDS: Verapamil SR 180 MG CAPSULE PO (07:58)
[2022-04-07] MEDS: Senna/Docusate Sodium 1 Tablet 2 TABLET PO (07:58)
[2022-04-07] MEDS: APIXABAN 2.5 MG TABLET PO (08:03)
[2022-04-07] MEDS: oxyCODONE 5 MG Tablet PO ×2 (08:03→14:15)
[2022-04-07 08:12] VITALS: BP 126/58; PULSE 76; RESP 16; TEMP 36.6; O2SAT 97
[2022-04-07 08:15] VITALS: O2SAT 97
--- NOTE | 2022-04-07 09:29 | CASEMGMT ---
Social Work Living Will and Power of Cruise Staff Member for Healthcare both scanned into summary tab of echart. Kelly Sorto is listed as Healthcare POA. SHARI Smith
--- NOTE | 2022-04-07 09:45 | CASEMGMT ---
EDER RYAN Face to Face with patient for initial transition planning/care coordination assessment. EDER RYAN introduced self and role at [facility]. Patient sitting in chair, alert and oriented. Patient willing to participate in assessment and is able to answer all questions appropriately. Care providers, pharmacy, and demographics verified. Patient wishes to discharge home and is setup for outpatient therapy at [facility]. Patient states he has no further needs or concerns at this time. CM to follow for discharge planning needs that may arise. PCP: [facility] Specialists: andrei Alarcon; Shaina, special procedure tech Preferred Pharmacy: [facility] Insurance: [employer] Prescription Benefit: yes Living Will/HPOA: yes, DILCIA Reed LNOK: Living Arrangements: Patient lives with in a single story home with 2 steps to enter. Patient states he was independent at home prior to surgery. Transportation: DME/HHC: Patient has shower chair, raised toilet, walker, and cpap at home. Patient states he is going to [facility] for outpatient therapy but not aware of appt being setup. EDER RYAN called [facility] to verify appt for outpatient therapy. Patient is setup for first eval at [facility] on Wednesday04/10/22 at 0900. EDER RYAN updated patient. Disposition Plan: Patient to discharge home with outpatient therapy, family support, and follow-up plans in place. Sanaz POOL, RN, CM
--- NOTE | 2022-04-07 10:03 | CASEMGMT ---
Addendum entered by Drea Brito 04/07/22 13:32: RN CM in to pt room, at bedside. states she picked up the eliquis and cost was $140. Pt and aware that eliquis card has been used and cannot be used again this year. Pt and deny further needs. Pt ready for dc. Original Note: TC to [facility] Retail pharmacy, per Ramiro pt rx will be trf'd to [facility] as pt does not have coverage here. States pt has already used eliquis card this year.
[2022-04-07 10:32] VITALS: O2SAT 97
[2022-04-07 14:52] VITALS: BP 123/64; PULSE 77; RESP 18; TEMP 36.8; O2SAT 97
== END 2022-04-07 14:20 | disposition home or self-care (01) ==
LOC: SDC 14:49 → MS3 14:49
PROVIDERS: Anesthesiology; Admitting Provider Orthopaedic Surgery; PCP Family Medicine; Referring Provider Orthopaedic Surgery; Visit Provider Orthopaedic Surgery
PROC: 0SRD0JZ Replacement of Left Knee Joint with Synthetic Substitute, Open Approach (ICD-10-PCS; CPT 27447; principal; 2022-04-06 09:45)
DX: M17.12 Unilateral primary osteoarthritis, left knee (principal); I73.9 Peripheral vascular disease, unspecified; E66.01 Morbid (severe) obesity due to excess calories; Z68.41 Body mass index [BMI] 40.0-44.9, adult; Z86.711 Personal history of pulmonary embolism; Z79.899 Other long term (current) drug therapy; I10 Essential (primary) hypertension; M10.9 Gout, unspecified; G47.30 Sleep apnea, unspecified; E07.9 Disorder of thyroid, unspecified; Z79.890 Hormone replacement therapy; Z86.16 Personal history of COVID-19; N40.0 Benign prostatic hyperplasia without lower urinary tract symptoms; I51.9 Heart disease, unspecified; R20.2 Paresthesia of skin; Z87.19 Personal history of other diseases of the digestive system
CPT/HCPCS: 27447; S2900; 01402; 64447; 36415; 73560; 80048; 82040; 82962; 83036; 83735; 84443; 85025; 85027; 87081; 88305; 88311; 94640; 96361; 96365; 96366; 97110; 97162; 97166; 97530; 97535; 99218; C1776; J7120; G0378; J2405; J3475

== ENCOUNTER 2022-04-13 11:30 | Emergency (ER) | payer MEDICARE, OTHER, SELFPAY ==
[2022-04-13 11:31] VITALS: BP 138/76; PULSE 78; RESP 16; TEMP 35.9; O2SAT 96; BMI 44.4
--- NOTE | 2022-04-13 12:02 | RAD_ITS ---
STUDY: X-RAY - LEFT KNEE REASON FOR EXAM: Male, 71 years old. Pain, recent TKA TECHNIQUE: 2 view(s) of the knee. COMPARISON: 08/21/2019. FINDINGS: Status post total left knee arthroplasty. The alignment appears to be unremarkable. Lucencies in the proximal tibia probably from previous surgery. There is no demonstrated acute fracture. Skin pedro. Soft tissue swelling consistent with recent surgery RAD/Knee 1 or 2 Views IMPRESSION: Status post left knee arthroplasty. Electronically Signed: Kota Erickson MD at 12:54 EDT ,
--- NOTE | 2022-04-13 12:02 | VDLE_ITS ---
Reason For Study: Pain RIGHT LEFT CFV is compressible, spontaneous, phasic, GSV is normal. competent and demonstrates normal CFV is compressible, spontaneous, phasic, augmentation. competent, and demonstrates normal Procedure augmentation. This is a venous duplex using B-mode, color FV is compressible, spontaneous, phasic, flow and spectral Doppler. competent and demonstrates normal Exam performed portable in ED. augmentation. A preliminary report was called and/or faxed POP V is compressible, spontaneous, phasic, to Dr. Olson. competent and demonstrates normal augmentation. T/P Trunk is compressible. PTV is compressible. LT PerV is compressible. VL/Venous Duplex US, Unilateral Interpretation Summary Deep veins of the left lower extremity are patent and compressible segmentally. There is no evidence of left lower extremity deep vein thrombosis. The left great saphenous vein sushma ears patent and compressible segmentally. Ordering Physician: Gregg Oslon Referring Physician: Foreign Herrmann Performed By: Ashley Wolff RDCS, RVT
--- NOTE | 2022-04-13 12:06 | ED.VIS.LOWEX ---
HPI History of Present Illness Chief Complaint: Wound Check Informant: patient and spouse/S.O. Onset/Context/Timing Onset: Yesterday Context: Gradual Onset Timing: Continuous Quality of Pain: - (sore) Location: left lower leg Current Severity: Moderate Worsened by: walking, palpation Relieved by: rest Associated Symptoms Associated Symptoms: Negative for Parasthesia, Weakness or Loss of Funtion Narrative Narrative: Patient had a total knee arthroplasty left knee 1 week ago today, over the weekend has developed redness, swelling, pain distal to the incision. No fevers or chills. Minor bleeding on to the surgical dressing from the wound which has not been removed yet, but no other discharge. He is on Eliquis and the bleeding has been relatively little. He is bending the knee better and better each day since his surgery, and able to walk despite this. [facility] Medical History (Updated 04/13/22 @ 12:[address] Gregg Olson MD) 2019 novel coronavirus-infected pneumonia (NCIP) Acute respiratory failure with hypoxemia Ambulates with cane Arthritis BiPAP (biphasic positive airway pressure) dependence BPH (benign prostatic hyperplasia) BPH (benign prostatic hyperplasia) Cholelithiasis with chronic cholecystitis DVT (deep venous thrombosis) Gallstones Gastric reflux Glaucoma Gout Gynecomastia, male Heart disease Hemorrhoids History of echocardiogram History of edema History of stress test Hoarseness Hypertension Hypoxia Morbid obesity due to excess calories Non-smoker Numbness and tingling On home oxygen therapy Pneumonia due to COVID-19 virus Psoriasis Pulmonary emboli Rectal bleeding Shortness of breath on exertion Sleep apnea Thyroid disease Thyroid disease Venous insufficiency Wears glasses Home Medications desoximetasone 0.25 % topical cream 1 applic topical PRN PRN PSORIASIS 06/13/13 [History Last Taken 04/04/22] doxazosin 4 mg tablet 4 mg PO QHS bladder 06/13/13 [History Last Taken 04/05/22] latanoprost 0.005 % eye drops 1 drp EACH EYE QHS glaucoma 06/13/13 [History Last Taken 04/05/22] multivitamin with folic acid 400 mcg tablet 1 tab PO DAILY supplement 06/13/13 [History Last Taken 04/01/22] verapamil 180 mg 24 hr capsule,extended release 180 mg PO BID blood pressure 06/13/13 [History Last Taken 04/06/22] chlorthalidone 25 mg tablet 25 mg PO DAILY blood pressure 11/22/17 [History Last Taken 04/05/22] fluticasone propionate 50 mcg/actuation nasal spray,suspension 1 spray intranasal BID allergies 11/22/17 [History Last Taken 04/05/22] furosemide 40 mg tablet (Lasix) 40 mg PO DAILY water pill 11/22/17 [History Last Taken 04/14/21] levothyroxine 50 mcg capsule 50 mcg PO DAILY thyroid 11/22/17 [History Last Taken 04/14/21] potassium chloride 20 mEq tablet,extended release(part/cryst) 40 meq PO BID supplement 11/22/17 [History Last Taken 04/05/22] dutasteride 0.5 mg capsule 0.5 mg PO QHS bladder 04/13/19 [History Last Taken 04/05/22] psyllium husk 0.52 gram capsule 0.52 gm PO QHS constipation 04/13/19 [History Last Taken 04/05/22] allopurinol 100 mg tablet 100 mg PO DAILY gout 04/08/21 [History Last Taken 04/14/21] diphenhydramine HCl 25 mg capsule (Benadryl) 25 mg PO QHS PRN allergies 04/08/21 [History Last Taken 04/05/22] albuterol sulfate 90 mcg/actuation aerosol inhaler 2 puff inhalation Q4H PRN shortness of breath or wheezing #8.5 grams 04/10/21 [Rx Last Taken 04/06/22] famotidine 20 mg tablet 20 mg PO BID #60 tabs 04/18/21 [Rx Last Taken 04/06/22] apple cider vinegar 500 mg tablet 480 mg PO BID 03/23/22 [History Last Taken 04/01/22] cinnamon bark 500 mg capsule (Cinnamon) 500 mg PO BID 03/23/22 [History Last Taken 04/01/22] coenzyme Q10 100 mg capsule (CoQ-10) 100 mg PO DAILY 03/23/22 [History Last Taken 04/01/22] fluticasone furoate 200 mcg/actuation blister powder for inhalation (Arnuity Ellipta) 1 inh inhalation DAILY 03/23/22 [History Last Taken 04/05/22] vnmg-vpjda-[id number]-ybj-cnx-dhkf-sterols 375 mg-100 mg-36 mg-54 mg capsule (Glucosamine Chondroitin PLUS) 2 cap PO DAILY 03/23/22 [History Last Taken 04/05/22] guaifenesin 600 mg tablet, extended release 12 hr (Mucus Relief ER) 200 mg PO BID PRN PRN Chest Congestion/Secretions 03/23/22 [History Last Taken Unknown] meloxicam 15 mg tablet 15 mg PO DAILY 03/23/22 [History Last Taken 04/01/22] procyanidolic oligomers 50 mg capsule 60 mg PO DAILY 03/23/22 [History Last Taken 04/05/22] vit C 250 mg-vit E 90 mg-zinc 40 mg-copper 1 [id number]-[id number] capsule (PreserVision AREDS-2) 1 tab PO BID 03/23/22 [History Last Taken Unknown] acetaminophen 500 mg tablet 1,000 mg PO Q8H 30 days #180 tabs 04/07/22 [Rx Last Taken Unknown] apixaban 2.5 mg tablet (Eliquis) 2.5 mg PO BID Postop DVT prophylaxis 30 days #60 tabs 04/07/22 [Rx Last Taken Unknown] oxycodone 5 mg tablet 5 - 10 mg PO Q4H PRN PRN Pain Score 4-10 7 days #84 tabs 04/07/22 [Rx Last Taken Unknown] cephalexin 500 mg capsule 500 mg PO Q6 #40 CAPSULES 04/13/22 [Rx Last Taken Unknown] Allergy/AdvReac Type Severity Reaction Status Date / Time YOSSI Inhibitors AdvReac Other Verified 04/13/22 11:31 hydrochlorothiazide AdvReac Other Verified 04/13/22 11:31 [From Dyazide] spironolactone AdvReac Other Verified 04/13/22 11:31 [From Aldactone] triamterene [From Dyazide] AdvReac Other Verified 04/13/22 11:31 Family History Mother Diabetes Hypertension Father Heart disease Diabetes Thyroid disorder Surgical History (Updated 04/13/22 @ 12:[address] Grgeg Olson MD) H/O colonoscopy h/o thoracentesis History of umbilical hernia repair Hx of bladder repair surgery Hx of total knee arthroplasty S/P hemorrhoidectomy (~01/2018) S/P laparoscopic cholecystectomy S/P tonsillectomy Total knee replacement status Social History household members: spouse Smoking Status: Never smoker alcohol intake: current alcohol intake frequency: holidays/special occasions only substance use type: does not use ROS ROS ED Constitutional Constitutional ED: Denies chills or fever(s) Eyes Eyes: Denies change in vision or diplopia ENT ENT ED: Denies rhinorrhea or sore throat Cardiovascular Cardiovascular: Denies chest pain or palpitations Respiratory/Chest Respiratory/Chest: Denies cough or dyspnea Gastrointestinal Gastrointestinal: Denies abdominal pain, diarrhea, nausea or vomiting Genitourinary Genitourinary ED: Denies dysuria or hematuria Musculoskeletal Musculoskeletal: Reports as per HPI, extremity pain and other Details: swelling and redness left lower leg ; Denies back pain or neck pain Integumentary Reports as per HPI, erythema and rash; Denies abscess Neurologic Neurologic: Denies headache(s), paresthesias or weakness Psychiatric Psychiatric: Denies anxiety or suicidal thoughts Hematologic/Lymphatic Hematologic/Lymphatic: Reports easy bleeding and easy bruising Allergic/Immunologic Allergic/Immunologic ED: Denies mouth swelling or tongue swelling EXAM Physical Exam Const Vital Signs: 04/13/22 11:31 04/13/22 13:05 Temperature 96.7 F L 98.9 F Temperature Source Temporal Oral Pulse Rate 78 75 Respiratory Rate 16 18 Blood Pressure 138/76 H 134/67 H Blood Pressure Mean 96 89 Pulse Ox 96 97 Oxygen Delivery Method Room Air Room Air Positive well nourished, well developed and obese General Appearance ED: well developed and NAD Nutritional Appearance: obese HEENT Reports moist mucous membranes normocephalic and atraumatic Eyes PERRL and EOMs intact bilaterally Neck full ROM and supple Resp normal respiratory effort and clear to auscultation bilaterally Cardio regular rate, regular rhythm and no murmurs Back/Spine no CVA tenderness General Back: other FROM Extremity Extremity Narrative: Warm erythema and severely tender without subcutaneous emphysema palpable on the anterior left lower leg, starting at the caudal aspect of the incision. Surgical dressing is on, there is no active discharge or bleeding, there is some dried blood underneath of it but not a lot. No palpable cords, no calf tenderness posteriorly. Able to range the knee and the ankle. General Extremety ED: Yes edema and tenderness; Negative for pulses abnormal General Extremity: edema left lower extremity severe; Negative for pulses abnormal Neuro oriented x3, CN's II-XII intact bilaterally and no sensory deficits noted Sensorium / Orientation: awake and alert Motor Exam: strength 5/5 throughout Skin no rashes or lesions noted and no wounds MDM MDM MDM Narrative Medical decision making narrative: I agree with the patient and spouse this is probably cellulitis until proven otherwise. He does not examine like he has a septic arthritis of the knee joint or the ankle. The main area that is affected is in the lower leg caudal to the incision but including the caudal aspect of it, and before he gets to the ankle. I obtained labs, x-ray of the knee, and provided empiric Zosyn and vancomycin prior to receiving any results. 2 view x-ray series of the left knee and proximal half of the lower leg is negative for any acute, I see no subcutaneous emphysema/gas production. Labs are noted. It is a significant appearing cellulitis, diagnosed after confirming there is no DVT with an ultrasound in the ED, there is no leukocytosis and clinically he is not septic and looks well. Discussed with Dr. Howell. He recommends placing the patient on antibiotics and having him follow-up closely in the office as an outpatient. He is okay with cephalexin, prescription given and all questions answered at the bedside. Lab Data Attestation: I reviewed the patient's lab results. Labs: Laboratory Results - last 24 hr 04/13/22 04/13/22 12:10 12:10 WBC 8.5 RBC 3.47 L Hgb 11.2 L Hct 31.2 L MCV 89.9 MCH 32.3 H MCHC 35.9 RDW Std Deviation 42.5 RDW Coeff of Karolyn 13.0 Plt Count 277 MPV 8.9 Immature Gran % (Auto) 0.600 Neut % (Auto) 68.0 Lymph % (Auto) 18.5 L [place] % (Auto) 9.2 Eos % (Auto) 3.2 Baso % (Auto) 0.5 Absolute Neuts (auto) 5.8 Absolute Lymphs (auto) 1.57 Nucleated RBC % 0 Sodium 137 Potassium 3.4 L Chloride 100 Carbon Dioxide 29.0 Anion Gap 8 BUN 16 Creatinine 1.09 Estim Creat Clear Calc 59.27 Est GFR (MDRD) Af Amer 85 Est GFR (MDRD) Non-Af 71 BUN/Creatinine Ratio 14.7 Glucose 147 H Calcium 8.5 Radiography Diagnostic Testing: Clinical Impression(s) from Imaging Studies Knee X-Ray 04/13/22 12:02 IMPRESSION: Status post left knee arthroplasty. Electronically Signed: Kota Erickson MD at 12:54 EDT , Discharge Plan Triage Chief Complaint: Wound Check ED Provider: Gregg Olson Dx/Rx/DC Orders Clinical Impression: Cellulitis of left leg, History of total left knee replacement, Anticoagulated Instructions: ED Cellulitis Prescriptions: New cephalexin [cephalexin] 500 mg capsule 500 mg PO Q6 Qty: 40 0RF No Action furosemide [Lasix] 40 mg tablet 40 mg PO DAILY fluticasone propionate 50 mcg/actuation spray,suspension 1 spray INTRANASAL BID levothyroxine 50 mcg capsule 50 mcg capsule 50 mcg PO DAILY potassium chloride 20 mEq tablet,ER particles/crystals 40 meq PO BID chlorthalidone 25 mg tablet 25 mg PO DAILY latanoprost 1 DROP bottle 1 drp EACH EYE QHS Label Comments: EYE DROPS desoximetasone 1 APPLIC cream 1 applic TOPICAL PRN PRN (Reason: PSORIASIS) Label Comments: STEROID CREAM verapamil 180 MG capsule 180 mg PO BID Label Comments: HEART/BLOOD PRESSURE doxazosin 4 MG tablet 4 mg PO QHS Label Comments: BLOOD PRESSURE/PROSTATE multivitamin with folic acid 1 TABLET tablet 1 tab PO DAILY Label Comments: VITAMIN dutasteride 0.5 MG capsule 0.5 mg PO QHS psyllium husk 0.52 GM capsule 0.52 gm PO QHS allopurinol 100 mg tablet 100 mg PO DAILY Label Comments: TAKE 1 TABLET BY MOUTH ONCE DAILY diphenhydramine HCl [Benadryl] 25 mg Capsule 25 mg PO QHS PRN (Reason: allergies) albuterol sulfate 90 mcg/actuation HFA aerosol inhaler 2 puff inhalation Q4H PRN (Reason: shortness of breath or wheezing) Qty: 8.5 1RF famotidine 20 mg Tablet 20 mg PO BID Qty: 60 0RF meloxicam 15 mg tablet 15 mg PO DAILY coenzyme Q10 [CoQ-10] 100 mg Capsule 100 mg PO DAILY apple cider vinegar 500 mg Tablet 480 mg PO BID procyanidolic oligomers 50 mg Capsule 60 mg PO DAILY cinnamon bark [Cinnamon] 500 mg Capsule 500 mg PO BID Glucosamine Chondroitin PLUS [id number] mg Capsule 2 cap PO DAILY PreserVision AREDS-2 250-90-40-1 mg Capsule 1 tab PO BID Arnuity Ellipta 200 mcg/actuation blister with device 1 inh INHALATION DAILY Label Comments: INHALE 1 PUFF BY MOUTH ONCE DAILY WITH GOOD ORAL CARE FOLLOWING USE. guaifenesin [Mucus Relief ER] 600 mg tablet extended release 12hr 200 mg PO BID PRN PRN (Reason: Chest Congestion/Secretions) acetaminophen 500 mg Tablet 1,000 mg PO Q8H 30 Days Qty: 180 0RF Eliquis 2.5 mg Tablet 2.5 mg PO BID 30 Days Qty: 60 0RF oxycodone 5 mg Tablet 5 - 10 mg PO Q4H PRN PRN (Reason: Pain Score 4-10) 7 Days Qty: 84 0RF Primary Care Provider: Foreign Herramnn Referrals: Jefferson Alarcon DO [Med Staff - Active Staff] - As soon as possible Foreign Herrmann MD [Primary Care Provider] - Disposition Disposition: Home, Self Care
[2022-04-13 12:17] LABS: Absolute Lymphocyte Count 1.57 X10^3/uL (0.83-4.51); Absolute Neutrophil Count 5.8 X10^3/uL (2.0-7.7); Basophil# 0.04 X10^3/uL; Basophil% 0.5 % (0-1); Eosinophil# 0.27 X10^3/uL; Eosinophils% 3.2 % (0-5); Hematocrit 31.2 % (40-54); Hemoglobin 11.2 g/dL (13.0-16.5); Lymphocyte # 1.57 X10^3/ul (0.83-4.51); Lymphocyte % 18.5 % (19-41); Mean Corp Hgb Conc 35.9 g/dL (32-36); Mean Corpuscular Hgb 32.3 pg (27.0-32.0); Mean Corpuscular Volume 89.9 fL (80-94); Mean Platelet Vol. 8.9 fl (6.2-12.0); Monocyte# 0.78 X10^3/uL; Monocyte% 9.2 % (0-10); NRBC Flagged by Analyzer 0 % (0-5); Neutrophil # 5.77 X10^3/uL (2.7-7.7); Platelet Count 277 K/mm3 (150-450); RBC Distribution Width SD 42.5 fl (35.1-43.9); Red Blood Count 3.47 M/mm3 (4.6-6.2); White Blood Count 8.5 K/mm3 (4.4-11.0)
[2022-04-13 12:30] LABS: Anion Gap 8 (5-15); BUN 16 mg/dL (7-18); BUN/Creat Ratio 14.7 RATIO (10-20); Calcium,Total 8.5 mg/dL (8.5-10.1); Chloride 100 mmol/L (98-107); Creatinine, Serum 1.09 mg/dL (0.70-1.30); EST Glomerular Filtration Rate 71 mL/min (>60); Est Glom Filt Rate - Afr Amer 85 mL/min (>60); Estimated Creatinine Clearance 59.27 ml/min; Glucose 147 mg/dL (74-106); Potassium 3.4 mmol/L (3.5-5.1); Sodium Level 137 mmol/L (136-145)
[2022-04-13 13:05] VITALS: BP 134/67; PULSE 75; RESP 18; TEMP 37.2; O2SAT 97
[2022-04-13] MEDS: oxyCODONE 5 MG Tablet 10 MG PO (13:41)
[2022-04-13] MEDS: Cephalexin 250 MG Capsule 500 MG PO (13:42)
== END 2022-04-13 15:30 | disposition home or self-care (01) ==
PROVIDERS: Emergency Provider Emergency Medicine; PCP Family Medicine; Visit Provider Emergency Medicine
DX: L03.116 Cellulitis of left lower limb (principal); I10 Essential (primary) hypertension; Z79.01 Long term (current) use of anticoagulants; Z86.16 Personal history of COVID-19; E66.9 Obesity, unspecified; Z96.652 Presence of left artificial knee joint
CPT/HCPCS: 73560; 80048; 85025; 93971; 99284; J7040; J7050; A4216

== ENCOUNTER → 2022-07-16 | Outpatient (CLI) | payer MEDICARE, OTHER, SELFPAY ==
--- NOTE | 2022-07-16 10:00 | VDLE_ITS ---
Reason For Study: cellulitis Procedure LEFT This is a venous duplex using B-mode, color GSV is normal. flow and spectral Doppler. CFV is compressible, spontaneous, phasic, Exam performed in department. competent, and demonstrates normal The exam was abbreviated due to the COVID 19 augmentation. protocol. FV is compressible, spontaneous, phasic, The exam was diagnostic. competent and demonstrates normal A preliminary report was called and/or faxed augmentation. to Dr. Herrmann. POP V is compressible, spontaneous, phasic, competent and demonstrates normal augmentation. T/P Trunk is compressible. PTV is compressible. LT PerV is compressible. VL/Venous Duplex US, Unilateral Interpretation Summary Deep veins of the left lower extremity are patent and compressible segmentally. There is no evidence of left lower extremity deep vein thrombosis. Valvular competence appears intac t within the proximal deep venous system on the left . The left great saphenous vein appears patent a nd compressible segmentally. Ordering Physician: Foreign Herrmann Performed By: Russell Boo RVT
== END | disposition home or self-care (01) ==
LOC: CVS 09:57
PROVIDERS: PCP Family Medicine; Referring Provider Family Medicine; Visit Provider Family Medicine
DX: L03.116 Cellulitis of left lower limb (principal)
CPT/HCPCS: 93971

== ENCOUNTER → 2022-07-22 | Outpatient (CLI) | payer MEDICARE, OTHER, SELFPAY ==
--- NOTE | 2022-07-22 16:48 | RAD_ITS ---
INDICATION: PAIN -- THUMB EXAMINATION/TECHNIQUE: X-RAY - LEFT HAND XR Fingers Min 2 Views COMPARISON: None. FINDINGS: 3 views of the first digit of the left hand were obtained. Advanced osteoarthritis of the first carpometacarpal joint. No acute fracture. No dislocation. RAD/Finger(s) Min 2 Views IMPRESSION: No acute fracture identified. Advanced osteoarthritis at the first carpometacarpal joint. Electronically Signed: Berto Rollins MD at 1:36 EST ,
== END | disposition home or self-care (01) ==
LOC: MTRAD 16:47
PROVIDERS: PCP Family Medicine; Referring Provider Family Medicine; Visit Provider Family Medicine
DX: M18.12 Unilateral primary osteoarthritis of first carpometacarpal joint, left hand (principal)
CPT/HCPCS: 73140

== ENCOUNTER → 2022-08-19 | Outpatient (CLI) | payer MEDICARE, OTHER, SELFPAY ==
[2022-08-19 13:30] LABS: Anion Gap 9 (5-15); BUN 19 mg/dL (7-18); BUN/Creat Ratio 16.7 RATIO (10-20); Calcium,Total 8.7 mg/dL (8.5-10.1); Chloride 104 mmol/L (98-107); Cholesterol 150 mg/dL (200); Creatinine, Serum 1.14 mg/dL (0.70-1.30); EST Glomerular Filtration Rate 67 mL/min (>60); Est Glom Filt Rate - Afr Amer 81 mL/min (>60); Free T3 2.4 pg/mL (2.18-3.98); Glucose 111 mg/dL (74-106); High Density Lipoprotein 35 mg/dL; Potassium 3.2 mmol/L (3.5-5.1); Sodium Level 139 mmol/L (136-145); T4 Free Direct 0.99 ng/dL (0.76-1.46); Thyroid Stim Hormone (TSH) 2.46 uIU/mL (0.358-3.74); Triglycerides 143 mg/dL; Very Low Density Lipoprotein 29 mg/dL (5-40)
== END | disposition home or self-care (01) ==
LOC: MFPLAB 10:31
PROVIDERS: PCP Family Medicine; Visit Provider Family Medicine
DX: I10 Essential (primary) hypertension (principal); E03.9 Hypothyroidism, unspecified
CPT/HCPCS: 36415; 80048; 80061; 84439; 84443; 84481

== ENCOUNTER → 2022-09-07 | Outpatient (CLI) | payer MEDICARE, OTHER, SELFPAY ==
[2022-09-07 11:19] LABS: PSA,Total - Annual Screen 0.95 ng/mL (0.00-4.00)
== END | disposition home or self-care (01) ==
LOC: LAB 10:04
PROVIDERS: PCP Family Medicine; Referring Provider Registered Nurse; Visit Provider Registered Nurse
DX: Z12.5 Encounter for screening for malignant neoplasm of prostate (principal)
CPT/HCPCS: 36415; 84153; G0103

== ENCOUNTER → 2023-02-17 | Outpatient (CLI) | payer MEDICARE, OTHER, SELFPAY ==
[2023-02-17 13:45] LABS: Anion Gap 6 (5-15); BUN 20 mg/dL (7-18); BUN/Creat Ratio 17.1 RATIO (10-20); Calcium,Total 8.6 mg/dL (8.5-10.1); Chloride 104 mmol/L (98-107); Cholesterol 147 mg/dL (200); Creatinine, Serum 1.17 mg/dL (0.70-1.30); EST Glomerular Filtration Rate 65 mL/min (>60); Est Glom Filt Rate - Afr Amer 79 mL/min (>60); Free T3 2.5 pg/mL (2.18-3.98); Glucose 123 mg/dL (74-106); High Density Lipoprotein 33 mg/dL; Potassium 3.2 mmol/L (3.5-5.1); Sodium Level 139 mmol/L (136-145); T4 Free Direct 1.04 ng/dL (0.76-1.46); Thyroid Stim Hormone (TSH) 2.77 uIU/mL (0.358-3.74); Triglycerides 179 mg/dL; Very Low Density Lipoprotein 36 mg/dL (5-40)
== END | disposition home or self-care (01) ==
LOC: MTLAB 10:01
PROVIDERS: PCP Family Medicine; Referring Provider Family Medicine; Visit Provider Family Medicine
DX: E03.9 Hypothyroidism, unspecified (principal); I10 Essential (primary) hypertension
CPT/HCPCS: 36415; 80048; 80061; 84439; 84443; 84481

== ENCOUNTER → 2023-08-20 | Outpatient (CLI) | payer MEDICARE, OTHER, SELFPAY ==
--- NOTE | 2023-08-20 10:38 | RAD_ITS ---
INDICATION: HIP PAIN EXAMINATION/TECHNIQUE: X-RAY - XR Hips Bilateral with Pelvis when performed; 2 Views COMPARISON: Prior study dated: 01/05/2017 FINDINGS: PELVIC BONES: No displaced fracture, destructive or sclerotic lesions. Note that overlapping bowel shadows may however obscure fine detail. Sacroiliac joints are unremarkable. No widening of the pubic symphysis. HIPS: Severe degenerative changes of the bilateral hips. No displaced fracture seen in this frontal view. SOFT TISSUES: No soft tissue swelling or gas. RAD/Hips B/L min 2 views w/ Pelvis IMPRESSION: No evidence of displaced pelvic or hip fracture. 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 Electronically Signed: Kirt Murray MD at 16:49 EST ,
[2023-08-20 12:33] LABS: Anion Gap 7 (5-15); BUN 19 mg/dL (7-18); BUN/Creat Ratio 15.2 RATIO (10-20); Calcium,Total 8.8 mg/dL (8.5-10.1); Chloride 108 mmol/L (98-107); Cholesterol 153 mg/dL (200); Creatinine, Serum 1.25 mg/dL (0.70-1.30); EST Glomerular Filtration Rate 60 mL/min (>60); Est Glom Filt Rate - Afr Amer 73 mL/min (>60); Glucose 117 mg/dL (74-106); High Density Lipoprotein 34 mg/dL; PSA,Total - Annual Screen 0.78 ng/mL (0.00-4.00); Potassium 3.4 mmol/L (3.5-5.1); Sodium Level 142 mmol/L (136-145); Triglycerides 119 mg/dL; Very Low Density Lipoprotein 24 mg/dL (5-40)
== END | disposition home or self-care (01) ==
PROVIDERS: PCP Family Medicine; Referring Provider Family Medicine; Visit Provider Family Medicine
DX: Z00.00 Encounter for general adult medical examination without abnormal findings (principal); M25.551 Pain in right hip; Z13.6 Encounter for screening for cardiovascular disorders; Z12.5 Encounter for screening for malignant neoplasm of prostate
CPT/HCPCS: 36415; 73521; 80048; 80061; 84153; G0103

== ENCOUNTER → 2023-12-20 | Outpatient (CLI) | payer MEDICARE, OTHER, SELFPAY ==
--- NOTE | 2023-12-20 13:15 | MRI_ITS ---
STUDY: MRI LUMBAR SPINE WITHOUT CONTRAST REASON FOR EXAM: Male, 73 years old. Low back pain and radiculopathy. TECHNIQUE: Standardized fat and water weighted pulse sequences were obtained in the sagittal and axial planes. COMPARISON: Lumbar spine radiographs 01/21/2017. FINDINGS: T12-L1: Normal endplates. Normal disc height, hydration and morphology. Normal bilateral facet joints. Normal central canal and bilateral lateral recesses. Normal bilateral intervertebral neural foramina. Normal lumbar lordosis. There is no substantial scoliosis. Normal conus medullaris that terminates at the lower L1 vertebral body level. L1-2: Normal L1 inferior endplate. Minimal anterior wedging of the L2 superior endplate is presumably from remote injury. Normal disc height. Prominent ventral extradural defect due to posterior bulging annulus. Normal facet joints. Prominent dorsal epidural lipomatosis. Moderately pronounced central canal stenosis with an AP canal diameter of 6.3 mm secondary to developmentally short pedicles and prominent dorsal epidural lipomatosis. Normal bilateral lateral recesses. Mild stenosis of the bilateral intervertebral neural foramina due to posterior bulging annulus. L2-3: Normal endplates. Mild disc space height narrowing. Prominent ventral extradural defect due to posterior bulging annulus. Mild asymmetric degenerative facet arthropathy, left greater than right. Moderately pronounced central canal stenosis with an AP canal diameter of 5.5 mm secondary to developmentally short pedicles, mild dorsal epidural lipomatosis and prominent posterior bulging annulus. Mild stenosis of the bilateral intervertebral neural foramina due to posterior bulging annulus. L3-4: Normal endplates. Minimal disc space height narrowing. Mild ventral extradural defect due to posterior bulging annulus. Normal facet joints. Moderately pronounced central canal stenosis with an AP canal diameter of 5.5 mm secondary to developmentally short pedicles, mild dorsal epidural lipomatosis and small posterior bulging annulus. Normal bilateral lateral recesses. Mild stenosis of the bilateral intervertebral neural foramina. L4-5: Normal endplates. Minimal disc space height narrowing. Mild ventral extradural defect due to posterior bulging annulus. Mild bilateral degenerative facet arthropathy. Moderately pronounced central canal stenosis with an AP canal diameter of 5 mm secondary to developmentally short pedicles, mild posterior bulging annulus and posterior ligamenta flava hypertrophy. Normal bilateral lateral recesses. Moderate stenosis of the left intervertebral neural foramen due to posterior bulging annulus. Mild stenosis of the right intervertebral neural foramen due to smaller posterior bulging annulus on this side. L5-S1: Normal endplates. Normal disc height, hydration and morphology. Mild to moderate bilateral degenerative facet arthropathy. Moderate central canal stenosis with an AP canal diameter 7.5 mm secondary to developmentally short pedicles and mild dorsal epidural lipomatosis. Normal bilateral lateral recesses. Mild stenosis of the bilateral intervertebral neural foramina. Normal visualized sacral ala. Normal visualized paraspinous soft tissue structures. MRI/Spine Lumbar (Routine) IMPRESSION: 1. Limited study due to low resolution images. 2. Moderately pronounced central canal stenosis at L4-L5 disc space level with an AP canal diameter 5 mm secondary to developmentally short pedicles, mild posterior bulging annulus and posterior ligamenta flava hypertrophy. 3. Moderately pronounced central canal stenosis at L3-L4 disc space level with an AP canal diameter of 5.5 mm secondary to developmental short pedicles, mild dorsal epidural lipomatosis and small posterior bulging annulus. 4. Moderately pronounced central canal stenosis at L2-L3 disc space level with an AP canal diameter 5.5 mm secondary to developmentally short pedicles, mild dorsal epidural lipomatosis and prominent posterior bulging annulus. 5. Moderately pronounced central canal stenosis at L1-L2 disc space level with an AP canal diameter of 6.3 mm secondary to developmentally short pedicles and prominent dorsal epidural lipomatosis. 6. Moderate central canal stenosis at L5-S1 disc space level with an AP canal diameter 7.5 mm secondary to developmentally short pedicles and mild dorsal epidural lipomatosis. 7. No MRI evidence of lumbar extruded disc fragment. Electronically Signed: Josh Cabrales MD at 9:45 EDT ,
== END | disposition home or self-care (01) ==
LOC: MRI 12:45
PROVIDERS: PCP Family Medicine; Referring Provider Anesthesiology Pain Medicine; Visit Provider Anesthesiology Pain Medicine
DX: M54.16 Radiculopathy, lumbar region (principal)
CPT/HCPCS: 72148

== ENCOUNTER → 2024-02-21 | Outpatient (CLI) | payer MEDICARE, OTHER, SELFPAY ==
[2024-02-21 14:31] LABS: Anion Gap 10 (5-15); BUN 17 mg/dL (7-18); BUN/Creat Ratio 14.5 RATIO (10-20); Calcium,Total 8.9 mg/dL (8.5-10.1); Chloride 103 mmol/L (98-107); Cholesterol 144 mg/dL (200); Creatinine, Serum 1.17 mg/dL (0.70-1.30); EST Glomerular Filtration Rate 65 mL/min (>60); Est Glom Filt Rate - Afr Amer 78 mL/min (>60); Free T3 2.5 pg/mL (2.18-3.98); Glucose 139 mg/dL (74-106); High Density Lipoprotein 34 mg/dL; Potassium 3.1 mmol/L (3.5-5.1); Sodium Level 139 mmol/L (136-145); T4 Free Direct 0.96 ng/dL (0.76-1.46); Triglycerides 184 mg/dL; Very Low Density Lipoprotein 37 mg/dL (5-40)
== END | disposition home or self-care (01) ==
LOC: MFPLAB 10:11
PROVIDERS: PCP Family Medicine; Visit Provider Family Medicine
DX: I10 Essential (primary) hypertension (principal); E03.9 Hypothyroidism, unspecified
CPT/HCPCS: 36415; 80048; 80061; 84439; 84443; 84481

== ENCOUNTER → 2024-08-21 | Outpatient (CLI) | payer MEDICARE, OTHER, SELFPAY ==
[2024-08-21 13:28] LABS: Anion Gap 8 (5-15); BUN 16 mg/dL (7-18); BUN/Creat Ratio 13.4 RATIO (10-20); Calcium,Total 8.8 mg/dL (8.5-10.1); Chloride 104 mmol/L (98-107); Cholesterol 153 mg/dL (200); Creatinine, Serum 1.19 mg/dL (0.70-1.30); EST Glomerular Filtration Rate 63 mL/min (>60); Est Glom Filt Rate - Afr Amer 77 mL/min (>60); Free T3 2.5 pg/mL (2.18-3.98); Glucose 126 mg/dL (74-106); High Density Lipoprotein 39 mg/dL; Potassium 3.2 mmol/L (3.5-5.1); Sodium Level 139 mmol/L (136-145); T4 Free Direct 1.06 ng/dL (0.76-1.46); Triglycerides 141 mg/dL; Very Low Density Lipoprotein 28 mg/dL (5-40)
== END | disposition home or self-care (01) ==
LOC: MTLAB 09:58
PROVIDERS: PCP Family Medicine; Referring Provider Family Medicine; Visit Provider Family Medicine
DX: E03.9 Hypothyroidism, unspecified (principal); R73.09 Other abnormal glucose

== ENCOUNTER → 2024-09-11 | Outpatient (CLI) | payer MEDICARE, OTHER, SELFPAY ==
[2024-09-11 11:24] LABS: PSA,Total- Diagnostic 0.77 ng/mL (0.0-4.0)
== END | disposition home or self-care (01) ==
LOC: LAB 09:37
PROVIDERS: PCP Family Medicine; Referring Provider Urology; Visit Provider Urology
DX: R97.20 Elevated prostate specific antigen [PSA] (principal)
CPT/HCPCS: 36415; 84153

== ENCOUNTER → 2024-10-02 | Outpatient (CLI) | payer MEDICARE, OTHER, SELFPAY ==
[2024-10-02 10:49] LABS: Hemoglobin A1c 5.2 % (3.8-5.6)
[2024-10-03 06:35] LABS: Anion Gap 5 (5-15); BUN 20 mg/dL (7-18); Calcium,Total 8.8 mg/dL (8.5-10.1); Chloride 104 mmol/L (98-107); Creatinine, Serum 1.11 mg/dL (0.70-1.30); EST Glomerular Filtration Rate 69 mL/min (>60); Est Glom Filt Rate - Afr Amer 83 mL/min (>60); Glucose 127 mg/dL (74-106); Potassium 3.6 mmol/L (3.5-5.1); Sodium Level 139 mmol/L (136-145)
== END | disposition home or self-care (01) ==
LOC: MFPLAB 08:54
PROVIDERS: PCP Family Medicine; Referring Provider Family Medicine; Visit Provider Family Medicine
DX: E87.6 Hypokalemia (principal); R73.9 Hyperglycemia, unspecified
CPT/HCPCS: 36415; 80048; 83036

== ENCOUNTER → 2025-02-22 | Outpatient (CLI) | payer MEDICARE, OTHER, SELFPAY ==
[2025-02-22 13:19] LABS: AST(SGOT) 35 U/L (<=37); Alanine Aminotransfer ALT/SGPT 45 U/L (<=46); Albumin, Serum 4.2 g/dL (3.4-4.8); Alkaline Phosphatase 56 U/L (40-129); Anion Gap 12 (5-15); BUN 20 mg/dL (4-19); BUN/Creat Ratio 17.5 RATIO (10-20); Calcium,Total 9.4 mg/dL (7.6-11.0); Carbon Dioxide 28.7 mmol/L (21.0-32.0); Chloride 99 mmol/L (98-108); Cholesterol 164 mg/dL (<=200); Free T3 3.0 pg/mL (2.18-3.98); Globulin 3.4 g/dL (2.2-4.2); Glucose 123 mg/dL (70-99); Low Density Lipoprotein Calc. 95 mg/dL; Potassium 3.5 mmol/L (3.3-5.1); Triglycerides 166 mg/dL; Very Low Density Lipoprotein 33 mg/dL (5-40); cholesterol:hdl ratio screen 4.57
--- OUTSIDE RECORDS SUMMARY | 2025-02-22 18:26 | XMS RPT_ITS | CCD ---
Author Organization [facility] Care Team Providers Care Cytologist Name Role Phone Dr. Foreign Herrmann Primary Care Provider Dr. Foreign Crews Attending Provider Dr. Willam Henriquez Referring Provider Dr. Willam Aldana Attending Provider Dr. Gregg Olson Referring Provider Dr. Foreign Herrmann Primary Care Provider [phone] Dr. Willam Aldana Attending Provider Dr. Gregg Olson Referring Provider [phone] Montez, Foreign Attending Unavailable Herrmann, Foreign Referring Unavailable Herrmann, Foreign Primary Care Unavailable Herrmann, Foreign Primary Care Unavailable JignaLuis Attending Unavailable Jigna, Luis Cruz Referring Unavailable Herrmann, Foreign Attending Unavailable Herrmann, Foreign Referring Unavailable Herrmann, Foreign Primary Care Unavailable Herrmann, Foreign Primary Care Unavailable Basali, Mirta Attending Unavailable Basali, Mirta Referring Unavailable Herrmann, Foreign Attending Unavailable Herrmann, Foreign Primary Care Unavailable Herrmann Dr. Foreign SAL Primary Care Provider Dr. Foreign Herrmann MD Attending Provider Montez SAL, Dr. Carrasquillo Referring Provider Jigna SAL, Dr. Luis Cruz Attending Provider Jigna SAL, Dr. Luis Cruz Referring Provider [phone] Allergies Allergy Classification Reported Allergen(s) Allergy Type Date of Onset Reaction(s) Facility (11 sources) Angiotensin Converting Enzyme (Steven) Inhibitors; Translations: [STEVEN Inhibitors] Propensity to adverse reactions 08-31-20 21 Other [facility] (10 sources) hydroCHLOROthiazide Drug Allergy 04-08-20 21 Other [facility] Comment on above: DECREASES K+ (10 sources) Spironolactone Drug Allergy 04-08-20 21 Other [facility] Comment on above: GYNACOMASTIA (10 sources) Triamterene Drug Allergy 04-08-20 21 Other [facility] (1 source) hydroCHLOROthiazide Drug Allergy 04-13-20 [facility] (1 source) Spironolactone Drug Allergy 04-13-20 22 [facility] (1 source) Triamterene Drug Allergy 04-13-20 [facility] Medications Current Medications Medication Drug Class(es) Dates Sig (Normalized) Sig (Original) acetaminophen 500 mg oral tablet (8 sources) Start: 04-07-2022 take 2 tablets by mouth every eight hours Acetaminophen 500 mg Tablet Active 1000 mg PO Q8H 180 April 06, 2022 11:00pm Start: 04-07-2022 take 1000 mg by mout h every eight hours Acetaminophen Active 1000 MG PO Q8H 180 April 06, 2022 11:00pm [id number] 200 actuat albuterol 0.09 mg/actuat metered dose inhaler (20 sources) beta2-Adrenergic Agonist Start: 04-10-2021 Albut abdullahi Sulfate 90 mcg/actuation HFA aerosol inhaler Active 2 NMA INHALATION Q4H as needed for shortness of breath or wheezing 8.April 09, 2021 11:00pm Start: 04-10-2021 take 1 puff(s) by in halation every four hours Albuterol Sulfate Active 2 PUFF INHALATION Q4H 8.April 09, 2021 11:00pm Start: 06-23-2013 End: 11-22-2017 take 1 puff(s) by inhalation every four hours as needed Albuterol Sulfate Discontinued 2 PUFF INHALATION EVERY 4 HOURS NEEDED June 23, 2013 1:47pm November 22, 2017 2:11pm Start: 06-23-2013 End: 11-22-2017 Albuterol Sulfate 1 INHALER inhaler Discontinued 2 NMA INHALATION EVERY 4 HOURS NEEDED as needed for Dyspnea June 23, 2013 12:00am November 22, 2017 1:11pm Start: 06-23-2013 End: 11-22-2017 take 1 puff(s) by inhalation every four hours as needed Albuterol Sulfate Discontinued 2 PUFF INHALATION EVERY 4 HOURS NEEDED June 23, 2013 12:00am November 22, 2017 1:11pm Start: 06-23-2013 End: 11-22-2017 take 1 puff(s) by inhalation every four hours as needed Albuterol Sulfate Discontinued 2 PUFF INHALATION EVERY 4 HOURS NEEDED June 23, 2013 1:00am November 22, 2017 2:11pm Start: 06-16-2013 End: 06-23-2013 take 1 puff(s) by inhalation every four hours as needed Albuterol Sulfate (Ventolin Hfa) 1 INHALER inhaler Discontinued 1 - 2 PUFF INHALATION EVERY 4 HOURS NEEDED June 16, 2013 3:33pm June 23, 2013 8:39pm Start: 06-16-2013 End: 06-23-2013 Albuterol Sulfate (Ventolin Hfa) 1 INHALER inhaler Discontinued 1 - 2 NMA INHALATION EVERY 4 HOURS NEEDED as needed for Wheezing June 16, 2013 12:00am June 23, 2013 7:39pm Start: 06-16-2013 End: 06-23-2013 take 1 puff(s) by inhalation every four hours as needed Albuterol Sulfate (Ventolin Hfa) 1 INHALER inhaler Discontinued 1 - 2 PUFF INHALATION EVERY 4 HOURS NEEDED June 16, 2013 12:00am June 23, 2013 7:39pm Start: 06-16-2013 End: 06-23-2013 take 1 puff(s) by inhalation every four hours as needed Albuterol Sulfate (Ventolin Hfa) 1 INHALER inhaler Discontinued 1 - 2 PUFF INHALATION EVERY 4 HOURS NEEDED June 16, 2013 1:00am June 23, 2013 8:39pm allopurinol 100 mg oral tablet (10 sources) Xanthine Oxidase Inhibitor Start: 04-08-2021 take 1 tablet by mouth once daily Allopurinol 100 mg tablet Active 100 mg PO DAILY April 07, 2021 11:00pm apixaban 2.5 mg oral tablet (9 sources) Factor Xa Inhibitor Start: 04-07-2022 take 1 tablet by mouth twice daily Apixaban (Eliquis) 2.5 mg Tablet Active 2.5 mg PO TWICE A DAY 60 30 April 062 11:00pm Start: 04-18-2021 take 1 tablet by felix th twice daily Apixaban (Eliquis) 5 mg tablet Active 5 MG PO TWICE A DAY 74 April 18, 2021 10:04am apple cider vinegar 500 mg oral tablet (9 sources) Start: 03-23-2022 take 1 tablet by mouth twice daily Apple Cider Vinegar 500 mg Tablet Active 480 mg PO TWICE A DAY March 22, 2022 11:00pm Start: 03-23-2022 take 480 mg by mouth twice gadiel ly Apple Cider Vinegar Active 480 MG PO TWICE A DAY March 22, 2022 11:00pm cephalexin 500 mg oral capsule (20 sources) Cephalosporin Antibacterial Start: 04-13-2022 take 1 capsule by mouth every six hours Cephalexin 500 mg capsule Active 500 mg PO EVERY 6 HOURS 40 April 12, 2022 11:00pm Start: 11-22-2017 End: 03-09-2019 take 1 capsule by mouth every six hours Cephalexin 500 MG capsule Discontinued 500 mg PO EVERY 6 HOURS 40 January 22, 2018 11:00pm February 10, 2018 12:27pm Start: 06-13-2013 End: 06-16-2013 take 1 capsule by mouth every six hours as needed Cephalexin 500 MG capsule Discontinued 500 mg PO EVERY 6 HOURS NEEDED as needed for Itching June 13, 2013 12:00am June 16, 2013 2:33pm chlorthalidone 25 mg oral tablet (10 sources) Thiazide-like Diuretic Start: 11-22-2017 take 1 tablet by mouth once daily Chlorthalidone 25 mg tablet Active 25 mg PO DAILY November 21, 2017 11:00pm cinnamon bark 500 mg oral capsule (9 sources) Start: 03-23-2022 take 1 capsule by mouth twice daily Cinnamon Bark (Cinnamon) 500 mg Capsule Active 500 mg PO TWICE A DAY March 22, 2022 11:00pm desoximetasone 2.5 mg/ml topical cream (10 sources) Corticosteroid Start: 06-13-2013 Desoximetasone 1 APPLIC cream Active 1 NMA TOPICAL NEEDED as needed for PSORIASIS June 13, 2013 12:00am Start: 06-13-2013 Desoximetasone Active 1 APPLIC TOPICAL NEEDED June 13, 2013 12:00am dexamethasone 4 mg oral tablet (11 sources) Corticosteroid Start: 04-18-2021 Dexamethasone Active 6 MG PO DAILY 8 April 18, 2021 10:06am For total of 5 more days Start: 04-10-2021 End: 04-18-2021 take 6 mg by mouth once daily Dexamethasone 4 mg Table t Discontinued 6 mg PO DAILY 12 April 09, 2021 11:00pm April 18, 2021 9:06am Start: 04-10-2021 End: 04-18-2021 take 6 mg by mouth once daily Dexamethasone Discontinu ed 6 MG PO DAILY 12 April 09, 2021 11:00pm April 18, 2021 9:06am diphenhydrAMINE hydrochloride 25 mg oral capsule (10 sources) Histamine-1 Receptor Antagonist Start: 04-08-2021 take 1 capsule by mouth at bedtime as needed Diphenhydramine Hcl (Benadryl) 25 mg Capsule Active 25 mg PO AT BEDTIME as needed for allergies April 07, 2021 11:00pm doxazosin 4 mg oral tablet (10 sources) alpha-Adrenergic Charlie Start: 06-13-2013 take 1 tablet by mouth at bedtime Doxazosin 4 MG tablet Active 4 mg PO AT BEDTIME June 13, 2013 12:00am dutasteride 0.5 mg oral capsule (10 sources) 5-alpha Reductase Inhibitor Start: 04-13-2019 take 1 capsule by mouth at bedtime Dutasteride 0.5 MG capsule Active 0.5 mg PO AT BEDTIME April 12, 2019 11:00pm famotidine 20 mg oral tablet (10 sources) Histamine-2 Receptor Antagonist Start: 04-18-2021 take 1 tablet by mouth twice daily Famotidine 20 mg Tablet Active 20 mg PO TWICE A DAY 60 April 17, 2021 11:00pm Fluticasone Furoate (19 sources) Corticosteroid Start: 03-23-2022 take 200 ug by inhalation once daily Fluticasone Furoate (Arnuity Ellipta) 200 mcg/actuation blister with device Active 1 NMA INHALATION DAILY March 22, 2022 11:00pm Start: 03-23-2022 take 200 ug by inhal ation once daily Fluticasone Furoate (Arnuity Ellipta) 200 mcg/actuation blister with device Active 1 INH INHALATION DAILY March 22, 2022 11:00pm Start: 03-23-2022 take 200 ug by inhal ation once daily Fluticasone Furoate (Arnuity Ellipta) 200 mcg/actuation blister with device Active 1 INH INHALATION DAILY March 23, 2022 12:00am Start: 11-22-2017 Fluticasone Pr opionate 50 mcg/actuation spray,suspension Active 1 NMA INTRANASAL TWICE A DAY November 21, 2017 11:00pm Start: 11-22-2017 Fluticasone Pr opionate Active 1 SPRAY INTRANASAL TWICE A DAY November 21, 2017 11:00pm furosemide 40 mg oral tablet (10 sources) Loop Diuretic Start: 11-22-2017 take 1 tablet by mouth once daily Furosemide (Lasix) 40 mg tablet Active 40 mg PO DAILY November 21, 2017 11:00pm Ehqt-Pxonp-Ty2-Dha-E pa-Fish-St (Glucosamine Chondroitin Plus) [id number] mg Capsule (9 sources) Start: 03-23-2022 Mzep-Jjasu-Au9 -Dha- Epa-Fish-St (Glucosamine Chondroitin Plus) 795-900-51-54 mg Capsule Active 2 NMA PO DAILY March 22, 2022 11:00pm Start: 03-23-2022 take 2 capsules by mouth once daily Eakv-Kcfaf-Bb7-Tjl-Lub-Myfq-St (Glucosam ine Chondroitin Plus) [id number] mg Capsule Active 2 CAP PO DAILY March 22, 2022 11:00pm Start: 03-23-2022 take 2 capsules by mouth once daily Kdcy-Auhut-Dx0-Xcl-Qmf-Lyyt-St (Glucosam ine Chondroitin Plus) [id number] mg Capsule Active 2 CAP PO DAILY March 23, 2022 12:00am 12 hr guaiFENesin 600 mg extended release oral tablet (20 sources) Start: 03-23-2022 Guaifenesin (M ucus Relief Er) 600 mg tablet extended release 12hr Active 200 mg PO TWICE DAILY NEEDED as needed for Chest Congestion/Secretions March 23, 2022 1:09pm Start: 04-10-2021 End: 03-23-2022 take 1 tablet by mouth twice daily as needed for congestion, then take 1 tablet by mouth every twelve hours as needed for congestion Guaifenesin (Mucus Relief Er) 600 mg Tablet Extended Release 12hr Discontinued 600 mg PO TWICE DAILY NEEDED as needed for Chest Congestion/Secretions 0 10 April 09, 2021 11:00pm March 23, 2022 1:09pm Start: 04-13-2019 End: 04-10-2021 Guaifenesin 600 MG tablet Di scontinued 400 mg PO TWICE A DAY as needed for Chest Congestion/Secretions April 12, 2019 11:00pm April 10, 2021 11:30am Start: 04-13-2019 End: 04-10-2021 take 400 mg by mouth twice daily Guaifenesin Discontinued 400 MG PO TWICE A DAY April 12, 2019 11:00pm April 10, 2021 11:30am Start: 06-16-2013 End: 11-22-2017 take 1 tablet by mouth twice daily Guaifenesin 600 MG tablet Discontinued 600 mg PO TWICE A DAY June 23, 2013 12:00am November 22, 2017 1:12pm latanoprost 0.05 mg/ml ophthalmic solution (10 sources) Prostaglandin Analog Start: 06-13-[address] 1 DROP bottle Active 1 NMA EACH EYE AT BEDTIME June 13, 2013 12:00am Start: 06-13-2013 Latanoprost Ac tive 1 DRP EACH EYE AT BEDTIME June 13, 2013 12:00am levothyroxine sodium 0.05 mg oral capsule (10 sources) l-Thyroxine Start: 11-22-2017 take 1 capsule by mouth once daily Levothyroxine 50 mcg capsule Active 50 ug PO DAILY November 21, 2017 11:00pm meloxicam 15 mg oral tablet (9 sources) Nonsteroidal Anti-inflammatory Drug Start: 03-23-2022 take 1 tablet by mouth once daily Meloxicam 15 mg tablet Active 15 mg PO DAILY March 22, 2022 11:00pm Multivitamin With Folic Acid (9 sources) Start: 06-13-2013 take 1 tablet by mouth once daily Multivitamin With Folic Acid Active 1 TABLET PO DAILY June 13, 2013 11:08am Start: 06-13-2013 take 1 tablet by felix th once daily Multivitamin With Folic Acid Active 1 TABLET PO DAILY June 13, 2013 12:00am Start: 06-13-2013 take 1 tablet by felix th once daily Multivitamin With Folic Acid Active 1 TABLET PO DAILY June 13, 2013 1:00am Multivitamin With Folic Acid 1 TABLET tablet (1 source) Start: 06-13-2013 take 1 tablet by mouth once daily Multivitamin With Folic Acid 1 TABLET tablet Active 1 {tbl} PO DAILY June 13, 2013 12:00am Yt-1-Dfn-Epa-Fish Oil-Vit D3 (1 source) Start: 06-13-2013 Dy-1-Ggx-Epa-F francia Oil-Vit D3 Active 1 EACH PO DAILY June 13, 2013 11:08am oxyCODONE hydrochloride 5 mg oral tablet (18 sources) Opioid Agonist Start: 04-07-2022 take 5-10 mg by mouth every four hours as needed for pain Oxycodone 5 mg Tablet Active 5 - 10 mg PO EVERY 4 HOURS NEEDED as needed for Pain Score 4-10 84 7 April 07, 2022 Start: 08-06-2020 End: 08-13-2020 take 5-10 mg by mouth every four hours as needed for pain Oxycodone 5 MG tablet Discontinued 5 - 10 mg PO EVERY 4 HOURS NEEDED as needed for Pain Score 4-10 84 7 August 06, 2020 August 12, 2020 12:00am August 13, 2020 12:02am microencapsulated potassium chloride 20 meq extended release oral tablet (10 sources) Start: 11-22-2017 take 2 tablets by mouth twice daily Potassium Chloride 20 mEq tablet,ER particles/crystals Active 40 meq PO TWICE A DAY November 21, 2017 11:00pm Start: 11-22-2017 take 40 mEq by mouth twice gadiel ly Potassium Chloride Active 40 MEQ PO TWICE A DAY November 21, 2017 11:00pm Procyanidolic Oligomers (7 sources) Start: 03-23-2022 take 60 mg by mouth once daily Procyanidolic Oligomers Active 60 MG PO DAILY March 22, 2022 11:00pm Start: 03-23-2022 take 60 mg by mouth once daily Procyanidolic Oligomers Active 60 MG PO DAILY March 23, 2022 12:00am Procyanidolic Oligomers (Pycnogenol) 50 mg Capsule (1 source) Start: 03-23-2022 take 1 capsule by mouth once daily Procyanidolic Oligomers (Pycnogenol) 50 mg Capsule Active 60 MG PO DAILY March 23, 2022 12:00am Procyanidolic Oligomers 50 mg Capsule (1 source) Start: 03-23-2022 take 1 capsule by mouth once daily Procyanidolic Oligomers 50 mg Capsule Active 60 mg PO DAILY March 22, 2022 11:00pm psyllium 520 mg oral capsule (10 sources) Start: 04-13-2019 Psyllium Husk 0.52 GM capsule Active 0.52 g PO AT BEDTIME April 12, 2019 11:00pm ubidecarenone 100 mg oral capsule (19 sources) Start: 03-23-2022 Coenzyme Q10 ( Coq-10) 100 mg Capsule Active 100 mg PO DAILY March 22, 2022 11:00pm Start: 06-13-2013 End: 11-22-2017 take 10 capsules by mouth once daily Coenzyme Q10 100 MG capsule Discontinued 100 mg PO DAILY June 13, 2013 12:00am November 22, 2017 1:11pm 24 hr verapamil hydrochloride 180 mg extended release oral capsule (10 sources) Calcium Channel Charlie Start: 06-13-2013 take 1 capsule by mouth twice daily Verapamil 180 MG capsule Active 180 mg PO TWICE A DAY June 13, 2013 12:00am Vit C,K-Ar-Tonmf-Lutein-Z eaxan (Preservision Areds-2) 250-90-40-1 mg Capsule (9 sources) Start: 03-23-2022 take 2 capsules by mouth twice daily Vit C,C-Zf-Fsmha-Lut ein-Zeaxan (Preservision Areds-2) 250-90-40-1 mg Capsule Active 1 {tbl} PO TWICE A DAY March 22, 2022 11:00pm Start: 03-23-2022 Vit C,E-Zn-Air Vice Marshal ug-Anndgs-Tkdzkv (Preservision Areds-2) 250-90-40-1 mg Capsule Active 1 TABLET PO TWICE A DAY March 22, 2022 11:00pm Start: 03-23-2022 Vit C,E-Zn-Air Vice Marshal xr-Ttsphu-Uiypze (Preservision Areds-2) 250-90-40-1 mg Capsule Active 1 TABLET PO TWICE A DAY March 23, 2022 12:00am Completed/Discontinued Medications Medication Drug Class(es) Dates Sig (Normalized) Sig (Original) acetaminophen 325 mg / HYDROcodone bitartrate 5 mg oral tablet (20 sources) Opioid Agonist Start: 04-20-2019 End: 04-29-2019 Hydrocodone-Acetami nophen 1 TABLET tablet Discontinued 1 {tbl} PO EVERY 4 HOURS NEEDED as needed for Pain 10 April 20, 2019 April 20, 2019 11:00pm April 28, 2019 11:09pm Start: 04-20-2019 End: 04-29-2019 take 1 tablet by mouth every four hours as needed Hydrocodone-Acetaminophen Discontinued 1 TABLET PO EVERY 4 HOURS NEEDED 10 April 20, 2019 April 28, 2019 11:09pm Start: 01-19-2018 End: 02-10-2018 Hydrocodone-Acetaminophen 1 TABLET tablet Discontinued 1 {tbl} PO EVERY 6 HOURS NEEDED as needed for Pain 20 January 18, 2018 11:00pm February 10, 2018 12:27pm Start: 01-19-2018 End: 02-10-2018 take 1 tablet by mouth every six hours as needed Hydrocodone-Acetaminophen Discontinued 1 TABLET PO EVERY 6 HOURS NEEDED 20 January 18, 2018 11:00pm February 10, 2018 12:27pm cefpodoxime 100 mg oral tablet (10 sources) Cephalosporin Antibacterial Start: 06-16-2013 End: 06-23-2013 take 2 tablets by mouth twice daily Cefpodoxime 100 MG tablet Discontinued 200 mg PO TWICE A DAY June 16, 2013 12:00am June 23, 2013 7:39pm Start: 06-16-2013 End: 06-23-2013 take 200 mg by mouth twice daily Cefpodoxime Discontinued 200 MG PO TWICE A DAY June 16, 2013 12:00am June 23, 2013 7:39pm chlorpheniramine maleate 4 mg oral tablet (10 sources) Histamine-1 Receptor Antagonist Start: 04-13-2019 End: 04-18-2021 take 1 tablet by mouth once daily as needed Chlorpheniramine Maleate 4 MG tablet Discontinued 4 mg PO DAILY as needed for Allergies April 12, 2019 11:00pm April 18, 2021 9:02am chondroitin sulfates 400 mg / glucosamine hydrochloride 500 mg oral tablet (10 sources) Start: 06-13-2013 End: 11-22-2017 Glucosamine-Chondroit in 1 EACH capsule Discontinued 2 NMA PO DAILY June 13, 2013 12:00am November 22, 2017 1:12pm Start: 06-13-2013 End: 11-22-2017 Glucosamine-Chondroitin Disc ontinued 2 EACH PO DAILY June 13, 2013 12:00am November 22, 2017 1:12pm hydroCHLOROthiazide 25 mg oral tablet (10 sources) Thiazide Diuretic Start: 06-13-2013 End: 11-22-2017 take 1 tablet by mouth once daily Hydrochlorothiazide 25 MG tablet Discontinued 25 mg PO DAILY June 13, 2013 12:00am November 22, 2017 1:12pm indomethacin 50 mg oral capsule (10 sources) Nonsteroidal Anti-inflammatory Drug Start: 04-08-2021 End: 04-07-2022 take 1 capsule by mouth three times daily as needed Indomethacin 50 mg capsule Discontinued 50 mg PO 3 TIMES DAILY NEEDED as needed for gout April 07, 2021 11:00pm April 07, 2022 6:52am FOR TX OF GOUT levoFLOXacin 750 mg oral tablet (10 sources) Quinolone Antimicrobial Start: 06-23-2013 End: 11-22-2017 take 1 tablet by mouth once daily Levofloxacin 750 MG tablet Discontinued 750 mg PO DAILY June 23, 2013 12:00am November 22, 2017 1:12pm metroNIDAZOLE 250 mg oral tablet (10 sources) Nitroimidazole Antimicrobial Start: 01-19-2018 End: 03-09-2019 take 1 tablet by mouth three times daily Metronidazole 250 MG tablet Discontinued 250 mg PO THREE TIMES A DAY January 18, 2018 11:00pm March 09, 2019 9:14am polyethylene glycol 3350 51434 mg powder for oral solution (10 sources) Osmotic Laxative Start: 11-22-2017 End: 02-10-2018 Polyethylene Glycol 3350 (Miralax) 17 gram/dose powder Discontinued 1 PACK PO DAILY November 21, 2017 11:00pm February 10, 2018 12:28pm Start: 11-22-2017 End: 02-10-2018 Polyethylene Glycol 3350 (Mi ralax) 17 gram/dose powder Discontinued 1 PACK PO DAILY November 21, 2017 11:00pm February 10, 2018 12:28pm traMADol hydrochloride 50 mg oral tablet (9 sources) Opioid Agonist Start: 03-23-2022 End: 04-07-2022 take 1 tablet by mouth every six hours as needed for pain Tramadol 50 mg Tablet Discontinued 50 mg PO EVERY 6 HOURS as needed for Pain March 22, 2022 11:00pm April 07, 2022 6:53am Problems Active Problems Problem Classification Problem Date Documented Da te Episodic/Chronic Abdominal hernia (10 sources) Umbilical hernia; Translations: [Umbilical hernia without obstruction or gangrene] 07-26-2020 Episodic Biliary tract disease (10 sources) Calculus of gallbladder with cholecystitis; Translations: [Calculus of gallbladder with chronic cholecystitis without obstruction] 03-09-2019 Episodic Essential hypertension (11 sources) Hypertensive disorder; Translations: [Essential (primary) hypertension] Onset: 03-09-2024 03-23-2022 Chronic Comment on above: CONTROLLED ON MED Fluid and electrolyte disorders (1 source) Hypokalemia; Translations: [Hypokalemia] Onset: 10-12-2024 Episodic Gastrointestinal hemorrhage (10 sources) Rectal hemorrhage; Translations: [Hemorrhage of anus and rectum] 01-19-2018 Episodic Hemorrhoids (20 sources) Internal hemorrhoids grade III; Translations: [Third degree hemorrhoids] 04-20-2019 Episodic Hyperplasia of prostate (20 sources) Benign prostatic hyperplasia; Translations: [Benign prostatic hyperplasia without lower urinary tract symptoms] 03-09-2019 Chronic Nonmalignant breast conditions (10 sources) Gynecomastia; Translations: [Hypertrophy of breast] 01-19-2018 Episodic Other aftercare (7 sources) Drug therapy finding; 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] 04-21-2022 Episodic Other and ill-defined heart disease (10 sources) Heart disease; Translations: [Heart disease, unspecified] 01-19-2018 Chronic Other connective tissue disease (16 sources) History of total knee arthroplasty; Translations: [Presence of left artificial knee joint] 04-13-2022 Chronic Other diseases of veins and lymphatics (10 sources) Vascular insufficiency; Translations: [Venous insufficiency (chronic) (peripheral)] 01-19-2018 Episodic Other nervous system disorders (10 sources) Numbness and tingling sensation of skin; Translations: [Anesthesia of skin] 01-19-2018 Episodic Other nutritional; endocrine; and metabolic disorders (10 sources) Morbid obesity; Translations: [Morbid (severe) obesity due to excess calories] 04-10-2021 Chronic Other screening for suspected conditions (not mental disorders or infectious disease) (1 source) Elevated prostate specific antigen [PSA]; Translations: [Elevated prostate specific antigen [PSA]] Onset: 09-29-2024 Episodic Other skin disorders (10 sources) Skin tag; Translations: [Other hypertrophic disorders of the skin] 04-20-2019 Episodic Residual codes; unclassified (10 sources) History of colonoscopy; Translations: [Other specified postprocedural states] 01-19-2018 Episodic Comment on above: 2007 Skin and subcutaneous tissue infections (7 sources) Cellulitis of lower limb; Translations: [Cellulitis of left lower limb] 04-21-2022 Episodic Thyroid disorders (1 source) Hypothyroidism, unspecified; Translations: [Hypothyroidism, unspecified] Onset: 09-13-2024 Chronic Thyroid disorders (10 sources) Disorder of thyroid gland; Translations: [Disorder of thyroid, unspecified] 01-19-2018 Episodic Past or Other Problems Problem Classification Problem Date Documented Date Episodic/Chronic Spondylosis; intervertebral disc disorders; other back problems (1 source) Radiculopathy, lumbar region; Translations: [Radiculopathy, lumbar region] Onset: 12-24-2023 Episodic Unclassified (10 sources) h/o thoracentesis 03-04-2022 Results Test Name Value Interpretation Reference Range Facility Basic Metabolic Profile (BMP )on 10-03-2024 BUN/CRE 18.0 RATIO Normal 10-20 [facility] Comment on above: Performed By: #### L 500.2500, L501.9985 #### [facility] [address] [place], [address] CA,Total 8.8 mg/dL Normal 8.5-10.1 [facility] Comment on above: Performed By: #### L 500.2500, [id number] #### [facility] [address] [place], [address] Chloride [Moles/Vol] 104 mmol/L Normal 98-107 [facility] Comment on above: Performed By: #### L 500.2500, [id number] #### [facility] [address] [place], [address] CO2 [Moles/Vol] 30.0 mmol/L Normal 21.0-32.0 [facility] Comment on above: Performed By: #### L 500.2500, [id number] #### [facility] [address] [place], [address] Creatinine [Mass/Vol] 1.11 mg/dL Normal 0.70-1.30 [facility] Comment on above: Result Comment: The validity of the calculated GFR GFRAA in patients over 70 years has not been determined. Clinical correlation is essential. Performed By: #### L 500.2500, [id number] #### [facility] [address] [place], [address] EST GFR - AA 83 mL/min Normal >60 [facility] Comment on above: Result Comment: Afri can Irish GFR Calc Performed By: #### L 500.2500, [id number] #### [facility] [facility] [address] [place], [address] GAP 5 Normal 5-15 [facility] Comment on above: Performed By: #### L 500.2500, L501.9985 #### [facility] [address] [place], [address] GFR/1.73 sq M.predicted among non-blacks MDRD (S/P/Bld) [Vol rate/Area] 69 mL/min/{1.73_m2} Normal >60 [facility] Comment on above: Result Comment: Non- GFR Calc Performed By: #### L 500.2500, L501.9985 #### [facility] [address] [place], [address] Glucose [Mass/Vol] 127 mg/dL High 74-106 [facility] Comment on above: Result Comment: Fast ing Glucose result greater than or equal to 126 mg/dL suggests DIABETES MELLITUS per A.D.A. criteria. Performed By: #### L 500.2500, L501.9985 #### [facility] [address] [place], [address] Potassium [Moles/Vol] 3.6 mmol/L Normal 3.5-5.1 [facility] Comment on above: Performed By: #### L 500.2500, L501.9985 #### [facility] [address] [place], [address] Sodium [Moles/Vol] 139 mmol/L Normal 136-145 [facility] Comment on above: Performed By: #### L 500.2500, L501.9985 #### [facility] [address] [place], [address] Urea nitrogen [Mass/Vol] 20 mg/dL High 7-18 [facility] Comment on above: Performed By: #### L 500.2500, L501.9985 #### [facility] [address] [place], [address] Blood urea nitrogen (BUN)/cr eatinine ratioOrdered By: Foreign Herrmann on 10-02-2024 Urea nitrogen/Creatinine [Mass ratio] 18.0 mg/mg 10-20 [facility] Carbon dioxide measurementOr dered By: Foreign Herrmann on 10-02-2024 CO2 [Moles/Vol] 30.0 mmol/L 21.0-32.0 [facility] Chloride measurementOrdered By: Foreign Herrmann on 10-02-2024 Chloride [Moles/Vol] 104 mmol/L 98-107 [facility] Estimated glomerular filtrat ion rate (GFR) AmericanOrdered By: Foreign Herrmann on 10-02-2024 Estimated GFR (MDRD) Amer 83 mL/min >60 [facility] Comment on above: GFR Calc Glomerular filtration rate ( GFR) estimationOrdered By: Foreign Herrmann on 10-02-2024 Estimated GFR (MDRD) Non-Af Amer 69 mL/min >60 [facility] Comment on above: Non- GFR Calc Glucose measurementOrdered B y: Foreign Herrmann on 10-02-2024 Glucose [Mass/Vol] 127 mg/dL High 74-106 [facility] Comment on above: Fasting Glucose resu lt greater than or equal to 126 mg/dL suggests DIABETES MELLITUS per A.D.A. criteria. Hemoglobin A1con 10-02-2024 HbA1c (Bld) [Mass fraction] 5.2 % Normal 3.8-5.6 [facility] Comment on above: Result Comment: Norm al < 5.7 % Prediabetic 5.7 - 6.4 % Diabetic >or= 6.5 % Please note range changes. Performed By: #### L 500.2500, L501.9985 #### [facility] [place], [address] Hemoglobin A1c percentageOrd ered By: Foreign Herrmann on 10-02-2024 HbA1c (Bld) [Mass fraction] 5.2 % 3.8-5.6 [facility] Comment on above: Normal < 5.7 % Predi abetic 5.7 - 6.4 % Diabetic >or= 6.5 % Please note range changes. Potassium measurementOrdered By: Foreign Herrmann on 10-02-2024 Potassium [Moles/Vol] 3.6 mmol/L 3.5-5.1 [facility] Serum anion gap measurementO rdered By: Foreign Herrmann on 10-02-2024 Anion gap [Moles/Vol] 5 mmol/L 5-15 [facility] Serum or plasma calcium shant urement (mass/volume)Ordered By: Foreign Herrmann on 10-02-2024 Calcium [Mass/Vol] 8.8 mg/dL 8.5-10.1 [facility] Serum or plasma creatinine m easurement (mass/volume)Ordered By: Foreign Herrmann on 10-02-2024 Creatinine [Mass/Vol] 1.11 mg/dL 0.70-1.30 [facility] Comment on above: The validity of the calculated GFR & GFRAA in patients over 70 years has not been determined. Clinical correlation is essential. Serum or plasma urea nitroge n measurement (mass/volume)Ordered By: Foreign Herrmann on 10-02-2024 Urea nitrogen [Mass/Vol] 20 mg/dL High 7-18 [facility] Sodium levelOrdered By: Foreign Herrmann on 10-02-2024 Sodium [Moles/Vol] 139 mmol/L 136-145 [facility] Diagnostic total prostate sp ecific antigen (PSA) measurementOrdered By: Luis Benito on 09-11-2024 Prostate Specific Antigen Total 0.77 ng/mL 0.0-4.0 [facility] Comment on above: This test was perfor med using the TPSA assay method for the[employer] chemistry system. Values obtained with differentassay methods cannot be used interchangably.When changing PSA assays in the course of monitoring apatient, additional sequential testing should be carriedout to confirm baseline values. PSA,Total- [employer] PSA, DIAGNOSTIC 0.77 ng/mL Normal 0.0-4.0 [facility] Comment on above: Result Comment: This test was performed using the TPSA assay method for the [employer] chemistry system. Values obtained with different assay methods cannot be used interchangably. When changing PSA assays in the course of monitoring a patient, additional sequential testing should be carried out to confirm baseline values. Performed By: #### L 500.2500, L501.9985 #### [facility] [address] [place], [address] Basic Metabolic Profile (BMP )on 08-21-2024 BUN/CRE 13.4 RATIO Normal 10-20 [facility] Comment on above: Order Comment: N Performed By: #### L 500.2500, L501.9520, L500.4100, L501.34180, L506.0400 #### [facility] [address] [place], [address] CA,Total 8.8 mg/dL Normal 8.5-10.1 [facility] Comment on above: Order Comment: N Performed By: #### L 500.2500, L501.9520, L500.4100, L501.07258, L506.0400 #### [facility] [address] [place], [address] Chloride [Moles/Vol] 104 mmol/L Normal 98-107 [facility] Comment on above: Order Comment: N Performed By: #### L 500.2500, L501.9520, L500.4100, L501.65858, L506.0400 #### [facility] [address] [place], [address] CO2 [Moles/Vol] 28.0 mmol/L Normal 21.0-32.0 [facility] Comment on above: Order Comment: N Performed By: #### L 500.2500, L501.9520, L500.4100, L501.47433, L506.0400 #### [facility] [address] [place], [address] Creatinine [Mass/Vol] 1.19 mg/dL Normal 0.70-1.30 [facility] Comment on above: Order Comment: N Result Comment: The validity of the calculated GFR GFRAA in patients over 70 years has not been determined. Clinical correlation is essential. Performed By: #### L 500.2500, L501.9520, L500.4100, L501.49386, L506.0400 #### [facility] [address] [place], [address] EST GFR - AA 77 mL/min Normal >60 [facility] Comment on above: Order Comment: N Result Comment: Afri can Irish GFR Calc Performed By: #### L 500.2500, L501.9520, L500.4100, L501.40464, L506.0400 #### [facility] [address] [place], [address] GAP 8 Normal 5-15 [facility] Comment on above: Order Comment: N Performed By: #### L 500.2500, L501.9520, L500.4100, L501.60282, L506.0400 #### [facility] [address] [place], [address] GFR/1.73 sq M.predicted among non-blacks MDRD (S/P/Bld) [Vol rate/Area] 63 mL/min/{1.73_m2} Normal >60 [facility] Comment on above: Order Comment: N Result Comment: Non- GFR Calc Performed By: #### L 500.2500, L501.9520, L500.4100, L501.55168, L506.0400 #### [facility] [address] [place], [address] Glucose [Mass/Vol] 126 mg/dL High 74-106 [facility] Comment on above: Order Comment: N Result Comment: Fast ing Glucose result greater than or equal to 126 mg/dL suggests DIABETES MELLITUS per A.D.A. criteria. Performed By: #### L 500.2500, L501.9520, L500.4100, L501.14655, L506.0400 #### [facility] [address] [place], [address] Potassium [Moles/Vol] 3.2 mmol/L Low 3.5-5.1 [facility] Comment on above: Order Comment: N Performed By: #### L 500.2500, L501.9520, L500.4100, L501.35705, L506.0400 #### [facility] [address] [place], [address] Sodium [Moles/Vol] 139 mmol/L Normal 136-145 [facility] Comment on above: Order Comment: N Performed By: #### L 500.2500, L501.9520, L500.4100, L501.58146, L506.0400 #### [facility] [address] [place], [address] Urea nitrogen [Mass/Vol] 16 mg/dL Normal 7-18 [facility] Comment on above: Order Comment: N Performed By: #### L 500.2500, L501.9520, L500.4100, L501.14470, L506.0400 #### [facility] [address] [place], [address] Blood urea nitrogen (BUN)/cr eatinine ratioOrdered By: Foreign Herrmann on 08-21-2024 Urea nitrogen/Creatinine [Mass ratio] 13.4 mg/mg 10- [facility] Carbon dioxide measurementOr dered By: Foreign Herrmann on 08-21-2024 CO2 [Moles/Vol] 28.0 mmol/L 21.0-32.0 [facility] Chloride measurementOrdered By: Foreign Herrmann on 08-21-2024 Chloride [Moles/Vol] 104 mmol/L 98-107 [facility] Direct serum free thyroxine (FT4) measurementOrdered By: Foreign Herrmann on 08-21-2024 Free T4 [Mass/Vol] 1.06 ng/dL 0.76-1.46 [facility] Estimated glomerular filtrat ion rate (GFR) AmericanOrdered By: Foreign Herrmann on 08-21-2024 Estimated GFR (MDRD) Amer 77 mL/min >60 [facility] Comment on above: GFR Calc Free T3on 08-21-2024 Free T3 [Mass/Vol] 2.5 pg/mL Normal 2.18-3.98 [facility] Comment on above: Order Comment: N Performed By: #### L 500.2500, L501.9520, L500.4100, L501.61677, L506.0400 #### [facility] [address] [place] [address]. [place], [place], [address] Free Q4Sjcvqlk By: Foreign nick on 08-21-2024 Free Triiodothyronine (T3) pg/dL 2.5 pg/mL 2.18-3.98 [facility] Glomerular filtration rate ( GFR) estimationOrdered By: Foreign Herrmann on 08-21-2024 Estimated GFR (MDRD) Non-Af Amer 63 mL/min >60 [facility] Comment on above: Non- GFR Calc Glucose measurementOrdered B y: Foreign Herrmann on 08-21-2024 Glucose [Mass/Vol] 126 mg/dL High 74-106 [facility] Comment on above: Fasting Glucose resu lt greater than or equal to 126 mg/dL suggests DIABETES MELLITUS per A.D.A. criteria. High density lipoprotein (HD L) measurementOrdered By: Foreign Herrmann on 08-21-2024 Cholesterol in HDL [Mass/Vol] 39 mg/dL Low >40 [facility] Comment on above: The drugs N-Acetylcy steine and Metamizole may falsely depress this assay. Reference Range HDL <40 mg/dL Low HDL Cholesterol HDL >or= 60 mg/dL High HDL Cholesterol Lipid Profileon 08-21-2024 Cholesterol [Mass/Vol] 153 mg/dL Normal 200 [facility] Comment on above: Order Comment: N Result Comment: <200 mg/dL Desirable 200-240 mg/dL Borderline >240 mg/dL High Risk Performed By: #### L 500.2500, L501.9520, L500.4100, L501.62460, L506.0400 #### [facility] [address] [place], [address] Cholesterol in HDL [Mass/Vol] 39 mg/dL Low [facility] Comment on above: Order Comment: N Result Comment: The drugs N-Acetylcysteine and Metamizole may falsely depress this assay. Reference Range HDL <40 mg/dL Low HDL Cholesterol HDL >or= 60 mg/dL High HDL Cholesterol Performed By: #### L 500.2500, L501.9520, L500.4100, L501.11992, L506.0400 #### [facility] [address] [place], [address] Cholesterol in LDL [Mass/Vol] 86 mg/dL Normal 0-130 [facility] Comment on above: Order Comment: N Performed By: #### L 500.2500, L501.9520, L500.4100, L501.52059, L506.0400 #### [facility] [address] [place], [address] Cholesterol in VLDL [Mass/Vol] 28 mg/dL Normal 5-40 [facility] Comment on above: Order Comment: N Performed By: #### L 500.2500, L501.9520, L500.4100, L501.05286, L506.0400 #### [facility] [address] [place], [address] Triglyceride [Mass/Vol] 141 mg/dL Normal [facility] Comment on above: Order Comment: N Result Comment: The drugs N-Acetylcysteine and Metamizole may falsely depress this assay. Serum Triglycerides Reference Interval Normal <150 mg/dL Borderline high 150 - 199 mg/dL High 200 - 499 mg/dL Very High > or = 500 mg/dL Performed By: #### L 500.2500, L501.9520, L500.4100, L501.68349, L506.0400 #### [facility] [address] [place], [address] Low density lipoprotein (LDL ) cholesterol measurementOrdered By: Foreign Herrmann on 08-21-2024 Cholesterol in LDL [Mass/Vol] 86 mg/dL 0-130 [facility] Potassium measurementOrdered By: Foreign Herrmann on 08-21-2024 Potassium [Moles/Vol] 3.2 mmol/L Low 3.5-5.1 [facility] Serum anion gap measurementO rdered By: Foreign Herrmann on 08-21-2024 Anion gap [Moles/Vol] 8 mmol/L 5-15 [facility] Serum or plasma calcium shant urement (mass/volume)Ordered By: Foreign Herrmann on 08-21-2024 Calcium [Mass/Vol] 8.8 mg/dL 8.5-10.1 [facility] Serum or plasma cholesterol measurement (mass/volume)Ordered By: Foreign Herrmann on 08-21-2024 Cholesterol [Mass/Vol] 153 mg/dL <200 [facility] Comment on above: <200 mg/dL Desirable 200-240 mg/dL Borderline >240 mg/dL High Risk Serum or plasma creatinine m easurement (mass/volume)Ordered By: Foreign Herrmann on 08-21-2024 Creatinine [Mass/Vol] 1.19 mg/dL 0.70-1.30 [facility] Comment on above: The validity of the calculated GFR & GFRAA in patients over 70 years has not been determined. Clinical correlation is essential. Serum or plasma urea nitroge n measurement (mass/volume)Ordered By: Foreign Herrmann on 08-21-2024 Urea nitrogen [Mass/Vol] 16 mg/dL 7-18 [facility] Sodium levelOrdered By: Foreign Herrmann on 08-21-2024 Sodium [Moles/Vol] 139 mmol/L 136-145 [facility] T4 Free Directon 08-21-2024 T4 FREE DIRECT 1.06 ng/dL Normal 0.76-1.46 [facility] Comment on above: Order Comment: N Performed By: #### L 500.2500, L501.9985 #### [facility] [address] [place], [address] TSH QnOrdered By: Foreign pickard on 08-21-2024 Thyroid Stimulating Hormone (TSH) 3.040 uIU/mL 0.358-3.740 [facility] Thyroid Stim Hormone (TSH)on 08-21-2024 TSH 3.040 uIU/mL Normal 0.358-3.740 [facility] Comment on above: Order Comment: N Performed By: #### L 500.2500, L501.9985 #### [facility] [address] [place], [place], [address] Triglycerides measurementOrd ered By: Foreign Herrmann on 08-21-2024 Triglyceride [Mass/Vol] 141 mg/dL <199 [facility] Comment on above: The drugs N-Acetylcy steine and Metamizole may falsely depress this assay.Serum Triglycerides Reference Interval Normal <150 mg/dL Borderline high 150 - 199 mg/dL High 200 - 499 mg/dL Very High > or = 500 mg/dL Very low density lipoprotein (VLDL) cholesterol measurementOrdered By: Foreign Herrmann on 08-21-2024 VLDL Cholesterol 28 mg/dL 5-40 [facility] Basic Metabolic Profile (BMP )on 02-21-2024 BUN/CRE 14.5 RATIO Normal 10-20 [facility] Comment on above: Performed By: #### L 506.0400, L501.88876, L500.4100, L500.2500, L501.9520 #### [facility] [address] [place], [address] CA,Total 8.9 mg/dL Normal 8.5-10.1 [facility] Comment on above: Performed By: #### L 506.0400, L501.78916, L500.4100, L500.2500, L501.9520 #### [facility] [address] [place], [address] Chloride [Moles/Vol] 103 mmol/L Normal 98-107 [facility] Comment on above: Performed By: #### L 506.0400, L501.73021, L500.4100, L500.2500, L501.9520 #### [facility] [address] [place], [address] CO2 [Moles/Vol] 26.0 mmol/L Normal 21.0-32.0 [facility] Comment on above: Performed By: #### L 506.0400, L501.80882, L500.4100, L500.2500, L501.9520 #### [facility] [address] [place], [address] Creatinine [Mass/Vol] 1.17 mg/dL Normal 0.70-1.30 [facility] Comment on above: Result Comment: The validity of the calculated GFR GFRAA in patients over 70 years has not been determined. Clinical correlation is essential. Performed By: #### L 506.0400, L501.29109, L500.4100, L500.2500, L501.9520 #### [facility] [address] [place], [address] EST GFR - AA 78 mL/min Normal >60 [facility] Comment on above: Result Comment: Afri can Irish GFR Calc Performed By: #### L 506.0400, L501.19123, L500.4100, L500.2500, L501.9520 #### [facility] [address] [place], [address] GAP 10 Normal 5-15 [facility] Comment on above: Performed By: #### L 506.0400, L501.89650, L500.4100, L500.2500, L501.9520 #### [facility] [address] [place], [address] GFR/1.73 sq M.predicted among non-blacks MDRD (S/P/Bld) [Vol rate/Area] 65 mL/min/{1.73_m2} Normal >60 [facility] Comment on above: Result Comment: Non- GFR Calc Performed By: #### L 506.0400, L501.62221, L500.4100, L500.2500, L501.9520 #### [facility] [address] [place], [address] Glucose [Mass/Vol] 139 mg/dL High 74-106 [facility] Comment on above: Result Comment: Fast ing Glucose result greater than or equal to 126 mg/dL suggests DIABETES MELLITUS per A.D.A. criteria. Performed By: #### L 506.0400, L501.28783, L500.4100, L500.2500, L501.9520 #### [facility] [address] [place], [address] Potassium [Moles/Vol] 3.1 mmol/L Low 3.5-5.1 [facility] Comment on above: Performed By: #### L 506.0400, L501.40241, L500.4100, L500.2500, L501.9520 #### [facility] [address] [place], [address] Sodium [Moles/Vol] 139 mmol/L Normal 136-145 [facility] Comment on above: Performed By: #### L 506.0400, L501.77826, L500.4100, L500.2500, L501.9520 #### [facility] [address] [place], [address] Urea nitrogen [Mass/Vol] 17 mg/dL Normal 7-18 [facility] Comment on above: Performed By: #### L 506.0400, L501.93405, L500.4100, L500.2500, L501.9520 #### [facility] [address] [place], [address] Free T3on 02-21-2024 Free T3 [Mass/Vol] 2.5 pg/mL Normal 2.18-3.98 [facility] Comment on above: Performed By: #### L 506.0400, L501.45903, L500.4100, L500.2500, L501.9520 #### [facility] [address] [place], [address] Lipid Profileon 02-21-2024 Cholesterol [Mass/Vol] 144 mg/dL Normal 200 [facility] Comment on above: Result Comment: <200 mg/dL Desirable 200-240 mg/dL Borderline >240 mg/dL High Risk Performed By: #### L 506.0400, L501.55472, L500.4100, L500.2500, L501.9520 #### [facility] [address] [place], [address] Cholesterol in HDL [Mass/Vol] 34 mg/dL Low [facility] Comment on above: Result Comment: The drugs N-Acetylcysteine and Metamizole may falsely depress this assay. Reference Range HDL <40 mg/dL Low HDL Cholesterol HDL >or= 60 mg/dL High HDL Cholesterol Performed By: #### L 506.0400, L501.24403, L500.4100, L500.2500, L501.9520 #### [facility] [address] [place], [address] Cholesterol in LDL [Mass/Vol] 73 mg/dL Normal 0-130 [facility] Comment on above: Performed By: #### L 506.0400, L501.39100, L500.4100, L500.2500, L501.9520 #### [facility] [address] [place], [address] Cholesterol in VLDL [Mass/Vol] 37 mg/dL Normal 5-40 [facility] Comment on above: Performed By: #### L 506.0400, L501.64999, L500.4100, L500.2500, L501.9520 #### [facility] [address] [place], [address] Triglyceride [Mass/Vol] 184 mg/dL Normal [facility] Comment on above: Result Comment: The drugs N-Acetylcysteine and Metamizole may falsely depress this assay. Serum Triglycerides Reference Interval Normal <150 mg/dL Borderline high 150 - 199 mg/dL High 200 - 499 mg/dL Very High > or = 500 mg/dL Performed By: #### L 506.0400, L501.79403, L500.4100, L500.2500, L501.9520 #### [facility] [address] [place], [address] T4 Free Directon 02-21-2024 T4 FREE DIRECT 0.96 ng/dL Normal 0.76-1.46 [facility] Comment on above: Performed By: #### L 506.0400, L501.82759, L500.4100, L500.2500, L501.9520 #### [facility] [address] [place], [address] Thyroid Stim Hormone (TSH)on 02-21-2024 TSH 2.60 uIU/mL Normal 0.358-3.74 [facility] Comment on above: Performed By: #### L 506.0400, L501.00808, L500.4100, L500.2500, L501.9520 #### [facility] [address] [place], [address] Spine Lumbar (Routine)on Spine Lumbar (Routine) [facility] Services [address] [facility] [address] Spine Lumbar (Routine) MR#: [id number] Acct: [id number] Name: SLIME SHAW Rep #: [id number] : 1950 M 73 From: Josh Cabrales MD PCP: Dr. Foreign Herrmann MD Status: REG CLI Study: Spine Lumbar (Routine) Date of Exam: 12/20/23 Exam# [id number] Ordering Dr: Mirta Cordero MD [id number] STUDY: MRI LUMBAR SPINE WITHOUT CONTRAST REASON FOR EXAM: Male, 73 years old. Low back pain and radiculopathy. TECHNIQUE: Standardized fat and water weighted pulse sequences were obtained in the sagittal and axial planes. COMPARISON: Lumbar spine radiographs 01/21/2017. FINDINGS: T12-L1: Normal endplates. Normal disc height, hydration and morphology. Normal bilateral facet joints. Normal central canal and bilateral lateral recesses. Normal bilateral intervertebral neural foramina. Normal lumbar lordosis. There is no substantial scoliosis. Normal conus medullaris that terminates at the lower L1 vertebral body level. L1-2: Normal L1 inferior endplate. Minimal anterior wedging of the L2 superior endplate is presumably from remote injury. Normal disc height. Prominent ventral extradural defect due to posterior bulging annulus. Normal facet joints. Prominent dorsal epidural lipomatosis. Moderately pronounced central canal stenosis with an AP canal diameter of 6.3 mm secondary to developmentally short pedicles and prominent dorsal epidural lipomatosis. Normal bilateral lateral recesses. Mild stenosis of the bilateral intervertebral neural foramina due to posterior bulging annulus. L2-3: Normal endplates. Mild disc space height narrowing. Prominent ventral extradural defect due to posterior bulging annulus. Mild asymmetric degenerative facet arthropathy, left greater than right. Moderately pronounced central canal stenosis with an AP canal diameter of 5.5 mm secondary to developmentally short pedicles, mild dorsal epidural lipomatosis and prominent posterior bulging annulus. Mild stenosis of the bilateral intervertebral neural foramina due to posterior bulging annulus. L3-4: Normal endplates. Minimal disc space height narrowing. Mild ventral extradural defect due to posterior bulging annulus. Normal facet joints. Moderately pronounced central canal stenosis with an AP canal diameter of 5.5 mm secondary to developmentally short pedicles, mild dorsal epidural lipomatosis and small posterior bulging annulus. Normal bilateral lateral recesses. Mild stenosis of the bilateral intervertebral neural foramina. L4-5: Normal endplates. Minimal disc space height narrowing. Mild ventral extradural defect due to posterior bulging annulus. Mild bilateral degenerative facet arthropathy. Moderately pronounced central canal stenosis with an AP canal diameter of 5 mm secondary to developmentally short pedicles, mild posterior bulging annulus and posterior ligamenta flava hypertrophy. Normal bilateral lateral recesses. Moderate stenosis of the left intervertebral neural foramen due to posterior bulging annulus. Mild stenosis of the right intervertebral neural foramen due to smaller posterior bulging annulus on this side. L5-S1: Normal endplates. Normal disc height, hydration and morphology. Mild to moderate bilateral degenerative facet arthropathy. Moderate central canal stenosis with an AP canal diameter 7.5 mm secondary to developmentally short pedicles and mild dorsal epidural lipomatosis. Normal bilateral lateral recesses. Mild stenosis of the bilateral intervertebral neural foramina. Normal visualized sacral ala. Normal visualized paraspinous soft tissue structures. MRI/Spine Lumbar (Routine) IMPRESSION: 1. Limited study due to low resolution images. 2. Moderately pronounced central canal stenosis at L4-L5 disc space level with an AP canal diameter 5 mm secondary to developmentally short pedicles, mild posterior bulging annulus and posterior ligamenta flava hypertrophy. 3. Moderately pronounced central canal stenosis at L3-L4 disc space level with an AP canal diameter of 5.5 mm secondary to developmental short pedicles, mild dorsal epidural lipomatosis and small posterior bulging annulus. 4. Moderately pronounced central canal stenosis at L2-L3 disc space level with an AP canal diameter 5.5 mm secondary to developmentally short pedicles, mild dorsal epidural lipomatosis and prominent posterior bulging annulus. 5. Moderately pronounced central canal stenosis at L1-L2 disc space level with an AP canal diameter of 6.3 mm secondary to developmentally short pedicles and prominent dorsal epidural lipomatosis. 6. Moderate central canal stenosis at L5-S1 disc space level with an AP canal diameter 7.5 mm secondary to deve (more content not included)... Normal [facility] Basophil percentageOrdered B y: Foreign Herrmann on 08-20-2023 Chloride [Moles/Vol] 108 mmol/L 98-107 [facility] Cholesterol [Mass/Vol] 153 mg/dL <200 [facility] Comment on above: <200 mg/dL Desirable 200-240 mg/dL Borderline >240 mg/dL High Risk Glucose [Mass/Vol] 117 mg/dL 74-106 [facility] Comment on above: Fasting Glucose resu lt from 100 to 125 mg/dL suggests IMPAIRED HOMEOSTASIS per A.D.A. criteria. Potassium [Moles/Vol] 3.4 mmol/L 3.5-5.1 [facility] Comment on above: Slight Hemolysis, Re sult may be falsely increased. Sodium [Moles/Vol] 142 mmol/L 136-145 [facility] Triglyceride [Mass/Vol] 119 mg/dL <199 [facility] Comment on above: The drugs N-Acetylcy steine and Metamizole may falsely depress this assay.Serum Triglycerides Reference Interval Normal <150 mg/dL Borderline high 150 - 199 mg/dL High 200 - 499 mg/dL Very High > or = 500 mg/dL Laboratory - Chemistry and C hemistry - challengeOrdered By: Foreign Herrmann on 08-20-2023 CO2 [Moles/Vol] 27.0 mmol/L 21.0-32.0 [facility] Urea nitrogen/Creatinine [Mass ratio] 15.2 mg/mg 10-20 [facility] No Panel InformationOrdered By: Foreign Herrmann on 08-20-2023 Estimated GFR (MDRD) Amer 73 mL/min >60 [facility] Comment on above: GFR Calc Estimated GFR (MDRD) Non-Af Amer 60 mL/min >60 [facility] Comment on above: Non- GFR Calc Prostate Specific Antigen Screen 0.78 ng/mL 0.00-4.00 [facility] Comment on above: This test was perfor med using the TPSA assay method for the[facility] chemistry system. Values obtained with differentassay methods cannot be used interchangably.When changing PSA assays in the course of monitoring apatient, additional sequential testing should be carriedout to confirm baseline values. Serum or plasma calcium shant urement (mass/volume)Ordered By: Foreign Herrmann on 08-20-2023 Calcium [Mass/Vol] 8.8 mg/dL 8.5-10.1 [facility] Serum or plasma cholesterol in HDL measurement (mass/volume)Ordered By: Foreign Herrmann on 08-20-2023 Cholesterol in HDL [Mass/Vol] 34 mg/dL >40 [facility] Comment on above: The drugs N-Acetylcy steine and Metamizole may falsely depress this assay. Reference Range HDL <40 mg/dL Low HDL Cholesterol HDL >or= 60 mg/dL High HDL Cholesterol Serum or plasma cholesterol in VLDL measurement (mass/volume)Ordered By: Foreign Herrmann on 08-20-2023 Cholesterol in VLDL [Mass/Vol] 24 mg/dL 5-40 [facility] Serum or plasma creatinine m easurement (mass/volume)Ordered By: Foreign Herrmann on 08-20-2023 Creatinine [Mass/Vol] 1.25 mg/dL 0.70-1.30 [facility] Comment on above: The validity of the calculated GFR & GFRAA in patients over 70 years has not been determined. Clinical correlation is essential. Serum or plasma low density lipoprotein (LDL) cholesterol measurement (mass/volume)Ordered By: Foreign Herrmann on 08-20-2023 Cholesterol in LDL [Mass/Vol] 95 mg/dL 0-130 [facility] Serum or plasma urea nitroge n measurement (mass/volume)Ordered By: Foreign Herrmann on 08-20-2023 Urea nitrogen [Mass/Vol] 19 mg/dL 7-18 [facility] Thin prep Papanicolaou smear with manual screeningOrdered By: Foreign Herrmann on 08-20-2023 Thin prep Papanicolaou smear with manual screening 7 5-15 [facility] No Panel InformationOrdered By: MEDHAT Yates on 09-07-2022 Prostate Specific Antigen Screen 0.95 ng/mL 0.00-4.00 [facility] Comment on above: This test was perfor med using the TPSA assay method for the[employer] chemistry system. Values obtained with differentassay methods cannot be used interchangably.When changing PSA assays in the course of monitoring apatient, additional sequential testing should be carriedout to confirm baseline values. Basophil percentageOrdered B y: Dr. Herrmann on 08-19-2022 Chloride [Moles/Vol] 104 mmol/L 98-107 [facility] Cholesterol [Mass/Vol] 150 mg/dL <200 [facility] Comment on above: <200 mg/dL Desirable 200-240 mg/dL Borderline >240 mg/dL High Risk Glucose [Mass/Vol] 111 mg/dL 74-106 [facility] Comment on above: Fasting Glucose resu lt from 100 to 125 mg/dL suggests IMPAIRED HOMEOSTASIS per A.D.A. criteria. Potassium [Moles/Vol] 3.2 mmol/L 3.5-5.1 [facility] Sodium [Moles/Vol] 139 mmol/L 136-145 [facility] Triglyceride [Mass/Vol] 143 mg/dL <199 [facility] Comment on above: The drugs N-Acetylcy steine and Metamizole may falsely depress this assay.Serum Triglycerides Reference Interval Normal <150 mg/dL Borderline high 150 - 199 mg/dL High 200 - 499 mg/dL Very High > or = 500 mg/dL Laboratory - Chemistry and C hemistry - challengeOrdered By: Dr. Herrmann on 08-19-2022 CO2 [Moles/Vol] 26.0 mmol/L 21.0-32.0 [facility] Free T4 [Mass/Vol] 0.99 ng/dL 0.76-1.46 [facility] Urea nitrogen/Creatinine [Mass ratio] 16.7 mg/mg 10-20 [facility] No Panel InformationOrdered By: Dr. Herrmann on 08-19-2022 Estimated GFR (MDRD) Amer 81 mL/min >60 [facility] Comment on above: GFR Calc Estimated GFR (MDRD) Non-Af Amer 67 mL/min >60 [facility] Comment on above: Non- GFR Calc Free Triiodothyronine (T3) pg/dL 2.4 pg/mL 2.18-3.98 [facility] Thyroid Stimulating Hormone (TSH) 2.46 uIU/mL 0.358-3.74 [facility] Serum or plasma calcium shant urement (mass/volume)Ordered By: Dr. Herrmann on 08-19-2022 Calcium [Mass/Vol] 8.7 mg/dL 8.5-10.1 [facility] Serum or plasma cholesterol in HDL measurement (mass/volume)Ordered By: Dr. Herrmann on 08-19-2022 Cholesterol in HDL [Mass/Vol] 35 mg/dL >40 [facility] Comment on above: The drugs N-Acetylcy steine and Metamizole may falsely depress this assay. Reference Range HDL <40 mg/dL Low HDL Cholesterol HDL >or= 60 mg/dL High HDL Cholesterol Serum or plasma cholesterol in VLDL measurement (mass/volume)Ordered By: Dr. Herrmann on 08-19-2022 Cholesterol in VLDL [Mass/Vol] 29 mg/dL 5-40 [facility] Serum or plasma creatinine m easurement (mass/volume)Ordered By: Dr. Herrmann on 08-19-2022 Creatinine [Mass/Vol] 1.14 mg/dL 0.70-1.30 [facility] Comment on above: The validity of the calculated GFR & GFRAA in patients over 70 years has not been determined. Clinical correlation is essential. Serum or plasma low density lipoprotein (LDL) cholesterol measurement (mass/volume)Ordered By: Dr. Herrmann on 08-19-2022 Cholesterol in LDL [Mass/Vol] 86 mg/dL 0-130 [facility] Serum or plasma urea nitroge n measurement (mass/volume)Ordered By: Dr. Herrmann on 08-19-2022 Urea nitrogen [Mass/Vol] 19 mg/dL 7-18 [facility] Thin prep Papanicolaou smear with manual screeningOrdered By: Dr. Herrmann on 08-19-2022 Thin prep Papanicolaou smear with manual screening 9 5-15 [facility] Absolute lymphocyte counton 04-13-2022 Lymphocytes Auto (Unsp spec) [#/Vol] 1.57 10*3/uL 0.83-4.51 [facility] Work Phone: Basophil percentageon 2021 Basophils/100 WBC (Bld) 0.5 % 0-1 [facility] Work Phone: [phone] Chloride [Moles/Vol] 100 mmol/L 98-107 [facility] Work Phone: Eosinophils/100 WBC (Bld) 3.2 % 0-5 [facility] Work Phone: Glucose [Mass/Vol] 147 mg/dL 74-106 [facility] Work Phone: Comment on above: Fasting Glucose resu lt greater than or equal to 126 mg/dL suggests DIABETES MELLITUS per A.D.A. criteria. Neutrophils (Bld) [#/Vol] 5.8 10*3/uL 2.0-7.7 [facility] Work Phone: Neutrophils/100 WBC (Bld) 68.0 % 47-70 [facility] Work Phone: Potassium [Moles/Vol] 3.4 mmol/L 3.5-5.1 [facility] Work Phone: Sodium [Moles/Vol] 137 mmol/L 136-145 [facility] Work Phone: WBC (Bld) [#/Vol] 8.5 10*3/uL 4.4-11.0 [facility] Work Phone: Blood erythrocytes count (nu mber/volume)on 04-13-2022 RBC (Bld) [#/Vol] 3.47 10*6/uL 4.6-6.2 [facility] Work Phone: Blood hemoglobin measurement (mass/volume)on 04-13-2022 Hemoglobin (Bld) [Mass/Vol] 11.2 g/dL 13.0-16.5 [facility] Work Phone: Blood lymphocytes/100 leukoc yteson 04-13-2022 Lymphocytes/100 WBC (Bld) 18.5 % 19-41 [facility] Work Phone: Blood monocytes/100 leukocyt eson 04-13-2022 Monocytes/100 WBC (Bld) 9.2 % 0-10 [facility] Work Phone: Blood platelet mean volumeon 04-13-2022 Platelet mean volume (Bld) [Entitic vol] 8.9 fL 6.2-12.0 [facility] Work Phone: Determination of erythrocyte mean corpuscular volume (MCV)on 04-13-2022 MCV (RBC) [Entitic vol] 89.9 fL 80-94 [facility] Work Phone: Hematocrit Auto (Bld) [Volum e fraction]on 04-13-2022 Hematocrit (Bld) [Volume fraction] 31.2 % 40-54 [facility] Work Phone: Laboratory - Chemistry and C hemistry - challengeon 04-13-2022 CO2 [Moles/Vol] 29.0 mmol/L 21.0-32.0 [facility] Work Phone: Urea nitrogen/Creatinine [Mass ratio] 14.7 mg/mg 10-20 [facility] Work Phone: Laboratory - Hematology and Cell countson 04-13-2022 Erythrocyte distribution width (RBC) [Entitic vol] 42.5 fL 35.1-43.9 [facility] Work Phone: Erythrocyte distribution width (RBC) [Ratio] 13.0 % 11.6-14.6 [facility] Work Phone: Immature granulocytes/100 WBC (Bld) 0.600 % 0.0-0.9 [facility] Work Phone: Comment on above: IG% - Immature Granu locytes (promyelocytes, myelocytes and metamyelocytes) > 1% indicates that a LEFT SHIFT is Present. MCH (RBC) [Entitic mass] 32.3 pg 27.0-32.0 [facility] Work Phone: Nucleated RBC/100 WBC (Bld) [Ratio] 0 % 0-5 [facility] Work Phone: MCHC Auto (RBC) [Mass/Vol]on 04-13-2022 MCHC (RBC) [Mass/Vol] 35.9 g/dL 32-36 [facility] Work Phone: No Panel Informationon 04-13 Estimated Creatinine Clearance Calc 59.27 ml/min [facility] Work Phone: Estimated GFR (MDRD) Amer 85 mL/min >60 [facility] Work Phone: Comment on above: GFR Calc Estimated GFR (MDRD) Non-Af Amer 71 mL/min >60 [facility] Work Phone: Comment on above: Non- GFR Calc Platelets bldon 04-13-2022 Platelets (Bld) [#/Vol] 277 10*3/uL 150-450 [facility] Work Phone: Serum or plasma calcium shant urement (mass/volume)on 04-13-2022 Calcium [Mass/Vol] 8.5 mg/dL 8.5-10.1 [facility] Work Phone: Serum or plasma creatinine m easurement (mass/volume)on 04-13-2022 Creatinine [Mass/Vol] 1.09 mg/dL 0.70-1.30 [facility] Work Phone: Comment on above: The validity of the calculated GFR & GFRAA in patients over 70 years has not been determined. Clinical correlation is essential. Serum or plasma urea nitroge n measurement (mass/volume)on 04-13-2022 Urea nitrogen [Mass/Vol] 16 mg/dL 7-18 [facility] Work Phone: Thin prep Papanicolaou smear with manual screeningon 04-13-2022 Thin prep Papanicolaou smear with manual screening 8 5-15 [facility] Work Phone: Basophil percentageon 2021 Chloride [Moles/Vol] 101 mmol/L 98-107 [facility] Work Phone: Glucose [Mass/Vol] 99 mg/dL 74-106 [facility] Work Phone: Potassium [Moles/Vol] 3.2 mmol/L 3.5-5.1 [facility] Work Phone: Sodium [Moles/Vol] 138 mmol/L 136-145 [facility] Work Phone: WBC (Bld) [#/Vol] 9.6 10*3/uL 4.4-11.0 [facility] Work Phone: Blood erythrocytes count (nu mber/volume)on 04-07-2022 RBC (Bld) [#/Vol] 4.01 10*6/uL 4.6-6.2 [facility] Work Phone: Blood hemoglobin measurement (mass/volume)on 04-07-2022 Hemoglobin (Bld) [Mass/Vol] 13.0 g/dL 13.0-16.5 [facility] Work Phone: Blood platelet mean volumeon 04-07-2022 Platelet mean volume (Bld) [Entitic vol] 9.7 fL 6.2-12.0 [facility] Work Phone: Determination of erythrocyte mean corpuscular volume (MCV)on 04-07-2022 MCV (RBC) [Entitic vol] 88.8 fL 80-94 [facility] Work Phone: Hematocrit Auto (Bld) [Volum e fraction]on 04-07-2022 Hematocrit (Bld) [Volume fraction] 35.6 % 40-54 [facility] Work Phone: Laboratory - Chemistry and C hemistry - challengeon 04-07-2022 CO2 [Moles/Vol] 31.0 mmol/L 21.0-32.0 [facility] Work Phone: Urea nitrogen/Creatinine [Mass ratio] 12.6 mg/mg 10-20 [facility] Work Phone: Laboratory - Hematology and Cell countson 04-07-2022 Erythrocyte distribution width (RBC) [Entitic vol] 43.3 fL 35.1-43.9 [facility] Work Phone: Erythrocyte distribution width (RBC) [Ratio] 13.3 % 11.6-14.6 [facility] Work Phone: MCH (RBC) [Entitic mass] 32.4 pg 27.0-32.0 [facility] Work Phone: MCHC Auto (RBC) [Mass/Vol]on 04-07-2022 MCHC (RBC) [Mass/Vol] 36.5 g/dL 32-36 [facility] Work Phone: No Panel Informationon 04-07 Estimated Creatinine Clearance Calc 60.16 ml/min [facility] Work Phone: Estimated GFR (MDRD) Amer 84 mL/min >60 [facility] Work Phone: Comment on above: GFR Calc Estimated GFR (MDRD) Non-Af Amer 69 mL/min >60 [facility] Work Phone: Comment on above: Non- GFR Calc Platelets bldon 04-07-2022 Platelets (Bld) [#/Vol] 190 10*3/uL 150-450 [facility] Work Phone: Serum or plasma calcium shant urement (mass/volume)on 04-07-2022 Calcium [Mass/Vol] 8.2 mg/dL 8.5-10.1 [facility] Work Phone: Serum or plasma creatinine m easurement (mass/volume)on 04-07-2022 Creatinine [Mass/Vol] 1.11 mg/dL 0.70-1.30 [facility] Work Phone: Comment on above: The validity of the calculated GFR & GFRAA in patients over 70 years has not been determined. Clinical correlation is essential. Serum or plasma urea nitroge n measurement (mass/volume)on 04-07-2022 Urea nitrogen [Mass/Vol] 14 mg/dL 7-18 [facility] Work Phone: Thin prep Papanicolaou smear with manual screeningon 04-07-2022 Thin prep Papanicolaou smear with manual screening 6 5-15 [facility] Work Phone: Glucose Glucometer (BldC) [M ass/Vol]on 04-06-2022 Glucose [Mass/Vol] 124 mg/dL 74-106 [facility] Work Phone: Comment on above: MANAGEMENT OF PATIEN T CARE PER NURSING PROTOCOL Absolute lymphocyte counton 03-24-2022 Lymphocytes Auto (Unsp spec) [#/Vol] 2.32 10*3/uL 0.83-4.51 [facility] Work Phone: Basophil percentageon 2021 Basophils/100 WBC (Bld) 0.7 % 0-1 [facility] Work Phone: Eosinophils/100 WBC (Bld) 4.4 % 0-5 [facility] Work Phone: Neutrophils (Bld) [#/Vol] 4.2 10*3/uL 2.0-7.7 [facility] Work Phone: Neutrophils/100 WBC (Bld) 54.3 % 47-70 [facility] Work Phone: Blood lymphocytes/100 leukoc yteson 03-24-2022 Lymphocytes/100 WBC (Bld) 30.2 % 19-41 [facility] Work Phone: Blood monocytes/100 leukocyt eson 03-24-2022 Monocytes/100 WBC (Bld) 10.0 % 0-10 [facility] Work Phone: Laboratory - Chemistry and C hemistry - challengeon 03-24-2022 Magnesium [Mass/Vol] 2.0 mg/dL 1.6-2.6 [facility] Work Phone: Laboratory - Hematology and Cell countson 03-24-2022 Immature granulocytes/100 WBC (Bld) 0.400 % 0.0-0.9 [facility] Work Phone: Comment on above: IG% - Immature Granu locytes (promyelocytes, myelocytes and metamyelocytes) > 1% indicates that a LEFT SHIFT is Present. Nucleated RBC/100 WBC (Bld) [Ratio] 0 % 0-5 [facility] Work Phone: No Panel Informationon 03-24 Thyroid Stimulating Hormone (TSH) 4.38 uIU/mL 0.358-3.74 [facility] Work Phone: Serum or plasma albumin shant urement (mass/volume)on 03-24-2022 Albumin [Mass/Vol] 3.8 g/dL 3.2-5.0 [facility] Work Phone: Whole blood hemoglobin A1c/t otal hemoglobin ratio (mass fraction)on 03-24-2022 HbA1c (Bld) [Mass fraction] 5.0 % 3.8-5.6 [facility] Work Phone: Comment on above: Normal < 5.7 % Predi abetic 5.7 - 6.4 % Diabetic >or= 6.5 % Please note range changes. No Panel Information Nasal Screen MRSA/MSSA [facility] Work Phone: Vital Signs Date Time Vital Sign Value Performing Clinician Facility 04-13-2022 13:05-0400 Body temperature 98.9 [degF] Dr. Foreign Herrmann Work Phone: [facility] Work Phone: 04-13-2022 13:05-0400 Diastolic blood pressure 67 mm[Hg] Dr. Foreign Herrmann Work Phone: [facility] Work Phone: 04-13-2022 13:05-0400 Heart rate 75 /min Dr. Foreign Herrmann Work Phone: [facility] Work Phone: 04-13-2022 13:05-0400 Respiratory rate 18 /min Dr. Foreign Herrmann Work Phone: [facility] Work Phone: 04-13-2022 13:05-0400 SaO2% (BldA) [Mass fraction] 97 % Dr. Foreign Herrmann Work Phone: [facility] Work Phone: 04-13-2022 13:05-0400 Systolic blood pressure 134 mm[Hg] Dr. Foreign Herrmann Work Phone: [facility] Work Phone: 04-13-2022 11:31-0400 Body height 172.[address] Foreign Herrmann Work Phone: [facility] Work Phone: 04-13-2022 11:31-0400 Body mass index (BMI) [Ratio] 44.4 kg/m2 Dr. Foreign Herrmann Work Phone: [facility] Work Phone: 04-13-2022 11:31-0400 Body weight 132.[address] Foreign Herrmann Work Phone: [facility] Work Phone: 04-07-2022 14:52-0400 Body temperature 98.2 [degF] [facility] Work Phone: 04-07-2022 14:52-0400 Diastolic blood pressure 64 mm[Hg] [facility] Work Phone: 04-07-2022 14:52-0400 Heart rate 77 /min [facility] Work Phone: 04-07-2022 14:52-0400 Respiratory rate 18 /min [facility] Work Phone: 04-07-2022 14:52-0400 SaO2% (BldA) [Mass fraction] 97 % [facility] Work Phone: 04-07-2022 14:52-0400 Systolic blood pressure 123 mm[Hg] [facility] Work Phone: 04-06-2022 20:10-0400 Inhaled oxygen concentration 21 % [facility] Work Phone: 04-06-2022 16:50-0400 Inhaled oxygen flow rate 2 L/min [facility] Work Phone: 04-06-2022 14:42-0400 Body height 175.[address] [facility] Work Phone: 04-06-2022 14:42-0400 Body mass index (BMI) [Ratio] 43.2 kg/m2 [facility] Work Phone: 04-06-2022 14:42-0400 Body weight [address] [facility] Work Phone: Encounters Encounter Date Encounter Type Care Provider Facility Start: 10-02-2024 End: 10-02-[address] Foreign Herrmann MD Work Phone: [facility] Work Phone: Start: 10-02-2024 End: 10-02-[address] [facility] Start: 10-02-2024 End: 10-02-2024 ambulatory Foreign Herrmann Facility:[facility] Start: 09-11-2024 End: 09-11-[address] Luis Benito MD -Laboratory Work Phone: Start: 09-11-2024 End: 09-11-2024 ambulatory Foreign Herrmann Facility:[facility] Start: 08-21-2024 End: 08-21-[address] Foreign Herrmann MD -Laboratory, [place] Work Phone: Start: 08-21-2024 End: 08-21-2024 ambulatory Foreign Herrmann Facility:[facility] Start: 02-21-2024 End: 02-21-2024 ambulatory Foreign Herrmann Facility:[facility] Start: 12-20-2023 End: 12-20-2023 ambulatory Foreign Herrmann Facility:[facility] Start: 08-20-2023 End: 08-20-2023 ambulatory [facility] Work Phone: Start: 08-20-2023 End: 08-20-2023 Patient encounter procedure [facility] Start: 09-07-2022 End: 09-07-2022 ambulatory [facility] Work Phone: Start: 09-07-2022 End: 09-07-2022 Patient encounter procedure [facility]-Laboratory Start: 08-19-2022 End: 08-19-2022 ambulatory [facility] Work Phone: Start: 08-19-2022 End: 08-19-2022 Patient encounter procedure [facility]-Laboratory, [facility] Start: 07-22-2022 End: 07-22-[address] Foreign Herrmann Work Phone: [facility] Start: 07-16-2022 End: 07-16-[address] Foreign Herrmann Work Phone: [facility] Work Phone: Start: 07-16-2022 End: 07-16-[address] Foreign Herrmann Work Phone: [facility]-Cardiovascula r Services Start: 04-13-2022 Non-patient / Non-visit Dr. Corky Herrmann Work Phone: [facility] Start: 04-13-2022 End: 04-13-2022 Emergency department patient visit Dr. Foreign Herrmann Work Phone: [facility]-Emergency Department Start: 04-06-2022 End: 04-07-2022 Evaluation and management of inpatient [facility]-Medical Surgical 3 Start: 04-06-2022 End: 04-07-2022 observation encounter [facility] Work Phone: Start: 03-24-2022 End: 03-24-2022 Patient encounter procedure [facility] Start: 03-24-2022 Non-patient / Non-visit Dr. Corky Herrmann Work Phone: [facility] Start: 02-18-2022 End: 02-18-[address] Foreign Herrmann Work Phone: [facility] Work Phone: Start: 02-18-2022 End: 02-18-[address] Foreign Herrmann Work Phone: [facility]-Physical Therapy Start: 02-18-2022 Registered Recurring [facility]Physical Therapy Start: 12-31-2021 End: 12-31-2021 Patient encounter procedure [facility]-Radiology, [place] Procedures Date Procedure Procedure Detail Performing Clinician Start: 08-20-2023 Plain x-ray of pelvi s and lower extremity Start: 07-22-2022 Diagnostic radiograp hy of finger Dr. Foreign Herrmann Work Phone: Start: 04-13-2022 Radiologic examinati on of knee Dr. Foreign Herrmann Work Phone: Start: 04-06-2022 Total Knee Replaceme nt Robotic Arm Miguel A (Left) Start: 04-06-2022 Radiologic examinati on of knee Start: 03-24-2022 MRI of lower extremity Start: 12-31-2021 Plain X-ray of shoulder History of tonsillectomy S/P tonsillectom y Nasal Screen MRSA/MSSA Plan of Treatment Date Care Activity Detail Author Start: 04-07-2022 Patient discharge [facility] Work Phone: Start: 04-06-2022 Application of intermittent pneumatic compression device [facility] Work Phone: Start: 04-06-2022 Following clinical pathway protocol [facility] Work Phone: Start: 04-06-2022 Admission procedure [facility] Work Phone: Start: 04-06-2022 Anesth open/surg arthrs total knee arthroplasty ANESTH KNEE ARTHROPLASTY [facility] Work Phone: Start: 04-06-2022 Arthrp kne condyle&platu medial&lat compartments TOTAL KNEE ARTHROPLASTY [facility] Work Phone: Start: 04-06-2022 Injection aa&/strd femoral nerve NJX AA&/STRD FEMORAL NERVE [facility] Work Phone: Start: 04-06-2022 Provision of overbed trapeze [facility] Work Phone: Start: 04-06-2022 Ambulation therapy management [facility] Work Phone: Start: 04-06-2022 Application of device [facility] Work Phone: Start: 04-06-2022 Application of elastic bandage [facility] Work Phone: Start: 04-06-2022 Assessment of risk of venous thromboembolism [facility] Work Phone: Start: 04-06-2022 Catheterization of vein [facility] Work Phone: Start: 04-06-2022 Exercises [facility] Work Phone: Start: 04-06-2022 Following clinical pathway protocol [facility] Work Phone: Start: 04-06-2022 Incentive spirometry [facility] Work Phone: Start: 04-06-2022 Introduction of urinary catheter [facility] Work Phone: Start: 04-06-2022 Measuring intake and output [facility] Work Phone: Start: 04-06-2022 Neurovascular assessment [facility] Work Phone: Start: 04-06-2022 Patient education [facility] Work Phone: Start: 04-06-2022 Procedure discontinued [facility] Work Phone: Start: 04-06-2022 Provision of activity privileges [facility] Work Phone: Start: 04-06-2022 Referral to occupational therapist [facility] Work Phone: Start: 04-06-2022 Referral to service [facility] Work Phone: Start: 04-06-2022 Vital signs measurements [facility] Work Phone: Start: 04-06-2022 Wound care [facility] Work Phone: Start: 04-06-2022 End: 04-06-2022 [facility] Work Phone: Patient Education ED Cellulitis [facility] Work Phone: Patient referral [facility] Work Phone: Immunizations Immunization Date Immunization Notes Care Provider Fa charlee 11-29-2021 Covid (Moderna) [facility] 07-18-2021 Covid ([facility] 11-01-2020 Covid (Moderna) [facility] 10-04-2020 [facility] ([facility] 05-18-2020 Influenza virus vaccine [facility] 05-11-2018 influenza, injectabl e, quadrivalent, preservative free [facility] 05-11-2018 influenza, seasonal, injectable [facility] 11-24-2017 tetanus toxoid, redu joy diphtheria toxoid, and acellular pertussis vaccine, adsorbed [facility] 07-23-2016 pneumococcal conjuga te vaccine, 13 valent [facility] 05-09-2016 influenza, injectabl e, quadrivalent, preservative free [facility] 05-09-2016 influenza, seasonal, injectable [facility] 05-09-2010 Pneumococcal Vaccine [facility] Work Phone: 05-09-2010 pneumococcal vaccine , unspecified formulation Dr. Foreign Herrmann Work Phone: [facility] Payers Date Payer Category Payer Self-pay [id number] 2023 Unknown [id number] 2014 Medicare [id number] 2014 Private Health Insurance [id number] Private Health Insurance [facility] [id number] Unknown [facility] [id number] Unknown [id number] Unknown [id number] Unknown [id number] Unknown [id number] Unknown [id number] Social History Date Type Detail Facility Start: 04-14-2021 End: 04-13-2022 Tobacco smoking status NCIS Unknown if ever smoked [facility] Start: 06-23-2013 None [facility] Start: 06-23-2013 Spouse/ Signif icant Other [facility] Start: 07-25-2020 Non-smoker [facility] Start: 1950 Sex Assigned At Male [facility] Start: 04-13-2022 Tobacco smoking status NCIS Never smoked tobacco (finding) [facility] Start: 10-12-2024 Sex Male (finding) [facility] Medical Equipment Procedure Code Equipment Code Equipment Origin al Text Equipment Identifier Dates Total cholecystectomy with exploration of common bile duct CLIP,SABAS KAY FDA Start: 04-20-2019 Total cholecystectomy with exploration of common bile duct CLIP,SABAS KAY FDA Start: 04-20-2019 Total cholecystectomy with exploration of common bile duct CLIP,SABAS KAY FDA Start: 04-20-2019 Total cholecystectomy with exploration of common bile duct CLIP,SABAS KAY FDA Start: 04-20-2019 Total cholecystectomy with exploration of common bile duct CLIP,SABAS KAY FDA Start: 04-20-2019 Total cholecystectomy with exploration of common bile duct CLIP,SABAS KAY FDA Start: 04-20-2019 Total cholecystectomy with exploration of common bile duct CLIP,SABAS KAY FDA Start: 04-20-2019 Total cholecystectomy with exploration of common bile duct CLIP,SABAS KAY FDA Start: 04-20-2019 Total cholecystectomy with exploration of common bile duct CLIP,SABAS KAY FDA Start: 04-20-2019 Total cholecystectomy with exploration of common bile duct CLIP,HEMOLOCK ANKUR WECK FDA Start: 04-20-2019 Total cholecystectomy with exploration of common bile duct CLIP,HEMOLOJR PASCUAL WECK FDA Start: 04-20-2019 Total cholecystectomy with exploration of common bile duct CLIP,HEMOLOJR PASCUAL WECK FDA Start: 04-20-2019 Total cholecystectomy with exploration of common bile duct CLIP,HEMOLOJR PASCUAL WECK FDA Start: 04-20-2019 Total cholecystectomy with exploration of common bile duct CLIP,HEMOLOJR PASCUAL WECK FDA Start: 04-20-2019 Total cholecystectomy with exploration of common bile duct CLIP,HEMOLOJR PASCUAL WECK FDA Start: 04-20-2019 Total cholecystectomy with exploration of common bile duct CLIP,HEMOLOJR PASCUAL WECK FDA Start: 04-20-2019 Total cholecystectomy with exploration of common bile duct CLIP,HEMOLOJR PASCUAL WECK FDA Start: 04-20-2019 Total cholecystectomy with exploration of common bile duct CLIP,HEMAMYJR ANKUR MARTITACK FDA Start: 04-20-2019 Total cholecystectomy with exploration of common bile duct CLIP,HEMOMER PASCUAL WECK FDA Start: 04-20-2019 Total cholecystectomy with exploration of common bile duct CLIP,HEMOLOCK ANKUR WECK FDA Start: 04-20-2019 Total cholecystectomy with exploration of common bile duct CLIP,HEMOLOJR PASCUAL WECK FDA Start: 04-20-2019 Total cholecystectomy with exploration of common bile duct CLIP,HEMOLOJR PASCUAL WECK FDA Start: 04-20-2019 Total cholecystectomy with exploration of common bile duct CLIP,HEMOMER PASCUAL WECK FDA Start: 04-20-2019 Total cholecystectomy with exploration of common bile duct CLIP,HEMOLOJR PASCUAL WECK FDA Start: 04-20-2019 Total cholecystectomy with exploration of common bile duct CLIP,HEMOLOJR PASCUAL WECK FDA Start: 04-20-2019 Total cholecystectomy with exploration of common bile duct CLIP,HEMOLOJR ANKUR WECK FDA Start: 04-20-2019 Total cholecystectomy with exploration of common bile duct CLIP,HEMOLOJR ANKUR WECK FDA Start: 04-20-2019 Total cholecystectomy with exploration of common bile duct CLIP,HEMOLOJR ANKUR WECK FDA Start: 04-20-2019 Total cholecystectomy with exploration of common bile duct CLIP,HEMOLOJR ANKUR WECK FDA Start: 04-20-2019 Total cholecystectomy with exploration of common bile duct CLIP,HEMAMYCK MED WECK FDA Start: 04-20-2019 asymmetric patella FDA Start: 08-05-2020 cruciate retaini ng femoral FDA Start: 08-05-2020 tibial bearing insert-cs FDA Start: 08-05-2020 tibial component FDA Start: 08-05-2020 asymmetric patella FDA Start: 08-05-2020 cruciate retaini ng femoral FDA Start: 08-05-2020 tibial bearing insert-cs FDA Start: 08-05-2020 tibial component FDA Start: 08-05-2020 asymmetric patella FDA Start: 08-05-2020 cruciate retaini ng femoral FDA Start: 08-05-2020 tibial bearing insert-cs FDA Start: 08-05-2020 tibial component FDA Start: 08-05-2020 ([id number]) Metal-backed patella prosthesis ()[id number] FDA Start: 04-06-2022 ([id number]) Coated knee femu r prosthesis ()[id number] FDA Start: 04-06-2022 ([id number]) Coated knee tibi a prosthesis ()[id number] FDA Start: 04-06-2022 ([id number]) Tibial insert [id number] FDA Start: 04-06-2022 asymmetric patella FDA Start: 08-05-2020 cruciate retaini ng femoral FDA Start: 08-05-2020 tibial bearing insert-cs FDA Start: 08-05-2020 tibial component FDA Start: 08-05-2020 asymmetric patella FDA Start: 08-05-2020 cruciate retaini ng femoral FDA Start: 08-05-2020 tibial bearing insert-cs FDA Start: 08-05-2020 tibial component FDA Start: 08-05-2020 asymmetric patella FDA Start: 08-05-2020 cruciate retaini ng femoral FDA Start: 08-05-2020 tibial bearing insert-cs FDA Start: 08-05-2020 tibial component FDA Start: 08-05-2020 asymmetric patella FDA Start: 08-05-2020 cruciate retaini ng femoral FDA Start: 08-05-2020 tibial bearing insert-cs FDA Start: 08-05-2020 tibial component FDA Start: 08-05-2020 asymmetric patella FDA Start: 08-05-2020 cruciate retaini ng femoral FDA Start: 08-05-2020 tibial bearing insert-cs FDA Start: 08-05-2020 tibial component FDA Start: 08-05-2020 asymmetric patella FDA Start: 08-05-2020 cruciate retaini ng femoral FDA Start: 08-05-2020 tibial bearing insert-cs FDA Start: 08-05-2020 tibial component FDA Start: 08-05-2020 asymmetric patella FDA Start: 08-05-2020 cruciate retaini ng femoral FDA Start: 08-05-2020 tibial bearing insert-cs FDA Start: 08-05-2020 tibial component FDA Start: 08-05-2020 Goals Date Patient Goal Desired Activity /State Functional Status Date Assessment Result Facility 04-07-2022 Functional status Chair [facility] Work Phone: Mental Status Date Assessment Result Facility 04-07-2022 Cognitive function Level Of Cons ciousness Awake;Alert;Appropriate;Follow s Commands [facility] Work Phone: 04-07-2022 Cognitive function Voice/Name [facility] Work Phone: Evaluation note Note Date & Type Note Facility Evaluation note No assessment information availa [facility] Work Phone: Hospital Discharge instructions Note Date & Type Note Facility Hospital Discharge instructions Additional Instructions Implant Used?: Yes CHATO [facility] Work Phone: Reason for referral (narrative) Note Date & Type Note Facility Reason for referral (narrative) No reason for referral information available [facility] Work Phone: Chief Complaint and Reason for Visit Chief Complaint RT SHOULDER INJURY Chief Complaint RT SHOULDER INJURY R SHOULDER INJURY.RX HERE LEFT KNEE ED PROTOCAL Chief Complaint RT SHOULDER INJURY R SHOULDER INJURY.RX HERE LEFT KNEE ED PROTOCAL LEFT KNEE ED PROTOCAL LT TOTAL KNEE W ED WOUND CHECK Chief Complaint RT SHOULDER INJURY R SHOULDER INJURY.RX HERE LEFT KNEE ED PROTOCAL LT TOTAL KNEE W ED Chief Complaint LT TOTAL KNEE W ED WOUND CHECK CELLULITIS OF LEG/FOOT Chief Complaint CELLULITIS OF LEG/FO OT Chief Complaint ADD XRAY OF BOTH HIP S Chief Complaint Admit Date FASTING August 21, 2024 9 :57am Family History Relationship Condition Age at Onset Recorded Date/T katharina mother Diabetes mellitus Unknown Hypertension Unknown father Cardiac disease Unknown Diabetes mellitus Unknown Disorder of thyroid Unknown Advance Directives Advance Directive Response Recorded Date/ Time Advance Directives No June 9:46am Living Will Yes April 14 6:26pm Power of Shot Core Drill Operator Helper Yes April 14, 2021 6:26pm Advance Directive Response Recorded Date/ Time Advance Directives No June 9:46am Living Will Yes March 23 2:26pm Power of Shot Core Drill Operator Helper Yes March 23 022 2:26pm Advance Directive Response Recorded Date/ Time Name of Medical Power of Shot Core Drill Operator Helper Kelly Shaw April 06, 2022 2:39pm Name of Medical Power of Shot Core Drill Operator Helper , KELLY April 13, 2022 12:11pm Advance Directives No June 9:46am Living Will Yes April 13 12:11pm Power of Shot Core Drill Operator Helper Yes April 13, 2022 12:11pm Advance Directive Response Recorded Date/ Time Name of Medical Power of Shot Core Drill Operator Helper Kelly Shaw April 06, 2022 2:39pm Advance Directives No June 9:46am Living Will Yes April 06 2:39pm Power of Shot Core Drill Operator Helper Yes April 06 2:39pm Advance Directive Response Recorded Date/ Time Name of Medical Power of Shot Core Drill Operator Helper Kelly Shaw April 06, 2022 1:39pm Name of Medical Power of Shot Core Drill Operator Helper , KELLY April 13, 2022 11:11am Advance Directives No June 8:46am Living Will Yes April 13 11:11am Power of Shot Core Drill Operator Helper Yes April 13, 2022 11:11am Advance Directive Response Recorded Date/ Time Advance Directives No June 8:46am Living Will Yes April 13 11:11am Power of Shot Core Drill Operator Helper Yes April 13, 2022 11:11am Advance Directive Response Recorded Date/ Time Advance Directives No June 8:46am Summary Purpose Additional Source Comments Goals (unrecognized section and content) Goals may be documented in a n alternate sectionGoals may be documented in an alternate sectionGoals may be documented in an alternate sectionGoals may be documented in an alternate sectionGoals may be documented in an alternate sectionGoals may be documented in an alternate section Care Teams (unrecognized sec tion and content) Team Status: Active Member Role Status Dates Dr. Foreign Herrmann MD Family Provider Active Dr. Foreign Herrmann MD Primary Care Provider Active Team Status: Inactive Member Role Status Dates Dr. Foreign Herrmann MD Primary Care Provi josef, Attending Provider, Referring Provider Active Team Status: Inactive Member Role Status Dates Dr. Foreign Herrmann MD Primary Care Provider, Attending Provider Active Team Status: Inactive Member Role Status Dates Dr. Foreign Herrmann MD Primary Care Provider Active Judith Yates , RETAIL MANAGEMENT KEYHOLDER-C Attending Provider, Referrin g Provider Active Team Status: Inactive Member Role Status Dates Dr. Foreign Herrmann MD Primary Care Provider Active Start: August 21, 2024 End: August 21, 2024 Dr. Foreign Herrmann MD Attending Provider Active Start: August 21, 2024 End: August 21, 2024 Dr. Foreign Herrmann MD Referring Provider Active Start: August 21, 2024 End: August 21, 2024 Team Status: Inactive Member Role Status Dates Dr. Foreign Herrmann MD Primary Care Provider Active Start: September 11, 2024 End: September 11, 2024 Dr. Luis Benito MD Attending Provider Active Start: September 11, 2024 End: September 11, 2024 Dr. Luis Benito MD Referring Provider Active Start: September 11, 2024 End: September 11, 2024 Team Status: Inactive Member Role Status Dates Dr. Foreign Herrmann MD Primary Care Provider Active Start: October 02, 2024 End: October 02, 2024 Dr. Foreign Herrmann MD Attending Provider Active Start: October 02, 2024 End: October 02, 2024 Dr. Foreign Herrmann MD Referring Provider Active Start: October 02, 2024 End: October 02, 2024 (unrecognized sect ion and content) No Status Records Found INFORMATION SOURCE (unrecogn ized section and content) DATE CREATED AUTHOR 10/14/[address] [facility] FOR RECORDS PERTAINING TO PATIENTS WHO ARE OR HAVE BEEN ENROLLED IN A CHEMICAL DEPENDENCY/SUBSTANCEABUSE PROGRAM, SOME INFORMATION MAY BE OMITTED. This clinical summary was aggregated from multiple sources. Caution should be exercised in using it in the provision of clinical care. This summary normalizes information from multiple sources, and as a consequence, information in this document may materially change the coding, format and clinical context of patient data. In addition, data may be omitted in some cases. CLINICAL DECISIONS SHOULD BE BASED ON THE PRIMARY CLINICAL RECORDS. [employer] [facility]. provides no warranty or guarantee of the accuracy or completeness of information in this document.
== END | disposition home or self-care (01) ==
LOC: MFPLAB 09:49
PROVIDERS: PCP Family Medicine; Referring Provider Family Medicine; Visit Provider Family Medicine
DX: I10 Essential (primary) hypertension (principal); E03.9 Hypothyroidism, unspecified
CPT/HCPCS: 36415; 80053; 80061; 84439; 84443; 84481